=== PATIENT | female | born 1940 | race Hispanic/Latino ===

== ENCOUNTER 2016-05-23 11:07 | Day surgery (SDC) | payer MEDICARE ==
[~2016-05-23 11:07] MED LIST: ANCEF/STERILE WATER 2 GM/20 ML 20 ML IV SCH; HEPARIN SUB-Q NR; ceFAZolin 2 GM in NACL 0.9% 100 ML IV ONE
--- NOTE | 2016-05-23 12:06 | Anesthesia Consultation ---
Anesthesia Consult and Med Hx Date of service: 05/23/16 (Scheduled for diagnostic laparoscopy , poss SHAWNA with Dr. Boland) - Airway Anesthetic Teeth Evaluation: Partials (upper and lower) ROM Head & Neck: Adequate Mental/Hyoid Distance: Adequate Mallampati Class: Class II Intubation Access Assessment: Probably Good - Pulmonary Exam CTA: Yes - Cardiac Exam Cardiac Exam: RRR - Pre-Operative Health Status ASA Pre-Surgery Classification: ASA2 Proposed Anesthetic Plan: General - Pre-Anesthesia Comment Pre-Anesthesia Comments: No previous anesthesia complications. NPO since midnight. *Latex allergy- causes rash. - Pulmonary Hx Smoking: No Hx Asthma: No Hx Sleep Apnea: No - Cardiovascular System Hx Hypertension: No Hx Heart Murmur: Yes - Central Nervous System Hx Seizures: No Hx Psychiatric Problems: Yes - Gastrointestinal Hx Gastroesophageal Reflux Disease: Yes (no symtoms today) - Endocrine Hx Renal Disease: No Hx Insulin Dependent Diabetes: No Hx Hypothyroidism: Yes (Takes Synthroid) - Hematic Hx Anemia: Yes (IN THE PAST) - Other Systems Hx Cancer: No Hx Obesity: No
[2016-05-23 12:35] LABS: Basophils % (Auto) 0.1 % (0.0-1.8); Hematocrit 42.2 % (30.3-42.9); Hemoglobin 14.4 gm/dl (10.1-14.3); Mean Corpuscular HGB Conc 34 % (30-34); Mean Corpuscular Hemoglobin 32 pg (28-32); Mean Corpuscular Volume 94 fl (79-97); Red Blood Count 4.46 M/mm3 (3.65-5.03); Red Cell Distribution Width 13.4 % (13.2-15.2); White Blood Count 5.3 K/mm3 (4.5-11.0)
[2016-05-23] MEDS ORDERED: DIPRIVAN 10 MG/ML IV ONE (12:47)
[2016-05-23] MEDS ORDERED: SUBLIMAZE ONE (12:47)
[2016-05-23] MEDS ORDERED: XYLOCAINE MPF 2% ONE (12:48)
[2016-05-23] MEDS ORDERED: ZEMURON IV ONE (12:48)
[2016-05-23] MEDS ORDERED: LACTATED RINGERS 1,000 ML IV SCH (13:00)
[2016-05-23] MEDS ORDERED: PEPCID PO NR (13:00)
[2016-05-23] MEDS ORDERED: BENADRYL PO NR (13:00)
[2016-05-23] MEDS ORDERED: DILAUDID IV PRN (13:04)
--- NOTE | 2016-05-23 13:26 | Anesthesia Day of Surgery ---
Anesthesia Day of Surgery - Day of Surgery Patient Examined: Yes Patient H&P Reviewed: Yes Patient is NPO: Yes
[2016-05-23 13:29] LABS: Platelet Count 144 K/mm3 (140-440)
[2016-05-23] MEDS ORDERED: DECADRON ONE (13:51)
[2016-05-23] MEDS ORDERED: ePHEDrine SULFATE ONE (13:57)
[2016-05-23] MEDS ORDERED: ZOFRAN ONE (14:33)
[2016-05-23] MEDS ORDERED: DILAUDID ONE (14:35)
[2016-05-23] MEDS ORDERED: NACL 0.9% IR ONE ×2 (15:00→15:05)
[2016-05-23] MEDS ORDERED: MARCAINE-EPI 0.25%-1:200,000 INFILTRATI ONE (15:05)
[2016-05-23] MEDS ORDERED: TORADOL ONE (15:12)
[2016-05-23] MEDS ORDERED: ROBINUL ONE ×2 (15:15)
[2016-05-23] MEDS ORDERED: BLOXIVERZ ONE (15:15)
--- NOTE | 2016-05-23 15:24 | Short Stay Summary ---
Short Stay Documentation Date of service: 05/23/16 - History H&P: obtained from office - Allergies and Medications Current Medications: Allergies adhesive Allergy (Verified 11/18/15 10:24) Rash aspirin Allergy (Verified 11/18/15 10:24) Bleeding codeine Allergy (Verified 11/18/15 10:24) Hives latex Allergy (Verified 11/18/15 10:24) Rash metoclopramide HCl [From Reglan] Allergy (Verified 11/18/15 10:24) Itching morphine Allergy (Verified 11/18/15 10:24) Rash Sulfa (Sulfonamide Antibiotics) Allergy (Verified 11/18/15 10:24) Rash Home Medications Medication Instructions Recorded Confirmed Last Taken Type Buspirone HCl 15 mg PO QDAY 06/11/13 05/23/16 05/22/16 History Estrogens, Conjugated [Premarin] 0.625 mg PO QDAY 06/11/13 05/23/16 05/22/16 History Levothyroxine [Synthroid] 25 mcg PO QAM 06/11/13 05/23/16 05/23/16 History traZODone [Desyrel] 200 mg PO QPM 06/11/13 05/23/16 05/22/16 History Promethazine [Phenergan TAB] 25 mg PO Q6H PRN #10 tablet 06/12/13 05/23/1605/22 Rx LORazepam [Ativan] 1 mg PO PRN 09/16/14 05/23/16 05/22/16 History Buspirone HCl [busPIRone] 30 mg PO QHS 05/19/16 05/23/16 05/22/16 History Active Medications Diphenhydramine HCl (Benadryl) 50 mg PO ONCE NR Stop: 05/23/16 23:59 Last Admin: 05/23/16 13:05 Dose: 50 mg Famotidine (Pepcid) 20 mg PO PREOP NR Stop: 05/23/16 23:59 Last Admin: 05/23/16 13:08 Dose: 20 mg Heparin Sodium (Porcine) (Heparin) 5,000 unit SUB-Q PREOP NR Stop: 05/23/16 23:59 Hydromorphone HCl (Dilaudid) 0.5 mg IV Q10MIN PRN PRN Reason: Pain , Severe (7-10) Stop: 05/23/16 23:05 Cefazolin Sodium (Ancef/Sterile Water 2 Gm/20 Ml) 20 mls @ 80 mls/hr IV PREOP AMANDA Stop: 05/23/16 23:59 Lactated Ringer's (Lactated Ringers) 1,000 mls @ 42 mls/hr IV DIRECT AMANDA Last Admin: 05/23/16 12:50 Dose: 42 mls/hr - Brief post op/procedure progress note Date of procedure: 05/23/16 Pre-op diagnosis: LLQ abdominal pain Post-op diagnosis: same Procedure: Lap lysis of adhesions Anesthesia: GETA, local 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: 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 Cracking Unit: DAGO GARCIA Estimated blood loss: minimal Pathology: none Condition: stable - Disposition Condition at discharge: Good Disposition: DISCHARGED TO HOME OR SELFCARE Short Stay Discharge Plan Activity: no restrictions Diet: regular (Stay on soft liquidy foods until feeling back to normal) Wound: remove dressing (05/25/16 and then may shower) Follow up with: YONATHAN FONG MD [Primary Care Provider] - 7 Days VICKEY SOMERS MD [Staff Physician] - 7 Days Prescriptions: Ketorolac [Toradol] 10 mg PO Q6H PRN #20 tablet PRN Reason: Pain oxyCODONE /ACETAMINOPHEN [Percocet 5/325] 1 - 2 tab PO Q4HR PRN #30 tab PRN Reason: Pain
--- NOTE | 2016-05-23 15:45 | Admit Criteria Form ---
Admission Criteria Documentation: ABDOMINAL PAIN Clinical Indications for Admission to Inpatient Care (Place 'X' for any and all applicable criteria): Admission is indicated for ANY ONE of the following(1)(2)(3)(4)(5): [ ]I. Inpatient admission required rather than observation care (Also use Abdominal Pain: Observation Care, as appropriate) because of ANY ONE of the following: [ ]a) Severe pain requiring acute inpatient management [ ]b) Identification of etiology/finding that requires inpatient care (eg, aortic dissection, free air) [ ]c) Absent bowel sounds with complete ileus(6) [ ]d) Suspected toxic megacolon [ ]e) Severe electrolyte abnormalities requiring inpatient care [ ]f) High fever or infection requiring inpatient admission as indicated by ANY ONE of following(7)(8): [ ] i) Appropriate outpatient or observational care antimicrobial treatment unavailable, not effective, or not feasible [ ] ii) Documented bacteremia [ ] iii) Temperature > 104.9 degrees F (oral) [ ] iv) T >103.1 F (oral) or < 96.8 F(rectal) that does not respond to all emergency treatment measures [ ]g) Signs of intestinal obstruction [B] [ ]h) Hemodynamic instability [ ]i) IV fluid to replace significant ongoing losses (greater than 3 L/m2 per day) (12)(13) [ ]j) Percutaneous or open drainage (eg, abscess, biliary tract ) procedures [ ]k) Parenteral nutrition regimen that must be implemented on inpatient basis [ ]l) Other condition,treatment or monitoring requiring inpatient admission. [ ]II. Peritoneal signs present [ ]III. Surgery needed that cannot be performed on an ambulatory basis. [ ]IV. Evaluation requires patient to not eat or drink for extended period ( eg, more than 24 hours). [ ]V. Contraindications and/or Inappropriate clinical situations for Observational Care in patients with abdominal pain, when ANY ONE of the following is required: [ ]a) Thorough evaluation is required to prevent catastrophic events due to delays in diagnosing (e.g.Mesenteric ischemia) 1,3 [ ]b) Patient with severe pathology or with chronic symptoms unlikely to improve in the ED stay (3) [ ]. General contraindications and/or Inappropriate clinical situations for Observational Care in patients with abdominal pain, when ANY ONE of the following is required: [ ]a) Prediction of prolongation of LOS based on ANY ONE of the following may be considered as a contraindication for observational care 2, 3, 4, 5, 6, 7, 8, 9, 10, 11 [ ]i) Age > 65 yrs. [ ]ii) Patient arriving by ambulance [ ]iii) Patient with high acuity [ ]iv) Patient requiring vital sign monitoring [ ]v) Patient on IV medication [ ]b) Systolic blood pressures 180mmHg 3,12 [ ]c) Patient with altered mental status including delirium and other alteration of consciousness, (3) [ ]d) Patient whose discharge disposition will be to a [facility] home or rehabilitation home should not be managed in Emergency Department Observation Unit. CMS rule requires 3 days hospital stay before such placement.3,13 [ ]e) Patient with failure to thrive due to broad array of etiologies 3,16,17 [ ]f) Inability to ambulate 3,14 Extended stay beyond goal length of stay may be needed for(2)(3): [ ]a) Persistent abdominal pain with suspected intra-abdominal process [ ]b) Diagnosed condition requiring continued stay (e.g., pancreatitis, complicated diverticulitis) [ ]c) Surgery (e.g., colectomy) The original [facility] content created by [facility] has been revised. The portions of the content which have been revised are identified through the use of italic text or in bold, and [facility] has neither reviewed nor approved the modified material.All other unmodified content is copyright [facility]. Please see references footnoted in the original [facility] edition 2016
--- NOTE | 2016-05-23 16:27 | Operative Report ---
PREOPERATIVE DIAGNOSIS: Left lower quadrant abdominal pain. POSTOPERATIVE DIAGNOSIS: Left lower quadrant abdominal pain. PROCEDURE: Laparoscopic lysis of adhesions. SURGEON: Jeyson Collado MD LEARNING TECHNOLOGIST: Dr. Hawkins. ANESTHESIA: General and local. ESTIMATED BLOOD LOSS: Minimal. SPECIMEN: None. IMPLANTS: None. DRAINS: None. COMPLICATIONS: None. INDICATIONS: This is a 76-year-old female who has left lower quadrant abdominal pain, which is felt to be due to adhesions, sent now for laparoscopic exploration with lysis of adhesions. OPERATIVE COURSE: The patient was brought to the operating room, identified, and placed in the supine position. General anesthesia was achieved. Her abdomen was prepped and draped in usual manner. Prior to all incisions, the area was injected with 0.25% Marcaine. A right lateral 5-mm incision was made using Veress needle technique. The abdomen was insufflated to 15 mmHg pressure. A 5 mm trocar was inserted using a 30-degree 5-mm telescope. The other trocars were placed under direct vision, which included a right lower quadrant and a right upper quadrant 5 port. The abdomen was explored. She had some adhesions to the left of the upper midline scar and then the rest adhesions were all down the left lower quadrant pelvis, one little adhesion was to the far right upper quadrant by the liver edge. We took down the adhesions to the midline left-sided adhesion with pure sharp dissection. All the adhesions ____, fused to the abdominal wall. There was no omentum to be seen. These adhesions were all taken down with almost no cautery whatsoever. Great care was taken not to injure the bowels themselves. Once we had all the adhesions completely down and freed up, we had a completely freed pelvis and ____ into the bowels. We allowed the bowels return to the normal anatomic position. There was no blood to evacuate, no fluid to evacuate. We therefore then removed the ports under direct vision. No signs of bleeding from the port sites. We have evacuated the CO2. JOB# [id number] PALMAM/NTS
[2016-05-23] MEDS ORDERED: PERCOCET 5/325 PO PRN (16:37)
[2016-05-23 16:53] VITALS: BP 154/63
== END 2016-05-23 17:09 | disposition home or self-care (01) ==
LOC: OR 11:07
PROVIDERS: ATTEND Surgery
DX: N73.6 Female pelvic peritoneal adhesions (postinfective) (principal); E03.9 Hypothyroidism, unspecified; K21.9 Gastro-esophageal reflux disease without esophagitis; M19.90 Unspecified osteoarthritis, unspecified site; D64.9 Anemia, unspecified; F41.9 Anxiety disorder, unspecified; F32.9 Major depressive disorder, single episode, unspecified; Z98.890 Other specified postprocedural states; Z90.710 Acquired absence of both cervix and uterus
CPT/HCPCS: 36415; 49329; 85025; 86850; 86900; 86901; J0690; J1100; J1170; J1644; J1885; J2405; J2704; J2710; J3010; J7120

== ENCOUNTER 2016-05-23 18:50 | Emergency (ER) | payer MEDICARE ==
--- NOTE | 2016-05-23 19:24 | Emergency Department Report ---
Chief Complaint: Wound/Laceration Stated Complaint: BLEEDING FROM INCISION SITE Time Seen by Provider: 05/23/16 19:17 - HPI History of Present Illness: 76 y/o female had endoscopic surgery of the right lower abdomen to remove that adhesive .pt state that she went home today and notice bleeding from the site.the surgery was performed by today .bleeding noted from two puncture site .control with band aid.pt complain of dizziness . - ROS Review of Systems: per HPI - Exam Vital Signs: Vital Signs 05/23/16 19:09 Temperature 97.8 F Pulse Rate 98 H Respiratory 20 Rate Blood Pressure 150/84 O2 Sat by Pulse 100 Oximetry Physical Exam: GENERAL: The patient is well-developed and well-nourished. Patient is in NAD. HENT: Normocephalic. Atraumatic. Patient has moist mucous membranes. Throat: No erythema, swelling or exudates. EYES: Extraocular motions are intact, PERRL NECK: Supple. No meningitic signs are noted. There is no adenopathy noted. CHEST/LUNGS: Clear to auscultation bilaterally. No wheezing, rales or rhonchi noted. There is no respiratory distress noted. HEART/CARDIOVASCULAR: Regular rate and rhythm. Normal S1 S2. No murmurs, rubs , clicks, or gallops. ABDOMEN: Abdomen is soft, nontender.. Bowel sounds normoactive. There is no abdominal distention. Negative rebound tenderness. SKIN: small wound noted to the abdomen . There is no edema. There is no diaphoresis. NEURO: The patient is A&Ox3. The patient has no focal neurologic deficits. MUSCULOSKELETAL: There is no tenderness or deformity. There is no limitation range of motion. PSYCH: Pt has appropriate mood and affect. MSE screening note: Focused history and physical exam performed. Due to findings the following was ordered: ED Disposition for MSE Condition: Stable
[2016-05-23 19:49] LABS: Hematocrit 39.3 % (30.3-42.9); Hemoglobin 13.4 gm/dl (10.1-14.3); Mean Corpuscular HGB Conc 34 % (30-34); Mean Corpuscular Hemoglobin 32 pg (28-32); Mean Corpuscular Volume 95 fl (79-97); Platelet Count 166 K/mm3 (140-440); Red Blood Count 4.15 M/mm3 (3.65-5.03); Red Cell Distribution Width 13.2 % (13.2-15.2); White Blood Count 10.1 K/mm3 (4.5-11.0)
[2016-05-23 20:08] LABS: Anion Gap 24 mmol/L; BUN/Creatinine Ratio 23.75; Blood Urea Nitrogen 19 mg/dL (7-17); Calcium 8.7 mg/dL (8.4-10.2); Carbon Dioxide 21 mmol/L (22-30); Chloride 96.1 mmol/L (98-107); Glucose 246 mg/dL (65-100); Potassium 4.7 mmol/L (3.6-5.0); Sodium 136 mmol/L (137-145)
[2016-05-23 20:33] LABS: Basophils % (Manual) 0 % (0.0-1.8); Blastocytes % (Manual) 0 %; Eosinophils % (Manual) 0 % (0.0-4.3); Total Cells Counted Percent 0
[2016-05-23 20:34] LABS: Anisocytosis 1+; Diff Status Complete; Platelet Estimate Consistent w Auto
--- NOTE | 2016-05-23 21:54 | Emergency Department Report ---
[id number] BLEEDING FROM INCISION SITE Time Seen by Provider: 05/23/16 20:26 Source: patient, family, RN notes reviewed, old records reviewed Mode of arrival: Ambulatory Limitations: No Limitations - History of Present Illness Initial comments: This is a 76-year-old female, whom I have evaluated in the past. Earlier on today, she had laparoscopic lysis of adhesions, performed by Drs. Jeyson Collado, and Dr. Hawkins general surgery. The patient presents to the ER with mild bleeding from a right lateral 5 mm incision. The bleeding is painless. No fevers or chills. No chest pain or shortness of breath. No vomiting or diaphoresis. The bleeding is minimal, and decreases with direct palpation of the area. No other complaints. -: Gradual Radiation: abdomen Consistency: constant Improves with: other (pressure) Worsens with: none Associated Symptoms: denies: confusion, chest pain, cough, diaphoresis, fever/ chills, headaches, loss of appetite, malaise, nausea/vomiting, rash, seizure, shortness of breath, syncope, weakness - Related Data Home Medications Medication Instructions Recorded Confirmed Last Taken Buspirone HCl 15 mg PO QDAY 06/11/13 05/23/16 05/22/16 Estrogens, Conjugated [Premarin] 0.625 mg PO QDAY 06/11/13 05/23/16 05/22/16 Levothyroxine [Synthroid] 25 mcg PO QAM 06/11/13 05/23/16 05/23/16 traZODone [Desyrel] 200 mg PO QPM 06/11/13 05/23/16 05/22/16 LORazepam [Ativan] 1 mg PO PRN 09/16/14 05/23/16 05/22/16 Buspirone HCl [busPIRone] 30 mg PO QHS 05/19/16 05/23/16 05/22/16 Previous Rx's Medication Instructions Recorded Last Taken Type Ketorolac [Toradol] 10 mg PO Q6H PRN #20 tablet 05/23/16 Unknown Rx Promethazine [Phenergan TAB] 25 mg PO Q6H PRN #10 tablet 05/23/16 05/22/16 Rx oxyCODONE /ACETAMINOPHEN [Percocet 1 - 2 tab PO Q4HR PRN #30 tab 05/23/16 Unknown Rx 5/325] Allergies Allergy/AdvReac Type Severity Reaction Status Date / Time adhesive Allergy Rash Verified 11/18/15 10:24 aspirin Allergy Bleeding Verified 11/18/15 10:24 codeine Allergy Hives Verified 11/18/15 10:24 latex Allergy Rash Verified 11/18/15 10:24 metoclopramide HCl Allergy Itching Verified 11/18/15 10:24 [From Reglan] morphine Allergy Rash Verified 11/18/15 10:24 Sulfa (Sulfonamide Allergy Rash Verified 11/18/15 10:24 Antibiotics) ED Review of Systems ROS: Stated complaint: BLEEDING FROM INCISION SITE Other details as noted in HPI Constitutional: denies: malaise Eyes: denies: vision change ENT: denies: epistaxis Respiratory: denies: cough Cardiovascular: denies: chest pain Gastrointestinal: as per HPI Genitourinary: as per HPI Musculoskeletal: as per HPI Skin: lesions Hematological/Lymphatic: easy bleeding ED Past Medical Hx - Past Medical History Previous Medical History?: Yes Hx Hypertension: No Hx GERD: Yes Hx Renal Disease: No Hx Arthritis: Yes Hx Seizures: No Hx Asthma: No Hx HIV: No Additional medical history: MVP - Surgical History Past Surgical History?: Yes Hx Cholecystectomy: Yes Hx Appendectomy: Yes - Social History Smoking Status: Never Smoker Substance Use Type: None - Medications Home Medications: Home Medications Medication Instructions Recorded Confirmed Last Taken Type Buspirone HCl 15 mg PO QDAY 06/11/13 05/23/16 05/22/16 History Estrogens, Conjugated [Premarin] 0.625 mg PO QDAY 06/11/13 05/23/16 05/22/16 History Levothyroxine [Synthroid] 25 mcg PO QAM 06/11/13 05/23/16 05/23/16 History traZODone [Desyrel] 200 mg PO QPM 06/11/13 05/23/16 05/22/16 History LORazepam [Ativan] 1 mg PO PRN 09/16/14 05/23/16 05/22/16 History Buspirone HCl [busPIRone] 30 mg PO QHS 05/19/16 05/23/16 05/22/16 History Ketorolac [Toradol] 10 mg PO Q6H PRN #20 tablet 05/23/16 Unknown Rx Promethazine [Phenergan TAB] 25 mg PO Q6H PRN #10 tablet 05/23/16 05/23/1605/22 Rx oxyCODONE /ACETAMINOPHEN [Percocet 1 - 2 tab PO Q4HR PRN #30 tab 05/23/16 Unknown Rx 5/325] ED Physical Exam - General Limitations: No Limitations General appearance: alert, in no apparent distress - Head Head exam: Present: atraumatic, normocephalic - Eye Eye exam: Present: normal appearance, EOMI. Absent: nystagmus - ENT ENT exam: Present: normal exam, normal orophraynx, mucous membranes moist - Neck Neck exam: Present: normal inspection, full ROM. Absent: tenderness, meningismus - Respiratory Respiratory exam: Present: normal lung sounds bilaterally. Absent: respiratory distress, wheezes, rales, rhonchi, stridor, chest wall tenderness, accessory muscle use - Cardiovascular Cardiovascular Exam: Present: regular rate, normal rhythm, normal heart sounds. Absent: bradycardia, tachycardia, irregular rhythm, systolic murmur, diastolic murmur, rubs, gallop - GI/Abdominal GI/Abdominal exam: Present: soft, normal bowel sounds, other (there is appropriate postprocedural tenderness. There is no rebound, guarding or peritoneal signs. There are numerous surgical sites which are bandaged up, not actively bleeding. In the right mid abdomen, there is a 5 mm lateral incision, which is bleeding minimally, and was decreased with direct pressure.). Absent: distended, guarding, rebound, rigid, pulsatile mass - Extremities Exam Extremities exam: Present: normal inspection, full ROM, normal capillary refill. Absent: tenderness, pedal edema, joint swelling, calf tenderness - Back Exam Back exam: Present: normal inspection, full ROM. Absent: tenderness, CVA tenderness (R), CVA tenderness (L), muscle spasm, paraspinal tenderness, vertebral tenderness - Neurological Exam Neurological exam: Present: alert, oriented X3, other (Extraocular movements intact. Tongue midline. No facial droop. Facial sensation intact to light touch in the V1, V2, V3 distribution bilaterally. 5 and 5 strength in 4 extremities.. Sensation is intact to light touch in 4 extremities.). Absent: motor sensory deficit - Psychiatric Psychiatric exam: Present: normal affect, normal mood - Skin Skin exam: Present: warm, dry, intact, normal color. Absent: rash ED Course Vital Signs 05/23/16 05/23/16 05/23/16 19:09 20:32 20:50 Temperature 97.8 F Pulse Rate 98 H 93 H 94 H Respiratory 20 16 16 Rate Blood Pressure 150/84 Blood Pressure 137/94 136/92 [Left] O2 Sat by Pulse 100 95 95 Oximetry 05/23/16 22:36 Temperature Pulse Rate 74 Respiratory 16 Rate Blood Pressure Blood Pressure 145/73 [Left] O2 Sat by Pulse 95 Oximetry - Reevaluation(s) Reevaluation #1: 05/23/16 21:51 Differential diagnosis: Postoperative bleeding, postoperative complication Assessment and plan: 76-year-old female status post mild episode of postoperative bleeding externally and superficially. She is afebrile with reassuring vital signs. Her abdomen is soft and benign. No rebound, guarding or peritoneal signs. I have discussed her care with the general surgeon covering for the patient's private general surgeon, Dr. Omalley. He does not recommend suturing the wound, as he states it'll increase the probability of infection. He recommends application of Surgicel, and a pressure dressing. This was performed. Patient will be instructed to keep the bandage in place, and to follow-up with her general surgeon within the next 24-48 hours. Return precautions were extensively reviewed. 05/23/16 21:55 ED Medical Decision Making - Lab Data Result diagrams: 05/23/16 19:38 05/23/16 19:38 Vital Signs 05/23/16 05/23/16 05/23/16 19:09 20:32 20:50 Temperature 97.8 F Pulse Rate 98 H 93 H 94 H Respiratory 20 16 16 Rate Blood Pressure 150/84 Blood Pressure 137/94 136/92 [Left] O2 Sat by Pulse 100 95 95 Oximetry Lab Results 05/23/16 05/23/16 Range/Units 19:38 19:38 WBC 10.1 (4.5-11.0) K/mm3 RBC 4.15 (3.65-5.03) M/mm3 Hgb 13.4 (10.1-14.3) gm/dl Hct 39.3 (30.3-42.9) % MCV 95 (79-97) fl MCH 32 (28-32) pg MCHC 34 (30-34) % RDW 13.2 (13.2-15.2) % Plt Count 166 (140-440) K/mm3 Add Manual Diff Complete Total Counted 100 Seg Neutrophils % Escort Blind Seg Neuts % (Manual) 95.0 H (40.0-70.0) % Band Neutrophils % 0 % Lymphocytes % (Manual) 5.0 L (13.4-35.0) % Reactive Lymphs % (Man) 0 % Monocytes % (Manual) 0 (0.0-7.3) % Eosinophils % (Manual) 0 (0.0-4.3) % Basophils % (Manual) 0 (0.0-1.8) % Metamyelocytes % 0 % Myelocytes % 0 % Promyelocytes % 0 % Blast Cells % 0 % Nucleated RBC % Not Reportable Seg Neutrophils # Man 9.6 H (1.8-7.7) K/mm3 Band Neutrophils # 0.0 K/mm3 Lymphocytes # (Manual) 0.5 L (1.2-5.4) K/mm3 Abs React Lymphs (Man) 0.0 K/mm3 Monocytes # (Manual) 0.0 (0.0-0.8) K/mm3 Eosinophils # (Manual) 0.0 (0.0-0.4) K/mm3 Basophils # (Manual) 0.0 (0.0-0.1) K/mm3 Metamyelocytes # 0.0 K/mm3 Myelocytes # 0.0 K/mm3 Promyelocytes # 0.0 K/mm3 Blast Cells # 0.0 K/mm3 WBC Morphology Not Reportable Hypersegmented Neuts Not Reportable Hyposegmented Neuts Not Reportable Hypogranular Neuts Not Reportable Smudge Cells Not Reportable Toxic Granulation Not Reportable Toxic Vacuolation Not Reportable Dohle Bodies Not Reportable Pelger-Huet Anomaly Not Reportable Rai Rods Not Reportable Platelet Estimate Consistent w auto Clumped Platelets Not Reportable Plt Clumps, EDTA Not Reportable Large Platelets Not Reportable Giant Platelets Not Reportable Platelet Satelliting Not Reportable Plt Morphology Comment Not Reportable RBC Morphology Not Reportable Dimorphic RBCs Not Reportable Polychromasia Not Reportable Hypochromasia Not Reportable Poikilocytosis Not Reportable Anisocytosis 1+ Microcytosis Not Reportable Macrocytosis Not Reportable Spherocytes Not Reportable Pappenheimer Bodies Not Reportable Sickle Cells Not Reportable Target Cells Not Reportable Tear Drop Cells Not Reportable Ovalocytes Not Reportable Helmet Cells Not Reportable [place] Bodies Not Reportable [place] Rings Not Reportable [place] Cells Not Reportable Bite Cells Not Reportable Crenated Cell Not Reportable Elliptocytes Not Reportable Acanthocytes (Spur) Not Reportable Rouleaux Not Reportable Hemoglobin C Crystals Not Reportable Schistocytes Not Reportable Malaria parasites Not Reportable [place] Bodies Not Reportable Hem Pathologist Commnt No Sodium 136 L (137-145) mmol/L Potassium 4.7 (3.6-5.0) mmol/L Chloride 96.1 L (98-107) mmol/L Carbon Dioxide 21 L (22-30) mmol/L Anion Gap 24 mmol/L BUN 19 H (7-17) mg/dL Creatinine 0.8 (0.7-1.2) mg/dL Estimated GFR > 60 ml/min BUN/Creatinine Ratio 23.75 % Glucose 246 H (65-100) mg/dL Calcium 8.7 (8.4-10.2) mg/dL Critical care attestation.: If time is entered above; I have spent that time in minutes in the direct care of this critically ill patient, excluding procedure time. ED Disposition Clinical Impression: Postoperative bleeding from incision Disposition: DISCHARGED TO HOME OR SELFCARE Is pt being admited?: No Does the pt Need Aspirin: No Condition: Stable Instructions: Postoperative Bleeding (ED) Additional Instructions: Continue current outpatient medications. Keep the pressure bandage in place. Follow up with her general surgeon within the next 1-2 days. If bleeding resumes, apply direct pressure with a fingertip. If this does not improve bleeding, return to the ER right away. Return to the ER right away fevers or chills, chest pain or shortness of breath, nausea, vomiting or diarrhea. Referrals: PRIMARY CARE, [Primary Care Provider] - 3-5 Days DAGO HAWKINS MD [Staff Physician] - 3-5 Days
[2016-05-23 22:37] VITALS: BP 145/73
== END 2016-05-23 22:40 | disposition home or self-care (01) ==
LOC: ED 18:50
DX: L76.22 Postprocedural hemorrhage of skin and subcutaneous tissue following other procedure (principal); K21.9 Gastro-esophageal reflux disease without esophagitis; Z90.49 Acquired absence of other specified parts of digestive tract
CPT/HCPCS: 36415; 80048; 85007; 85025

== ENCOUNTER 2017-05-09 08:30 | Outpatient (CLI) | payer MEDICARE ==
--- NOTE | 2017-05-09 09:47 | Mammography Report ---
BILATERAL MAMMOGRAM: FINDINGS: There are scattered fibroglandular densities (approximately 25%-50% glandular). No mass, distortion, suspicious calcification, or skin change is seen. No significant change when compared to prior examination in June 2015. CAD was utilized. IMPRESSION: Negative mammogram. There is no mammographic evidence of malignancy. RECOMMENDATION: Follow-up per ACS guidelines. BI-RADS CATEGORY: 1 = Negative ACR BI-RADS MAMMOGRAPHIC CODES: 0 = Needs additional imaging evaluation; 1 = Negative; 2 = Benign; 3 = Probably benign; 4 = Suspicious; 5 = Malignant; 6 = Known biopsy-proven malignancy COMMENT: 1. Dense breast tissue, i.e., adenosis, fibrocystic changes, etc., may obscure an underlying neoplasm. 2. Approximately 10% of cancers are not detected with mammography. 3. A negative mammography report should not delay biopsy if a clinically suspicious mass is present. COMMENT: Patient follow-up letters are generated in [employer].
== END 2017-05-09 08:31 | disposition home or self-care (01) ==
LOC: MAMMO 08:30
PROVIDERS: ATTEND Obstetrics & Gynecology
DX: Z12.31 Encounter for screening mammogram for malignant neoplasm of breast (principal); E03.9 Hypothyroidism, unspecified; K21.9 Gastro-esophageal reflux disease without esophagitis; F32.9 Major depressive disorder, single episode, unspecified
CPT/HCPCS: 77067

== ENCOUNTER 2017-10-12 23:23 | Observation (INO) | payer MEDICARE ==
[2017-10-12] MEDS ORDERED: ASPIRIN PO ONE (23:56)
[2017-10-13 00:32] LABS: Basophils % (Auto) 0.2 % (0.0-1.8); Hematocrit 41.9 % (30.3-42.9); Hemoglobin 14.1 gm/dl (10.1-14.3); Lymphocytes # (Auto) 2.1 K/mm3 (1.2-5.4); Lymphocytes % (Auto) 37.7 % (13.4-35.0); Mean Corpuscular HGB Conc 34 % (30-34); Mean Corpuscular Hemoglobin 32 pg (28-32); Mean Corpuscular Volume 95 fl (79-97); Monocytes # (Auto) 0.5 K/mm3 (0.0-0.8); Monocytes % (Auto) 9.3 % (0.0-7.3); Platelet Count 197 K/mm3 (140-440); Red Blood Count 4.43 M/mm3 (3.65-5.03); Red Cell Distribution Width 13.3 % (13.2-15.2)
[2017-10-13 00:48] LABS: BUN/Creatinine Ratio 22; Blood Urea Nitrogen 13 mg/dL (7-17); Calcium 10.2 mg/dL (8.4-10.2); Hemolysis Index 10
[2017-10-13] MEDS ORDERED: NORCO 5/325 PO ONE (02:36)
--- NOTE | 2017-10-13 02:48 | Emergency Department Report ---
ED Chest Pain HPI - General Chief Complaint: Chest Pain Stated Complaint: CHEST PAIN Time Seen by Provider: 10/13/17 02:29 Source: patient Mode of arrival: Ambulatory Limitations: Physical Limitation - History of Present Illness Initial Comments: 77-year-old female presents to the emergency department with complaint of some lower midsternal chest pain without radiation, a generalized headache, and some shortness of breath that started about 7 PM this evening. The headache is 7 out of 10 in intensity and the chest pain is 8 out of 10. She took some Tylenol for her symptoms without any relief. No recent travel or sick contacts at home. She has a history of mitral valve prolapse, hypothyroidism and arthritis. She follows with Dr. Bailey at [facility] and said that she had an echocardiogram done within the past 2 weeks that was normal at that time. She presents with a little bit of blood pressure but denies any history of hypertension. - Related Data Home Medications Medication Instructions Recorded Confirmed Last Taken Buspirone HCl 15 mg PO QDAY 06/11/13 05/23/16 05/22/16 Estrogens, Conjugated [Premarin] 0.625 mg PO QDAY 06/11/13 05/23/16 05/22/16 Levothyroxine [Synthroid] 25 mcg PO QAM 06/11/13 05/23/16 05/23/16 traZODone [Desyrel] 200 mg PO QPM 06/11/13 05/23/16 05/22/16 LORazepam [Ativan] 1 mg PO PRN 09/16/14 05/23/16 05/22/16 Buspirone HCl [busPIRone] 30 mg PO QHS 05/19/16 05/23/16 05/22/16 Previous Rx's Medication Instructions Recorded Last Taken Type Ketorolac [Toradol] 10 mg PO Q6H PRN #20 tablet 05/23/16 Unknown Rx Promethazine [Phenergan TAB] 25 mg PO Q6H PRN #10 tablet 05/23/16 05/22/16 Rx oxyCODONE /ACETAMINOPHEN [Percocet 1 - 2 tab PO Q4HR PRN #30 tab 05/23/16 Unknown Rx 5/325] Allergies Allergy/AdvReac Type Severity Reaction Status Date / Time adhesive Allergy Rash Verified 11/18/15 10:24 aspirin Allergy Bleeding Verified 11/18/15 10:24 codeine Allergy Hives Verified 11/18/15 10:24 latex Allergy Rash Verified 11/18/15 10:24 metoclopramide HCl Allergy Itching Verified 11/18/15 10:24 [From Reglan] morphine Allergy Rash Verified 11/18/15 10:24 Sulfa (Sulfonamide Allergy Rash Verified 11/18/15 10:24 Antibiotics) Heart Score - HEART Score History: Moderately suspicious EKG: Non-specific Age: > 65 Risk factors: 1-2 risk factors Troponin: < normal limit HEART Score: 5 - Critical Actions Critical Actions: 4-6 pts:12-16.6% risk of adverse cardiac event. Should be admitted ED Review of Systems ROS: Stated complaint: CHEST PAIN Other details as noted in HPI Comment: All other systems reviewed and negative Constitutional: denies: chills, fever Eyes: denies: eye pain, eye discharge, vision change ENT: denies: ear pain, throat pain Respiratory: shortness of breath. denies: cough Cardiovascular: chest pain. denies: palpitations Gastrointestinal: denies: abdominal pain, nausea, diarrhea Genitourinary: denies: urgency, dysuria, discharge Musculoskeletal: denies: back pain, joint swelling, arthralgia Skin: denies: rash, lesions Neurological: headache. denies: numbness ED Past Medical Hx - Past Medical History Hx Hypertension: No Hx GERD: Yes Hx Renal Disease: No Hx Arthritis: Yes Hx Seizures: No Hx Asthma: No Hx HIV: No Additional medical history: MVP, Thyroid Disease, Polio - Surgical History Hx Cholecystectomy: Yes Hx Appendectomy: Yes Additional Surgical History: Left knee haedware, Tonsillectomy, Hiatal hernia repair, Lysis of sdhesions, C-sections - Social History Smoking Status: Never Smoker Substance Use Type: None - Medications Home Medications: Home Medications Medication Instructions Recorded Confirmed Last Taken Type Buspirone HCl 15 mg PO QDAY 06/11/13 05/23/16 05/22/16 History Estrogens, Conjugated [Premarin] 0.625 mg PO QDAY 06/11/13 05/23/16 05/22/16 History Levothyroxine [Synthroid] 25 mcg PO QAM 06/11/13 05/23/16 05/23/16 History traZODone [Desyrel] 200 mg PO QPM 06/11/13 05/23/16 05/22/16 History LORazepam [Ativan] 1 mg PO PRN 09/16/14 05/23/16 05/22/16 History Buspirone HCl [busPIRone] 30 mg PO QHS 05/19/16 05/23/16 05/22/16 History Ketorolac [Toradol] 10 mg PO Q6H PRN #20 tablet 05/23/16 Unknown Rx Promethazine [Phenergan TAB] 25 mg PO Q6H PRN #10 tablet 05/23/16 05/23/1605/22 Rx oxyCODONE /ACETAMINOPHEN [Percocet 1 - 2 tab PO Q4HR PRN #30 tab 05/23/16 Unknown Rx 5/325] ED Physical Exam - General Limitations: Physical Limitation - Other Other exam information: GENERAL: The patient is well-developed well-nourished. HENT: Normocephalic. Atraumatic. Patient has moist mucous membranes. EYES: Extraocular motions are intact. Pupils equal reactive to light bilaterally. NECK: Supple. Trachea is midline. CHEST/LUNGS: Clear to auscultation. There is no respiratory distress noted. Chest pain is not reproducible to palpation of the chest wall. HEART/CARDIOVASCULAR: Regular. There is no tachycardia. There is no murmur. ABDOMEN: Abdomen is soft, nontender. Patient has normal bowel sounds. There is no abdominal distention. SKIN: Skin is warm and dry. NEURO: The patient is awake, alert, and oriented. The patient is cooperative. The patient has no focal neurologic deficits. The patient has normal speech. MUSCULOSKELETAL: There is no tenderness or deformity. There is no evidence of acute injury. ED Course Vital Signs 10/12/17 10/13/17 10/13/17 23:48 02:00 02:11 Temperature 97.1 F L 98.3 F Pulse Rate 78 71 71 Respiratory 18 19 24 Rate Blood Pressure 176/102 154/86 Blood Pressure 163/83 [Left] O2 Sat by Pulse 97 96 96 Oximetry 10/13/17 10/13/17 03:01 04:16 Temperature Pulse Rate 68 Respiratory 19 Rate Blood Pressure 161/91 167/74 Blood Pressure [Left] O2 Sat by Pulse 97 96 Oximetry JOLIE score - Jolie Score Age > 65: (1) Yes Aspirin use within the Past 7 Days: (0) No 3 or more CAD Risk Factors: (0) No 2 or more Angina events in past 24 hrs: (1) Yes Known CAD with more than 50% Stenosis: (0) No Elevated Cardiac Markers: (0) No ST Deviation Greater than 0.5mm: (0) No JOLIE Score: 2 ED Medical Decision Making - Lab Data Result diagrams: 10/13/17 00:01 10/13/17 00:01 - EKG Data -: EKG Interpreted by Me EKG shows normal: sinus rhythm, axis ([place] deviation), intervals, QRS complexes (Q waves to the septal and inferior leads), ST-T waves Rate: normal - EKG Data When compared to previous EKG there are: no significant change Interpretation: unchanged when compared t (11/19/15) - Radiology Data Radiology results: report reviewed, image reviewed interpreted by me: Chest x-ray does not show any acute process. There are no pleural effusions, obvious pneumonia and there is no pneumothorax. CT of the head does not show any acute intracranial process including no ischemia, shift, mass, bleeding or skull fracture. - Medical Decision Making Patient presents with acute midsternal chest pain and a headache this evening. EKG does not show any ST elevation [place]. Labs have been unremarkable thus far including negative troponins 2 and a negative d-dimer. Chest x-ray does not show any acute process. CT of the head does not show any bleed, shift, mass or any acute process. Patient will be admitted to the hospital for further evaluation and treatment and has been accepted for admission by the hospitalist , Dr. John. - Differential Diagnosis UT, PE, costochondritis, tension headache, brain bleed, migraine Critical Care Time: No Critical care attestation.: If time is entered above; I have spent that time in minutes in the direct care of this critically ill patient, excluding procedure time. ED Disposition Clinical Impression: Chest pain Qualifiers: Chest pain type: unspecified Qualified Code(s): R07.9 - Chest pain, unspecified Hypertension Qualifiers: Hypertension type: essential hypertension Qualified Code(s): I10 - Essential ( primary) hypertension Headache Qualifiers: Headache type: unspecified Disposition: OP ADMIT IP TO THIS HOSP Is pt being admited?: Yes Condition: Stable Instructions: Chest Pain (ED), Hypertension (ED) Referrals: PRIMARY CARE, [Primary Care Provider] - 3-5 Days Time of Disposition: 04:57
--- NOTE | 2017-10-13 04:13 | XRay Report ---
FINAL REPORT EXAM: XR CHEST 1V AP HISTORY: CP TECHNIQUE: A portable view of the chest was submitted. FINDINGS: The heart size and mediastinum appear normal. There is slight elevation of the left hemidiaphragm. The lungs are clear. Pleural fluid is not seen. There are EKG leads overlying the chest wall. The skeletal structures reveal generalized osteoporosis. IMPRESSION: No active chest disease.
--- NOTE | 2017-10-13 04:29 | Cat Scan Report ---
FINAL REPORT EXAM: CT HEAD/BRAIN WO CON HISTORY: headache TECHNIQUE: Routine axial imaging was obtained of the brain without IV contrast. FINDINGS: There is no evidence of acute stroke or hemorrhage. There is age related atrophy. The ventricular system is appropriate in size and is symmetric. The visualized sinuses are clear. The mastoid air cells are well pneumatized IMPRESSION: Age related atrophy. No evidence of acute stroke or hemorrhage.
[2017-10-13 04:35] LABS: Alanine Aminotransferase 12 units/L (7-56); Albumin 4.8 g/dL (3.9-5)
[2017-10-13 04:56] LABS: Bilirubin,Direct < 0.2 mg/dL (0-0.2)
[2017-10-13] MEDS ORDERED: MORPHINE IV PRN (07:50)
[2017-10-13] MEDS ORDERED: ZOFRAN IV PRN (07:50)
[2017-10-13] MEDS ORDERED: TYLENOL PO PRN (07:50)
[2017-10-13] MEDS ORDERED: SODIUM CHLORIDE FLUSH SYRINGE 10 ML IV PRN (07:50)
[2017-10-13] MEDS ORDERED: PERCOCET 5/325 PO PRN (07:50)
--- NOTE | 2017-10-13 07:50 | Event Note ---
Date: 10/13/17 See Dictated H/p in reports Chest pain r/o [place]
[2017-10-13] MEDS ORDERED: NACL 0.9% 1000 ML 1,000 ML IV SCH (08:00)
[2017-10-13] MEDS ORDERED: LEXISCAN IV ONE ×2 (08:14→09:11)
[2017-10-13] MEDS ORDERED: TYLENOL ONE (08:31)
[2017-10-13] MEDS ORDERED: PROVENTIL IH PRN (09:50)
[2017-10-13] MEDS ORDERED: PREMARIN PO SCH (10:00)
[2017-10-13] MEDS ORDERED: PEPCID IV SCH (10:00)
[2017-10-13] MEDS ORDERED: BUSPIRONE HCL 30 MG PO SCH (10:00)
[2017-10-13] MEDS ORDERED: CARAFATE PO SCH (10:00)
[2017-10-13] MEDS ORDERED: SODIUM CHLORIDE FLUSH SYRINGE 10 ML IV SCH (10:00)
[2017-10-13] MEDS ORDERED: SYNTHROID PO SCH (10:00)
--- NOTE | 2017-10-13 10:27 | History and Physical Report ---
CHIEF COMPLAINT: Left-sided chest pain since morning. HISTORY OF PRESENT ILLNESS: The patient is a 77-year-old female with no significant past medical history except for hypothyroidism and depression, comes in for left-sided chest pain without radiation. No generalized headache. Some shortness of breath, happened at 7 p.m. this evening. The patient . No shortness of breath on exertion. No chest pain on exertion. No exacerbating factors. Chest pain is about 6 on a scale of 1-10. Now, it is completely relieved. PAST MEDICAL HISTORY: As mentioned, significant for hypertension, gastroesophageal reflux disease, arthritis, mitral valve disease, and thyroid disease. SURGICAL HISTORY: Left knee hardware present, tonsillectomy, hiatal hernia repair, lysis of adhesions and C-sections. SOCIAL HISTORY: Does not smoke. No alcohol, no recreational drugs. FAMILY HISTORY: Hypertension. REVIEW OF SYSTEMS: Significant for left-sided chest pain. Otherwise, review of systems is essentially negative. A 14-point review of systems done. PHYSICAL EXAMINATION: GENERAL: Elderly female, cooperative during the examination. HEENT: Unremarkable. Pupils are equal and reactive. NECK: Supple, no lymphadenopathy, no thyromegaly. LUNGS: Clear to auscultation and percussion. Good air entry. CARDIOVASCULAR: S1, S2 heard. No gallop, no murmur, no rub. Apical impulse in left fifth intercostal space and midclavicular line. ABDOMEN: Soft and benign. No hepatosplenomegaly. No guarding, no rigidity. Hernial orifices are normal. EXTREMITIES: Good pedal pulses. No pedal edema. CENTRAL NERVOUS SYSTEM: Alert and oriented x 4, nonfocal exam. LABORATORY DATA: EKG shows sinus rhythm, some axis deviation, QRS complexes and nonspecific ST-T wave changes. CAT scan shows no acute intracranial process. ASSESSMENT AND PLAN: 1. Chest pain, rule out myocardial infarction, chest pain protocol. The patient may have gastroesophageal reflux disease because she points to the epigastric region and complains of reflux. 2. Hypothyroidism. Continue levothyroxine. 3. Hypertension. Continue trazodone and amlodipine when necessary. 4. Peptic ulcer disease. Continue sucralfate and Nexium. 5. Depression. Continues Celexa, Lexapro 20 mg once a day. Also, continue Buspirone for anxiety and sleep. [facility]# [id number] [place]/JAMES
[2017-10-13 10:57] VITALS: BP 199/88
[2017-10-13] MEDS ORDERED: BUSPAR PO SCH (11:00)
--- NOTE | 2017-10-13 11:07 | Consultation ---
History of Present Illness Consult date: 10/13/17 Requesting physician: CARLOS COOPER Consult reason: chest pain History of present illness: Patient is a 77-year-old currently admitted to the hospital with chest pain. Cardiology is when asked to evaluate the patient. Patient has a past medical history of hypertension, GERD with prior surgery, arthritis on chronic NSAIDs presented to the hospital with severe epigastric pain radiating to her chest. Gradual in onset. No particular aggravating or relieving factors. No radiation of the pain. Has been having on and off pain even while in the hospital. 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 was normal per patient Past History Past Medical History: hypertension Past Surgical History: Other (surgery for GERD) Social history: no significant social history Family history: no significant family history Medications and Allergies Allergies Allergy/AdvReac Type Severity Reaction Status Date / Time adhesive Allergy Rash Verified 11/18/15 10:24 aspirin Allergy Bleeding Verified 11/18/15 10:24 codeine Allergy Hives Verified 11/18/15 10:24 latex Allergy Rash Verified 11/18/15 10:24 metoclopramide HCl Allergy Itching Verified 11/18/15 10:24 [From Reglan] morphine Allergy Rash Verified 11/18/15 10:24 Sulfa (Sulfonamide Allergy Rash Verified 11/18/15 10:24 Antibiotics) Home Medications Medication Instructions Recorded Confirmed Last Taken Type traZODone [Desyrel] 100 mg PO QHS 06/11/13 10/13/17 10/11/17 History Buspirone HCl [busPIRone] 30 mg PO BID 05/19/16 10/13/17 10/12/17 History Escitalopram Oxalate [Lexapro] 20 mg PO QHS 10/13/17 10/13/17 10/11/17 History Estrogens, Conjugated [Premarin] 0.3 mg PO DAILY 10/13/17 10/13/17 10/11/17 History Levothyroxine [Synthroid] 25 mcg PO QAM 10/13/17 10/13/17 10/12/17 History Sucralfate [Carafate] 5 ml PO BID 10/13/17 10/13/17 10/12/17 History Active Meds: Active Medications Acetaminophen (Tylenol) 650 mg PO Q4H PRN PRN Reason: Pain MILD(1-3)/Fever >100.5/[place] Last Admin: 10/13/17 08:50 Dose: 650 mg Buspirone HCl (Buspar) 30 mg PO BID [facility] Escitalopram Oxalate (Lexapro) 20 mg PO QHS [facility] Estrogens Conjugated (Premarin) 0.3 mg PO DAILY [facility] Last Admin: 10/13/17 10:45 Dose: 0.3 mg Famotidine (Pepcid) 20 mg IV BID [facility] Last Admin: 10/13/17 10:46 Dose: 20 mg Sodium Chloride (Nacl 0.9% 1000 Ml) 1,000 mls @ 75 mls/hr IV DIRECT [facility] Levothyroxine Sodium (Synthroid) 25 mcg PO DAILY@0600 [facility] Ondansetron HCl (Zofran) 4 mg IV Q8H PRN PRN Reason: Nausea And Vomiting Sodium Chloride (Sodium Chloride Flush Syringe 10 Ml) 10 ml IV BID [facility] Last Admin: 10/13/17 10:46 Dose: 10 ml Sodium Chloride (Sodium Chloride Flush Syringe 10 Ml) 10 ml IV PRN PRN PRN Reason: LINE FLUSH Sucralfate (Carafate) 1 gm PO BID [facility] Last Admin: 10/13/17 10:45 Dose: 1 gm Trazodone HCl (Desyrel) 100 mg PO QHS [facility] Review of Systems All systems: negative (except as mentioned in H&P) Physical Examination Vital Signs Temp Pulse Resp BP Pulse Ox 97.1 F L 78 18 176/102 97 10/12/17 23:48 10/12/17 23:48 10/12/17 23:48 10/12/17 23:48 10/12/17 23:48 Narrative exam: Physical examination Vitals reviewed GEN: No acute distress noted HEENT: Carotids 2+ NECK: Supple CVS: S1 and S2 heard no significant murmur or gallop noted LUNGS/CHEST: Normal auscultation ABD: Soft nontender Extremities: No edema noted normal color NEURO: Alert moves all all 4 extremities PSY: Stable Results 10/13/17 00:01 10/13/17 00:01 Cardiac Enzymes 10/13/17 Range/Units 04:00 AST 22 (5-40) units/L CBC 10/13/17 Range/Units 00:01 WBC 5.7 (4.5-11.0) K/mm3 RBC 4.43 (3.65-5.03) M/mm3 Hgb 14.1 (10.1-14.3) gm/dl Hct 41.9 (30.3-42.9) % Plt Count 197 (140-440) K/mm3 Lymph # 2.1 (1.2-5.4) K/mm3 [place] # 0.5 (0.0-0.8) K/mm3 Eos # 0.0 (0.0-0.4) K/mm3 Baso # 0.0 (0.0-0.1) K/mm3 Comprehensive Metabolic Panel 10/13/17 10/13/17 Range/Units 00:01 04:00 Sodium 137 (137-145) mmol/L Potassium 4.1 (3.6-5.0) mmol/L Chloride 95.9 L (98-107) mmol/L Carbon Dioxide 27 (22-30) mmol/L BUN 13 (7-17) mg/dL Creatinine 0.6 L (0.7-1.2) mg/dL Glucose 109 H (65-100) mg/dL Calcium 10.2 (8.4-10.2) mg/dL Direct Bilirubin < 0.2 (0-0.2) mg/dL Indirect Bilirubin 0.3 mg/dL AST 22 (5-40) units/L ALT 12 (7-56) units/L Alkaline Phosphatase 79 (35-129) units/L Total Protein 7.4 (6.3-8.2) g/dL Albumin 4.8 (3.9-5) g/dL EKG interpretations - Telemetry EKG Rhythm: Sinus Rhythm (no acute ST-T wave changes suggestive of ischemia) Assessment and Plan Impression * Chest pain, symptoms highly atypical but mostly epigastric pain and tenderness EKG and cardiac enzymes unremarkable. Stress test today also unremarkable. * History of hypertension fairly well controlled * History of GERD on Prevacid * Chronic arthritis * NSAID use. Plan * No recent echocardiogram that was negative stress test today was also negative. Pain appears atypical. She has epigastric tenderness without recommend workup for GI causes. Would add PPIs to her regimen. * Thank you for involving us in the care of the patient
--- NOTE | 2017-10-13 14:55 | Event Note ---
Date: 10/13/17 She was admitted this morning with chest pain, evaluated by cardiology Underwent stress test which was negative for reversible ischemia, normal left ventricular fraction Patient's blood pressures are uncontrolled, patient also has mild intermittent chest pain Continue current management, add when necessary antihypertensives Patient's chest pain may be due to noncardiac causes, probably gastroesophageal reflux disease Add Protonix, may need inpatient versus outpatient GI evaluation if symptoms persist Plan of care discussed with the patient, nurse and the family Continue to monitor overnight if patient is symptom-free may discharge home tomorrow
[2017-10-13] MEDS ORDERED: APRESOLINE IV PRN (16:29)
--- NOTE | 2017-10-13 16:29 | Discharge Summary ---
Providers - Providers Date of Admission: 10/13/17 04:58 Date of discharge: 10/13/17 Attending physician: LISBETH IRVIN 10/13/17 04:57 Consult to Cardiology [CONS] Routine Consulting Provider: ALEXANDER BALL Reason For Exam: CP Primary care physician: [employer] ATTENDANT Hospitalization Reason for admission: left-sided chest pain Condition: Stable Pertinent studies: Chest x-ray; no acute abnormality noted CT head without contrast; age-related atrophy no evidence of acute stroke or hemorrhage Procedures: Stress test; negative for reversible ischemia, normal left ventricular function Hospital course: Very pleasant 77-year-old female patient with a significant history of hypertension gastroesophageal reflux disease and hypothyroidism was admitted through emergency room with left-sided chest pain of one-day duration Patient follows with cardiology on a regular basis Patient was symptomatically managed evaluated by production tool engineer Underwent stress test which was negative for reversible ischemia Left ventricular function within normal limits Patient symptoms gradually improved however continued to have elevated blood pressures, and generalized body pains Patient denies chest pain or shortness of breath today Vital signs reviewed blood pressure is uncontrolled rest of the vitals are within normal limits Physical examination prior to discharge is unremarkable Will closely monitor blood pressures and reasonable control patient may be discharged home And she'll follow up with primary care physician, cardiology as well as GI Dr. Fatima whom she follows a regular basis Patient's condition treatment and discharge plan discussed in detail with the patient, her and her nurse. Patient is stable at discharge Discharge diagnosis; --Atypical chest pain; probably noncardiac, stress test negative --Gastroesophageal reflux disease; probably the cause of patient's chest pain, Protonix --Hypothyroidism --Headache disorder --Uncontrolled hypertension. Disposition: DC- TO HOME OR SELFCARE Time spent for discharge: 31 min Core Measure Documentation - Palliative Care Palliative Care/ Comfort Measures: Not Applicable - Core Measures Any of the following diagnoses?: none Exam - Constitutional Vitals: Temp Pulse Resp BP Pulse Ox 98.0 F 70 18 199/88 97 10/13/17 07:52 10/13/17 14:04 10/13/17 10:00 10/13/17 09:10 10/13/17 10:00 General appearance: Present: no acute distress, well-nourished - EENT Eyes: Present: PERRL, EOM intact - Neck Neck: Present: supple, normal ROM - Cardiovascular Rhythm: regular Heart Sounds: Present: S1 & S2 - Extremities Extremities: no ischemia, No edema - Abdominal General gastrointestinal: Present: soft, non-tender, non-distended, normal bowel sounds - Integumentary Integumentary: Present: clear, warm - Musculoskeletal Musculoskeletal: strength equal bilaterally, generalized weakness - Psychiatric Psychiatric: appropriate mood/affect, cooperative - Neurologic Neurologic: CNII-XII intact, moves all extremities Plan Activity: advance as tolerated, fall precautions Diet: other (cardiac diet) Additional Instructions: If you have chest pain or shortness of breath, contact M.D. or go to emergency room Follow up with: YONATHAN FATIMA MD [Staff Physician] - 7 Days ALEXANDER BALL MD [Staff Physician] - 7 Days JAVIER GARZON MD [Staff Physician] - 7 Days PRIMARY CARE, [Primary Care Provider] - 3-5 Days Prescriptions: hydrALAZINE [Apresoline TAB] 25 mg PO Q8HR #60 tab Pantoprazole [Protonix] 40 mg PO QDAY #30 tablet
[2017-10-13] MEDS ORDERED: APRESOLINE PO SCH (17:00)
[2017-10-13] MEDS ORDERED: NON-FORMULARY (Escitalopram Oxalate [Lexapro] 20 MG) PO SCH (22:00)
[2017-10-13] MEDS ORDERED: DESYREL PO SCH (22:00)
[2017-10-13] MEDS ORDERED: LEXAPRO PO SCH (22:00)
--- NOTE | 2017-10-14 03:05 | Treadmill Report ---
MYOCARDIAL PERFUSION SCAN PROCEDURES PERFORMED: Lexiscan stress test. PROCEDURE DETAILS: Stress and rest images were obtained using the standard protocol. Rest and stress images were compared. Gated analysis and wall motion evaluation was done. FINDINGS: 1. Homogeneous uptake of tracer noted in the rest and stress images. 2. Comparison of the rest and stress images reveals no fixed or reversal is suggestive of infarct or ischemia. 3. Gated analysis reveals normal wall motion. 4. LVEF is normal, greater than 65%. IMPRESSION: Normal myocardial perfusion scan. JOB# [id number] RR/NTS
[2017-10-14] MEDS ORDERED: SYNTHROID PO SCH (06:00)
== END 2017-10-13 17:30 | disposition home or self-care (01) ==
LOC: ED 23:23 → 4A 10-13 04:58 → INTOOBSV 10-13 04:58
PROVIDERS: ADMIT Internal Medicine; ATTEND Internal Medicine
DX: R07.89 Other chest pain (principal); K21.9 Gastro-esophageal reflux disease without esophagitis; F41.9 Anxiety disorder, unspecified; M19.90 Unspecified osteoarthritis, unspecified site; I10 Essential (primary) hypertension; E03.9 Hypothyroidism, unspecified; K27.9 Peptic ulcer, site unspecified, unspecified as acute or chronic, without hemorrhage or perforation; F32.9 Major depressive disorder, single episode, unspecified; Z79.899 Other long term (current) drug therapy; R51 Headache
CPT/HCPCS: 36415; 70450; 71045; 78452; 80048; 80074; 83036; 84484; 85025; 85379; 93005; 93010; 93017; 96374; 99285; A9502; G0378; J2785

== ENCOUNTER 2018-06-19 13:25 | Inpatient (IN) | payer MEDICARE ==
[2018-06-19] MEDS ORDERED: SENOKOT PO PRN (14:44)
[2018-06-19] MEDS ORDERED: MILK OF MAGNESIA PO PRN (14:44)
[2018-06-19] MEDS: NORCO 5/325 PO PRN (18:25)
[2018-06-19] MEDS: PEPCID PO SCH (21:38)
[2018-06-19] MEDS: DESYREL PO SCH (21:38)
[2018-06-19] MEDS: CARAFATE PO SCH (21:38)
[2018-06-19] MEDS: BUSPAR PO SCH (21:39)
[2018-06-20] MEDS: NORCO 5/325 PO PRN ×4 (00:57→21:42)
[2018-06-20] MEDS: SYNTHROID PO SCH (05:23)
[2018-06-20 07:36] LABS: Basophils % (Auto) 0.5 % (0.0-1.8); Hematocrit 24.7 % (30.3-42.9); Hemoglobin 8.3 gm/dl (10.1-14.3); Lymphocytes % (Auto) 22.8 % (13.4-35.0); Mean Corpuscular HGB Conc 34 % (30-34); Mean Corpuscular Volume 97 fl (79-97); Monocytes # (Auto) 0.3 K/mm3 (0.0-0.8); Monocytes % (Auto) 7.9 % (0.0-7.3); Platelet Count 104 K/mm3 (140-440); Red Blood Count 2.55 M/mm3 (3.65-5.03); Red Cell Distribution Width 13.1 % (13.2-15.2)
[2018-06-20 07:56] LABS: Alanine Aminotransferase 6 units/L (7-56); Albumin 2.9 g/dL (3.9-5); BUN/Creatinine Ratio 20; Blood Urea Nitrogen 12 mg/dL (7-17); Calcium 8.2 mg/dL (8.4-10.2); Hemolysis Index 17
[2018-06-20] MEDS: BUSPAR PO SCH ×2 (09:37→21:42)
[2018-06-20] MEDS: PEPCID PO SCH ×2 (09:38→21:42)
[2018-06-20] MEDS: PREMARIN PO SCH (09:39)
--- NOTE | 2018-06-20 09:41 | History and Physical Report ---
History of Present Illness Date: 06/20/18 Referring Facility: [facility] Date of admission: 06/19/18 14:53 Chief Complaint: Right hip fracture History of present illness: 78-year-old female who sustained a fall at home resulting in right hip pain. She was unable to stand or bear weight afterwards. She was brought to the ER where hip x-ray showed a right intertrochanteric fracture. He was cleared for surgery and underwent a IM nail for repair. Her weightbearing status is 40% on the right lower extremity. She has bruising on the right side including the head. Head CT was previously performed and showed no skull fracture or intracranial hemorrhage. Patient states she is having very significant pain and does not feel that its well controlled currently. On examination she is drowsy and is recently taken pain medications. Discussed with her that we will have to attempt to control her pain while keeping her alert enough to p articipating with therapy. After the patient was medically stabilized they were transferred for further rehabilitation. All available medical records have been reviewed. Plan of care was discussed with patient and family. Past History Past Medical History: arthritis, hypothyroidism, other (anxiety, delayed gastric emptying) Past Surgical History: total knee replacement (left) Social history: , lives with family, full code, other (one-story home with basement. Previously independent with ADLs and ambulation.). denies: smoking, alcohol abuse Family history: CAD, cancer Medications and Allergies Allergies Allergy/AdvReac Type Severity Reaction Status Date / Time adhesive Allergy Rash Verified 11/18/15 10:24 aspirin Allergy Bleeding Verified 11/18/15 10:24 codeine Allergy Hives Verified 11/18/15 10:24 latex Allergy Rash Verified 11/18/15 10:24 metoclopramide HCl Allergy Itching Verified 11/18/15 10:24 [From Reglan] morphine Allergy Rash Verified 11/18/15 10:24 Sulfa (Sulfonamide Allergy Rash Verified 11/18/15 10:24 Antibiotics) Home Medications Medication Instructions Recorded Confirmed Last Taken Type traZODone [Desyrel] 100 mg PO QHS 06/11/13 06/19/18 06/18/18 22:00 History Buspirone HCl [busPIRone] 30 mg PO BID 05/19/16 06/19/18 06/16/18 History Levothyroxine [Synthroid] 25 mcg PO QAM 10/13/17 06/19/18 06/19/18 10:00 History Sucralfate [Carafate] 5 ml PO BID 10/13/17 06/19/18 06/19/18 10:00 History Estrogens, Conjugated [Premarin] 0.3 mg PO QDAY 06/17/18 06/19/18 Unknown History Acetaminophen [Acetaminophen TAB] 650 mg PO Q4H PRN tablet 06/19/18 06/19/18 Unknown Rx Famotidine [Pepcid] 20 mg PO BID tablet 06/19/18 06/19/18 06/19/18 10:30 Rx HYDROcodone/APAP 5-325 [[place] 2 each PO Q6H PRN tablet 06/19/18 06/19/18 06/18/18 Rx 5-325 mg TAB] Magnesium Hydroxide [Milk of 30 ml PO Q4H PRN oral.liqd 06/19/18 06/19/18 Unknown Rx Magnesia] Sennosides Tab [Senokot] 8.6 mg PO Q12HR PRN tablet 06/19/18 06/19/18 Unknown Rx busPIRone [Buspar] 30 mg PO BID tablet 06/19/18 06/19/18 06/19/18 10:00 Rx Active Meds: Active Medications Acetaminophen (Tylenol) 500 mg PO Q6H PRN PRN Reason: Pain, Mild (1-3) Acetaminophen/Hydrocodone Bitart ([place] 10/325) 1 each PO Q6H PRN PRN Reason: Pain , Severe (7-10) Acetaminophen/Hydrocodone Bitart ([place] 5/325) 1 each PO Q6H PRN PRN Reason: Pain, Moderate (4-6) Last Admin: 06/20/18 00:57 Dose: 1 each Documented by: Buspirone HCl (Buspar) 30 mg PO BID [facility] Last Admin: 06/19/18 21:39 Dose: 30 mg Documented by: Enoxaparin Sodium (Lovenox) 40 mg SUB-Q QDAY [facility] Estrogens Conjugated (Premarin) 0.3 mg PO QDAY [facility] Famotidine (Pepcid) 20 mg PO BID [facility] Last Admin: 06/19/18 21:38 Dose: 20 mg Documented by: Levothyroxine Sodium (Synthroid) 25 mcg PO DAILY@0600 [facility] Last Admin: 06/20/18 05:23 Dose: 25 mcg Documented by: Magnesium Hydroxide (Milk Of Magnesia) 30 ml PO QDAY PRN PRN Reason: Constipation Senna (Senokot) 8.6 mg PO Q12H PRN PRN Reason: Laxative Effect Sucralfate (Carafate) 5 gm PO BID [facility] Last Admin: 06/19/18 21:38 Dose: 5 gm Documented by: Trazodone HCl (Desyrel) 100 mg PO QHS [facility] Last Admin: 06/19/18 21:38 Dose: 100 mg Documented by: Review of Systems All systems: negative (ROS negative for 12 systems except as noted below with pertinent positives and negatives.) Constitutional: fatigue Ears, nose, mouth and throat: no headache Cardiovascular: no chest pain, no rapid/irregular heart beat Respiratory: cough, dyspnea on exertion Gastrointestinal: constipation, no abdominal pain, no nausea, no vomiting Musculoskeletal: gait dysfunction, arthritis Integumentary: other (bruising primarily on the right side face and bilateral arms) Psychiatric: anxiety Exam - Exam Narrative exam: MUSCULOSKELETAL SPECIALTY EXAM CONSTITUTIONAL: Well developed, well nourished, appropriately groomed LYMPHATIC: No appreciable abnormalities palpable in neck EENT: Visual miller full to confrontation. EOMI. Oropharynx clear. Hearing intact to soft voice RESPIRATORY: Clear to ascultation bilaterally, no increased work of breathing, O2 via nasal cannula CARDIOVASCULAR: Regular Rate/ Rhythm, no swelling, edema or tenderness in BUE or BLE. Pulses palpable in all extremities. All extremities warm. GI: + bowel sounds, soft, NTTP, nondistended. INTEGUMENTARY: Bruising in bilateral upper extremities and right side of face, otherwise normal, no lesion, rash, masses noted in extremities. Surgical site C/D/I MUSCULOSKELETAL: BUE and LLE normal without defect, crepitus, subluxation, effusion, or TTP. Arthritic changes noted bilaterally in hands. BUE 4/5, good ROM, with normal tone. LLE 4/5 good ROM, with normal tone. RLE has decreased ROM and 2/5 due to pain NEURO: CN 2-12 grossly intact. Sensation intact in all extremities. Reflexes 1+ bilaterally at biceps, brachioradialis and patella. No clonus at ankles. Coordination intact in BUE. No tremor noted in 4 extremities. POSTURE and GAIT: Sitting posture good. Balance appears reasonable. Gait deferred until seen with therapy. PSYCH: Drowsy, orientated x2 (likely due to pain medication), affect appears normal. Insight appears intact. - Constitutional Vitals: Vital Signs - 12hr 06/20/18 09:12 O2 Sat by Pulse 98 Oximetry - Allied health notes Allied health notes reviewed: nursing, PT, OT FIMS assesment as documented by PT/OT/ST: Social interaction/Memory/Problem solving Social Interaction FIM Score 3. Moderate Assistance (Interacts appropriately 50-74%.) Memory FIM Score 3. Moderate Assistance (Recognizes and remembers 50-74%.) Problem Solving FIM Score 3. Moderate Assistance (Solves routine problems 50-74%.) Transfers Mode of Locomotion: Wheelchair Bed/Chair/Wheelchair Transfers 3. Moderate Assistance (Patient = 50% or more. FIM Score Some lifting.) Locomotion- Stairs Stairs FIM Score 0. Activity does not occur Locomotion- walk/wheelchair Most Frequent Mode of Walking Locomotion: Ambulation Distance 2 Walking FIM Score 1. Total Assistance (Pt. < 25%, 2 or more person assist, or <50 ft.) Wheelchair Propulsion Distance 10 Wheelchair FIM Score 1. Total Assistance (Pt. < 25%, 2 or more person assist, or <50 ft.) - Labs CBC & Chem 7: 06/20/18 07:08 06/20/18 07:08 Labs: Laboratory Results - last 72 hr 06/20/18 06/20/18 07:08 07:08 WBC 4.4 L RBC 2.55 L Hgb 8.3 L Hct 24.7 L MCV 97 MCH 32 MCHC 34 RDW 13.1 L Plt Count 104 L Lymph % (Auto) 22.8 [place] % (Auto) 7.9 H Eos % (Auto) 0.0 Baso % (Auto) 0.5 Lymph # 1.0 L [place] # 0.3 Eos # 0.0 Baso # 0.0 Seg Neutrophils % 68.8 Seg Neutrophils # 3.0 Sodium 141 Potassium 4.1 Chloride 106.9 Carbon Dioxide 24 Anion Gap 14 BUN 12 Creatinine 0.6 L Estimated GFR > 60 BUN/Creatinine Ratio 20 Glucose 108 H Calcium 8.2 L Total Bilirubin 0.40 AST 16 ALT 6 L Alkaline Phosphatase 61 Total Protein 5.3 L Albumin 2.9 L Albumin/Globulin Ratio 1.2 Assessment and Plan Assessment and plan: Patient was assessed and evaluated for Acute Inpatient Rehab Unit. Due to the patients above-mentioned medical complexity, along with decreased functional mobility and self care, this patient continues to require and be appropriate for a comprehensive, multidisciplinary [id number] rehabilitation program. These needs cannot be met in an outpatient or other less intensive setting. The patient would continue to benefit from skilled therapy intervention for at least 3 hours per day, five days a week, with techniques specific to the needs of the patient to improve function, activities of daily living, and reintegration into the community. The patient continues to require: -- OT to improve ROM, self-care, and learn use of adaptive equipment -- PT to improve strength and balance, functional transfers, and ambulation with energy conservation techniques to improve functional mobility -- 24 hour RN to ensure and prevent skin breakdown, promote progressive independence while ensuring safety, ensure education regarding medications, and incorporation of the rehabilitation at the bedside -- 24 hour Wave Solder Offbearer to coordinate this interdisciplinary program, and to manage/prevent complications as a result of the patients medical comorbidities. -Plan of care by day 4 -Weekly team conferences With such a program, there is a reasonable certainty that the goals individualized for this patient can be achieved within the specified length of stay. S72.91XS right femur fracture sequela: Continue DVT prophylaxis, pain control. Patient is 40% weightbearing per surgeon. We'll continue to work with PT and OT to improve mobility and ability to perform self-care. Monitor surgical site. Z73.6 ADL dysfunction: OT will work on improving ability to perform ADLs (including assistive devices) to increase independence and decrease caregiver burden and improve functional transfers and mobility training. R26.2 Difficulty walking: PT will work on gait training and proper use of assistive devices and advance as appropriate to use of stairs and outside ambulation on uneven surfaces. R26.81 Unsteadiness on feet: PT will work on improving static and dynamic sitting and standing balance as well as proper use of assistive devices to decrease risk of falls. R26.89 Abnormality of gait: PT will work to improve safety and efficiency of gait through neuromotor training and gait training along with instruction on proper use of assistive devices. M62.81 Muscle weakness: PT & OT will work on strengthening exercises to improve functional strength including mixture of closed and open kinetic chain ex ercises. R53.81 Debility: PT & OT will work on improving overall functional status to improve participation with ADLs, mobility and social involvement. R53.83 Fatigue: PT & OT will work on improving endurance through aerobic exercises and therapeutic activity while monitoring patients tolerance for activity and vital signs as needed. K59.00 constipation: Continue medications and adjust as needed. E03.9 hypothyroidism: Continue Synthroid D62 acute blood loss anemia: Monitor hemoglobin level, will consider anemia workup. Transfuse if needed. DVT ppx: Lovenox Pain: Continue physical modalities in therapy and pain medications as needed to achieve functional pain control. Sleep: Monitor and address as needed. On home trazodone. Bowel: Monitor and address as needed. Appetite: Monitor and address as needed. Discharge planning: Pending therapy progress and care plan meeting. Will con tinue discussion with therapy team, SW, patient and family. Restrictions/ Precautions: Falls WB status: 40% RLE Functional Hx: ADLs: Independent Cognition: Independent Mobility: No AD Barriers to Discharge: Decreased mobility and ability to perform self care, balance deficits, weakness Estimated Length of Stay: 7-10 days Discharge Destination: Home with family POST ADMISSION PHYSICIAN EVALUATION I have examined the patient and find that functional status, medical condition and appropriateness for IRF admission are essentially unchanged from those described in the preadmission screening. Will monitor for pain control, surgical site infection, anemia, DVT/PE, bowel and bladder complications and complications due to electrolyte abnormalities. Will attempt to avoid occurrence of these issues or treat them if they present themselves.
[2018-06-20] MEDS: LOVENOX SUB-Q SCH (09:43)
[2018-06-20] MEDS: CARAFATE PO SCH ×2 (09:51→21:42)
[2018-06-20] MEDS ORDERED: DULCOLAX PR PRN (11:35)
[2018-06-20] MEDS ORDERED: MIRALAX 3350 ONE (15:02)
[2018-06-20] MEDS ORDERED: PREPARATION H PR PRN (16:36)
[2018-06-20] MEDS ORDERED: HEMORRHOIDAL 0.25/3/85.5% PR PRN (16:36)
[2018-06-20] MEDS: DESYREL PO SCH (21:42)
[2018-06-21] MEDS: NORCO 10/325 PO PRN ×2 (01:49→01:57)
[2018-06-21] MEDS: SYNTHROID PO SCH (06:26)
[2018-06-21] MEDS: PEPCID PO SCH ×2 (09:12→22:29)
[2018-06-21] MEDS: CARAFATE PO SCH ×2 (09:12→22:29)
[2018-06-21] MEDS: BUSPAR PO SCH ×2 (09:12→22:29)
[2018-06-21] MEDS: PREMARIN PO SCH (09:13)
[2018-06-21] MEDS: LOVENOX SUB-Q SCH (09:13)
--- NOTE | 2018-06-21 11:39 | Progress Note ---
Subjective Date of service: 06/21/18 Interval history: 78-year-old female who sustained a fall at home resulting in right hip pain. She was unable to stand or bear weight afterwards. She was brought to the ER where hip x-ray showed a right intertrochanteric fracture. He was cleared for surgery and underwent a IM nail for repair. Her weightbearing status is 40% on the right lower extremity. She has bruising on the right side including the head. Head CT was previously performed and showed no skull fracture or in tracranial hemorrhage. Patient states she is having very significant pain and does not feel that its well controlled currently. On examination she is drowsy and is recently taken pain medications. Discussed with her that we will have to attempt to control her pain while keeping her alert enough to participating with therapy. Patient is participating in therapy and making reasonable progress. Taking rest breaks as needed. +BM. Denies palpitations, dyspnea, cough, N/V, weakness, or joint pain. Pain is tolerable with medications. Patient were questioning how long that will be here and what her functional level will be at discharge. Told him that really depends on her recovery and how long her body takes to heal. She is currently weightbearing up to 40% per surgeon's orders, we'll contact surgeon and see what the plan is for progressing weightbearing status for the future. All records, vitals, labs and medications were reviewed. No other issues per patient, nursing or therapy. Objective - Exam Narrative Exam: MUSCULOSKELETAL SPECIALTY EXAM CONSTITUTIONAL: Well developed, well nourished, appropriately groomed EENT: EOMI. Hearing intact to soft voice RESPIRATORY: Clear to ascultation bilaterally, no increased work of breathing, O2 via nasal cannula CARDIOVASCULAR: Regular Rate/ Rhythm, no swelling, edema or tenderness in BUE or BLE. All extremities warm. GI: + bowel sounds, soft, NTTP, nondistended. INTEGUMENTARY: Bruising in bilateral upper extremities and right side of face (goes into scalp), otherwise normal, no lesion, rash, masses noted in extremities. Surgical site C/D/I MUSCULOSKELETAL: BUE and LLE normal without defect, crepitus, subluxation, effusion, or TTP. Arthritic changes noted bilaterally in hands. BUE 4/5, good ROM, with normal tone. LLE 4/5 good ROM, with normal tone. RLE has decreased ROM and 2/5 due to pain NEURO: CN 2-12 grossly intact. Sensation intact in all extremities. No tremor noted in 4 extremities. POSTURE and GAIT: Sitting posture good. Balance appears reasonable. Gait deferred until seen with therapy. PSYCH: Alert, orientated, affect appears normal. Insight appears intact. - Constitutional Vitals: Vital Signs - 12hr 06/21/18 06/21/18 05:16 07:35 Temperature 37.2 C 36.9 C Pulse Rate 99 H 72 Respiratory 20 18 Rate Blood Pressure 144/66 Blood Pressure 126/59 [Right] O2 Sat by Pulse 92 100 Oximetry - Allied health notes Allied health notes reviewed: nursing, PT, OT FIMS assessment as documented by PT/OT/ST: Grooming Patient cleans teeth/dentures: Yes Patient serrano/brushes hair: Yes Patient washes, rinses and Yes dries face: Patient washes, rinses and Yes dries hands: Patient applies make-up: No Patient performs (no make-up/ / (100%) shaving): Grooming FIM Score 4. Minimal Assistance (Patient = 75% or more. Needs touching.) Toileting Toileting FIM Score 3. Moderate Assistance (Patient = 50% or more. Some lifting.) Social interaction/Memory/Problem solving Social Interaction FIM Score 7. Complete [place] (Interacts appropriately. Controls temper.) Memory FIM Score 4. Minimal Assistance (Recognizes and remembers 75-90%.) Problem Solving FIM Score 4. Minimal Assistance (Solves routine problems 75-90%.) Transfers Mode of Locomotion: Walking Bed/Chair/Wheelchair Transfers 2. Maximal Assistance (Patient = 25% or more) FIM Score Toilet Transfers FIM Score 3. Moderate Assistance (Patient = 50% or more. Some lifting.) Patient transferred to: Shower Shower Transfers FIM Score 3. Moderate Assistance (Patient = 50% or more. Some lifting.) Locomotion- Stairs Stairs FIM Score 0. Activity does not occur Locomotion- walk/wheelchair Most Frequent Mode of Walking Locomotion: Ambulation Distance 2 Walking FIM Score 1. Total Assistance (Pt. < 25%, 2 or more pers on assist, or <50 ft.) Wheelchair Propulsion Distance 10 Wheelchair FIM Score 1. Total Assistance (Pt. < 25%, 2 or more person assist, or <50 ft.) Eating Eating FIM Score 5. Supervision/Set-Up (Needs help w/ containers, cutting meat, etc.) Dressing-Upper body Patient retrieves clothing No items: Patient applies/removes UE n/a prosthesis or orthosis: Upper Body Dressing FIM Score 4. Minimal Assistance (Patient = 75% or more. Needs touching.) Dressing-lower body Lower Body Dressing Device Gunner'S Mate M/Stick,[place],Sock Aid Patient retrieves clothing No items: Patient applies/removes LE n/a prosthesis or orthosis: Lower Body Dressing FIM Score 2. Maximal Assistance (Patient = 25% or more) - Labs CBC & Chem 7: 06/20/18 07:08 06/20/18 07:08 Labs: Laboratory Results - last 72 hr 06/20/18 06/20/18 07:08 07:08 WBC 4.4 L RBC 2.55 L Hgb 8.3 L Hct 24.7 L MCV 97 MCH 32 MCHC 34 RDW 13.1 L Plt Count 104 L Lymph % (Auto) 22.8 [place] % (Auto) 7.9 H Eos % (Auto) 0.0 Baso % (Auto) 0.5 Lymph # 1.0 L [place] # 0.3 Eos # 0.0 Baso # 0.0 Seg Neutrophils % 68.8 Seg Neutrophils # 3.0 Sodium 141 Potassium 4.1 Chloride 106.9 Carbon Dioxide 24 Anion Gap 14 BUN 12 Creatinine 0.6 L Estimated GFR > 60 BUN/Creatinine Ratio 20 Glucose 108 H Calcium 8.2 L Total Bilirubin 0.40 AST 16 ALT 6 L Alkaline Phosphatase 61 Total Protein 5.3 L Albumin 2.9 L Albumin/Globulin Ratio 1.2 Assessment and Plan S72.91XS right femur fracture sequela: Continue DVT prophylaxis, pain control. Patient is 40% weightbearing per surgeon. We'll continue to work with PT and OT to improve mobility and ability to perform self-care. Monitor surgical site. Z73.6 ADL dysfunction: OT will work on improving ability to perform ADLs (including assistive devices) to increase independence and decrease caregiver burden and improve functional transfers and mobility training. R26.2 Difficulty walking: PT will work on gait training and proper use of assistive devices and advance as appropriate to use of stairs and outside ambulation on uneven surfaces. R26.81 Unsteadiness on feet: PT will work on improving static and dynamic sitting and standing balance as well as proper use of assistive devices to decrease risk of falls. R26.89 Abnormality of gait: PT will work to improve safety and efficiency of gait through neuromotor training and gait training along with instruction on proper use of assistive devices. M62.81 Muscle weakness: PT & OT will work on strengthening exercises to improve functional strength including mixture of closed and open kinetic chain exercises. R53.81 Debility: PT & OT will work on improving overall functional status to improve participation with ADLs, mobility and social involvement. R53.83 Fatigue: PT & OT will work on improving endurance through aerobic exercises and therapeutic activity while monitoring patients tolerance for activity and vital signs as needed. K59.00 constipation: Continue medications and adjust as needed. E03.9 hypothyroidism: Continue Synthroid D62 acute blood loss anemia: Monitor hemoglobin level, will consider anemia workup. Transfuse if needed. DVT ppx: Lovenox Pain: Continue physical modalities in therapy and pain medications as needed to achieve functional pain control. Sleep: Monitor and address as needed. On home trazodone. Bowel: Monitor and address as needed. Appetite: Monitor and address as needed. Discharge planning: Pending therapy progress and care plan meeting. Will continue discussion with therapy team, SW, patient and family. Restrictions/ Precautions: Falls WB status: 40% RLE Functional Hx: ADLs: Independent Cognition: Independent Mobility: No AD Barriers to Discharge: Decreased mobility and ability to perform self care, balance deficits, weakness Estimated Length of Stay: 7-10 days Discharge Destination: Home with family
[2018-06-21] MEDS: NORCO 5/325 PO PRN (12:06)
[2018-06-21] MEDS ORDERED: MIRALAX 3350 PO ONE (13:00)
[2018-06-21] MEDS: DESYREL PO SCH (21:03)
[2018-06-22] MEDS: SYNTHROID PO SCH (05:47)
[2018-06-22] MEDS: NORCO 10/325 PO PRN ×2 (07:29→07:34)
[2018-06-22 07:41] LABS: Basophils % (Auto) 0.1 % (0.0-1.8); Hematocrit 22.9 % (30.3-42.9); Lymphocytes # (Auto) 0.8 K/mm3 (1.2-5.4); Lymphocytes % (Auto) 18.1 % (13.4-35.0); Mean Corpuscular HGB Conc 35 % (30-34); Mean Corpuscular Volume 94 fl (79-97); Monocytes # (Auto) 0.4 K/mm3 (0.0-0.8); Monocytes % (Auto) 8.8 % (0.0-7.3); Platelet Count 141 K/mm3 (140-440); Red Blood Count 2.44 M/mm3 (3.65-5.03); Red Cell Distribution Width 13.2 % (13.2-15.2)
[2018-06-22] MEDS: ZOFRAN ODT PO PRN (09:14)
[2018-06-22] MEDS: PEPCID PO SCH ×2 (10:13→21:46)
[2018-06-22] MEDS: BUSPAR PO SCH ×2 (10:13→21:46)
[2018-06-22] MEDS: LOVENOX SUB-Q SCH (10:13)
[2018-06-22] MEDS: PREMARIN PO SCH (10:13)
--- NOTE | 2018-06-22 10:14 | Progress Note ---
Subjective Date of service: 06/22/18 Principal diagnosis: R hip fx Interval history: 78-year-old female who sustained a fall at home resulting in right hip pain. She was unable to stand or bear weight afterwards. She was brought to the ER where hip x-ray showed a right intertrochanteric fracture. He was cleared for surgery and underwent a IM nail for repair. Her weightbearing status is 40% on the right lower extremity. She has bruising on the right side including the head. Head CT was previously performed and showed no skull fracture or intracranial hemorrhage. Patient states she is having very significant pain and does not feel that its well controlled currently. On examination she is drowsy and is recently taken pain medications. Discussed with her that we will have to attempt to control her pain while keeping her alert enough to participating with therapy. Patient is participating in therapy and making reasonable progress. Taking rest breaks as needed. +BM. Having some nausea this AM. Ordered Zofran. Had a slight fever overnight with an elevated heart rate. Denies dysuria but does admit that she has not been using the incentive spirometer as much as she should. Checking a chest x-ray and UA to rule out sources of fever. Does have a slight elevation of neutrophils and monocytes but overall WBC decreased. We will check blood culture if chest x-ray and UA are negative. Denies palpitations, dyspnea, cough, vomiting, weakness, or joint pain. Pain is tolerable with medications. Patient's is concerned that the patient is using her right hand you know she is left-handed. As an example he pushed the tray next to her and told her to take a sip of water and she reached for the glass with her right hand. However as I explained to him with the position of the tray it was an awkward position for her left hand to grab a cup. Cranial nerve exam does not show any focal deficits. Her strength exam is consistent with her previous strength exam. was requesting an MRI because it same that her imaging modality, based on my exam I see no reason for MRI of the brain. Previous CT was negative for any injury to the brain. If she starts to show any signs at all of neurologic injury, I will assess and order appropriate imaging at that time. This was relayed to the and the patient. Should be noted the patient denies any issues with her left arm and doesn't think there is a problem at all with it. She is currently weightbearing up to 40% per surgeon's orders, we'll contact surgeon and see what the plan is for progressing weightbearing status for the future. I have asked PRECIPITATOR to assess for cognitive decline. She may have beginning stages of dementia which is showing more symptoms since she is out of her home environment. Difficult to tell based on interruptions from with each question that I ask of her. All records, vitals, labs and medications were reviewed. No other issues per patient, nursing or therapy. Objective - Exam Narrative Exam: MUSCULOSKELETAL SPECIALTY EXAM CONSTITUTIONAL: Well developed, well nourished, appropriately groomed EENT: EOMI. Hearing intact to soft voice RESPIRATORY: Clear to ascultation bilaterally, no increased work of breathing, O2 via nasal cannula CARDIOVASCULAR: Regular Rate/ Rhythm, no swelling, edema or tenderness in BUE or BLE. All extremities warm. GI: + bowel sounds, soft, NTTP, nondistended. INTEGUMENTARY: Bruising in bilateral upper extremities and right side of face (goes into scalp), otherwise normal, no lesion, rash, masses noted in extremities. Surgical site C/D/I MUSCULOSKELETAL: BUE and LLE normal without defect, crepitus, subluxation, effusion, or TTP. Ar thritic changes noted bilaterally in hands. BUE 4+/5, good ROM, with normal tone. LLE 4/5 good ROM, with normal tone. RLE has decreased ROM and 2/5 due to pain NEURO: CN 2-12 grossly intact. Sensation intact in all extremities. No tremor noted in 4 extremities. POSTURE and GAIT: Sitting posture good. Balance appears reasonable. Gait deferred until seen with therapy. PSYCH: Alert, orientated, affect appears normal. Insight appears intact. - Constitutional Vitals: Vital Signs - 12hr 06/22/18 04:29 Temperature 37.8 C H Pulse Rate 101 H Respiratory 20 Rate Blood Pressure 156/84 O2 Sat by Pulse 96 Oximetry - Allied health notes Allied health notes reviewed: nursing, PT, OT FIMS assessment as documented by PT/OT/ST: Grooming Patient cleans teeth/dentures: Yes Patient serrano/brushes hair: Yes Patient washes, rinses and Yes dries face: Patient washes, rinses and Yes dries hands: Patient applies make-up: No Patient performs (no make-up/ 08/08 (100%) shaving): Grooming FIM Score 4. Minimal Assistance (Patient = 75% or more. Needs touching.) Toileting Toileting FIM Score 3. Moderate Assistance (Patient = 50% or more. Some lifting.) Social interaction/Memory/Problem solving Social Interaction FIM Score 6. Mod. [place] (Mostly appropriate. May need meds. No supv.) Memory FIM Score 3. Moderate Assistance (Recognizes and remembers 50-74%.) Problem Solving FIM Score 3. Moderate Assistance (Solves routine problems 50-74%.) Transfers Mode of Locomotion: Walking Bed/Chair/Wheelchair Transfers 1. Total Assistance (Patient less than 25%. 2 or FIM Score more persons.) Toilet Transfers FIM Score 3. Moderate Assistance (Patient = 50% or more. Some lifting.) Patient transferred to: Shower Shower Transfers FIM Score 3. Moderate Assistance (Patient = 50% or more. Some lifting.) Locomotion- Stairs Stairs FIM Score 0. Activity does not occur Locomotion- walk/wheelchair Most Frequent Mode of Walking Locomotion: Ambulation Distance 2 Walking FIM Score 0. Activity does not occur Wheelchair Propulsion Distance 75 Wheelchair FIM Score 1. Total Assistance (Pt. < 25%, 2 or more person assist, or <50 ft.) Eating Eating FIM Score 5. Supervision/Set-Up (Needs help w/ containers, cutting meat, etc.) Dressing-Upper body Patient retrieves clothing No items: Patient applies/removes UE n/a prosthesis or orthosis: Upper Body Dressing FIM Score 4. Minimal Assistance (Patient = 75% or more. Needs touching.) Dressing-lower body Lower Body Dressing Device Engraver Apprentice Decorative/Stick,Sho[place]orn,Sock Aid Patient retrieves clothing No items: Patient applies/removes LE n/a prosthesis or orthosis: Lower Body Dressing FIM Score 2. Maximal Assistance (Patient = 25% or more) - Labs CBC & Chem 7: 06/22/18 07:06 06/20/18 07:08 Labs: Laboratory Results - last 72 hr 06/20/18 06/20/18 06/22/18 07:08 07:08 07:06 WBC 4.4 L 4.3 L RBC 2.55 L 2.44 L Hgb 8.3 L 8.0 L Hct 24.7 L 22.9 L MCV 97 94 MCH 32 33 H MCHC 34 35 H RDW 13.1 L 13.2 Plt Count 104 L 141 Lymph % (Auto) 22.8 18.1 [place] % (Auto) 7.9 H 8.8 H Eos % (Auto) 0.0 0.0 Baso % (Auto) 0.5 0.1 Lymph # 1.0 L 0.8 L [place] # 0.3 0.4 Eos # 0.0 0.0 Baso # 0.0 0.0 Seg Neutrophils % 68.8 73.0 H Seg Neutrophils # 3.0 3.2 Sodium 141 Potassium 4.1 Chloride 106.9 Carbon Dioxide 24 Anion Gap 14 BUN 12 Creatinine 0.6 L Estimated GFR > 60 BUN/Creatinine Ratio 20 Glucose 108 H Calcium 8.2 L Total Bilirubin 0.40 AST 16 ALT 6 L Alkaline Phosphatase 61 Total Protein 5.3 L Albumin 2.9 L Albumin/Globulin Ratio 1.2 - Imaging and cardiology Chest x-ray: pending Assessment and Plan S72.91XS right femur fracture sequela: Continue DVT prophylaxis, pain control. Patient is 40% weightbearing per surgeon. We'll continue to work with PT and OT to improve mobility and ability to perform self-care. Monitor surgical site. Z73.6 ADL dysfunction: OT will work on improving ability to perform ADLs (including assistive devices) to increase independence and decrease caregiver burden and improve functional transfers and mobility training. R26.2 Difficulty walking: PT will work on gait training and proper use of assistive devices and advance as appropriate to use of stairs and outside am bulation on uneven surfaces. R26.81 Unsteadiness on feet: PT will work on improving static and dynamic sitting and standing balance as well as proper use of assistive devices to decrease risk of falls. R26.89 Abnormality of gait: PT will work to improve safety and efficiency of gait through neuromotor training and gait training along with instruction on proper use of assistive devices. M62.81 Muscle weakness: PT & OT will work on strengthening exercises to improve functional strength including mixture of closed and open kinetic chain exercises. R53.81 Debility: PT & OT will work on improving overall functional status to improve participation with ADLs, mobility and social involvement. R53.83 Fatigue: PT & OT will work on improving endurance through aerobic exercises and therapeutic activity while monitoring patients tolerance for activity and vital signs as needed. K59.00 constipation: Continue medications and adjust as needed. E03.9 hypothyroidism: Continue Synthroid D62 acute blood loss anemia: Slightly worse this morning anemia workup ordered. Monitor hemoglobin. Transfuse if needed. E46 Protein deficiency: Start supplementation R11.0 Nausea: Zofran ordered R50.9 Fever: workup ordered - CXR and UA. Most likely respiratory, not using IS. Will expand workup to blood cx if needed. Does not appear septic DVT ppx: Lovenox Pain: Continue physical modalities in therapy and pain medications as needed to achieve functional pain control. Sleep: Monitor and address as needed. On home trazodone. Bowel: Monitor and address as needed. Appetite: Monitor and address as needed. Discharge planning: Pending therapy progress and care plan meeting. Will continue discussion with therapy team, SW, patient and family. Restrictions/ Precautions: Falls WB status: 40% RLE Functional Hx: ADLs: Independent Cognition: Independent Mobility: No AD Barriers to Discharge: Decreased mobility and ability to perform self care, balance deficits, weakness Estimated Length of Stay: 7-10 days Discharge Destination: Home with family
[2018-06-22] MEDS: CARAFATE PO SCH ×2 (10:15→21:46)
--- NOTE | 2018-06-22 10:34 | IRU Plan of Care ---
Interdisciplinary Plan of Care - IPOC IRU INTERDISCIPLINARY PLAN: [facility] Inpatient Rehab Unit Plan of Care IRU Interdisciplinary Care Plan Start: 06/19/18 14:55 Freq: Admission then PRN Status: Active Protocol: Document 06/21/18 16:21 TH (Rec: 06/21/18 16:27 TH [id number]) Interdisciplinary Problem List Interdisciplinary Problem List Interdisciplinary Problem List Impaired Bathing/Grooming Query Text:Answers will Trigger Problems Impaired Dressing and Outcomes on Worklist. Impaired Mobility Impaired Transfers Impaired Bladder/Bowel Management Impaired Toileting Pain Management Discharge Concerns Impaired Home Management Impaired Safety Medications Education Impaired Cardiovascular System IRU Interdisciplinary Care Plan Therapy Services Therapy Services Will Include: Physical Therapy Query Text:Patient will be seen for a Occupational Therapy minimum of 3 hours of daily therapy 5 out of 7 days a week. Therapy intensity may be adjusted within a 7 consecutive day period to effectively serve the individual needs of the patient. Treatment Frequency/Intensity/Duration Treatment Frequency 5x/wk Treatment Intensity 3 hours/day Treatment Duration 10-14 days Problem Area: Eating/Swallowing Eating/Swallowing Outcomes Eating/Swallowing Interventions Problem Area: Bathing/Grooming Bathing/Grooming Outcomes Improve [place] w/ Grooming Improve [place] w/ Bathing Bathing/Grooming Interventions ADL Training Use of Assistive Devices Therapeutic Exercise Therapeutic Activity Neuromuscular Re-Education Balance Work Activity Tolerance Work Patient/Caregiver Education Problem Area: Dressing Dressing Outcomes Improve [place] w/ UB Dressing Improve [place] w/ LB Dressing Dressing Interventions ADL Training Use of Assistive Devices Neuromuscular Re-Education Therapeutic Exercise Balance Work Modalities Patient/Caregiver Education Problem Area: Mobility Mobility Outcomes Improve [place] w/ Bed Mobility Improve [place] w/ Ambulation Improve [place] w/ Stairs /Curb Improve [place] w/ Wheelchair Mobility Interventions Therapeutic Exercise Activity Tolerance Work Use of Assistive Devices Patient/Caregiver Education Bed Mobility Work Gait Training W/C Mobility Work Problem Area: Transfers Transfers Outcomes Improve [place] w/ Toilet Transfers Improve [place] w/ Tub/ Shower Transfers Transfers Interventions Transfer Training Therapeutic Exercise Neuromuscular Re-Education Visual/Perceptual Training Activity Tolerance Work Modalities Use of Assistive Devices Patient/Caregiver Education Problem Area: Bowel/Bladder Managment Bowel/Bladder Outcomes Bowel/Bladder Interventions Problem Area: Toileting Toileting Outcomes Improve [place] w/ Toileting Toileting Interventions ADL Training Balance Work Use of Assistive Devices Patient/Caregiver Education Problem Area: Nutrition Nutrition Outcomes Nutrition Interventions Problem Area: Comprehension Comprehension Outcomes Comprehension Interventions Problem Area: Expression Expression Outcomes Expression Interventions Problem Area: Problem Solving Problem Solving Outcomes Problem Solving Interventions Problem Area: Memory Memory Outcomes Memory Interventions Problem Area: Pain Management Pain Management Outcomes Demonstrate/Verbalize Pain Strategies Pain Management Interventions Medication Management Positioning/Turning Patient/Caregiver Education Problem Area: Knowledge Deficits Knowledge Deficits Outcomes Knowledge Deficits Interventions Problem Area: Skin/Tissue Integrity Skin/Tissue Integrity Outcomes Skin/Tissue Integrity Interventions Problem Area: Social Interaction Social Interaction Outcomes Social Interaction Interventions Problem Area: Adjustment to Disability Adjustment to Disability Outcomes Adjustment to Disability Interventions Problem Area: Discharge Concerns Discharge Concerns Outcomes Discharge w/ Necessary Equipment Have Home Health/Outpatient Services Discharge Concerns Interventions Discharge Planning Family/Caregiver Conference Family/Caregiver Training Problem Area: Community Reintegration Community Reintegration Outcomes Community Reintegration Interventions Problem Area: Home Management Home Management Outcomes Improve [place] w/ Home Management Home Management Interventions Clothing Care Activity Tolerance Work Patient/Caregiver Education Problem Area: Safety Safety Outcomes Provide Safe Environment Perform Selfcare Safely Demonstrate Good Safety w/ Transfers/Mobility Safety Interventions Identify Fall Risk [place] Pt. to Environment Reduce Environmental Hazards Neuro Check Assessment Problem Area: Medication Education Medication Education Outcomes Patient/Caregiver will Verbalize Understanding of Medications Medication Education Interventions Explain Administration/Side Effects/Interactions Problem Area: Diabetes Education Diabetes Education Outcomes Diabetes Education Interventions Problem Area: Oxygenation Oxygenation Outcomes Oxygenation Interventions Problem Area: Cardiovascular Cardiovascular Outcomes Cardiovascular Interventions Physician Only Medical Prognosis and Rehabilitation Potential (Completed by Physician) Good prognosis and fair rehab potential. Having difficulty following commands. speaks for her often even after explaining that the purpose of the exam is to see how she answers questions. Have asked MATERIAL HANDLER to evaluate and weigh in on cognition. May be at the beginning stages of dementia. Partial weightbearing proving difficult for her. This plan of care has been developed based on the findings from the pre- admission assessment, post admission physician evaluation, information gathered from the assessments from all therapy disciplines and other pertinent c linicians. The plan of care has been reviewed and discussed in collaboration with the interdisciplinary team. The plan of care will be reviewed and updated at least weekly.
[2018-06-22 11:35] LABS: Iron 44 ug/dL (37-170); Total Iron Binding Capacity 185 mcg/dL (250-450)
--- NOTE | 2018-06-22 13:39 | XRay Report ---
FINAL REPORT PROCEDURE: XR CHEST ROUTINE 2V TECHNIQUE: PA and lateral chest radiographs were obtained. CPT 69587 HISTORY: Fever COMPARISON: 10/13/2017 FINDINGS: Heart: Stable contour. Mediastinum/Vessels: Prominent mediastinal silhouette may be related to vascular ectasia. This appear s increased compared to the prior study, possibly related to the patient positioning. Lungs/Pleural space: No infiltrate, effusion, or pneumothorax. Bony thorax: No acute osseous abnormality. Other: Coils overlie the left upper abdomen IMPRESSION: No pulmonary infiltrates are seen. There is prominence of the superior mediastinal contour which may related to vascular ectasia. This c ould be further evaluated as clinically indicated.
[2018-06-22] MEDS: TYLENOL PO PRN (17:06)
[2018-06-22 19:26] LABS: Bilirubin,Urine NEG (Negative); Blood,Urine NEG (Negative); Color,Urine Yellow (Yellow); Protein,Urine <15 mg/dL mg/dL (Negative); Urobilinogen,Urine < 2.0 mg/dL (<2.0)
[2018-06-22] MEDS: DESYREL PO SCH (21:46)
[2018-06-23] MEDS: NORCO 5/325 PO PRN ×3 (00:15→23:32)
[2018-06-23] MEDS: SYNTHROID PO SCH (05:20)
[2018-06-23 07:32] LABS: Basophils % (Auto) 0.2 % (0.0-1.8); Hematocrit 21.4 % (30.3-42.9); Hemoglobin 7.5 gm/dl (10.1-14.3); Lymphocytes # (Auto) 0.9 K/mm3 (1.2-5.4); Lymphocytes % (Auto) 20.8 % (13.4-35.0); Mean Corpuscular HGB Conc 35 % (30-34); Mean Corpuscular Volume 94 fl (79-97); Monocytes # (Auto) 0.4 K/mm3 (0.0-0.8); Platelet Count 144 K/mm3 (140-440); Red Blood Count 2.27 M/mm3 (3.65-5.03); Red Cell Distribution Width 12.9 % (13.2-15.2)
[2018-06-23] MEDS: CARAFATE PO SCH ×2 (11:20→21:39)
[2018-06-23] MEDS: PEPCID PO SCH ×2 (11:20→21:39)
[2018-06-23] MEDS: PREMARIN PO SCH (11:25)
[2018-06-23] MEDS: BUSPAR PO SCH ×2 (11:25→21:38)
[2018-06-23] MEDS: LOVENOX SUB-Q SCH (11:25)
[2018-06-23] MEDS: TYLENOL PO PRN ×2 (13:52→19:20)
[2018-06-23] MEDS: DESYREL PO SCH (21:39)
[2018-06-24] MEDS: SYNTHROID PO SCH (05:28)
[2018-06-24] MEDS: NORCO 5/325 PO PRN ×3 (05:28→19:29)
[2018-06-24 07:50] LABS: Basophils % (Auto) 0.1 % (0.0-1.8); Hematocrit 21.4 % (30.3-42.9); Hemoglobin 7.4 gm/dl (10.1-14.3); Lymphocytes # (Auto) 0.9 K/mm3 (1.2-5.4); Lymphocytes % (Auto) 22.3 % (13.4-35.0); Mean Corpuscular HGB Conc 35 % (30-34); Mean Corpuscular Volume 95 fl (79-97); Monocytes # (Auto) 0.4 K/mm3 (0.0-0.8); Monocytes % (Auto) 9.6 % (0.0-7.3); Platelet Count 166 K/mm3 (140-440); Red Blood Count 2.24 M/mm3 (3.65-5.03); Red Cell Distribution Width 13.1 % (13.2-15.2)
[2018-06-24] MEDS: PEPCID PO SCH ×2 (10:50→21:07)
[2018-06-24] MEDS: CARAFATE PO SCH ×2 (10:50→21:07)
[2018-06-24] MEDS: PREMARIN PO SCH (10:50)
[2018-06-24] MEDS: BUSPAR PO SCH ×2 (10:52→21:06)
[2018-06-24] MEDS: LOVENOX SUB-Q SCH (10:52)
[2018-06-24] MEDS: DESYREL PO SCH (21:03)
[2018-06-25] MEDS: NORCO 5/325 PO PRN ×4 (02:19→22:50)
[2018-06-25 06:30] LABS: Basophils % (Auto) 0.1 % (0.0-1.8); Hematocrit 22.2 % (30.3-42.9); Hemoglobin 7.9 gm/dl (10.1-14.3); Lymphocytes % (Auto) 22.2 % (13.4-35.0); Mean Corpuscular HGB Conc 36 % (30-34); Mean Corpuscular Volume 95 fl (79-97); Monocytes # (Auto) 0.5 K/mm3 (0.0-0.8); Monocytes % (Auto) 10.1 % (0.0-7.3); Platelet Count 193 K/mm3 (140-440); Red Blood Count 2.32 M/mm3 (3.65-5.03); Red Cell Distribution Width 13.1 % (13.2-15.2)
[2018-06-25] MEDS: SYNTHROID PO SCH (06:33)
[2018-06-25] MEDS: LOVENOX SUB-Q SCH (08:46)
[2018-06-25] MEDS: ZOFRAN ODT PO PRN (09:15)
[2018-06-25] MEDS: PEPCID PO SCH ×2 (09:52→22:09)
[2018-06-25] MEDS: CARAFATE PO SCH ×2 (09:53→22:11)
[2018-06-25] MEDS: BUSPAR PO SCH ×2 (09:53→22:09)
[2018-06-25] MEDS: PREMARIN PO SCH (09:54)
--- NOTE | 2018-06-25 11:43 | Progress Note ---
Subjective Date of service: 06/25/18 Principal diagnosis: R hip fx Interval history: 78-year-old female who sustained a fall at home resulting in right hip pain. She was unable to stand or bear weight afterwards. She was brought to the ER where hip x-ray showed a right intertrochanteric fracture. He was cleared for surgery and underwent a IM nail for repair. Her weightbearing status is 40% on the right lower extremity. She has bruising on the right side including the head. Head CT was previously performed and showed no skull fracture or intracranial hemorrhage. Patient states she is having very significant pain and does not feel that its well controlled currently. On examination she is drowsy and is recently taken pain medications. Discussed with her that we will have to attempt to control her pain while keeping her alert enough to participating with therapy. Patient is participating in therapy and making reasonable progress. Taking rest breaks as needed. +BM. Chest x-ray within normal limits, no signs of pneumonia or atelectasis. UA negative for UTI. Denies palpitations, dyspnea, cough, N/V, weakness, or joint pain. Pain is tolerable with medications. Speech-language pathology assessed the patient the weekend and determine there is mild cognitive decline and would benefit from continued services. She appears to be much better today than she was over the weekend and remains afebrile. She is currently weightbearing up to 40% per surgeon's orders, we'll contact surgeon and see what the plan is for progressing weightbearing status for the future. All records, vitals, labs and medications were reviewed. No other issues per patient, nursing or therapy. Objective - Exam Narrative Exam: MUSCULOSKELETAL SPECIALTY EXAM CONSTITUTIONAL: Well developed, well nourished, appropriately groomed EENT: EOMI. Hearing intact to soft voice RESPIRATORY: Clear to ascultation bilaterally, no increased work of breathing, O2 via nasal cannula CARDIOVASCULAR: Regular Rate/ Rhythm, no swelling, edema or tenderness in BUE or BLE. All extremities warm. GI: + bowel sounds, soft, NTTP, nondistended. INTEGUMENTARY: Bruising in bilateral upper extremities, RLE and right side of face (goes into scalp), otherwise normal, no lesion, rash, masses noted in extremities. Surgical site C/D/I MUSCULOSKELETAL: BUE and LLE normal without defect, crepitus, subluxation, effusion, or TTP. Arthritic changes noted bilaterally in hands. BUE 4+/5, good ROM, with normal tone. LLE 4/5 good ROM, with normal tone. RLE has decreased ROM and 2/5 due to pain NEURO: CN 2-12 grossly intact. Sensation intact in all extremities. No tremor noted in 4 extremities. POSTURE and GAIT: Sitting posture good. Balance appears reasonable. Gait deferred until seen with therapy. PSYCH: Alert, orientated, affect appears normal. Insight appears intact. - Constitutional Vitals: Vital Signs - 12hr 06/25/18 06/25/18 06/25/18 04:51 07:50 09:59 Temperature 37.5 C 37.2 C Pulse Rate 85 84 Respiratory 20 18 Rate Respiratory Rate [Right Hip ] Blood Pressure 144/79 153/76 O2 Sat by Pulse 92 96 93 Oximetry 06/25/18 06/25/18 10:00 10:37 Temperature Pulse Rate Respiratory 20 Rate Respiratory 16 Rate [Right Hip ] Blood Pressure O2 Sat by Pulse Oximetry - Allied health notes Allied health notes reviewed: nursing, PT, ST, OT FIMS assessment as documented by PT/OT/ST: Grooming Patient cleans teeth/dentures: Yes Patient serrano/brushes hair: Yes Patient washes, rinses and Yes dries face: Patient washes, rinses and Yes dries hands: Patient applies make-up: No Patient performs (no make-up/ 08/08 (100%) shaving): Grooming FIM Score 4. Minimal Assistance (Patient = 75% or more. Needs touching.) Toileting Toileting FIM Score 3. Moderate Assistance (Patient = 50% or more. Some lifting.) Social interaction/Memory/Problem solving Social Interaction FIM Score 7. Complete [place] (Interacts appropriately. Controls temper.) Memory FIM Score 6. Modified [place](Mild difficulty remembering people/routines.) Problem Solving FIM Score 7. Complete [place] (Solves complex problems. Self corrects.) Transfers Mode of Locomotion: Walking Bed/Chair/Wheelchair Transfers 1. Total Assistance (Patient less than 25%. 2 or FIM Score more persons.) Toilet Transfers FIM Score 3. Moderate Assistance (Patient = 50% or more. Some lifting.) Patient transferred to: Shower Shower Transfers FIM Score 3. Moderate Assistance (Patient = 50% or more. Some lifting.) Locomotion- Stairs Stairs FIM Score 0. Activity does not occur Locomotion- walk/wheelchair Most Frequent Mode of Walking Locomotion: Ambulation Distance 7 Walking FIM Score 0. Activity does not occur Wheelchair Propulsion Distance 75 Wheelchair FIM Score 1. Total Assistance (Pt. < 25%, 2 or more person assist, or <50 ft.) Eating Eating FIM Score 5. Supervision/Set-Up (Needs help w/ containers, cutting meat, etc.) Dressing-Upper body Patient retrieves clothing No items: Patient applies/removes UE n/a prosthesis or orthosis: Upper Body Dressing FIM Score 4. Minimal Assistance (Patient = 75% or more. Needs touching.) Dressing-lower body Lower Body Dressing Device Reflesher/Stick,Shoehorn,Sock Aid Patient retrieves clothing No items: Patient applies/removes LE n/a prosthesis or orthosis: Lower Body Dressing FIM Score 2. Maximal Assistance (Patient = 25% or more) - Labs CBC & Chem 7: 06/25/18 05:47 06/20/18 07:08 Labs: Laboratory Results - last 72 hr 06/22/18 06/22/18 06/22/18 10:34 10:34 10:34 WBC RBC Hgb Hct MCV MCH MCHC RDW Plt Count Lymph % (Auto) [place] % (Auto) Eos % (Auto) Baso % (Auto) Lymph # [place] # Eos # Baso # Seg Neutrophils % Seg Neutrophils # Ferritin 119.7 Vitamin B12 1008 H Folate 20.0 Urine Color Urine Turbidity Urine pH Ur Specific [place] Urine Protein Urine Glucose (UA) Urine Ketones Urine Blood Urine Nitrite Urine Bilirubin Urine Urobilinogen Ur Leukocyte Esterase Urine WBC (Auto) Urine RBC (Auto) U Epithel Cells (Auto) 06/22/18 06/23/18 06/24/18 19:02 07:01 07:26 WBC 4.3 L 4.0 L RBC 2.27 L 2.24 L Hgb 7.5 L 7.4 L Hct 21.4 L 21.4 L MCV 94 95 MCH 33 H 33 H MCHC 35 H 35 H RDW 12.9 L 13.1 L Plt Count 144 166 Lymph % (Auto) 20.8 22.3 [place] % (Auto) 10.0 H 9.6 H Eos % (Auto) 0.0 0.0 Baso % (Auto) 0.2 0.1 Lymph # 0.9 L 0.9 L [place] # 0.4 0.4 Eos # 0.0 0.0 Baso # 0.0 0.0 Seg Neutrophils % 69.0 68.0 Seg Neutrophils # 2.9 2.7 Ferritin Vitamin B12 Folate Urine Color Yellow Urine Turbidity Clear Urine pH 5.0 Ur Specific [place] 1.011 Urine Protein <15 mg/dl Urine Glucose (UA) Neg Urine Ketones Neg Urine Blood Neg Urine Nitrite Neg Urine Bilirubin Neg Urine Urobilinogen < 2.0 Ur Leukocyte Esterase Neg Urine WBC (Auto) 1.0 Urine RBC (Auto) 2.0 U Epithel Cells (Auto) < 1.0 06/25/18 05:47 WBC 4.5 RBC 2.32 L Hgb 7.9 L Hct 22.2 L MCV 95 MCH 34 H MCHC 36 H RDW 13.1 L Plt Count 193 Lymph % (Auto) 22.2 [place] % (Auto) 10.1 H Eos % (Auto) 0.0 Baso % (Auto) 0.1 Lymph # 1.0 L [place] # 0.5 Eos # 0.0 Baso # 0.0 Seg Neutrophils % 67.6 Seg Neutrophils # 3.0 Ferritin Vitamin B12 Folate Urine Color Urine Turbidity Urine pH Ur Specific [place] Urine Protein Urine Glucose (UA) Urine Ketones Urine Blood Urine Nitrite Urine Bilirubin Urine Urobilinogen Ur Leukocyte Esterase Urine WBC (Auto) Urine RBC (Auto) U Epithel Cells (Auto) - Imaging and cardiology Chest x-ray: report reviewed, image reviewed Assessment and Plan S72.91XS right femur fracture sequela: Continue DVT prophylaxis, pain control. Patient is 40% weightbearing per surgeon. We'll continue to work with PT and OT to improve mobility and ability to perform self-care. Monitor surgical site. Z73.6 ADL dysfunction: OT will work on improving ability to perform ADLs (including assistive devices) to increase independence and decrease caregiver burden and improve functional transfers and mobility training. R26.2 Difficulty walking: PT will work on gait training and proper use of assi stive devices and advance as appropriate to use of stairs and outside ambulation on uneven surfaces. R26.81 Unsteadiness on feet: PT will work on improving static and dynamic sitting and standing balance as well as proper use of assistive devices to decrease risk of falls. R26.89 Abnormality of gait: PT will work to improve safety and efficiency of gait through neuromotor training and gait training along with instruction on proper use of assistive devices. M62.81 Muscle weakness: PT & OT will work on strengthening exercises to improve functional strength including mixture of closed and open kinetic chain exercises. R53.81 Debility: PT & OT will work on improving overall functional status to improve participation with ADLs, mobility and social involvement. R53.83 Fatigue: PT & OT will work on improving endurance through aerobic exercises and therapeutic activity while monitoring patients tolerance for activity and vital signs as needed. K59.00 constipation: Continue medications and adjust as needed. E03.9 hypothyroidism: Continue Synthroid D62 acute blood loss anemia: Improving. We'll start short course of iron and vitamin C. Monitor hemoglobin. Transfuse if needed. E46 Protein deficiency: Start supplementation R11.0 Nausea: Zofran ordered, none today R50.9 Fever: Resolved. Chest x-ray and UA both negative. Does not appear septic DVT ppx: Lovenox Pain: Continue physical modalities in therapy and pain medications as needed to achieve functional pain control. Sleep: Monitor and address as needed. On home trazodone. Bowel: Monitor and address as needed. Appetite: Monitor and address as needed. Discharge planning: Pending therapy progress and care plan meeting. Will continue discussion with therapy team, SW, patient and family. Restrictions/ Precautions: Falls WB status: 40% RLE Functional Hx: ADLs: Independent Cognition: Independent Mobility: No AD Barriers to Discharge: Decreased mobility and ability to perform self care, balance deficits, weakness Estimated Length of Stay: 7-10 days Discharge Destination: Home with family
[2018-06-25] MEDS: FEOSOL PO SCH (22:09)
[2018-06-25] MEDS: VITAMIN C PO SCH (22:09)
[2018-06-25] MEDS: DESYREL PO SCH (22:09)
[2018-06-26] MEDS: NORCO 10/325 PO PRN ×4 (00:58→23:16)
[2018-06-26] MEDS: TYLENOL PO PRN (03:21)
[2018-06-26] MEDS: SYNTHROID PO SCH (06:00)
[2018-06-26] MEDS: FEOSOL PO SCH ×2 (08:44→21:34)
[2018-06-26] MEDS: PREMARIN PO SCH (08:45)
[2018-06-26] MEDS: BUSPAR PO SCH ×2 (08:45→21:33)
[2018-06-26] MEDS: PEPCID PO SCH ×2 (08:45→21:34)
[2018-06-26] MEDS: VITAMIN C PO SCH ×2 (08:45→21:34)
[2018-06-26] MEDS: CARAFATE PO SCH ×2 (08:45→21:34)
[2018-06-26] MEDS: LOVENOX SUB-Q SCH (08:45)
--- NOTE | 2018-06-26 09:16 | XRay Report ---
RIGHT HIP RADIOGRAPHS INDICATION: Pain, swelling. COMPARISON: 06/17/2018. FINDINGS: Portable, frontal right hip radiographs, 2 images again demonstrate right hip/femoral Zickle nail, stabilizing a recent intertrochanteric fracture. Anatomic alignment. Normal imaged right hemipelvis. Few right hip skin markos and possible gluteal calcified injection granulomas. CONCLUSION: No acute radiographic abnormality with recent right hip postsurgical changes again noted, as described. Thank you for the opportunity to participate in this patient's care.
[2018-06-26] MEDS: DESYREL PO SCH (21:33)
[2018-06-27] MEDS: NORCO 10/325 PO PRN ×3 (06:04→19:49)
[2018-06-27] MEDS: SYNTHROID PO SCH (06:05)
--- NOTE | 2018-06-27 10:32 | Progress Note ---
Subjective Date of service: 06/27/18 Principal diagnosis: R hip fx Interval history: 78-year-old female who sustained a fall at home resulting in right hip pain. She was unable to stand or bear weight afterwards. She was brought to the ER where hip x-ray showed a right intertrochanteric fracture. He was cleared for surgery and underwent a IM nail for repair. Her weightbearing status is 40% on the right lower extremity. She has bruising on the right side including the head. Head CT was previously performed and showed no skull fracture or intracranial hemorrhage. Patient states she is having very significant pain and does not feel that its well controlled currently. On examination she is drowsy and is recently taken pain medications. Discussed with her that we will have to attempt to control her pain while keeping her alert enough to participating with therapy. Patient is participating in therapy and making reasonable progress. Taking rest breaks as needed. +BM. Denies palpitations, dyspnea, cough, N/V, weakness, or joint pain. Pain is tolerable with medications. Weightbearing status was changed to weightbearing as tolerated on the right lower extremity. She is ambulating with some pain but able to push through it. Gait is antalgic. Still having cognitive issues especially when it comes to sequencing and remembering series of directions. Temperature was slightly elevated last night to 37.7. I was called on Sunday night with complaints of increased pain that was not controlled with pain medication. Ordered a hip x-ray to ensure there was no change in the postsurgical hip after starting weightbearing. All components are in place with no signs of disruption. Pain later subsided after her pain medicines took effect. All records, vitals, labs and medications were reviewed. No other issues per patient, nursing or therapy. Objective - Exam Narrative Exam: MUSCULOSKELETAL SPECIALTY EXAM CONSTITUTIONAL: Well developed, well nourished, appropriately groomed EENT: EOMI. Hearing intact to soft voice RESPIRATORY: Clear to ascultation bilaterally, no increased work of breathing CARDIOVASCULAR: Regular Rate/ Rhythm, no swelling, edema or tenderness in BUE or BLE. All extremities warm. GI: + bowel sounds, soft, NTTP, nondistended. INTEGUMENTARY: Bruising in bilateral upper extremities, RLE and right side of face (goes into scalp), otherwise normal, no lesion, rash, masses noted in extremities. Surgical site C/D/I MUSCULOSKELETAL: BUE and LLE normal without defect, crepitus, subluxation, effusion, or TTP. Arthritic changes noted bilaterally in hands. BUE 4+/5, good ROM, with normal tone. LLE 4/5 good ROM, with normal tone. RLE has decreased ROM and 3/5 NEURO: CN 2-12 grossly intact. Sensation intact in all extremities. No tremor noted in 4 extremities. POSTURE and GAIT: Sitting posture good. Balance appears reasonable. Antalgic gait with RW, appears to be high stepping with the right leg, is tolerating weightbearing. PSYCH: Alert, orientated, affect appears normal. Insight appears intact. - Constitutional Vitals: Vital Signs - 12hr 06/27/18 06/27/18 06/27/18 05:56 07:48 07:50 Temperature 37.1 C 36.9 C Pulse Rate 89 88 Respiratory 18 18 Rate Blood Pressure 157/77 139/73 O2 Sat by Pulse 95 96 Oximetry 06/27/18 08:25 Temperature Pulse Rate Respiratory Rate Blood Pressure O2 Sat by Pulse 97 Oximetry - Allied health notes Allied health notes reviewed: nursing, PT, ST, OT FIMS assessment as documented by PT/OT/ST: Grooming Patient cleans teeth/dentures: Yes Patient serrano/brushes hair: Yes Patient washes, rinses and Yes dries face: Patient washes, rinses and Yes dries hands: Patient applies make-up: No Patient performs (no make-up/ 08/08 (100%) shaving): Grooming FIM Score 4. Minimal Assistance (Patient = 75% or more. Needs touching.) Toileting Toileting FIM Score 3. Moderate Assistance (Patient = 50% or more. Some lifting.) Social interaction/Memory/Problem solving Social Interaction FIM Score 7. Complete [place] (Interacts appropriately. Controls temper.) Memory FIM Score 3. Moderate Assistance (Recognizes and remembers 50-74%.) Problem Solving FIM Score 5. Supervision (Needs cueing <10% to solve routine problems.) Transfers Mode of Locomotion: Wheelchair Bed/Chair/Wheelchair Transfers 3. Moderate Assistance (Patient = 50% or more. FIM Score Some lifting.) Toilet Transfers FIM Score 3. Moderate Assistance (Patient = 50% or more. Some lifting.) Patient transferred to: Shower Shower Transfers FIM Score 3. Moderate Assistance (Patient = 50% or more. Some lifting.) Locomotion- Stairs Device used on Stairs None Number of Stairs Ascended/ 0 Descended Patient used handrail/support: Yes: RW Stairs FIM Score 0. Activity does not occur Locomotion- walk/wheelchair Most Frequent Mode of Wheelchair Locomotion: Ambulation Distance 0 Walking FIM Score 0. Activity does not occur Wheelchair Propulsion Distance 0 Wheelchair FIM Score 0. Activity does not occur Eating Eating FIM Score 5. Supervision/Set-Up (Needs help w/ containers, cutting meat, etc.) Dressing-Upper body Patient retrieves clothing No items: Patient applies/removes UE n/a prosthesis or orthosis: Upper Body Dressing FIM Score 4. Minimal Assistance (Patient = 75% or more. Needs touching.) Dressing-lower body Lower Body Dressing Device Hotel Maintenance Technician/Stick,Shoehorn,Sock Aid Patient retrieves clothing No items: Patient applies/removes LE n/a prosthesis or orthosis: Lower Body Dressing FIM Score 2. Maximal Assistance (Patient = 25% or more) - Labs CBC & Chem 7: 06/25/18 05:47 06/20/18 07:08 Labs: Laboratory Results - last 72 hr 06/25/18 05:47 WBC 4.5 RBC 2.32 L Hgb 7.9 L Hct 22.2 L MCV 95 MCH 34 H MCHC 36 H RDW 13.1 L Plt Count 193 Lymph % (Auto) 22.2 [place] % (Auto) 10.1 H Eos % (Auto) 0.0 Baso % (Auto) 0.1 Lymph # 1.0 L [place] # 0.5 Eos # 0.0 Baso # 0.0 Seg Neutrophils % 67.6 Seg Neutrophils # 3.0 - Imaging and cardiology Other: report reviewed (R Hip XR), image reviewed Assessment and Plan S72.91XS right femur fracture sequela: Continue DVT prophylaxis, pain control. Patient is WBAT. We'll continue to work with PT and OT to improve mobility and ability to perform self-care. Monitor surgical site. Z73.6 ADL dysfunction: OT will work on improving ability to perform ADLs (including assistive devices) to increase independence and decrease caregiver burden and improve functional transfers and mobility training. R26.2 Difficulty walking: PT will work on gait training and proper use of assistive devices and advance as appropriate to use of stairs and outside ambulation on uneven surfaces. R26.81 Unsteadiness on feet: PT will work on improving static and dynamic sitting and standing balance as well as proper use of assistive devices to decrease risk of falls. R26.89 Abnormality of gait: PT will work to improve safety and efficiency of gait through neuromotor training and gait training along with instruction on proper use of assistive devices. M62.81 Muscle weakness: PT & OT will work on strengthening exercises to improve functional strength including mixture of closed and open kinetic chain exercises. R53.81 Debility: PT & OT will work on improving overall functional status to improve participation with ADLs, mobility and social involvement. R53.83 Fatigue: PT & OT will work on improving endurance through aerobic exercises and therapeutic activity while monitoring patients tolerance for activity and vital signs as needed. K59.00 constipation: Continue medications and adjust as needed. E03.9 hypothyroidism: Continue Synthroid D62 acute blood loss anemia: Improving. We'll start short course of iron and vitamin C. Monitor hemoglobin. Transfuse if needed. E46 Protein deficiency: Start supplementation R11.0 Nausea: Zofran ordered, none today R50.9 Fever: Resolved. Chest x-ray and UA both negative. Does not appear septic DVT ppx: Lovenox Pain: Continue physical modalities in therapy and pain medications as needed to achieve functional pain control. Sleep: Monitor and address as needed. On home trazodone. Bowel: Monitor and address as needed. Appetite: Monitor and address as needed. Discharge planning: Pending therapy progress and care plan meeting. Will continue discussion with therapy team, SW, patient and family. Restrictions/ Precautions: Falls WB status: WBAT RLE Functional Hx: ADLs: Independent Cognition: Independent Mobility: No AD Barriers to Discharge: Decreased mobility and ability to perform self care, balance deficits, weakness Estimated Length of Stay: 7-10 days Discharge Destination: Home with family
[2018-06-27] MEDS: LOVENOX SUB-Q SCH (11:23)
[2018-06-27] MEDS: PREMARIN PO SCH (11:23)
[2018-06-27] MEDS: PEPCID PO SCH ×2 (11:23→21:42)
[2018-06-27] MEDS: VITAMIN C PO SCH ×2 (11:23→21:42)
[2018-06-27] MEDS: CARAFATE PO SCH ×2 (11:24→21:43)
[2018-06-27] MEDS: FEOSOL PO SCH ×2 (11:24→21:43)
[2018-06-27] MEDS: BUSPAR PO SCH ×2 (11:24→21:46)
[2018-06-27] MEDS: ZOFRAN ODT PO PRN (17:05)
[2018-06-27] MEDS: DESYREL PO SCH (21:42)
[2018-06-28] MEDS: NORCO 10/325 PO PRN ×4 (05:23→21:54)
[2018-06-28] MEDS: SYNTHROID PO SCH (05:32)
[2018-06-28] MEDS: LOVENOX SUB-Q SCH (08:28)
[2018-06-28] MEDS: ZOFRAN ODT PO PRN ×2 (09:11→17:05)
[2018-06-28] MEDS: BUSPAR PO SCH ×2 (10:00→21:53)
[2018-06-28] MEDS: VITAMIN C PO SCH ×2 (12:20→21:54)
[2018-06-28] MEDS: CARAFATE PO SCH ×2 (12:20→21:53)
[2018-06-28] MEDS: FEOSOL PO SCH ×2 (12:20→21:54)
[2018-06-28] MEDS: PREMARIN PO SCH (12:20)
--- NOTE | 2018-06-28 13:48 | Progress Note ---
Subjective Date of service: 06/28/18 Principal diagnosis: R hip fx Interval history: 78-year-old female who sustained a fall at home resulting in right hip pain. She was unable to stand or bear weight afterwards. She was brought to the ER where hip x-ray showed a right intertrochanteric fracture. He was cleared for surgery and underwent a IM nail for repair. Her weightbearing status is 40% on the right lower extremity. She has bruising on the right side including the head. Head CT was previously performed and showed no skull fracture or intracranial hemorrhage. Patient states she is having very significant pain and does not feel that its well controlled currently. On examination she is drowsy and is recently taken pain medications. Discussed with her that we will have to attempt to control her pain while keeping her alert enough to participating with therapy. Patient is participating in therapy and making reasonable progress. Taking rest breaks as needed. +BM. Some nausea this AM. Denies palpitations, dyspnea, cough, weakness, or joint pain. Pain is tolerable with medications. Weightbearing status was changed to weightbearing as tolerated on the right lower extremity. She is ambulating with some pain but able to push through it. Gait is antalgic. Still having cognitive issues especially when it comes to sequencing and remembering series of directions. All records, vitals, labs and medications were reviewed. No other issues per patient, nursing or therapy. Objective - Exam Narrative Exam: MUSCULOSKELETAL SPECIALTY EXAM CONSTITUTIONAL: Well developed, well nourished, appropriately groomed EENT: EOMI. Hearing intact to soft voice RESPIRATORY: Clear to ascultation bilaterally, no increased work of breathing CARDIOVASCULAR: Regular Rate/ Rhythm, no swelling, edema or tenderness in BUE or BLE. All extremities warm. GI: + bowel sounds, soft, NTTP, nondistended. INTEGUMENTARY: Bruising in bilateral upper extremities, RLE and right side of face (goes into scalp), otherwise normal, no lesion, rash, masses noted in extremities. Surgical site C/D/I MUSCULOSKELETAL: BUE and LLE normal without defect, crepitus, subluxation, effusion, or TTP. Arthritic changes noted bilaterally in hands. BUE 4+/5, good ROM, with normal tone. LLE 4/5 good ROM, with normal tone. RLE has decreased ROM and 3/5 NEURO: CN 2-12 grossly intact. Sensation intact in all extremities. No tremor noted in 4 extremities. POSTURE and GAIT: Sitting posture good. Balance appears reasonable. Antalgic gait with RW, appears to be high stepping with the right leg, is tolerating weightbearing. PSYCH: Alert, orientated, affect appears normal. Insight appears intact. - Constitutional Vitals: Vital Signs - 12hr 06/28/18 06/28/18 06/28/18 05:23 06:23 08:36 Temperature 37.2 C Pulse Rate Respiratory 17 16 18 Rate Blood Pressure 115/47 Blood Pressure [Left] O2 Sat by Pulse Oximetry 06/28/18 06/28/18 06/28/18 08:38 08:39 11:30 Temperature 36.8 C Pulse Rate 83 69 Respiratory 18 Rate Blood Pressure Blood Pressure 149/77 [Left] O2 Sat by Pulse 94 94 Oximetry - Allied health notes Allied health notes reviewed: nursing, PT, ST, OT FIMS assessment as documented by PT/OT/ST: Grooming Patient cleans teeth/dentures: Yes Patient serrano/brushes hair: Yes Patient washes, rinses and Yes dries face: Patient washes, rinses and Yes dries hands: Patient applies make-up: No Patient performs (no make-up/ 4/4 (100%) shaving): Grooming FIM Score 4. Minimal Assistance (Patient = 75% or more. Needs touching.) Toileting Toileting FIM Score 3. Moderate Assistance (Patient = 50% or more. Some lifting.) Social interaction/Memory/Problem solving Social Interaction FIM Score 6. Mod. Romeo (Mostly appropriate. May need meds. No supv.) Memory FIM Score 3. Moderate Assistance (Recognizes and remembers 50-74%.) Problem Solving FIM Score 3. Moderate Assistance (Solves routine problems 50-74%.) Transfers Mode of Locomotion: Wheelchair Bed/Chair/Wheelchair Transfers 3. Moderate Assistance (Patient = 50% or more. FIM Score Some lifting.) Toilet Transfers FIM Score 3. Moderate Assistance (Patient = 50% or more. Some lifting.) Patient transferred to: Shower Shower Transfers FIM Score 3. Moderate Assistance (Patient = 50% or more. Some lifting.) Locomotion- Stairs Device used on Stairs None Number of Stairs Ascended/ 0 Descended Patient used handrail/support: Yes: RW Stairs FIM Score 0. Activity does not occur Locomotion- walk/wheelchair Most Frequent Mode of Wheelchair Locomotion: Ambulation Distance 0 Walking FIM Score 0. Activity does not occur Wheelchair Propulsion Distance 0 Wheelchair FIM Score 0. Activity does not occur Eating Eating FIM Score 5. Supervision/Set-Up (Needs help w/ containers, cutting meat, etc.) Dressing-Upper body Patient retrieves clothing No items: Patient applies/removes UE n/a prosthesis or orthosis: Upper Body Dressing FIM Score 4. Minimal Assistance (Patient = 75% or more. Needs touching.) Dressing-lower body Lower Body Dressing Device Saw Handle Assembler/Stick,Shoehorn,Sock Aid Patient retrieves clothing No items: Patient applies/removes LE n/a prosthesis or orthosis: Lower Body Dressing FIM Score 2. Maximal Assistance (Patient = 25% or more) - Labs CBC & Chem 7: 06/25/18 05:47 06/20/18 07:08 Assessment and Plan S72.91XS right femur fracture sequela: Continue DVT prophylaxis, pain control. Patient is WBAT. We'll continue to work with PT and OT to improve mobility and ability to perform self-care. Monitor surgical site. Z73.6 ADL dysfunction: OT will work on improving ability to perform ADLs (including assistive devices) to increase independence and decrease caregiver burden and improve functional transfers and mobility training. R26.2 Difficulty walking: PT will work on gait training and proper use of assistive devices and advance as appropriate to use of stairs and outside ambulation on uneven surfaces. R26.81 Unsteadiness on feet: PT will work on improving static and dynamic sitting and standing balance as well as proper use of assistive devices to decrease risk of falls. R26.89 Abnormality of gait: PT will work to improve safety and efficiency of gait through neuromotor training and gait training along with instruction on proper use of assistive devices. M62.81 Muscle weakness: PT & OT will work on strengthening exercises to improve functional strength including mixture of closed and open kinetic chain exercises. R53.81 Debility: PT & OT will work on improving overall functional status to improve participation with ADLs, mobility and social involvement. R53.83 Fatigue: PT & OT will work on improving endurance through aerobic exercises and therapeutic activity while monitoring patients tolerance for activity and vital signs as needed. K59.00 constipation: Continue medications and adjust as needed. E03.9 hypothyroidism: Continue Synthroid D62 acute blood loss anemia: Improving. Cont iron and vitamin C. Monitor hemoglobin. Transfuse if needed. E46 Protein deficiency: Start supplementation R11.0 Nausea: Zofran ordered, none today R50.9 Fever: Resolved. Chest x-ray and UA both negative. Does not appear septic DVT ppx: Lovenox Pain: Continue physical modalities in therapy and pain medications as needed to achieve functional pain control. Sleep: Monitor and address as needed. On home trazodone. Bowel: Monitor and address as needed. Appetite: Monitor and address as needed. Discharge planning: Pending therapy progress and care plan meeting. Will continue discussion with therapy team, SW, patient and family. Restrictions/ Precautions: Falls WB status: WBAT RLE Functional Hx: ADLs: Independent Cognition: Independent Mobility: No AD Barriers to Discharge: Decreased mobility and ability to perform self care, balance deficits, weakness Estimated Length of Stay: 7-10 days Discharge Destination: Home with family
[2018-06-28] MEDS: PEPCID PO SCH ×2 (17:09→21:53)
[2018-06-28] MEDS: SENOKOT S PO SCH (21:53)
[2018-06-28] MEDS: DESYREL PO SCH (21:53)
[2018-06-29] MEDS: SYNTHROID PO SCH (05:42)
[2018-06-29] MEDS: ZOFRAN ODT PO PRN ×2 (06:12→11:53)
[2018-06-29 07:35] LABS: Hematocrit 23.3 % (30.3-42.9); Hemoglobin 8.1 gm/dl (10.1-14.3); Mean Corpuscular HGB Conc 35 % (30-34); Mean Corpuscular Volume 99 fl (79-97); Platelet Count 284 K/mm3 (140-440); Red Blood Count 2.36 M/mm3 (3.65-5.03); Red Cell Distribution Width 15.7 % (13.2-15.2)
[2018-06-29 07:54] LABS: BUN/Creatinine Ratio 18; Blood Urea Nitrogen 9 mg/dL (7-17); Calcium 8.6 mg/dL (8.4-10.2); Hemolysis Index 2
[2018-06-29] MEDS: LOVENOX SUB-Q SCH (10:01)
[2018-06-29] MEDS: PREMARIN PO SCH (10:03)
[2018-06-29] MEDS: VITAMIN C PO SCH ×2 (10:03→21:20)
[2018-06-29] MEDS: BUSPAR PO SCH ×2 (10:04→21:19)
[2018-06-29] MEDS: CARAFATE PO SCH ×2 (10:07→21:19)
[2018-06-29] MEDS: PEPCID PO SCH ×2 (10:07→21:20)
[2018-06-29] MEDS: FEOSOL PO SCH ×2 (10:07→21:19)
[2018-06-29] MEDS: NORCO 10/325 PO PRN ×2 (14:20→22:39)
[2018-06-29] MEDS: SENOKOT S PO SCH (21:20)
[2018-06-29] MEDS: DESYREL PO SCH (21:20)
[2018-06-30] MEDS: NORCO 10/325 PO PRN ×3 (02:01→17:54)
[2018-06-30] MEDS: SYNTHROID PO SCH (06:15)
[2018-06-30] MEDS: LOVENOX SUB-Q SCH (08:27)
[2018-06-30] MEDS: PEPCID PO SCH ×2 (08:28→21:20)
[2018-06-30] MEDS: PREMARIN PO SCH (08:28)
[2018-06-30] MEDS: CARAFATE PO SCH ×2 (08:28→21:20)
[2018-06-30] MEDS: FEOSOL PO SCH ×2 (08:28→21:20)
[2018-06-30] MEDS: VITAMIN C PO SCH ×2 (08:28→21:20)
[2018-06-30] MEDS: BUSPAR PO SCH ×2 (08:29→21:19)
[2018-06-30] MEDS: ZOFRAN ODT PO PRN ×2 (10:15→17:51)
[2018-06-30] MEDS: K-DUR PO SCH (17:51)
[2018-06-30] MEDS: DESYREL PO SCH (21:19)
[2018-06-30] MEDS: SENOKOT S PO SCH (22:00)
[2018-07-01] MEDS: NORCO 10/325 PO PRN ×3 (00:49→20:46)
[2018-07-01] MEDS: TYLENOL PO PRN (02:14)
[2018-07-01] MEDS: SYNTHROID PO SCH (07:09)
[2018-07-01 07:43] LABS: BUN/Creatinine Ratio 22; Blood Urea Nitrogen 11 mg/dL (7-17); Calcium 8.6 mg/dL (8.4-10.2); Hemolysis Index 5
[2018-07-01] MEDS: LOVENOX SUB-Q SCH (10:38)
[2018-07-01] MEDS: FEOSOL PO SCH ×2 (10:39→21:40)
[2018-07-01] MEDS: K-DUR PO SCH (10:39)
[2018-07-01] MEDS: PEPCID PO SCH ×2 (10:40→21:40)
[2018-07-01] MEDS: CARAFATE PO SCH ×2 (10:40→21:40)
[2018-07-01] MEDS: PREMARIN PO SCH (10:41)
[2018-07-01] MEDS: VITAMIN C PO SCH ×2 (10:41→21:40)
[2018-07-01] MEDS: BUSPAR PO SCH ×2 (10:42→21:40)
[2018-07-01] MEDS: DESYREL PO SCH (21:41)
[2018-07-02] MEDS: SENOKOT S PO SCH ×2 (05:51→21:41)
[2018-07-02] MEDS: SYNTHROID PO SCH (05:52)
[2018-07-02] MEDS: NORCO 10/325 PO PRN ×3 (06:53→20:30)
[2018-07-02] MEDS: ZOFRAN ODT PO PRN (08:35)
[2018-07-02] MEDS: LOVENOX SUB-Q SCH (08:36)
[2018-07-02] MEDS: FEOSOL PO SCH ×2 (08:37→22:10)
[2018-07-02] MEDS: K-DUR PO SCH (08:37)
[2018-07-02] MEDS: BUSPAR PO SCH ×2 (08:37→21:42)
[2018-07-02] MEDS: PEPCID PO SCH ×2 (08:37→21:41)
[2018-07-02] MEDS: CARAFATE PO SCH ×2 (08:38→21:42)
[2018-07-02] MEDS: PREMARIN PO SCH (08:38)
[2018-07-02] MEDS: VITAMIN C PO SCH ×2 (08:38→21:41)
--- NOTE | 2018-07-02 10:01 | Progress Note ---
Subjective Date of service: 07/02/18 Principal diagnosis: R hip fx Interval history: 78-year-old female who sustained a fall at home resulting in right hip pain. She was unable to stand or bear weight afterwards. She was brought to the ER where hip x-ray showed a right intertrochanteric fracture. He was cleared for surgery and underwent a IM nail for repair. Her weightbearing status is 40% on the right lower extremity. She has bruising on the right side including the head. Head CT was previously performed and showed no skull fracture or intracranial hemorrhage. Patient states she is having very significant pain and does not feel that its well controlled currently. On examination she is drowsy and is recently taken pain medications. Discussed with her that we will have to attempt to control her pain while keeping her alert enough to participating with therapy. Patient is participating in therapy and making reasonable progress. Taking rest breaks as needed. +BM. Some nausea this AM, better with zofran - has history of gastroparesis. Denies palpitations, dyspnea, cough, weakness, or joint pain. Pain is tolerable with medications. Tolerating WBAT. Gait is antalgic. Still having cognitive issues with sequencing and remembering series of directions. Deborah should be able to be removed today, will discuss with surgeon. Will transition to [facility]. BP has been elevated last couple of checks - monitor and add medications if needed. Discussed in team conference. Making progress with transfers and ambulation. Pain and fatigue increase with distance. Likely ready for discharge this weekend based on current improvement. All records, vitals, labs and medications were reviewed. No other issues per patient, nursing or therapy. Objective - Exam Narrative Exam: MUSCULOSKELETAL SPECIALTY EXAM CONSTITUTIONAL: Well developed, well nourished, appropriately groomed EENT: EOMI. Hearing intact to soft voice RESPIRATORY: Clear to ascultation bilaterally, no increased work of breathing CARDIOVASCULAR: Regular Rate/ Rhythm, no swelling, edema or tenderness in BUE or BLE. All extremities warm. GI: + bowel sounds, soft, NTTP, nondistended. INTEGUMENTARY: Bruising in bilateral upper extremities, RLE and right side of face (goes into scalp)- improving, otherwise normal, no lesion, rash, masses noted in extremities. Surgical site C/D/I MUSCULOSKELETAL: BUE and LLE normal without defect, crepitus, subluxation, effusion, or TTP. Arthritic changes noted bilaterally in hands. BUE 4+/5, good ROM, with normal tone. LLE 4/5 good ROM, with normal tone. RLE has decreased ROM and 4-/5 NEURO: CN 2-12 grossly intact. Sensation intact in all extremities. No tremor noted in 4 extremities. POSTURE and GAIT: Sitting posture good. Balance appears reasonable. Antalgic gait with RW, appears to be high stepping with the right leg, is tolerating weightbearing. PSYCH: Alert, orientated, affect appears normal. Insight appears intact. - Constitutional Vitals: Vital Signs - 12hr 07/01/18 07/02/18 07/02/18 22:00 01:19 07:22 Temperature 36.8 C 36.9 C Pulse Rate 77 78 Respiratory 18 18 Rate Respiratory 17 Rate [Right Hip ] Blood Pressure 161/58 175/63 O2 Sat by Pulse 96 92 Oximetry - Allied health notes Allied health notes reviewed: nursing, PT, ST, OT FIMS assessment as documented by PT/OT/ST: Grooming Patient cleans teeth/dentures: Yes Patient serrano/brushes hair: Yes Patient washes, rinses and Yes dries face: Patient washes, rinses and Yes dries hands: Patient applies make-up: No Patient performs (no make-up/ 4/4 (100%) shaving): Grooming FIM Score 4. Minimal Assistance (Patient = 75% or more. Needs touching.) Toileting Toileting Device Grab Bar Toileting FIM Score 3. Moderate Assistance (Patient = 50% or more. Some lifting.) Social interaction/Memory/Problem solving Social Interaction FIM Score 7. Complete Callahan (Interacts appropriately. Controls temper.) Memory FIM Score 3. Moderate Assistance (Recognizes and remembers 50-74%.) Problem Solving FIM Score 3. Moderate Assistance (Solves routine problems 50-74%.) Transfers Mode of Locomotion: Wheelchair Bed/Chair/Wheelchair Transfers 4. Minimal Assistance (Patient = 75% or more. FIM Score Needs touching.) Toilet Transfers FIM Score 4. Minimal Assistance (Patient = 75% or more. Needs touching.) Patient transferred to: Shower Shower Transfers FIM Score 3. Moderate Assistance (Patient = 50% or more. Some lifting.) Locomotion- Stairs Device used on Stairs None Number of Stairs Ascended/ 0 Descended Patient used handrail/support: Yes: RW Stairs FIM Score 0. Activity does not occur Locomotion- walk/wheelchair Most Frequent Mode of Wheelchair Locomotion: Ambulation Distance 190 Walking FIM Score 4. Minimal Assistance (Patient = 75% or more. Minimum of 150 ft.) Wheelchair Propulsion Distance 340 Wheelchair FIM Score 5. Supervision (Minimum 150 ft. supv./cues or 50 ft. independently.) Eating Eating FIM Score 5. Supervision/Set-Up (Needs help w/ containers, cutting meat, etc.) Dressing-Upper body Patient retrieves clothing No items: Patient applies/removes UE n/a prosthesis or orthosis: Upper Body Dressing FIM Score 5. Supv./Set-Up (Grayson sets out clothes or applies pros./orth.) Dressing-lower body Lower Body Dressing Device Cut Out Press Operator/Stick Patient retrieves clothing No items: Patient applies/removes LE n/a prosthesis or orthosis: Lower Body Dressing FIM Score 3. Moderate Assistance (Patient = 50% or more) - Labs CBC & Chem 7: 06/29/18 07:19 07/01/18 06:58 Labs: Laboratory Results - last 72 hr 07/01/18 06:58 Sodium 142 Potassium 3.9 Chloride 102.0 Carbon Dioxide 27 Anion Gap 17 BUN 11 Creatinine 0.5 L Estimated GFR > 60 BUN/Creatinine Ratio 22 Glucose 98 Calcium 8.6 Magnesium 2.00 Assessment and Plan S72.91XS right femur fracture sequela: Continue DVT prophylaxis, pain control. Patient is WBAT. We'll continue to work with PT and OT to improve mobility and ability to perform self-care. Monitor surgical site. Z73.6 ADL dysfunction: OT will work on improving ability to perform ADLs (including assistive devices) to increase independence and decrease caregiver burden and improve functional transfers and mobility training. R26.2 Difficulty walking: PT will work on gait training and proper use of assistive devices and advance as appropriate to use of stairs and outside ambulation on uneven surfaces. R26.81 Unsteadiness on feet: PT will work on improving static and dynamic sitting and standing balance as well as proper use of assistive devices to decrease risk of falls. R26.89 Abnormality of gait: PT will work to improve safety and efficiency of gait through neuromotor training and gait training along with instruction on proper use of assistive devices. M62.81 Muscle weakness: PT & OT will work on strengthening exercises to improve functional strength including mixture of closed and open kinetic chain e xercises. R53.81 Debility: PT & OT will work on improving overall functional status to improve participation with ADLs, mobility and social involvement. R53.83 Fatigue: PT & OT will work on improving endurance through aerobic exercises and therapeutic activity while monitoring patients tolerance for activity and vital signs as needed. K59.00 constipation: Continue medications and adjust as needed. Improving E03.9 hypothyroidism: Continue Synthroid D62 acute blood loss anemia: Improving. Cont iron and vitamin C. Monitor hemoglobin. Transfuse if needed. E46 Protein deficiency: Start supplementation R11.0 Nausea: Zofran ordered DVT ppx: Start eliquis Pain: Continue physical modalities in therapy and pain medications as needed to achieve functional pain control. Sleep: Monitor and address as needed. On home trazodone. Bowel: Monitor and address as needed. Appetite: Monitor and address as needed. Discharge planning: Pending therapy progress and care plan meeting. Will continue discussion with therapy team, SW, patient and family. Restrictions/ Precautions: Falls WB status: WBAT RLE Functional Hx: ADLs: Independent Cognition: Independent Mobility: No AD Barriers to Discharge: Decreased mobility and ability to perform self care, balance deficits, weakness Estimated Length of Stay: 7-10 days, extended due to decreased cognitive processing, will likely d/c this weekend Discharge Destination: Home with family
[2018-07-02] MEDS: DESYREL PO SCH (21:42)
[2018-07-03] MEDS: NORCO 10/325 PO PRN ×4 (01:02→21:00)
[2018-07-03] MEDS: SYNTHROID PO SCH (05:14)
[2018-07-03] MEDS: BUSPAR PO SCH ×2 (08:36→21:08)
[2018-07-03] MEDS: CARAFATE PO SCH ×2 (08:37→21:02)
[2018-07-03] MEDS: FEOSOL PO SCH ×2 (08:38→21:01)
[2018-07-03] MEDS: PEPCID PO SCH ×2 (08:39→21:02)
[2018-07-03] MEDS: VITAMIN C PO SCH ×2 (08:40→21:15)
[2018-07-03] MEDS: ZOFRAN ODT PO PRN (08:44)
[2018-07-03] MEDS: PREMARIN PO SCH (09:01)
[2018-07-03] MEDS: ELIQUIS PO SCH ×2 (09:40→21:15)
[2018-07-03] MEDS: SENOKOT S PO SCH (21:02)
[2018-07-03] MEDS: DESYREL PO SCH (21:02)
[2018-07-03] MEDS ORDERED: ZOFRAN ODT PO PRN (23:58)
[2018-07-04] MEDS: NORCO 10/325 PO PRN ×3 (04:40→22:00)
[2018-07-04] MEDS: SYNTHROID PO SCH (06:32)
--- NOTE | 2018-07-04 11:01 | Progress Note ---
Subjective Date of service: 07/04/18 Principal diagnosis: R hip fx Interval history: 78-year-old female who sustained a fall at home resulting in right hip pain. She was unable to stand or bear weight afterwards. She was brought to the ER where hip x-ray showed a right intertrochanteric fracture. He was cleared for surgery and underwent a IM nail for repair. Her weightbearing status is 40% on the right lower extremity. She has bruising on the right side including the head. Head CT was previously performed and showed no skull fracture or intracranial hemorrhage. Patient states she is having very significant pain and does not feel that its well controlled currently. On examination she is drowsy and is recently taken pain medications. Discussed with her that we will have to attempt to control her pain while keeping her alert enough to participating with therapy. Patient is participating in therapy and making reasonable progress. Taking rest breaks as needed. +BM. No nausea this AM - has history of gastroparesis. Denies palpitations, dyspnea, cough, weakness, or joint pain. Pain is tolerable with medications. Tolerating WBAT. Gait is antalgic. Still having cognitive issues with sequencing and remembering series of directions. [place] removed. Will transition to [facility] for discharge. BP has normalized - monitor. All records, vitals, labs and medications were reviewed. No other issues per patient, nursing or therapy. Objective - Exam Narrative Exam: MUSCULOSKELETAL SPECIALTY EXAM CONSTITUTIONAL: Well developed, well nourished, appropriately groomed EENT: EOMI. Hearing intact to soft voice RESPIRATORY: Clear to ascultation bilaterally, no increased work of breathing CARDIOVASCULAR: Regular Rate/ Rhythm, no swelling, edema or tenderness in BUE or BLE. All extremities warm. GI: + bowel sounds, soft, NTTP, nondistended. INTEGUMENTARY: Bruising in bilateral upper extremities, RLE and right side of face (goes into scalp)- improving, otherwise normal, no lesion, rash, masses noted in extremities. Surgical site C/D/I MUSCULOSKELETAL: BUE and LLE normal without defect, crepitus, subluxation, effusion, or TTP. Arthritic changes noted bilaterally in hands. BUE 4+/5, good ROM, with normal tone. LLE 4/5 good ROM, with normal tone. RLE has decreased ROM and 4-/5 NEURO: CN 2-12 grossly intact. Sensation intact in all extremities. No tremor noted in 4 extremities. POSTURE and GAIT: Sitting posture good. Balance appears reasonable. Antalgic gait with RW, appears to be high stepping with the right leg, is tolerating weightbearing. PSYCH: Alert, orientated, affect appears normal. Insight appears intact. - Constitutional Vitals: Vital Signs - 12hr 07/04/18 04:50 Temperature 36.9 C Pulse Rate 73 Respiratory 16 Rate Blood Pressure 152/70 [Right] O2 Sat by Pulse 94 Oximetry - Allied health notes Allied health notes reviewed: nursing, PT, ST, OT FIMS assessment as documented by PT/OT/ST: Grooming Patient cleans teeth/dentures: Yes Patient serrano/brushes hair: Yes Patient washes, rinses and Yes dries face: Patient washes, rinses and Yes dries hands: Patient shaves: No Patient applies make-up: No Patient performs (no make-up/ 4/4 (100%) shaving): Patient performs (w/ make-up/ 0/5 (0%) shaving): Grooming FIM Score 5. Supervision ([place] applies toothpaste or opens containers.) Toileting Toileting Device Commode over Toilet,Grab Bar Patient able to: Adjust clothes before,Clean self,Adjust clothes after Patient able to perform: 3/3 (100%) Toileting FIM Score 5. Supv./Set-Up (Needs stand-by, set-up, applying prosth/orth.) Social interaction/Memory/Problem solving Social Interaction FIM Score 7. Complete [place] (Interacts appropriately. Controls temper.) Memory FIM Score 4. Minimal Assistance (Recognizes and remembers 75-90%.) Problem Solving FIM Score 3. Moderate Assistance (Solves routine problems 50-74%.) Transfers Mode of Locomotion: Walking Bed/Chair/Wheelchair Transfers 4. Minimal Assistance (Patient = 75% or more. FIM Score Needs touching.) Toilet Transfers FIM Score 4. Minimal Assistance (Patient = 75% or more. Needs touching.) Patient transferred to: Shower Shower Transfers FIM Score 3. Moderate Assistance (Patient = 50% or more. Some lifting.) Locomotion- Stairs Device used on Stairs Handrail/s Number of Stairs Ascended/ 8 Descended Patient used handrail/support: Yes: RW Stairs FIM Score 2. Maximal Assistance (Patient = 25% or more, 4- 6 stairs.) Locomotion- walk/wheelchair Most Frequent Mode of Walking Locomotion: Ambulation Distance 196 Walking FIM Score 4. Minimal Assistance (Patient = 75% or more. Minimum of 150 ft.) Wheelchair Propulsion Distance 340 Wheelchair FIM Score 5. Supervision (Minimum 150 ft. supv./cues or 50 ft. independently.) Eating Eating FIM Score 6. Modified [place] (Special consistency or uses device.) Dressing-Upper body Patient retrieves clothing No items: Patient applies/removes UE n/a prosthesis or orthosis: Upper Body Dressing FIM Score 5. 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 Supv./Set-Up ([place] sets out clothes or applies pros./orth.) - Labs CBC & Chem 7: 06/29/18 07:19 07/01/18 06:58 Assessment and Plan S72.91XS right femur fracture sequela: Continue DVT prophylaxis, pain control. Patient is WBAT. We'll continue to work with PT and OT to improve mobility and ability to perform self-care. Monitor surgical site. Z73.6 ADL dysfunction: OT will work on improving ability to perform ADLs (including assistive devices) to increase independence and decrease caregiver burden and improve functional transfers and mobility training. R26.2 Difficulty walking: PT will work on gait training and proper use of assistive devices and advance as appropriate to use of stairs and outside ambulation on uneven surfaces. R26.81 Unsteadiness on feet: PT will work on improving static and dynamic sitting and standing balance as well as proper use of assistive devices to decrease risk of falls. R26.89 Abnormality of gait: PT will work to improve safety and efficiency of gait through neuromotor training and gait training along with instruction on proper use of assistive devices. M62.81 Muscle weakness: PT & OT will work on strengthening exercises to improve functional strength including mixture of closed and open kinetic chain exercises. R53.81 Debility: PT & OT will work on improving overall functional status to improve participation with ADLs, mobility and social involvement. R53.83 Fatigue: PT & OT will work on improving endurance through aerobic exercises and therapeutic activity while monitoring patients tolerance for activity and vital signs as needed. K59.00 constipation: Continue medications and adjust as needed. Improving E03.9 hypothyroidism: Continue Synthroid D62 acute blood loss anemia: Improving. Cont iron and vitamin C. Monitor hemoglobin. Transfuse if needed. E46 Protein deficiency: Start supplementation R11.0 Nausea: Zofran ordered DVT ppx: eliquis Pain: Continue physical modalities in therapy and pain medications as needed to achieve functional pain control. Sleep: Monitor and address as needed. On home trazodone. Bowel: Monitor and address as needed. Appetite: Monitor and address as needed. Discharge planning: Pending therapy progress and care plan meeting. Will continue discussion with therapy team, SW, patient and family. Restrictions/ Precautions: Falls WB status: WBAT RLE Functional Hx: ADLs: Independent Cognition: Independent Mobility: No AD Barriers to Discharge: Decreased mobility and ability to perform self care, balance deficits, weakness Estimated Length of Stay: 7-10 days, extended due to decreased cognitive processing, will likely d/c this weekend Discharge Destination: Home with family
[2018-07-04] MEDS: CARAFATE PO SCH ×2 (11:58→22:01)
[2018-07-04] MEDS: FEOSOL PO SCH ×2 (11:58→22:00)
[2018-07-04] MEDS: PREMARIN PO SCH (11:58)
[2018-07-04] MEDS: PEPCID PO SCH ×2 (11:59→22:01)
[2018-07-04] MEDS: VITAMIN C PO SCH ×2 (12:00→22:02)
[2018-07-04] MEDS: ELIQUIS PO SCH ×2 (12:01→22:01)
[2018-07-04] MEDS: BUSPAR PO SCH ×2 (12:02→22:02)
[2018-07-04] MEDS: DESYREL PO SCH (22:00)
[2018-07-04] MEDS: SENOKOT S PO SCH (22:01)
[2018-07-05] MEDS: TYLENOL PO PRN (00:40)
[2018-07-05] MEDS: NORCO 10/325 PO PRN ×3 (03:12→21:40)
[2018-07-05] MEDS: SYNTHROID PO SCH (05:58)
[2018-07-05] MEDS: PEPCID PO SCH ×2 (14:07→21:39)
[2018-07-05] MEDS: VITAMIN C PO SCH ×2 (14:08→21:39)
[2018-07-05] MEDS: ELIQUIS PO SCH ×2 (14:08→22:29)
[2018-07-05] MEDS: PREMARIN PO SCH (14:08)
[2018-07-05] MEDS: CARAFATE PO SCH ×2 (14:09→21:39)
[2018-07-05] MEDS: FEOSOL PO SCH ×2 (14:09→21:39)
[2018-07-05] MEDS: BUSPAR PO SCH ×2 (14:10→21:40)
[2018-07-05] MEDS: SENOKOT S PO SCH (21:38)
[2018-07-05] MEDS: DESYREL PO SCH (21:39)
[2018-07-06] MEDS: SYNTHROID PO SCH (06:38)
--- NOTE | 2018-07-06 07:54 | Discharge Summary ---
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 She was unable to stand or bear weight afterwards. She was brought to the ER where hip x-ray showed a right intertrochanteric fracture. He was cleared for surgery and underwent a IM nail for repair. Her weightbearing status is 40% on the right lower extremity. She has bruising on the right side including the head. Head CT was previously performed and showed no skull fracture or intracranial hemorrhage. Patient states she is having very significant pain and does not feel that its well controlled currently. Medications were adjusted for better pain control. [place] were removed. Iron and Vit C were started with an improvement in Hgb. She progressed slowly but improved her ability to ambulate, transfer and perform ADLs. She was advanced to WBAT after speaking with her surgeon. Several discussions were held with her and her concerning her progress. NET DEVELOPER PROGRAMMER was consulted due to decreased cognitive abilities which seemed to clear after a few days. Once she was improved enough for a safe discharge home family training was held to aid in that transition. The was hesitant about the transition. and asked several times about her walking without AD. I stressed to him that while she may be able to progress to that level in the near future, for now she needs to ambulate with a RW and assistance. She was discharge on eliquis for DVT ppx. Disposition: [id number]/TX-06 HOME UNDER HOME HLTH Time spent for discharge: >30mins Core Measure Documentation - Palliative Care Palliative Care/ Comfort Measures: Not Applicable - Core Measures Any of the following diagnoses?: none Exam - Physical Exam Narrative exam: MUSCULOSKELETAL SPECIALTY EXAM CONSTITUTIONAL: Well developed, well nourished, appropriately groomed EENT: EOMI. Hearing intact to soft voice RESPIRATORY: Clear to ascultation bilaterally, no increased work of breathing CARDIOVASCULAR: Regular Rate/ Rhythm, no swelling, edema or tenderness in BUE or BLE. All extremities warm. GI: + bowel sounds, soft, NTTP, nondistended. INTEGUMENTARY: Bruising in bilateral upper extremities, RLE and right side of face (goes into scalp)- improving, otherwise normal, no lesion, rash, masses noted in extremities. Surgical site C/D/I MUSCULOSKELETAL: BUE and LLE normal without defect, crepitus, subluxation, effusion, or TTP. Arthritic changes noted bilaterally in hands. BUE 4+/5, good ROM, with normal tone. LLE 4/5 good ROM, with normal tone. RLE has decreased ROM and 4-/5 NEURO: CN 2-12 grossly intact. Sensation intact in all extremities. No tremor noted in 4 extremities. POSTURE and GAIT: Sitting posture good. Balance appears reasonable. Antalgic gait with RW, is tolerating weightbearing. PSYCH: Alert, orientated, affect appears normal. Insight appears intact. - Constitutional Vitals: Temp Pulse Resp BP Pulse Ox 36.6 C 72 18 117/67 96 07/06/18 07:20 07/06/18 07:20 07/06/18 07:20 07/06/18 07:20 07/06/18 07:20 - Allied Health Allied health notes reviewed: nursing, PT, ST, OT Plan Activity: advance as tolerated, fall precautions Weight Bearing Status: Weight Bear as Tolerated Diet: regular Wound: open to air, keep clean and dry Special Instructions: record daily BP diary Durable Medical Equipment Needed Upon Discharge: Walker-Rolling, other (Tub transfer bench) Follow up with: YONATHAN FONG MD [Primary Care Provider] - 7 Days BRIDGET MARSHALL MD [Staff Physician] - 14 Days Prescriptions: Sennosides/Docusate [Senokot S] 2 tab PO QHS #60 tablet traZODone [Desyrel] 100 mg PO QHS #30 tablet Apixaban [Eliquis] 2.5 mg PO Q12HR 15 Days #30 tablet Ascorbic Acid [Vitamin C] 500 mg PO BID #60 tablet busPIRone [Buspar] 30 mg PO BID #60 tablet Estrogens, Conjugated [Premarin] 0.3 mg PO QDAY #30 tablet Famotidine [Pepcid] 20 mg PO BID #60 tablet Ferrous Sulfate [Feosol 325 MG tab] 325 mg PO BID #60 tablet HYDROcodone/APAP 10-325 [[place] 10-325 mg TAB] 1 each PO Q6HR PRN #45 tablet PRN Reason: Pain, Moderate (4-6) Levothyroxine [Synthroid] 25 mcg PO QAM #30 tablet Sucralfate [Carafate] 1 gm PO BID #60 tablet Other Discharge Orders: Home Health Care (Amb) Location: None Selected Occupational Therapy (Amb) Location: None Selected Physicial Therapy (Amb) Location: None Selected Walker-Rolling (Amb) Location: None Selected
[2018-07-06] MEDS: PEPCID PO SCH (09:33)
[2018-07-06] MEDS: VITAMIN C PO SCH (09:33)
[2018-07-06] MEDS: CARAFATE PO SCH (09:33)
[2018-07-06] MEDS: ELIQUIS PO SCH (09:33)
[2018-07-06] MEDS: FEOSOL PO SCH (09:33)
[2018-07-06] MEDS: PREMARIN PO SCH (09:34)
[2018-07-06] MEDS: BUSPAR PO SCH (09:35)
[2018-07-06 14:09] VITALS: BP 106/52
[2018-07-06] MEDS: NORCO 10/325 PO PRN (14:40)
== END 2018-07-06 16:00 | disposition home health service (06) | DRG 536 ==
LOC: UNDOADMIN 13:25 → 3A 13:25 → 3B 14:53
PROVIDERS: ADMIT Physical Medicine & Rehabilitation; ATTEND Physical Medicine & Rehabilitation
DX: S72.141A Displaced intertrochanteric fracture of right femur, initial encounter for closed fracture (principal); D62 Acute posthemorrhagic anemia; E46 Unspecified protein-calorie malnutrition; M19.90 Unspecified osteoarthritis, unspecified site; E03.9 Hypothyroidism, unspecified; F41.9 Anxiety disorder, unspecified; K59.00 Constipation, unspecified; R53.81 Other malaise; Z82.49 Family history of ischemic heart disease and other diseases of the circulatory system; Z80.9 Family history of malignant neoplasm, unspecified; Z88.6 Allergy status to analgesic agent; Z91.048 Other nonmedicinal substance allergy status; Z88.2 Allergy status to sulfonamides; Z91.040 Latex allergy status; Z68.26 Body mass index [BMI] 26.0-26.9, adult
CPT/HCPCS: 36415; 71046; 80048; 80053; 81001; 82607; 82728; 82747; 83550; 83735; 85025; 85027; 87086; 94760; G0378; G0515-GN; J1650; Q0162

== ENCOUNTER 2018-07-24 12:18 | Outpatient (CLI) | payer MEDICARE ==
--- NOTE | 2018-07-25 03:21 | XRay Report ---
PROCEDURE: RIGHT FEMUR TECHNIQUE: RIGHT femur radiographs, AP and lateral views. CPT 79892 HISTORY: Pain COMPARISONS: June 17, 2018 . FINDINGS: Fracture (s) and/or Dislocation(s): There is no acute fracture. There is hardware transfixing an old healed fracture of the femur. The hardware is intact. Joint space(s): There is mild degenerative arthrosis of the hip joint. . Soft tissues: There is soft tissue swelling surrounding the hip joint. . Bone mineralization: Normal . Foreign bodies: None . IMPRESSION: There is no acute fracture. There is hardware transfixing an old healed fracture of the femur. The [place] rdware is intact. There is mild degenerative arthrosis of the hip joint. . There is soft tissue swelling surrounding the hip joint. . . This document is electronically signed by Jimi Zimmerman MD., July 25 2018 03:18:42 AM ET
== END 2018-07-24 12:19 | disposition home or self-care (01) ==
LOC: XRAY 12:18
PROVIDERS: ATTEND Orthopaedic Surgery
DX: M16.11 Unilateral primary osteoarthritis, right hip (principal); K21.9 Gastro-esophageal reflux disease without esophagitis; I10 Essential (primary) hypertension; E03.9 Hypothyroidism, unspecified; Z90.89 Acquired absence of other organs; Z90.49 Acquired absence of other specified parts of digestive tract

== ENCOUNTER 2018-08-29 11:14 | Outpatient (CLI) | payer MEDICARE ==
--- NOTE | 2018-08-29 12:26 | XRay Report ---
RIGHT HIP, 2 views: History: Pain in right hip. The internally fixated proximal right femur fracture is unchanged in position and alignment since postoperative films dated 06/26/18. The hardware appears well applied. No new fracture or malalignment. Normal articulation at the right hip. IMPRESSION: Stable appearance of the internally fixated right proximal femur fracture.
== END 2018-08-29 11:15 | disposition home or self-care (01) ==
LOC: XRAY 11:14
PROVIDERS: ATTEND Orthopaedic Surgery
DX: S72.8X1A Other fracture of right femur, initial encounter for closed fracture (principal); K21.9 Gastro-esophageal reflux disease without esophagitis; I10 Essential (primary) hypertension; E03.9 Hypothyroidism, unspecified; X58.XXXA Exposure to other specified factors, initial encounter; Y93.89 Activity, other specified; Y92.89 Other specified places as the place of occurrence of the external cause; Y99.8 Other external cause status; Z90.89 Acquired absence of other organs

== ENCOUNTER 2018-10-29 07:19 | Outpatient (CLI) | payer MEDICARE ==
--- NOTE | 2018-10-29 08:53 | Mammography Report ---
BILATERAL MAMMOGRAM: FINDINGS: There are scattered fibroglandular densities (approximately 25%-50% glandular). No mass, distortion, suspicious calcification, or skin change is seen. No interval change identified when compared to prior examination in May 2017. CAD was utilized. IMPRESSION: Negative mammogram. There is no mammographic evidence of malignancy. RECOMMENDATION: Follow-up per ACS guidelines. BI-RADS CATEGORY: 1 = Negative ACR BI-RADS MAMMOGRAPHIC CODES: 0 = Needs additional imaging evaluation; 1 = Negative; 2 = Benign; 3 = Probably benign; 4 = Suspicious; 5 = Malignant; 6 = Known biopsy-proven malignancy COMMENT: 1. Dense breast tissue, i.e., adenosis, fibrocystic changes, etc., may obscure an underlying neoplasm. 2. Approximately 10% of cancers are not detected with mammography. 3. A negative mammography report should not delay biopsy if a clinically suspicious mass is present. COMMENT: Patient follow-up letters are generated in [employer]
== END 2018-10-29 07:20 | disposition home or self-care (01) ==
LOC: MAMMO 07:19
PROVIDERS: ATTEND Obstetrics & Gynecology
DX: Z12.31 Encounter for screening mammogram for malignant neoplasm of breast (principal); K21.9 Gastro-esophageal reflux disease without esophagitis; E03.9 Hypothyroidism, unspecified; Z90.89 Acquired absence of other organs
CPT/HCPCS: 77067

== ENCOUNTER 2019-11-03 07:22 | Outpatient (CLI) | payer MEDICARE ==
--- NOTE | 2019-11-03 15:09 | Mammography Report ---
DIGITAL SCREENING MAMMOGRAM WITH CAD, 11/03/2019 INDICATION: Routine screening mammography. TECHNIQUE: Digital bilateral 2D mammography was obtained in the craniocaudal and mediolateral obliq ue projections. This examination was interpreted with the benefit of Computer-Aided Detection analysi s. COMPARISON: 10/29/2018. FINDINGS: Breast Density: The breasts are almost entirely fatty. There is no evidence of dominant mass, suspicious calcifications or architectural distortion in eithe r breast. IMPRESSION: Follow up recommendation: Routine yearly BI-RADS Category 1: Negative. A "normal" or negative report should not discourage follow up or biopsy of a clinically significant f inding. A written summary of these findings will be mailed to the patient. The patient will be entered into a mammography reporting system which will generate a reminder letter for the patient's next appointmen t at the appropriate interval. The [employer] recommends yearly mammograms starting at age 40 and continuing as l amisha as a woman is in good health. Breast MRI is recommended for women with an approximate 20-25% or greater lifetime risk of breast cancer, including women with a strong family history of breast or ova denisha cancer or who have been treated for Hodgkin's disease. Signer Name: Damion Plascencia MD Signed: 11/03/2019 3:05 PM Workstation Name: [employer]
== END 2019-11-03 07:23 | disposition home or self-care (01) ==
LOC: MAMMO 07:22
PROVIDERS: ATTEND Obstetrics & Gynecology
DX: Z12.31 Encounter for screening mammogram for malignant neoplasm of breast (principal); N64.89 Other specified disorders of breast
CPT/HCPCS: 77067

== ENCOUNTER 2020-10-05 22:00 | Inpatient (IN) | payer MEDICARE ==
[2020-10-05 23:25] LABS: Basophils % (Auto) 0.3 % (0.0-1.8); Eosinophils % (Auto) 0.1 % (0.0-4.3); Hematocrit 44.2 % (30.3-42.9); Hemoglobin 15.6 gm/dl (10.1-14.3); Lymphocytes # (Auto) 1.5 K/mm3 (1.2-5.4); Lymphocytes % (Auto) 9.1 % (13.4-35.0); Mean Corpuscular HGB Conc 35 % (30-34); Mean Corpuscular Volume 96 fl (79-97); Monocytes # (Auto) 0.6 K/mm3 (0.0-0.8); Monocytes % (Auto) 3.7 % (0.0-7.3); Platelet Count 231 K/mm3 (140-440); Red Blood Count 4.62 M/mm3 (3.65-5.03); Red Cell Distribution Width 13.8 % (13.2-15.2)
[2020-10-06] MEDS ORDERED: ONDANSETRON 4 MG/2 ML INJ IV ONE ×2 (00:27→04:58)
[2020-10-06] MEDS ORDERED: SODIUM CHLORIDE 0.9% 1000 ML 1,000 ML IV ONE (00:27)
[2020-10-06] MEDS ORDERED: PIPERACILLIN/TAZOBACTAM 3.375 3.375 GM/50 ML BAG IV ONE (00:28)
[2020-10-06] MEDS ORDERED: fentaNYL 100 MCG/2 ML INJ IV ONE ×4 (00:29→12:30)
--- NOTE | 2020-10-06 00:32 | Emergency Department Report ---
ED Abdominal Pain HPI - General Chief Complaint: Abdominal Pain Stated Complaint: STOMACH PAIN/SWELLING Time Seen by Provider: 10/06/20 00:23 Source: patient Mode of arrival: Wheelchair Limitations: No Limitations - History of Present Illness Initial Comments: Patient is 80 years old female with history of hypertension, GERD and arthritis. Patient presented to the ER complaining of diffuse abdominal pain and distention since last night associated with nausea and vomiting and loose stool. Patient described her pain as fullness, 7 out of 10 with no radiation. Patient denied any hematemesis, hematochezia or melena. She also denied any fever or ch ills. MD Complaint: abdominal pain -: Last night Location: diffuse Radiation: none Migration to: no migration Severity scale (0 -10): 10 Quality: fullness Consistency: constant Associated Symptoms: nausea, vomiting, diarrhea - Related Data Previous Rx's Medication Instructions Recorded Last Taken Type Apixaban [Eliquis] 2.5 mg PO Q12HR 15 Days #30 tablet 07/06/18 Unknown Rx Ascorbic Acid [Vitamin C] 500 mg PO BID #60 tablet 07/06/18 Unknown Rx Estrogens, Conjugated [Premarin] 0.3 mg PO QDAY #30 tablet 07/06/18 Unknown Rx Famotidine [Pepcid] 20 mg PO BID #60 tablet 07/06/18 Unknown Rx Ferrous Sulfate [Feosol 325 MG tab] 325 mg PO BID #60 tablet 07/06/18 Unknown Rx HYDROcodone/APAP 10-325 [[place] 1 each PO Q6HR PRN #45 tablet 07/06/18 Unknown Rx 10-325 mg TAB] Levothyroxine [Synthroid] 25 mcg PO QAM #30 tablet 07/06/18 Unknown Rx Sennosides/Docusate [Senokot S] 2 tab PO QHS #60 tablet 07/06/18 Unknown Rx Sucralfate [Carafate] 1 gm PO BID #60 tablet 07/06/18 Unknown Rx busPIRone [Buspar] 30 mg PO BID #60 tablet 07/06/18 Unknown Rx traZODone [Desyrel] 100 mg PO QHS #30 tablet 07/06/18 Unknown Rx Allergies Allergy/AdvReac Type Severity Reaction Status Date / Time adhesive Allergy Rash Verified 11/18/15 10:24 aspirin Allergy Bleeding Verified 11/18/15 10:24 codeine Allergy Hives Verified 11/18/15 10:24 latex Allergy Rash Verified 11/18/15 10:24 metoclopramide HCl Allergy Itching Verified 11/18/15 10:24 [From Reglan] morphine Allergy Rash Verified 11/18/15 10:24 Sulfa (Sulfonamide Allergy Rash Verified 11/18/15 10:24 Antibiotics) ED Review of Systems ROS: Stated complaint: STOMACH PAIN/SWELLING Other details as noted in HPI Comment: All other systems reviewed and negative Constitutional: denies: chills, fever Respiratory: denies: cough, shortness of breath, SOB with exertion Cardiovascular: denies: chest pain, palpitations Gastrointestinal: abdominal pain, nausea, vomiting, diarrhea. denies: hematemesis, melena, hematochezia Musculoskeletal: denies: back pain Neurological: denies: headache, weakness, numbness, paresthesias, confusion, abnormal gait ED Past Medical Hx - Past Medical History Previous Medical History?: Yes Hx Hypertension: Yes Hx Heart Attack/AMI: No Hx GERD: Yes Hx Liver Disease: No Hx Renal Disease: No Hx Arthritis: Yes Hx Seizures: No Hx Asthma: No Hx HIV: No Additional medical history: MVP, Thyroid Disease, Polio - Surgical History Past Surgical History?: Yes Hx Cholecystectomy: Yes Hx Appendectomy: Yes Additional Surgical History: Left knee haedware, Tonsillectomy, Hiatal hernia repair, Lysis of sdhesions, C-sections - Social History Smoking Status: Never Smoker Substance Use Type: None - Medications Home Medications: Home Medications Medication Instructions Recorded Confirmed Last Taken Type Apixaban [Eliquis] 2.5 mg PO Q12HR 15 Days #30 tablet 07/06/18 Unknown Rx Ascorbic Acid [Vitamin C] 500 mg PO BID #60 tablet 07/06/18 Unknown Rx Estrogens, Conjugated [Premarin] 0.3 mg PO QDAY #30 tablet 07/06/18 Unknown Rx Famotidine [Pepcid] 20 mg PO BID #60 tablet 07/06/18 Unknown Rx Ferrous Sulfate [Feosol 325 MG tab] 325 mg PO BID #60 tablet 07/06/18 Unknown Rx HYDROcodone/APAP 10-325 [[place] 1 each PO Q6HR PRN #45 tablet 07/06/18 Unknown Rx 10-325 mg TAB] Levothyroxine [Synthroid] 25 mcg PO QAM #30 tablet 07/06/18 Unknown Rx Sennosides/Docusate [Senokot S] 2 tab PO QHS #60 tablet 07/06/18 Unknown Rx Sucralfate [Carafate] 1 gm PO BID #60 tablet 07/06/18 Unknown Rx busPIRone [Buspar] 30 mg PO BID #60 tablet 07/06/18 Unknown Rx traZODone [Desyrel] 100 mg PO QHS #30 tablet 07/06/18 Unknown Rx ED Physical Exam - General Limitations: No Limitations General appearance: alert, in no apparent distress - Head Head exam: Present: atraumatic, normocephalic, normal inspection - Eye Eye exam: Present: normal appearance, PERRL - ENT ENT exam: Present: mucous membranes dry - Neck Neck exam: Present: normal inspection, full ROM. Absent: tenderness, meningismus - Respiratory Respiratory exam: Present: normal lung sounds bilaterally - Cardiovascular Cardiovascular Exam: Present: tachycardia - GI/Abdominal GI/Abdominal exam: Present: soft, distended, tenderness, normal bowel sounds. Absent: guarding, rebound, rigid, organomegaly, mass, bruit, pulsatile mass, hernia - Extremities Exam Extremities exam: Present: normal inspection, full ROM - Back Exam Back exam: Present: normal inspection, full ROM. Absent: CVA tenderness (R), CVA tenderness (L) - Neurological Exam Neurological exam: Present: alert, oriented X3 - Skin Skin exam: Present: warm, intact, normal color ED Course Vital Signs 10/05/20 23:03 Temperature 98.4 F Pulse Rate 124 H Respiratory 24 Rate Blood Pressure 129/101 [Right] O2 Sat by Pulse 95 Oximetry ED Medical Decision Making - Lab Data Result diagrams: 10/05/20 23:10 10/05/20 23:10 - Radiology Data Radiology results: report reviewed - Medical Decision Making Patient is 80 years old female with history of hypertension, GERD and arthritis. Patient presented to the ER complaining of diffuse abdominal pain and diste ntion since last night associated with nausea and vomiting and loose stool. Patient described her pain as fullness, 7 out of 10 with no radiation. Patient denied any hematemesis, hematochezia or melena. She also denied any fever or chills. Patient received fentanyl and Zofran. Labs showed leukocytosis with a white blood cells of 16,000. CT abdomen and pelvis with IV contrast showed multiple dilated loops. Free air in the abdomen indicating perforation. I discussed the patient with Dr. Miller, she advised to keep patient n.p.o. and admit to the hospitalist for surgery. I discussed the patient with Dr. Beck, he agreed to admit the patient to medical service for further management. Critical Care Time: Yes Critical care time in (mins) excluding proc time.: 30 Critical care attestation.: If time is entered above; I have spent that time in minutes in the direct care of this critically ill patient, excluding procedure time. ED Disposition Clinical Impression: Acute abdominal pain, Bowel perforation, Acute nausea with nonbilious vomiting Disposition: -09 OP ADMIT IP TO THIS HOSP Is pt being admited?: Yes Condition: Stable Instructions: Abdominal Pain (ED)
[2020-10-06 02:59] LABS: Alanine Aminotransferase 15 units/L (7-56); Blood Urea Nitrogen 19 mg/dL (7-17); Calcium 9.6 mg/dL (8.4-10.2); Hemolysis Index 6
[2020-10-06 03:09] LABS: BUN/Creatinine Ratio 27
--- NOTE | 2020-10-06 05:51 | Cat Scan Report ---
CT ABDOMEN AND PELVIS WITH CONTRAST INDICATION / CLINICAL INFORMATION: Diffuse abd pain and distention with nausea and vomiting. TECHNIQUE: Axial CT images were obtained through the abdomen and pelvis after IV contrast. All CT scans at this location are performed using CT dose reduction for ALARA by means of automated exposure control. COMPARISON: None available. FINDINGS: LOWER CHEST: Patchy parenchymal changes present left lower lobe elevation left hemidiaphragm. LIVER: No significant abnormality. GALLBLADDER: Previous cholecystectomy BILE DUCTS: Pneumobilia PANCREAS: No significant abnormality. SPLEEN: No significant abnormality. ADRENALS: No significant abnormality. RIGHT KIDNEY and URETER: Several punctate calcifications are present. Mild dilatation of the right co llecting system. Several calculi present in the proximal right ureter LEFT KIDNEY and URETER: Several punctate calcifications present. STOMACH and SMALL BOWEL: Multiple loops of dilated small bowel COLON: Gas is present within the wall of the ascending colon. APPENDIX: Not identified. PERITONEUM: Several small pockets of air in the right side abdomen extending into the right upper brenda drant appear to be outside of the gastrointestinal tract LYMPH NODES: No significant adenopathy. AORTA and ARTERIES: No significant abnormality. IVC and VEINS: No significant abnormality. URINARY BLADDER: No significant abnormality. REPRODUCTIVE ORGANS: Previous hysterectomy ADDITIONAL FINDINGS: None. SKELETAL SYSTEM: No significant abnormality. IMPRESSION: 1. Markedly abnormal appearance of the CT abdomen pelvis as noted, pneumatosis of the right colon wit h a small amount of air outside the lumen of the gastrointestinal tract right upper quadrant-pneumope ritoneum 2. Small bowel obstruction 3. Pneumobilia 4. Bilateral nephrolithiasis with mild dilatation of the right collecting system secondary to several small calculi in the proximal right ureter CRITICAL RESULT: Time of Discovery: 043 Time of Communication: 0445 Licensed Practitioner Receiving Report: Dr. Andres was notified of these findings personally by Dr. Bautista Read Back Performed: Yes. Signer Name: Cem Bautista MD Signed: 10/06/2020 5:47 AM Workstation Name: [id number]
[2020-10-06] MEDS ORDERED: ALBUTEROL 2.5 MG/3 ML NEBU IH PRN (06:09)
[2020-10-06] MEDS ORDERED: ACETAMINOPHEN 325 MG TAB PO PRN (06:09)
--- NOTE | 2020-10-06 06:16 | History and Physical Report ---
History of Present Illness Date of examination: 10/06/20 Date of admission: 10/06/20 Chief complaint: Abdominal pain History of present illness: 80 years old female with history of hypertension, GERD and arthritis was brought to the emergency room because of diffuse abdominal pain and distention since last night associated with nausea and vomiting and loose stool. Patient described her pain as fullness, 7 out of 10 with no radiation. Patient denied any hematemesis, hematochezia or melena. She also denied any fever or chills. In the emergency room patient has a CT scan of the abdomen which showed markedly abnormal appearance of the CT abdomen pelvis pneumatosis of the right colon with a small amount of air outside the lumen of gastrointestinal tract .right upper quadrant pneumoperitoneum Small bowel obstruction, pneumobilia. Bilateral nephrolithiasis with mild dilatation of the right collecting system secondary to several small calculi in the proximal right ureter . Past History Past Medical History: arthritis, GERD, hypertension Medications and Allergies Allergies Allergy/AdvReac Type Severity Reaction Status Date / Time adhesive Allergy Rash Verified 11/18/15 10:24 aspirin Allergy Bleeding Verified 11/18/15 10:24 codeine Allergy Hives Verified 11/18/15 10:24 latex Allergy Rash Verified 11/18/15 10:24 metoclopramide HCl Allergy Itching Verified 11/18/15 10:24 [From Reglan] morphine Allergy Rash Verified 11/18/15 10:24 Sulfa (Sulfonamide Allergy Rash Verified 11/18/15 10:24 Antibiotics) Home Medications Medication Instructions Recorded Confirmed Last Taken Type Apixaban [Eliquis] 2.5 mg PO Q12HR 15 Days #30 tablet 07/06/18 Unknown Rx Ascorbic Acid [Vitamin C] 500 mg PO BID #60 tablet 07/06/18 Unknown Rx Estrogens, Conjugated [Premarin] 0.3 mg PO QDAY #30 tablet 07/06/18 Unknown Rx Famotidine [Pepcid] 20 mg PO BID #60 tablet 07/06/18 Unknown Rx Ferrous Sulfate [Feosol 325 MG tab] 325 mg PO BID #60 tablet 07/06/18 Unknown Rx HYDROcodone/APAP 10-325 [[place] 1 each PO Q6HR PRN #45 tablet 07/06/18 Unknown Rx 10-325 mg TAB] Levothyroxine [Synthroid] 25 mcg PO QAM #30 tablet 07/06/18 Unknown Rx Sennosides/Docusate [Senokot S] 2 tab PO QHS #60 tablet 07/06/18 Unknown Rx Sucralfate [Carafate] 1 gm PO BID #60 tablet 07/06/18 Unknown Rx busPIRone [Buspar] 30 mg PO BID #60 tablet 07/06/18 Unknown Rx traZODone [Desyrel] 100 mg PO QHS #30 tablet 07/06/18 Unknown Rx Active Meds: Active Medications Acetaminophen (Acetaminophen 325 Mg Tab) 650 mg PO Q4H PRN PRN Reason: Pain MILD(1-3)/Fever >100.5/SANTAMARIA Ondansetron HCl (Ondansetron 4 Mg/2 Ml Inj) 4 mg IV Q8H PRN PRN Reason: Nausea And Vomiting Sodium Chloride (Sodium Chloride 0.9% 10 Ml Flush Syringe) 10 ml IV BID AMANDA Sodium Chloride (Sodium Chloride 0.9% 10 Ml Flush Syringe) 10 ml IV PRN PRN PRN Reason: LINE FLUSH Review of Systems Gastrointestinal: abdominal pain, nausea, vomiting Exam - Constitutional Vitals: Temp Pulse Resp BP Pulse Ox 98.4 F 124 H 24 129/101 95 10/05/20 23:03 10/05/20 23:03 10/05/20 23:03 10/05/20 23:03 10/05/20 23:03 General appearance: Present: no acute distress, well-nourished - EENT Eyes: Present: PERRL ENT: hearing intact, clear oral mucosa - Neck Neck: Present: supple, normal ROM - Respiratory Respiratory effort: normal Respiratory: bilateral: CTA - Cardiovascular Heart Sounds: Present: S1 & S2. Absent: rub, click - Extremities Extremities: pulses symmetrical, No edema Peripheral Pulses: within normal limits - Abdominal General gastrointestinal: Present: soft, tender, distended, normal bowel sounds Female genitourinary: Present: normal - Integumentary Integumentary: Present: clear, warm, dry - Musculoskeletal Musculoskeletal: gait normal, strength equal bilaterally - Psychiatric Psychiatric: appropriate mood/affect, intact judgment & insight - Neurologic Neurologic: CNII-XII intact, moves all extremities Results - Labs CBC & Chem 7: 10/05/20 23:10 10/05/20 23:10 Labs: Laboratory Last Values WBC 16.0 K/mm3 (4.5-11.0) H 10/05/20 23:10 RBC 4.62 M/mm3 (3.65-5.03) 10/05/20 23:10 Hgb 15.6 gm/dl (10.1-14.3) H 10/05/20 23:10 Hct 44.2 % (30.3-42.9) H 10/05/20 23:10 MCV 96 fl (79-97) 10/05/20 23:10 MCH 34 pg (28-32) H 10/05/20 23:10 MCHC 35 % (30-34) H 10/05/20 23:10 RDW 13.8 % (13.2-15.2) 10/05/20 23:10 Plt Count 231 K/mm3 (140-440) 10/05/20 23:10 Lymph % (Auto) 9.1 % (13.4-35.0) L 10/05/20 23:10 [place] % (Auto) 3.7 % (0.0-7.3) 10/05/20 23:10 Eos % (Auto) 0.1 % (0.0-4.3) 10/05/20 23:10 Baso % (Auto) 0.3 % (0.0-1.8) 10/05/20 23:10 Lymph # (Auto) 1.5 K/mm3 (1.2-5.4) 10/05/20 23:10 [place] # (Auto) 0.6 K/mm3 (0.0-0.8) 10/05/20 23:10 Eos # (Auto) 0.0 K/mm3 (0.0-0.4) 10/05/20 23:10 Baso # (Auto) 0.0 K/mm3 (0.0-0.1) 10/05/20 23:10 Seg Neutrophils % 86.8 % (40.0-70.0) H 10/05/20 23:10 Seg Neutrophils # 13.9 K/mm3 (1.8-7.7) H 10/05/20 23:10 Sodium 136 mmol/L (137-145) L 10/05/20 23:10 Potassium 4.9 mmol/L (3.6-5.0) 10/05/20 23:10 Chloride 97.9 mmol/L (98-107) L 10/05/20 23:10 Carbon Dioxide 20 mmol/L (22-30) L 10/05/20 23:10 Anion Gap 23 mmol/L 10/05/20 23:10 BUN 19 mg/dL (7-17) H 10/05/20 23:10 Creatinine 0.7 mg/dL (0.6-1.2) 10/05/20 23:10 Estimated GFR > 60 ml/min 10/05/20 23:10 BUN/Creatinine Ratio 27 % 10/05/20 23:10 Glucose 165 mg/dL (65-100) H 10/05/20 23:10 Calcium 9.6 mg/dL (8.4-10.2) 10/05/20 23:10 Total Bilirubin 0.80 mg/dL (0.1-1.2) 10/05/20 23:10 AST 19 units/L (5-40) 10/05/20 23:10 ALT 15 units/L (7-56) 10/05/20 23:10 Alkaline Phosphatase 95 units/L (35-129) 10/05/20 23:10 Total Protein 7.5 g/dL (6.3-8.2) 10/05/20 23:10 Albumin 5.0 g/dL (3.9-5) 10/05/20 23:10 Albumin/Globulin Ratio 2.0 % 10/05/20 23:10 Microbiology: Microbiology 10/06/20 01:23 Peripheral/Venous Blood Culture - Preliminary Culture in Progress 10/06/20 00:44 Peripheral/Venous Blood Culture - Preliminary Culture in Progress - Imaging and Cardiology CT scan - abdomen: report reviewed Assessment and Plan VTE prophylaxis?: Chemical Plan of care discussed with patient/family: Yes - Patient Problems (1) Bowel perforation Current Visit: Yes Status: Acute Plan to address problem: Admit the patient to the medical floor. N.p.o. IV fluid D5 half-normal saline at the rate of 100 cc/h. Protonix 40 mg IV every 12 hours. Zofran 4 mg IV every 6 hours as needed. Zosyn 4.5 g IV every 8 hours. Reconsult surgery for evaluation (2) Small bowel obstruction Current Visit: Yes Status: Acute Plan to address problem: N.p.o. IV fluid D5 half-normal saline at the rate of 100 cc/h. Protonix 40 mg IV every 12 hours. Zofran 4 mg IV every 6 hours as needed. Zosyn 4.5 g IV every 8 hours. Reconsult surgery for evaluation (3) Acute abdominal pain Current Visit: Yes Status: Acute Plan to address problem: N.p.o. IV fluid D5 half-normal saline at the rate of 100 cc/h. Protonix 40 mg IV every 12 hours. Morphine 2 mg IV every 4 hours as needed. Zofran 4 mg IV every 6 hours as needed. Zosyn 4.5 g IV every 8 hours. (4) GERD (gastroesophageal reflux disease) Current Visit: No Status: Chronic Qualifiers: Esophagitis presence: with esophagitis Plan to address problem: Protonix 40 mg IV every 12 hours. Zofran 4 mg IV every 6 hours as needed (5) Hypertension Current Visit: No Status: Acute Qualifiers: Hypertension type: essential hypertension Qualified Code(s): I10 - Essential (primary) hypertension Plan to address problem: Hydralazine 10 mg IV every 6 hours as needed. We will monitor the blood pressure closely (6) DVT prophylaxis Current Visit: Yes Status: Acute Plan to address problem: We will hold the apixaban. We will put the patient on heparin 5000 units subcu every 8 hours. Protonix 40 mg IV every 12 hours for GI prophylaxis patient is a full code
[2020-10-06] MEDS ORDERED: BUPIVACAINE/PF (0.5%) 5 MG/1 ML 30 ML VIAL INFILTRATI ONE (07:04)
[2020-10-06] MEDS ORDERED: LIDOCAINE (1%) 10 MG/1 ML VIAL 20 ML MDV ONE (07:04)
[2020-10-06] MEDS ORDERED: LIDOCAINE MPF (2%) 20 MG/1 ML VIAL 5 ML ONE (07:29)
[2020-10-06] MEDS ORDERED: propofoL 200 MG/20 ML VIAL IV ONE (07:29)
[2020-10-06] MEDS ORDERED: HYDROmorphone 1 MG/1 ML INJ ONE (07:29)
[2020-10-06] MEDS ORDERED: ROCURONIUM 50 MG/5 ML INJ IV ONE (07:29)
[2020-10-06] MEDS ORDERED: ONDANSETRON 4 MG/2 ML INJ ONE (07:29)
[2020-10-06] MEDS ORDERED: SODIUM CHLORIDE P/F VIAL 10 ML 10 ML ONE (07:36)
[2020-10-06] MEDS ORDERED: SUCCINYLCHOLINE CHLORIDE 200 MG/10 ML INJ MDV ONE (07:40)
--- NOTE | 2020-10-06 07:40 | Consultation ---
History of Present Illness Consult date: 10/06/20 Reason for consult: abdominal pain - History of present illness History of present illness: 80-year-old female presented to the emergency room with a 1 day history of worsening diffuse abdominal pain with nausea and vomiting. She rated the pain 7 out of 10. Patient denies ever having this pain before. Patient had a CT scan of her abdomen and pelvis that showed pneumatosis intestinalis of the right colon and small bowel obstruction. She had initially gone to another hospital however after 7 hours of waiting in the emergency room with continued symptoms she decided to come to [facility] for further evaluation. Patient was tachycardic with leukocytosis. Past History Past Medical History: arthritis, GERD, hypertension Past Surgical History: appendectomy, cholecystectomy, , hernia repair, bowel surgery, Other (diaphragmatic repair) Social history: Medications and Allergies Allergies Allergy/AdvReac Type Severity Reaction Status Date / Time adhesive Allergy Rash Verified 11/18/15 10:24 aspirin Allergy Bleeding Verified 11/18/15 10:24 codeine Allergy Hives Verified 11/18/15 10:24 latex Allergy Rash Verified 11/18/15 10:24 metoclopramide HCl Allergy Itching Verified 11/18/15 10:24 [From Reglan] morphine Allergy Rash Verified 11/18/15 10:24 Sulfa (Sulfonamide Allergy Rash Verified 11/18/15 10:24 Antibiotics) Home Medications Medication Instructions Recorded Confirmed Last Taken Type Apixaban [Eliquis] 2.5 mg PO Q12HR 15 Days #30 tablet 07/06/18 Unknown Rx Ascorbic Acid [Vitamin C] 500 mg PO BID #60 tablet 07/06/18 Unknown Rx Estrogens, Conjugated [Premarin] 0.3 mg PO QDAY #30 tablet 07/06/18 Unknown Rx Famotidine [Pepcid] 20 mg PO BID #60 tablet 07/06/18 Unknown Rx Ferrous Sulfate [Feosol 325 MG tab] 325 mg PO BID #60 tablet 07/06/18 Unknown Rx HYDROcodone/APAP 10-325 [[place] 1 each PO Q6HR PRN #45 tablet 07/06/18 Unknown Rx 10-325 mg TAB] Levothyroxine [Synthroid] 25 mcg PO QAM #30 tablet 07/06/18 Unknown Rx Sennosides/Docusate [Senokot S] 2 tab PO QHS #60 tablet 07/06/18 Unknown Rx Sucralfate [Carafate] 1 gm PO BID #60 tablet 07/06/18 Unknown Rx busPIRone [Buspar] 30 mg PO BID #60 tablet 07/06/18 Unknown Rx traZODone [Desyrel] 100 mg PO QHS #30 tablet 07/06/18 Unknown Rx Active Meds: Active Medications Acetaminophen (Acetaminophen 325 Mg Tab) 650 mg PO Q4H PRN PRN Reason: Pain MILD(1-3)/Fever >100.5/[place]AM[place] Albuterol (Albuterol 2.5 Mg/3 Ml Nebu) 2.5 mg IH Q3HRT PRN PRN Reason: Shortness Of Breath Albuterol/Ipratropium (Ipratropium/Albuterol Sulfate 3 Ml Ampul.Neb) 1 ampul IH Q6HRT AMANDA Buspirone HCl (Buspirone 10 Mg Tab) 30 mg PO BID AMANDA Ferrous Sulfate (Ferrous Sulfate 325 Mg Tab) 325 mg PO BID AMANDA Heparin Sodium (Porcine) (Heparin 5,000 Unit/1 Ml Vial) 5,000 unit SUB-Q Q8HR AMANDA Hydralazine HCl (Hydralazine 20 Mg/1 Ml Inj) 10 mg IV Q6H PRN PRN Reason: htn Dextrose/Sodium Chloride (D5/0.45ns) 1,000 mls @ 100 mls/hr IV DIRECT AMANDA Piperacillin Sod/Tazobactam Sod (Zosyn/Ns 4.5gm/100ml) 4.5 gm in 100 mls @ 200 mls/hr IV Q8H AMANDA; Protocol Levothyroxine Sodium (Levothyroxine 25 Mcg Tab) 25 mcg PO QAM@0600 [facility] Ondansetron HCl (Ondansetron 4 Mg/2 Ml Inj) 4 mg IV Q8H PRN PRN Reason: Nausea And Vomiting Pantoprazole Sodium (Pantoprazole 40 Mg Inj) 40 mg IV BID AMANDA Sodium Chloride (Sodium Chloride 0.9% 10 Ml Flush Syringe) 10 ml IV BID AMANDA Sodium Chloride (Sodium Chloride 0.9% 10 Ml Flush Syringe) 10 ml IV PRN PRN PRN Reason: LINE FLUSH Review of Systems - Constitutional poor appetite - Cardiovascular no chest pain - Respiratory no cough - Gastrointestinal abdominal pain, nausea, vomiting, diarrhea - Genitourinary Genitourinary: dysuria Exam Vital Signs Temp Pulse Resp BP Pulse Ox 98.4 F 124 H 24 129/101 95 10/05/20 23:03 10/05/20 23:03 10/05/20 23:03 10/05/20 23:03 10/05/20 23:03 - General physical appearance Positive: no distress, moderate pain - Respiratory Positive: normal expansion, clear to percussion - Cardiovascular Heart Sounds: Present: S1 & S2 - Extremities Extremities: no ischemia - Abdomen Abdomen: Present: soft, tender, distended, surgical scars, other (generalized tenderness to palpation, doughy feeling). Absent: guarding Results - Labs 10/05/20 23:10 10/05/20 23:10 Abnormal lab results 10/05/20 10/05/20 Range/Units 23:10 23:10 WBC 16.0 H (4.5-11.0) K/mm3 Hgb 15.6 H (10.1-14.3) gm/dl Hct 44.2 H (30.3-42.9) % MCH 34 H (28-32) pg MCHC 35 H (30-34) % Lymph % (Auto) 9.1 L (13.4-35.0) % Seg Neutrophils % 86.8 H (40.0-70.0) % Seg Neutrophils # 13.9 H (1.8-7.7) K/mm3 Sodium 136 L (137-145) mmol/L Chloride 97.9 L (98-107) mmol/L Carbon Dioxide 20 L (22-30) mmol/L BUN 19 H (7-17) mg/dL Glucose 165 H (65-100) mg/dL Diabetes panel 10/05/20 Range/Units 23:10 Sodium 136 L (137-145) mmol/L Potassium 4.9 (3.6-5.0) mmol/L Chloride 97.9 L (98-107) mmol/L Carbon Dioxide 20 L (22-30) mmol/L BUN 19 H (7-17) mg/dL Creatinine 0.7 (0.6-1.2) mg/dL Glucose 165 H (65-100) mg/dL Calcium 9.6 (8.4-10.2) mg/dL AST 19 (5-40) units/L ALT 15 (7-56) units/L Alkaline Phosphatase 95 (35-129) units/L Total Protein 7.5 (6.3-8.2) g/dL Albumin 5.0 (3.9-5) g/dL Calcium panel 10/05/20 Range/Units 23:10 Calcium 9.6 (8.4-10.2) mg/dL Albumin 5.0 (3.9-5) g/dL Pituitary panel 10/05/20 Range/Units 23:10 Sodium 136 L (137-145) mmol/L Potassium 4.9 (3.6-5.0) mmol/L Chloride 97.9 L (98-107) mmol/L Carbon Dioxide 20 L (22-30) mmol/L BUN 19 H (7-17) mg/dL Creatinine 0.7 (0.6-1.2) mg/dL Glucose 165 H (65-100) mg/dL Calcium 9.6 (8.4-10.2) mg/dL Adrenal panel 10/05/20 Range/Units 23:10 Sodium 136 L (137-145) mmol/L Potassium 4.9 (3.6-5.0) mmol/L Chloride 97.9 L (98-107) mmol/L Carbon Dioxide 20 L (22-30) mmol/L BUN 19 H (7-17) mg/dL Creatinine 0.7 (0.6-1.2) mg/dL Glucose 165 H (65-100) mg/dL Calcium 9.6 (8.4-10.2) mg/dL Total Bilirubin 0.80 (0.1-1.2) mg/dL AST 19 (5-40) units/L ALT 15 (7-56) units/L Alkaline Phosphatase 95 (35-129) units/L Total Protein 7.5 (6.3-8.2) g/dL Albumin 5.0 (3.9-5) g/dL - Imaging CT scan - abdomen: report reviewed, image reviewed CT scan - pelvis: report reviewed, image reviewed Assessment and Plan 80-year-old female with pneumatosis intestinalis, pneumobilia, small bowel obstruction, who was stable but tachycardic with leukocytosis. Overall picture is concerning for bowel perforation or bowel ischemia. Condition and working diagnosis was discussed with patient who signed informed consent for emergent exploratory laparotomy.
--- NOTE | 2020-10-06 07:49 | Anesthesia Day of Surgery ---
Anesthesia Day of Surgery - Day of Surgery Patient Examined: Yes Patient H&P Reviewed: Yes Patient is NPO: Yes
[2020-10-06] MEDS ORDERED: HYDROmorphone 1 MG/1 ML INJ IV PRN (07:50)
[2020-10-06] MEDS ORDERED: ONDANSETRON 4 MG/2 ML INJ IV PRN (07:50)
--- NOTE | 2020-10-06 07:50 | Anesthesia Consultation ---
Anesthesia Consult and Med Hx Date of service: 10/06/20 - Airway Anesthetic Teeth Evaluation: Good ROM Head & Neck: Adequate Mental/Hyoid Distance: Adequate Mallampati Class: Class II Intubation Access Assessment: Good - Pre-Operative Health Status ASA Pre-Surgery Classification: ASA2, Emergency Proposed Anesthetic Plan: General - Pulmonary Hx Smoking: No Hx Asthma: No Hx Respiratory Symptoms: No Hx Sleep Apnea: No - Cardiovascular System Hx Hypertension: Yes Hx Heart Attack/AMI: No Hx Percutaneous Transluminal Coronary Angioplasty (PTCA): No Hx Cardia Arrhythmia: No Hx Valvular Heart Disease: Yes (MVP) - Central Nervous System Hx Neuromuscular Disorder: Yes (Post-polio ) Hx Seizures: No CVA: No Hx Psychiatric Problems: Yes (anxiety/depression) - Gastrointestinal Hx Gastroesophageal Reflux Disease: Yes (well controlled) - Endocrine Hx Renal Disease: No Hx End Stage Renal Disease: No Hx Liver Disease: No Hx Insulin Dependent Diabetes: No Hx Non-Insulin Dependent Diabetes: No Hx Thyroid Disease: Yes Hx Hypothyroidism: Yes - Hematic Hx Anemia: No - Other Systems Hx Obesity: No
[2020-10-06] MEDS ORDERED: PIPERACIL/TAZOBACTA 4.5/NS 100 4.5 GM/100 ML VIAL IV SCH (08:00)
[2020-10-06] MEDS ORDERED: metroNIDAZOLE/NS 500 MG/100 ML 500 MG/100 ML BAG IV ONE (08:19)
[2020-10-06] MEDS ORDERED: ceFAZolin 1 GM VIAL ONE ×2 (08:28)
[2020-10-06] MEDS: IPRATROPIUM/ALBUTEROL SULFATE 3 ML AMPUL.NEB IH SCH ×3 (08:54→22:27)
[2020-10-06] MEDS ORDERED: FERROUS SULFATE 325 MG TAB PO SCH (10:00)
[2020-10-06] MEDS ORDERED: LEVOTHYROXINE 25 MCG TAB PO SCH (10:00)
[2020-10-06] MEDS ORDERED: PANTOPRAZOLE 40 MG INJ IV SCH (10:00)
[2020-10-06] MEDS ORDERED: busPIRone 10 MG TAB PO SCH (10:00)
[2020-10-06] MEDS ORDERED: SODIUM CHLORIDE 0.9% IRR 1,500 ML BOTTLE IR ONE ×2 (10:00)
[2020-10-06] MEDS: PANTOPRAZOLE 40 MG INJ IV SCH ×2 (10:25→22:24)
[2020-10-06] MEDS ORDERED: LACTATED RINGERS 1,000 ML ONE ×2 (10:36)
[2020-10-06] MEDS ORDERED: SUGAMMADEX SODIUM 200 MG/2 ML VIAL IV ONE (10:43)
--- NOTE | 2020-10-06 11:42 | Operative Report ---
Operative Report Operative Report: Date: October 06, 2020 Surgeon: Philomena Miller MD Refrigerator Room Clerk surgeon: Janice Gaming DO Procedure performed:1. Exploratory laparotomy, 2. Extensive lysis of adhesions, 3. Peritoneal lavage Preop diagnosis: Pneumatosis intestinalis of the ascending colon, and small bowel obstruction Postop diagnosis: Same as preop (pneumatosis intestinalis of unknown origin) Anesthesia:GETA Indication: Patient is a 80-year-old female who presented to the emergency room with 1 day history of worsening abdominal pain nausea vomiting. Patient had a CT scan of her abdomen and pelvis that showed pneumatosis intestinalis, air in the portal venous system, and small bowel obstruction. Patient was consented for emergent surgery. Details of procedure: Patient was brought to the OR suite and laid in supine position. Bilateral lower extremity SCDs were placed. General anesthesia was induced via successful endotracheal tube intubation. A Lund catheter was inserted under sterile conditions. Patient's abdomen was prepped and draped in sterile fashion. After a timeout was performed, using a 10 blade scalpel a mi dline vertical incision starting just under the xiphoid was made down to the lower abdomen. There was dissection down to the peritoneal cavity without incident. There were no significant adhesions to the anterior abdominal wall. There was however noted to be significant interloop bowel adhesions affecting both small bowel and colon. There was immediately noted to be no free fluid, fibrinous exudate, or perforation any visceral organs. The right colon was inspected, with palpation there was noted to be crepitus in the colonic wall consistent with pneumatosis intestinalis. However there were no signs of ischemia or gross perforation. Due to the fact that her CAT scan showed significant small bowel dilation consistent with a small bowel obstruction it was decided to meticulously release her interloop adhesions to be able to trace her small bowel from ligament of Treitz to terminal ileum looking for any point obstruction. This took approximately 2 hours to complete. There was no d efinitive transition point identified however we were able to trace the ligament of Treitz to terminal ileum without any evidence of kinking or obstruction. All of her small bowel was found to be viable without any signs of ischemia. At this time it was decided that no colon or small bowel need to be resected. The NG tube was verified to be well placed in the stomach. Her abdominal cavity was irrigated with warm saline. Her midline fascia was closed with #1 looped PDS. This was followed by markos a sterile dressing. Patient was awoken extubated and taken to recovery in stable condition. All counts were correct x2. Findings: Pneumatosis intestinalis of the ascending colon, with no etiology identified, and no signs of perforation or ischemia. There is also noted to be extensive interloop adhesions. Specimen: None Complications: None immediate
[2020-10-06] MEDS: HYDROmorphone 1 MG/1 ML INJ IV PRN ×7 (11:55→22:34)
[2020-10-06] MEDS: hydrALAZINE 20 MG/1 ML INJ IV PRN (12:06)
[2020-10-06] MEDS ORDERED: fentaNYL 250 MCG/5 ML INJ IV ONE (12:34)
[2020-10-06] MEDS ORDERED: fentaNYL 100 MCG/2 ML INJ ONE (12:35)
[2020-10-06] MEDS: D5W/0.45% NACL 1,000 ML IV SCH ×2 (12:45→18:11)
[2020-10-06] MEDS: LORazepam 2 MG/ML VIAL IV PRN ×2 (16:21→20:21)
--- NOTE | 2020-10-06 16:41 | Post Anesthesia Evaluation ---
- Post Anesthesia Evaluation Patient Participated: Yes Airway Patent: Yes Stable Respiratory Function: Yes Nausea/Vomiting: No Temp > 96.8F: Yes Pain Manageable: Yes Adequeate Hydration: Yes Anesthesia Complications: No Block Receding Appropriately: Not Applicable Patient on Ventilator: Yes
[2020-10-06] MEDS: PIPERACILLIN/TAZOBACTAM 3.375 3.375 GM/50 ML BAG IV SCH (18:03)
[2020-10-06] MEDS: HEPARIN 5,000 UNIT/1 ML VIAL SUB-Q SCH ×2 (18:26→22:25)
[2020-10-07] MEDS: PIPERACILLIN/TAZOBACTAM 3.375 3.375 GM/50 ML BAG IV SCH ×3 (00:09→16:54)
[2020-10-07] MEDS: ONDANSETRON 4 MG/2 ML INJ IV PRN ×3 (00:13→22:52)
[2020-10-07] MEDS: LORazepam 2 MG/ML VIAL IV PRN (03:10)
[2020-10-07] MEDS: D5W/0.45% NACL 1,000 ML IV SCH ×3 (03:58→22:46)
[2020-10-07 05:02] LABS: Basophils % (Auto) 0.1 % (0.0-1.8); Hematocrit 35.2 % (30.3-42.9); Hemoglobin 12.6 gm/dl (10.1-14.3); Lymphocytes # (Auto) 0.7 K/mm3 (1.2-5.4); Lymphocytes % (Auto) 10.2 % (13.4-35.0); Mean Corpuscular HGB Conc 36 % (30-34); Mean Corpuscular Volume 97 fl (79-97); Monocytes # (Auto) 0.6 K/mm3 (0.0-0.8); Monocytes % (Auto) 9.4 % (0.0-7.3); Platelet Count 161 K/mm3 (140-440); Red Blood Count 3.64 M/mm3 (3.65-5.03); Red Cell Distribution Width 13.9 % (13.2-15.2)
[2020-10-07 05:14] LABS: Blood Urea Nitrogen 6 mg/dL (7-17); Calcium 8.4 mg/dL (8.4-10.2); Hemolysis Index 5
[2020-10-07 05:19] LABS: BUN/Creatinine Ratio 10
[2020-10-07] MEDS: HEPARIN 5,000 UNIT/1 ML VIAL SUB-Q SCH ×3 (06:03→22:47)
[2020-10-07] MEDS: HYDROmorphone 1 MG/1 ML INJ IV PRN ×5 (06:04→20:30)
[2020-10-07] MEDS: PANTOPRAZOLE 40 MG INJ IV SCH ×2 (09:01→22:47)
--- NOTE | 2020-10-07 13:35 | Post Anesthesia Evaluation ---
- Post Anesthesia Evaluation Patient Participated: No (patient is sedated ) Airway Patent: Yes Stable Respiratory Function: Yes Nausea/Vomiting: No Temp > 96.8F: Yes Pain Manageable: Yes (with pain meds) Adequeate Hydration: Yes Anesthesia Complications: No Block Receding Appropriately: Not Applicable Patient on Ventilator: No
--- NOTE | 2020-10-07 13:40 | Progress Note ---
Assessment and Plan POD#1 s/p ex lap for pneumatosis intestinalis of the right colon with small bowel obstruction. Afebrile and stable with post op ileus. Pain control is challenging as she has an aspirin allergy and is not a candidate for toradol to adjunct to dilaudid. She also has an allergy to morphine. The dilaudid makes her very drowsy. Will add q6h IA tylenol and decrease dilaudid to 0.25mg q 2 hours. Await return of bowel function. Will get PT consult. Subjective Date of service: 10/07/20 Narrative: Pt pulled NGT out overnight. Has been medicated for nausea twice. no vomiting. Pt has needed ativan for anxiety and agitation. was in the room during evaluation. Objective Vital Signs - 12hr 10/07/20 10/07/20 10/07/20 04:00 07:42 08:44 Temperature 98.8 F 100.4 F H 99.4 F Pulse Rate 98 H 106 H Respiratory 16 18 Rate Respiratory Rate [Right Hip ] Blood Pressure 92/43 142/72 Blood Pressure [Right] O2 Sat by Pulse 95 96 Oximetry 10/07/20 10/07/20 10/07/20 09:08 09:46 12:34 Temperature 99.1 F Pulse Rate 95 H Respiratory 20 16 Rate Respiratory 18 Rate [Right Hip ] Blood Pressure Blood Pressure 154/70 [Right] O2 Sat by Pulse 95 Oximetry 10/07/20 12:47 Temperature Pulse Rate Respiratory 20 Rate Respiratory Rate [Right Hip ] Blood Pressure Blood Pressure [Right] O2 Sat by Pulse Oximetry - General physical appearance no distress, moderate pain - Respiratory normal expansion, normal respiratory effort - Abdomen soft, distended, other (incision c/d/i) - Integumentary other (echymosis right arm) - Psychiatric oriented to person - Labs 10/07/20 04:39 10/07/20 04:39 Diabetes panel 10/07/20 Range/Units 04:39 Sodium 138 (137-145) mmol/L Potassium 3.5 L D (3.6-5.0) mmol/L Chloride 102.1 (98-107) mmol/L Carbon Dioxide 26 (22-30) mmol/L BUN 6 L (7-17) mg/dL Creatinine 0.6 (0.6-1.2) mg/dL Glucose 152 H (65-100) mg/dL Calcium 8.4 (8.4-10.2) mg/dL Calcium panel 10/07/20 Range/Units 04:39 Calcium 8.4 (8.4-10.2) mg/dL Pituitary panel 10/07/20 Range/Units 04:39 Sodium 138 (137-145) mmol/L Potassium 3.5 L D (3.6-5.0) mmol/L Chloride 102.1 (98-107) mmol/L Carbon Dioxide 26 (22-30) mmol/L BUN 6 L (7-17) mg/dL Creatinine 0.6 (0.6-1.2) mg/dL Glucose 152 H (65-100) mg/dL Calcium 8.4 (8.4-10.2) mg/dL Adrenal panel 10/07/20 Range/Units 04:39 Sodium 138 (137-145) mmol/L Potassium 3.5 L D (3.6-5.0) mmol/L Chloride 102.1 (98-107) mmol/L Carbon Dioxide 26 (22-30) mmol/L BUN 6 L (7-17) mg/dL Creatinine 0.6 (0.6-1.2) mg/dL Glucose 152 H (65-100) mg/dL Calcium 8.4 (8.4-10.2) mg/dL
[2020-10-07] MEDS: ACETAMINOPHEN 650 MG RECT SUPP PR SCH ×2 (14:10→22:47)
[2020-10-07] MEDS ORDERED: diphenhydrAMINE 50 MG/ML VIAL IV ONE (20:30)
[2020-10-08] MEDS: PIPERACILLIN/TAZOBACTAM 3.375 3.375 GM/50 ML BAG IV SCH ×4 (00:04→23:22)
[2020-10-08] MEDS: ACETAMINOPHEN 650 MG RECT SUPP PR SCH ×4 (02:06→21:02)
[2020-10-08] MEDS: LORazepam 2 MG/ML VIAL IV PRN (02:10)
[2020-10-08] MEDS: HEPARIN 5,000 UNIT/1 ML VIAL SUB-Q SCH ×3 (06:01→21:03)
--- NOTE | 2020-10-08 06:30 | Progress Note ---
Assessment and Plan - Patient Problems (1) Bowel perforation Current Visit: Yes Status: Acute Plan to address problem: Small pneumoperitoneum Clinical significance unknown Patient taken for surgery and extensive lysis of additions was performed (2) Small bowel obstruction Current Visit: Yes Status: Acute Plan to address problem: Patient was taken for surgery and aextensive lysis of physicians performed Postop patient is still nauseous N.p.o. patient is anxious about her eating. Patient was counseled and reassured about being n.p.o. Patient on IV fluids (3) Acute abdominal pain Current Visit: Yes Status: Acute Plan to address problem: N.p.o. IV fluid D5 half-normal saline at the rate of 100 cc/h. Protonix 40 mg IV every 12 hours. Morphine 2 mg IV every 4 hours as needed. Zofran 4 mg IV every 6 hours as needed. Zosyn 4.5 g IV every 8 hours. (4) GERD (gastroesophageal reflux disease) Current Visit: No Status: Chronic Qualifiers: Esophagitis presence: with esophagitis Plan to address problem: Protonix 40 mg IV every 12 hours. Zofran 4 mg IV every 6 hours as needed (5) Hypertension Current Visit: No Status: Acute Qualifiers: Hypertension type: essential hypertension Qualified Code(s): I10 - Essential (primary) hypertension Plan to address problem: Hydralazine 10 mg IV every 6 hours as needed. We will monitor the blood pressure closely (6) DVT prophylaxis Current Visit: Yes Status: Acute Plan to address problem: We will hold the apixaban. We will put the patient on heparin 5000 units subcu every 8 hours. Protonix 40 mg IV every 12 hours for GI prophylaxis patient is a full code Subjective Date of service: 10/06/20 Principal diagnosis: Small bowel obstruction Interval history: 80 years old female with history of hypertension, GERD and arthritis was brought to the emergency room because of diffuse abdominal pain and distention since last night associated with nausea and vomiting and loose stool. Patient described her pain as fullness, 7 out of 10 with no radiation. Patient denied any hematemesis, hematochezia or melena. She also denied any fever or chills. In the emergency room patient has a CT scan of the abdomen which showed markedly abnormal appearance of the CT abdomen pelvis pneumatosis of the right colon with a small amount of air outside the lumen of gastrointestinal tract .right upper quadrant pneumoperitoneum Small bowel obstruction, pneumobilia. Bilateral nephrolithiasis with mild dilatation of the right collecting system secondary to several small calculi in the proximal right ureter . 10/06/2020 Small bowel obstruction Procedure performed:1. Exploratory laparotomy, 2. Extensive lysis of adhesions, 3. Peritoneal lavage Preop diagnosis: Pneumatosis intestinalis of the ascending colon, and small bowel obstruction Postop diagnosis: Same as preop (pneumatosis intestinalis of unknown origin) . Patient is stable but still nauseous and in pain Objective - Constitutional Vitals: Vital Signs - 12hr 10/07/20 10/07/20 10/08/20 20:18 21:30 01:28 Temperature 99.7 F H 98.9 F Pulse Rate 102 H 88 Respiratory 16 16 Rate Blood Pressure 124/82 136/84 [Right] O2 Sat by Pulse 94 93 93 Oximetry 10/08/20 05:13 Temperature 99.5 F Pulse Rate 90 Respiratory 16 Rate Blood Pressure 135/87 [Right] O2 Sat by Pulse 96 Oximetry General appearance: Present: mild distress, well-nourished - EENT Eyes: PERRL, EOM intact ENT: hearing intact, clear oral mucosa Ears: bilateral: normal - Neck Neck: supple, normal ROM - Respiratory Respiratory effort: normal Respiratory: bilateral: CTA - Breasts Breasts: normal - Cardiovascular Heart rate: 78 Rhythm: regular Heart Sounds: Present: S1 & S2. Absent: gallop, rub Extremities: pulses intact, No edema, normal color, Full ROM - Gastrointestinal General gastrointestinal: Present: soft, tender, non-distended, hypoactive bowel sounds - Genitourinary Female genitourinary: normal - Integumentary Integumentary: clear, warm, dry - Musculoskeletal Musculoskeletal: 1, strength equal bilaterally - Neurologic Neurologic: moves all extremities - Psychiatric Psychiatric: memory intact, appropriate mood/affect, intact judgment & insight - Allied health notes Allied health notes reviewed: nursing, case management - Labs CBC & Chem 7: 10/07/20 04:39 10/07/20 04:39 Labs: Abdominal CAT scan Markedly abnormal appearance of the CT abdomen and pelvis as noted Pneumatosis of the right colon with a small amount of air outside the lumen of the gastrointestinal tract Right upper quadrant pneumoperitoneum Small of bowel obstruction Pneumobilia Bilateral nephrolithiasis with mild dilation of the liver right collecting system secondary to a several small calculi in the proximal right ureter
--- NOTE | 2020-10-08 06:40 | Progress Note ---
Assessment and Plan - Patient Problems (1) Bowel perforation Current Visit: Yes Status: Acute Plan to address problem: Small pneumoperitoneum Clinical significance unknown Patient taken for surgery and extensive lysis of additions was performed (2) Small bowel obstruction Current Visit: Yes Status: Acute Plan to address problem: Patient was taken for surgery and aextensive lysis of physicians performed Postop patient is still nauseous N.p.o. patient is anxious about her eating. Patient was counseled and reassured about being n.p.o. Patient on IV fluids (3) Acute abdominal pain Current Visit: Yes Status: Acute Plan to address problem: N.p.o. IV fluid D5 half-normal saline at the rate of 100 cc/h. Protonix 40 mg IV every 12 hours. Morphine 2 mg IV every 4 hours as needed. Zofran 4 mg IV every 6 hours as needed. Zosyn 4.5 g IV every 8 hours. (4) GERD (gastroesophageal reflux disease) Current Visit: No Status: Chronic Qualifiers: Esophagitis presence: with esophagitis Plan to address problem: Protonix 40 mg IV every 12 hours. Zofran 4 mg IV every 6 hours as needed (5) Hypertension Current Visit: No Status: Acute Qualifiers: Hypertension type: essential hypertension Qualified Code(s): I10 - Essential (primary) hypertension Plan to address problem: Hydralazine 10 mg IV every 6 hours as needed. We will monitor the blood pressure closely (6) DVT prophylaxis Current Visit: Yes Status: Acute Plan to address problem: We will hold the apixaban. We will put the patient on heparin 5000 units subcu every 8 hours. Protonix 40 mg IV every 12 hours for GI prophylaxis patient is a full code Subjective Date of service: 10/07/20 Principal diagnosis: Small bowel obstruction Interval history: 80 years old female with history of hypertension, GERD and arthritis was brought to the emergency room because of diffuse abdominal pain and distention since last night associated with nausea and vomiting and loose stool. Patient described her pain as fullness, 7 out of 10 with no radiation. Patient denied any hematemesis, hematochezia or melena. She also denied any fever or chills. In the emergency room patient has a CT scan of the abdomen which showed markedly abnormal appearance of the CT abdomen pelvis pneumatosis of the right colon with a small amount of air outside the lumen of gastrointestinal tract .right upper quadrant pneumoperitoneum Small bowel obstruction, pneumobilia. Bilateral nephrolithiasis with mild dilatation of the right collecting system secondary to several small calculi in the proximal right ureter . 10/06/2020 Small bowel obstruction Procedure performed:1. Exploratory laparotomy, 2. Extensive lysis of adhesions, 3. Peritoneal lavage Preop diagnosis: Pneumatosis intestinalis of the ascending colon, and small bowel obstruction Postop diagnosis: Same as preop (pneumatosis intestinalis of unknown origin) . Patient is stable but still nauseous and in pain 10/07/2020 Patient has surgery yesterday Extensive lysis of additions Patient still nauseous Clear liquids not started Objective - Constitutional Vitals: Vital Signs - 12hr 10/07/20 10/07/20 10/08/20 20:18 21:30 01:28 Temperature 99.7 F H 98.9 F Pulse Rate 102 H 88 Respiratory 16 16 Rate Blood Pressure 124/82 136/84 [Right] O2 Sat by Pulse 94 93 93 Oximetry 10/08/20 05:13 Temperature 99.5 F Pulse Rate 90 Respiratory 16 Rate Blood Pressure 135/87 [Right] O2 Sat by Pulse 96 Oximetry General appearance: Present: mild distress, well-nourished - EENT Eyes: PERRL, EOM intact ENT: hearing intact, clear oral mucosa Ears: bilateral: normal - Neck Neck: supple, normal ROM - Respiratory Respiratory effort: normal Respiratory: bilateral: CTA - Breasts Breasts: normal - Cardiovascular Heart rate: 78 Rhythm: regular Heart Sounds: Present: S1 & S2. Absent: gallop, rub Extremities: pulses intact, No edema, normal color, Full ROM - Gastrointestinal General gastrointestinal: Present: soft, tender, hypoactive bowel sounds - Genitourinary Female genitourinary: normal - Integumentary Integumentary: clear, warm, dry - Musculoskeletal Musculoskeletal: 1, strength equal bilaterally - Neurologic Neurologic: moves all extremities - Psychiatric Psychiatric: memory intact, appropriate mood/affect, intact judgment & insight - Labs CBC & Chem 7: 10/07/20 04:39 10/07/20 04:39
[2020-10-08] MEDS: ONDANSETRON 4 MG/2 ML INJ IV PRN ×5 (07:03→23:23)
[2020-10-08] MEDS: HYDROmorphone 1 MG/1 ML INJ IV PRN ×4 (07:03→19:22)
[2020-10-08 07:40] LABS: Basophils % (Auto) 0.2 % (0.0-1.8); Hematocrit 33.1 % (30.3-42.9); Hemoglobin 11.7 gm/dl (10.1-14.3); Lymphocytes # (Auto) 0.8 K/mm3 (1.2-5.4); Lymphocytes % (Auto) 14.7 % (13.4-35.0); Mean Corpuscular HGB Conc 35 % (30-34); Mean Corpuscular Volume 97 fl (79-97); Monocytes # (Auto) 0.4 K/mm3 (0.0-0.8); Monocytes % (Auto) 6.8 % (0.0-7.3); Platelet Count 142 K/mm3 (140-440); Red Blood Count 3.43 M/mm3 (3.65-5.03); Red Cell Distribution Width 13.9 % (13.2-15.2)
[2020-10-08 07:45] LABS: Blood Urea Nitrogen 4 mg/dL (7-17); Calcium 8.1 mg/dL (8.4-10.2); Hemolysis Index 2
[2020-10-08 08:09] LABS: BUN/Creatinine Ratio 8
[2020-10-08] MEDS: PANTOPRAZOLE 40 MG INJ IV SCH ×2 (09:10→21:03)
[2020-10-08] MEDS: D5W/0.45% NACL 1,000 ML IV SCH (09:44)
[2020-10-08] MEDS: POTASSIUM CHLORIDE 10 MEQ 10 MEQ/100 ML BAG IV SCH ×2 (09:55→11:31)
--- NOTE | 2020-10-08 10:53 | Progress Note ---
Assessment and Plan POD#2 s/p ex lap for pneumatosis intestinalis of the right colon with small bowel obstruction. Afebrile and stable with post op ileus. Pain control is challenging as she has an aspirin allergy and is not a candidate for toradol to adjunct to dilaudid. She also has an allergy to morphine. The dilaudid makes her very drowsy. continue q6h MN tylenol and decrease dilaudid to 0.25mg q 2 hours prn. Await return of bowel function. PT consulted. Subjective Date of service: 10/08/20 Narrative: no acute events overnight. Pt complains of pain and nausea intermittently. denie s vomiting or flatus. Objective Vital Signs - 12hr 10/08/20 10/08/20 10/08/20 01:28 05:13 07:42 Temperature 98.9 F 99.5 F 99.8 F H Pulse Rate 88 90 93 H Respiratory 16 16 18 Rate Blood Pressure 164/89 Blood Pressure 136/84 135/87 [Right] O2 Sat by Pulse 93 96 91 Oximetry 10/08/20 10:02 Temperature Pulse Rate Respiratory 18 Rate Blood Pressure Blood Pressure [Right] O2 Sat by Pulse Oximetry - General physical appearance well developed, no distress, moderate pain - Respiratory normal expansion, normal respiratory effort - Abdomen soft, bowel sounds hypoactive, distended, not guarding, not rigid, other (inc ision intact with minimal serous drainage. appropriately tender to palpation) - Labs 10/08/20 07:08 10/08/20 07:08 Diabetes panel 10/08/20 Range/Units 07:08 Sodium 140 (137-145) mmol/L Potassium 3.1 L (3.6-5.0) mmol/L Chloride 104.8 (98-107) mmol/L Carbon Dioxide 26 (22-30) mmol/L BUN 4 L (7-17) mg/dL Creatinine 0.5 L (0.6-1.2) mg/dL Glucose 116 H (65-100) mg/dL Calcium 8.1 L (8.4-10.2) mg/dL Calcium panel 10/08/20 Range/Units 07:08 Calcium 8.1 L (8.4-10.2) mg/dL Pituitary panel 10/08/20 Range/Units 07:08 Sodium 140 (137-145) mmol/L Potassium 3.1 L (3.6-5.0) mmol/L Chloride 104.8 (98-107) mmol/L Carbon Dioxide 26 (22-30) mmol/L BUN 4 L (7-17) mg/dL Creatinine 0.5 L (0.6-1.2) mg/dL Glucose 116 H (65-100) mg/dL Calcium 8.1 L (8.4-10.2) mg/dL Adrenal panel 10/08/20 Range/Units 07:08 Sodium 140 (137-145) mmol/L Potassium 3.1 L (3.6-5.0) mmol/L Chloride 104.8 (98-107) mmol/L Carbon Dioxide 26 (22-30) mmol/L BUN 4 L (7-17) mg/dL Creatinine 0.5 L (0.6-1.2) mg/dL Glucose 116 H (65-100) mg/dL Calcium 8.1 L (8.4-10.2) mg/dL
[2020-10-08] MEDS ORDERED: PROMETHAZINE 25 MG RECT SUPP PR PRN (11:00)
--- NOTE | 2020-10-08 15:59 | Progress Note ---
Assessment and Plan Assessment and plan: 80 years old female with history of hypertension, GERD and arthritis was brought to the emergency room because of diffuse abdominal pain and distention since last night associated with nausea and vomiting and loose stool. Patient described her pain as fullness, 7 out of 10 with no radiation. Patient denied any hematemesis, hematochezia or melena. She also denied any fever or chills. In the emergency room patient has a CT scan of the abdomen which showed markedly abnormal appearance of the CT abdomen pelvis pneumatosis of the right colon with a small amount of air outside the lumen of gastrointestinal tract .right upper quadrant pneumoperitoneum Small bowel obstruction, pneumobilia. Bilateral nephrolithiasis with mild dilatation of the right collecting system secondary to several small calculi in the proximal right ureter . 10/06/2020 Small bowel obstruction Procedure performed:1. Exploratory laparotomy, 2. Extensive lysis of adhesions, 3. Peritoneal lavage Preop diagnosis: Pneumatosis intestinalis of the ascending colon, and small bowel obstruction Postop diagnosis: Same as preop (pneumatosis intestinalis of unknown origin) . Patient is stable but still nauseous and in pain 10/07/2020 Patient has surgery yesterday Extensive lysis of additions Patient still nauseous Clear liquids not started /: Continue to supportive care, POD#2 s/p ex lap for pneumatosis intestinalis of the right colon with small bowel obstruction. Afebrile and stable with post op ileus. Pain management per Surgery Hypokalema: Replace. (1) Bowel perforation Current Visit: Yes Status: Acute Plan to address problem: Small pneumoperitoneum Clinical significance unknown Patient taken for surgery and extensive lysis of additions was performed (2) Small bowel obstruction Current Visit: Yes Status: Acute Plan to address problem: Patient was taken for surgery and aextensive lysis of physicians performed Postop patient is still nauseous N.p.o. patient is anxious about her eating. Patient was counseled and reassured about being n.p.o. Patient on IV fluids (3) Acute abdominal pain Current Visit: Yes Status: Acute Plan to address problem: N.p.o. IV fluid D5 half-normal saline at the rate of 100 cc/h. Protonix 40 mg IV every 12 hours. Morphine 2 mg IV every 4 hours as needed. Zofran 4 mg IV every 6 hours as needed. Zosyn 4.5 g IV every 8 hours. (4) GERD (gastroesophageal reflux disease) Current Visit: No Status: Chronic Qualifiers: Esophagitis presence: with esophagitis Plan to address problem: Protonix 40 mg IV every 12 hours. Zofran 4 mg IV every 6 hours as needed (5) Hypertension Current Visit: No Status: Acute Qualifiers: Hypertension type: essential hypertension Qualified Code(s): I10 - Essential (primary) hypertension Plan to address problem: Hydralazine 10 mg IV every 6 hours as needed. We will monitor the blood pressure closely (6) DVT prophylaxis Current Visit: Yes Status: Acute Plan to address problem: We will hold the apixaban. We will put the patient on heparin 5000 units subcu every 8 hours. Protonix 40 mg IV every 12 hours for GI prophylaxis patient is a full code History Interval history: Patient seen and examined, no new complaints. spouse at bedside. Hospitalist Physical - Physical exam Narrative exam: General appearance: Present: mild distress, well-nourished - EENT Eyes: PERRL, EOM intact ENT: hearing intact, clear oral mucosa Ears: bilateral: normal - Neck Neck: supple, normal ROM - Respiratory Respiratory effort: normal Respiratory: bilateral: CTA - Breasts Breasts: normal - Cardiovascular Heart rate: 78 Rhythm: regular Heart Sounds: Present: S1 & S2. Absent: gallop, rub Extremities: pulses intact, No edema, normal color, Full ROM - Gastrointestinal General gastrointestinal: Present: soft, tender, surgical wound dressing, hypoactive bowel sounds - Genitourinary Female genitourinary: normal - Integumentary Integumentary: clear, warm, dry - Musculoskeletal Musculoskeletal: 1, strength equal bilaterally - Neurologic Neurologic: moves all extremities - Psychiatric Psychiatric: memory intact, appropriate mood/affect, intact judgment & insight - Constitutional Vitals: Temp Pulse Resp BP Pulse Ox 99.8 F H 93 H 20 164/89 91 10/08/20 07:42 10/08/20 07:42 10/08/20 15:26 10/08/20 07:42 10/08/20 07:42 General appearance: Present: mild distress, well-nourished Results - Labs CBC & Chem 7: 10/08/20 07:08 10/08/20 07:08 Labs: Laboratory Last Values WBC 5.6 K/mm3 (4.5-11.0) 10/08/20 07:08 RBC 3.43 M/mm3 (3.65-5.03) L 10/08/20 07:08 Hgb 11.7 gm/dl (10.1-14.3) 10/08/20 07:08 Hct 33.1 % (30.3-42.9) 10/08/20 07:08 MCV 97 fl (79-97) 10/08/20 07:08 MCH 34 pg (28-32) H 10/08/20 07:08 MCHC 35 % (30-34) H 10/08/20 07:08 RDW 13.9 % (13.2-15.2) 10/08/20 07:08 Plt Count 142 K/mm3 (140-440) 10/08/20 07:08 Lymph % (Auto) 14.7 % (13.4-35.0) 10/08/20 07:08 [place] % (Auto) 6.8 % (0.0-7.3) 10/08/20 07:08 Eos % (Auto) 0.0 % (0.0-4.3) 10/08/20 07:08 Baso % (Auto) 0.2 % (0.0-1.8) 10/08/20 07:08 Lymph # (Auto) 0.8 K/mm3 (1.2-5.4) L 10/08/20 07:08 [place] # (Auto) 0.4 K/mm3 (0.0-0.8) 10/08/20 07:08 Eos # (Auto) 0.0 K/mm3 (0.0-0.4) 10/08/20 07:08 Baso # (Auto) 0.0 K/mm3 (0.0-0.1) 10/08/20 07:08 Seg Neutrophils % 78.3 % (40.0-70.0) H 10/08/20 07:08 Seg Neutrophils # 4.4 K/mm3 (1.8-7.7) 10/08/20 07:08 Sodium 140 mmol/L (137-145) 10/08/20 07:08 Potassium 3.1 mmol/L (3.6-5.0) L 10/08/20 07:08 Chloride 104.8 mmol/L (98-107) 10/08/20 07:08 Carbon Dioxide 26 mmol/L (22-30) 10/08/20 07:08 Anion Gap 12 mmol/L 10/08/20 07:08 BUN 4 mg/dL (7-17) L 10/08/20 07:08 Creatinine 0.5 mg/dL (0.6-1.2) L 10/08/20 07:08 Estimated GFR > 60 ml/min 10/08/20 07:08 BUN/Creatinine Ratio 8 % 10/08/20 07:08 Glucose 116 mg/dL (65-100) H 10/08/20 07:08 Calcium 8.1 mg/dL (8.4-10.2) L 10/08/20 07:08 Total Bilirubin 0.80 mg/dL (0.1-1.2) 10/05/20 23:10 AST 19 units/L (5-40) 10/05/20 23:10 ALT 15 units/L (7-56) 10/05/20 23:10 Alkaline Phosphatase 95 units/L (35-129) 10/05/20 23:10 Total Protein 7.5 g/dL (6.3-8.2) 10/05/20 23:10 Albumin 5.0 g/dL (3.9-5) 10/05/20 23:10 Albumin/Globulin Ratio 2.0 % 10/05/20 23:10 Microbiology: Microbiology 10/06/20 01:23 Peripheral/Venous Blood Culture - Preliminary NO GROWTH AFTER 48 HOURS 10/06/20 00:44 Peripheral/Venous Blood Culture - Preliminary NO GROWTH AFTER 48 HOURS Lund/IV: Voiding Method External Female Catheter Active Medications - Current Medications Current Medications: Generic Name Dose Route Start Last Admin Trade Name Freq PRN Reason Stop Dose Admin Acetaminophen 650 mg 10/07/20 14:00 10/08/20 15:22 Acetaminophen 650 Mg Rect Supp NE 650 mg Q6H AMANDA Administration Albuterol 2.5 mg 10/06/20 06:09 Albuterol 2.5 Mg/3 Ml Nebu IH Q3HRT PRN Shortness Of Breath Heparin Sodium (Porcine) 5,000 unit 10/06/20 14:00 10/08/20 15:22 Heparin 5,000 Unit/1 Ml Vial SUB-Q 5,000 unit Q8HR AMANDA Administration Hydralazine HCl 10 mg 10/06/20 06:11 10/06/20 12:06 Hydralazine 20 Mg/1 Ml Inj IV 10 mg Q6H PRN Administration htn Hydromorphone HCl 0.25 mg 10/07/20 14:58 10/08/20 15:26 Hydromorphone 1 Mg/1 Ml Inj IV 0.25 mg Q2H PRN Administration Pain , Severe (7-10) Dextrose/Sodium Chloride 1,000 mls @ 100 mls/hr 10/06/20 07:00 10/08/20 09:44 D5/0.45ns IV 100 mls/hr DIRECT AMANDA Administration Piperacillin Sod/Tazobactam Sod 3.375 gm in 50 mls @ 100 mls/hr 10/07/20 08:00 10/08/20 15:22 Zosyn/Ns 3.375gm/50ml IV 100 mls/hr Q8H AMANDA Administration Protocol Lorazepam 1 mg 10/06/20 16:00 10/08/20 02:10 Lorazepam 2 Mg/Ml Vial IV 1 mg Q3H PRN Administration Anxiety Ondansetron HCl 4 mg 10/08/20 11:30 10/08/20 15:26 Ondansetron 4 Mg/2 Ml Inj IV 4 mg Q4H PRN Administration Nausea And Vomiting Pantoprazole Sodium 40 mg 10/06/20 10:00 10/08/20 09:10 Pantoprazole 40 Mg Inj IV 40 mg BID AMANDA Administration Promethazine HCl 25 mg 10/08/20 11:00 Promethazine 25 Mg Rect Supp NE Q6H PRN Nausea And Vomiting Sodium Chloride 10 ml 10/06/20 10:00 10/08/20 09:11 Sodium Chloride 0.9% 10 Ml Flush Syringe IV 10 ml BID AMANDA Administration Sodium Chloride 10 ml 10/06/20 06:09 Sodium Chloride 0.9% 10 Ml Flush Syringe IV PRN PRN LINE FLUSH
[2020-10-09] MEDS: D5W/0.45% NACL 1,000 ML IV SCH ×2 (00:40→08:30)
[2020-10-09] MEDS: ACETAMINOPHEN 650 MG RECT SUPP PR SCH ×4 (02:25→21:16)
[2020-10-09] MEDS: HYDROmorphone 1 MG/1 ML INJ IV PRN ×5 (03:45→22:24)
[2020-10-09] MEDS: ONDANSETRON 4 MG/2 ML INJ IV PRN ×4 (03:45→21:04)
[2020-10-09] MEDS: HEPARIN 5,000 UNIT/1 ML VIAL SUB-Q SCH ×3 (05:33→21:05)
[2020-10-09] MEDS: PIPERACILLIN/TAZOBACTAM 3.375 3.375 GM/50 ML BAG IV SCH ×2 (08:30→16:48)
--- NOTE | 2020-10-09 09:53 | Progress Note ---
Assessment and Plan Assessment and plan: 10 years old female with history of hypertension, GERD and arthritis was brought to the emergency room because of diffuse abdominal pain and distention since last night associated with nausea and vomiting and loose stool. Patient described her pain as fullness, 7 out of 10 with no radiation. Patient denied any hematemesis, hematochezia or melena. She also denied any fever or chills. In the emergency room patient has a CT scan of the abdomen which showed markedly abnormal appearance of the CT abdomen pelvis pneumatosis of the right colon with a small amount of air outside the lumen of gastrointestinal tract .right upper quadrant pneumoperitoneum Small bowel obstruction, pneumobilia. Bilateral nephrolithiasis with mild dilatation of the right collecting system secondary to several small calculi in the proximal right ureter . 10/06/2020 Small bowel obstruction Procedure performed:1. Exploratory laparotomy, 2. Extensive lysis of adhesions, 3. Peritoneal lavage Preop diagnosis: Pneumatosis intestinalis of the ascending colon, and small bowel obstruction Postop diagnosis: Same as preop (pneumatosis intestinalis of unknown origin) . Patient is stable but still nauseous and in pain 10/07/2020 Patient has surgery yesterday Extensive lysis of additions Patient still nauseous Clear liquids not started 10/08: Continue to supportive care, POD#2 s/p ex lap for pneumatosis intestinalis of the right colon with small bowel obstruction. Afebrile and stable with post op ileus. Pain management per Surgery Hypokalema: Replace. 10/09. She has no complaints today. She status post expiratory laparotomy for pneumatosis intestinalis of the right colon with SBO Problems (1) Bowel perforation Current Visit: Yes Status: Acute Plan to address problem: Status post respiratory laparotomy Surgery following Remains n.p.o. (2) Small bowel obstruction Current Visit: Yes Status: Acute Plan to address problem: Patient was taken for surgery and aextensive lysis of physicians performed Surgery on board (3) Acute abdominal pain Secondary to bowel perforation (4) GERD (gastroesophageal reflux disease) Current Visit: No Status: Chronic Qualifiers: Esophagitis presence: with esophagitis Plan to address problem: Protonix 40 mg IV every 12 hours. Zofran 4 mg IV every 6 hours as needed (5) Hypertension Current Visit: No Status: Acute Qualifiers: Hypertension type: essential hypertension Qualified Code(s): I10 - Essential (primary) hypertension Plan to address problem: Hydralazine 10 mg IV every 6 hours as needed. We will monitor the blood pressure closely (6) DVT prophylaxis Current Visit: Yes Status: Acute Plan to address problem: Patient is on heparin. Not clear why patient is on apixaban at home. Will clarify History Interval history: 10/09. She has no complaints this morning. Surgery on board Hospitalist Physical - Physical exam Narrative exam: VITAL SIGNS: Reviewed. GENERAL: Awake HEAD: No signs of head trauma. EYES: Pupils are equal. Extraocular motions intact. MOUTH: Oropharynx is normal. NECK: No adenopathy, no JVD. CHEST: Chest with diminished breath sounds bilaterally. No wheezes, rales, or rhonchi. CARDIAC: normal S1 and S2, without murmurs, gallops, or rubs. ABDOMEN: Soft. Surgical dressing and abdominal binder in place MUSCULOSKELETAL: No edema NEUROLOGIC EXAM: Alert and oriented x3. No focal neurologic deficits SKIN: No obvious lesions - Constitutional Vitals: Temp Pulse Resp BP Pulse Ox 99.3 F 107 H 18 123/100 94 10/09/20 07:44 10/09/20 07:44 10/09/20 07:44 10/09/20 07:44 10/09/20 07:44 Results - Labs CBC & Chem 7: 10/08/20 07:08 10/08/20 07:08 Labs: Laboratory Last Values WBC 5.6 K/mm3 (4.5-11.0) 10/08/20 07:08 RBC 3.43 M/mm3 (3.65-5.03) L 10/08/20 07:08 Hgb 11.7 gm/dl (10.1-14.3) 10/08/20 07:08 Hct 33.1 % (30.3-42.9) 10/08/20 07:08 MCV 97 fl (79-97) 10/08/20 07:08 MCH 34 pg (28-32) H 10/08/20 07:08 MCHC 35 % (30-34) H 10/08/20 07:08 RDW 13.9 % (13.2-15.2) 10/08/20 07:08 Plt Count 142 K/mm3 (140-440) 10/08/20 07:08 Lymph % (Auto) 14.7 % (13.4-35.0) 10/08/20 07:08 [place] % (Auto) 6.8 % (0.0-7.3) 10/08/20 07:08 Eos % (Auto) 0.0 % (0.0-4.3) 10/08/20 07:08 Baso % (Auto) 0.2 % (0.0-1.8) 10/08/20 07:08 Lymph # (Auto) 0.8 K/mm3 (1.2-5.4) L 10/08/20 07:08 [place] # (Auto) 0.4 K/mm3 (0.0-0.8) 10/08/20 07:08 Eos # (Auto) 0.0 K/mm3 (0.0-0.4) 10/08/20 07:08 Baso # (Auto) 0.0 K/mm3 (0.0-0.1) 10/08/20 07:08 Seg Neutrophils % 78.3 % (40.0-70.0) H 10/08/20 07:08 Seg Neutrophils # 4.4 K/mm3 (1.8-7.7) 10/08/20 07:08 Sodium 140 mmol/L (137-145) 10/08/20 07:08 Potassium 3.1 mmol/L (3.6-5.0) L 10/08/20 07:08 Chloride 104.8 mmol/L (98-107) 10/08/20 07:08 Carbon Dioxide 26 mmol/L (22-30) 10/08/20 07:08 Anion Gap 12 mmol/L 10/08/20 07:08 BUN 4 mg/dL (7-17) L 10/08/20 07:08 Creatinine 0.5 mg/dL (0.6-1.2) L 10/08/20 07:08 Estimated GFR > 60 ml/min 10/08/20 07:08 BUN/Creatinine Ratio 8 % 10/08/20 07:08 Glucose 116 mg/dL (65-100) H 10/08/20 07:08 Calcium 8.1 mg/dL (8.4-10.2) L 10/08/20 07:08 Total Bilirubin 0.80 mg/dL (0.1-1.2) 10/05/20 23:10 AST 19 units/L (5-40) 10/05/20 23:10 ALT 15 units/L (7-56) 10/05/20 23:10 Alkaline Phosphatase 95 units/L (35-129) 10/05/20 23:10 Total Protein 7.5 g/dL (6.3-8.2) 10/05/20 23:10 Albumin 5.0 g/dL (3.9-5) 10/05/20 23:10 Albumin/Globulin Ratio 2.0 % 10/05/20 23:10 Microbiology: Microbiology 10/06/20 01:23 Peripheral/Venous Blood Culture - Preliminary NO GROWTH AFTER 72 HOURS 10/06/20 00:44 Peripheral/Venous Blood Culture - Preliminary NO GROWTH AFTER 72 HOURS Lund/IV: Voiding Method External Female Catheter Active Medications - Current Medications Current Medications: Generic Name Dose Route Start Last Admin Trade Name Freq PRN Reason Stop Dose Admin Acetaminophen 650 mg 10/07/20 14:00 10/09/20 08:32 Acetaminophen 650 Mg Rect Supp [place] 650 mg Q6H AMANDA Administration Albuterol 2.5 mg 10/06/20 06:09 Albuterol 2.5 Mg/3 Ml Nebu IH Q3HRT PRN Shortness Of Breath Heparin Sodium (Porcine) 5,000 unit 10/06/20 14:00 10/09/20 05:33 Heparin 5,000 Unit/1 Ml Vial SUB-Q 5,000 unit Q8HR AMANDA Administration Hydralazine HCl 10 mg 10/06/20 06:11 10/06/20 12:06 Hydralazine 20 Mg/1 Ml Inj IV 10 mg Q6H PRN Administration htn Hydromorphone HCl 0.25 mg 10/07/20 14:58 10/09/20 08:31 Hydromorphone 1 Mg/1 Ml Inj IV 0.25 mg Q2H PRN Administration Pain , Severe (7-10) Dextrose/Sodium Chloride 1,000 mls @ 100 mls/hr 10/06/20 07:00 10/09/20 08:30 D5/0.45ns IV 100 mls/hr DIRECT AMANDA Administration Piperacillin Sod/Tazobactam Sod 3.375 gm in 50 mls @ 100 mls/hr 10/07/20 08:00 10/09/20 08:30 Zosyn/Ns 3.375gm/50ml IV 100 mls/hr Q8H AMANDA Administration Protocol Lorazepam 1 mg 10/06/20 16:00 10/08/20 02:10 Lorazepam 2 Mg/Ml Vial IV 1 mg Q3H PRN Administration Anxiety Ondansetron HCl 4 mg 10/08/20 11:30 10/09/20 08:31 Ondansetron 4 Mg/2 Ml Inj IV 4 mg Q4H PRN Administration Nausea And Vomiting Pantoprazole Sodium 40 mg 10/06/20 10:00 10/08/20 21:03 Pantoprazole 40 Mg Inj IV 40 mg BID AMANDA Administration Promethazine HCl 25 mg 10/08/20 11:00 Promethazine 25 Mg Rect Supp [place] Q6H PRN Nausea And Vomiting Sodium Chloride 10 ml 10/06/20 10:00 10/08/20 21:03 Sodium Chloride 0.9% 10 Ml Flush Syringe IV 10 ml BID AMANDA Administration Sodium Chloride 10 ml 10/06/20 06:09 Sodium Chloride 0.9% 10 Ml Flush Syringe IV PRN PRN LINE FLUSH
[2020-10-09] MEDS: PANTOPRAZOLE 40 MG INJ IV SCH ×2 (10:46→21:04)
[2020-10-09] MEDS: LORazepam 2 MG/ML VIAL IV PRN (13:37)
[2020-10-09] MEDS: POTASSIUM CHLORIDE 10 MEQ 10 MEQ/100 ML BAG IV SCH ×2 (14:28→15:23)
--- NOTE | 2020-10-09 15:35 | Progress Note ---
Assessment and Plan 80-year-old female status post exploratory laparotomy, lysis of adhesions POD 3 1. pneumatosis intestinalis of the right colon 2. small bowel obstruction. Afebrile and stable with post op ileus. Plan: 1. continue NPO 2. IVF 3. NGT if vomiting 4. prn pain and nausea control. Observe carefully as dilaudid can make the patient drowsy 5. prn ativan ordered as needed 6. IS/pulm toilet 7. dc abd binder 8. BMP daily while NPO and replace lytes as needed. K replacement ordered 9. OOB/ambulate - instructed patient's RN to assist with OOB today with walker and patient's offered to facilitate walking. PT called and will try to s ee patient again today 10. await bowel function - patient with expected post op ileus Patient's present at bedside for evaluation, all questions answered. Thank you, please call with questions Subjective Date of service: 10/09/20 Narrative: Patient seen and examined. She complains of abdominal pain secondary to abdominal binder. She complains of mild nausea but no vomiting. She has not been out of bed today as she requires assistance with the use of a walker. She was seen by physical therapy yesterday. She has been afebrile. is at bedside. Objective Vital Signs - 12hr 10/09/20 10/09/20 10/09/20 05:09 07:44 10:00 Temperature 99.3 F 99.3 F Pulse Rate 98 H 107 H Respiratory 16 18 Rate Blood Pressure 123/100 Blood Pressure 111/73 [Right] O2 Sat by Pulse 93 94 95 Oximetry 10/09/20 10:43 Temperature 98.8 F Pulse Rate 96 H Respiratory 18 Rate Blood Pressure 131/73 Blood Pressure [Right] O2 Sat by Pulse 92 Oximetry - General physical appearance Narrative Exam: Gen.: Awake, alert, oriented to person. Frail appearing. Mild distress due to pain. ENT: Trachea midline. No lymphadenopathy. No scleral icterus or conjunctival pallor CV: S1, S2 present Respiratory: No audible wheezes Abdomen: Soft, distended, mild TTP near midline at incision. Abdominal binder removed. Dressing c/d/i. No rebound, rigidity, guarding Extremities: No clubbing, cyanosis, edema - Labs 10/08/20 07:08 10/08/20 07:08
[2020-10-09] MEDS: D5NS W/KCL 20 MEQ 20 MEQ/1,000 ML BAG IV SCH ×2 (16:32→22:25)
[2020-10-10] MEDS: LORazepam 2 MG/ML VIAL IV PRN ×3 (00:36→21:58)
[2020-10-10] MEDS: PIPERACILLIN/TAZOBACTAM 3.375 3.375 GM/50 ML BAG IV SCH ×3 (00:36→21:49)
[2020-10-10] MEDS: HYDROmorphone 1 MG/1 ML INJ IV PRN ×6 (03:56→21:56)
[2020-10-10] MEDS: ACETAMINOPHEN 650 MG RECT SUPP PR SCH ×4 (04:00→21:50)
[2020-10-10] MEDS: HEPARIN 5,000 UNIT/1 ML VIAL SUB-Q SCH (05:41)
[2020-10-10 05:51] LABS: Blood Urea Nitrogen 5 mg/dL (7-17); Calcium 8.6 mg/dL (8.4-10.2); Hemolysis Index 0
[2020-10-10 06:12] LABS: BUN/Creatinine Ratio 13
[2020-10-10] MEDS: POTASSIUM CHLORIDE 10 MEQ 10 MEQ/100 ML BAG IV SCH ×6 (09:00→21:49)
[2020-10-10] MEDS: PANTOPRAZOLE 40 MG INJ IV SCH ×2 (10:00→21:52)
--- NOTE | 2020-10-10 10:03 | Progress Note ---
Assessment and Plan Assessment and plan: 10 years old female with history of hypertension, GERD and arthritis was brought to the emergency room because of diffuse abdominal pain and distention since last night associated with nausea and vomiting and loose stool. Patient described her pain as fullness, 7 out of 10 with no radiation. Patient denied any hematemesis, hematochezia or melena. She also denied any fever or chills. In the emergency room patient has a CT scan of the abdomen which showed markedly abnormal appearance of the CT abdomen pelvis pneumatosis of the right colon with a small amount of air outside the lumen of gastrointestinal tract .right upper quadrant pneumoperitoneum Small bowel obstruction, pneumobilia. Bilateral nephrolithiasis with mild dilatation of the right collecting system secondary to several small calculi in the proximal right ureter . 10/06/2020 Small bowel obstruction Procedure performed:1. Exploratory laparotomy, 2. Extensive lysis of adhesions, 3. Peritoneal lavage Preop diagnosis: Pneumatosis intestinalis of the ascending colon, and small bowel obstruction Postop diagnosis: Same as preop (pneumatosis intestinalis of unknown origin) . Patient is stable but still nauseous and in pain 10/07/2020 Patient has surgery yesterday Extensive lysis of additions Patient still nauseous Clear liquids not started /: Continue to supportive care, POD#2 s/p ex lap for pneumatosis intestinalis of the right colon with small bowel obstruction. Afebrile and stable with post op ileus. Pain management per Surgery Hypokalema: Replace. 10/09. She has no complaints today. She is status post expiratory laparotomy for pneumatosis intestinalis of the right colon with SBO 10/10. No complaints today. Abdominal binder has been removed. She remains NPO. Surgery is following. K is low - replete K Problems (1) Bowel perforation Current Visit: Yes Status: Acute Plan to address problem: Status post respiratory laparotomy Surgery following Remains n.p.o. IV hydration (2) Small bowel obstruction Current Visit: Yes Status: Acute Plan to address problem: Patient was taken for surgery and extensive lysis of adhesions performed Surgery on board (3) Acute abdominal pain Secondary to bowel perforation (4) GERD (gastroesophageal reflux disease) Current Visit: No Status: Chronic Qualifiers: Esophagitis presence: with esophagitis Plan to address problem: Protonix 40 mg IV every 12 hours. Zofran 4 mg IV every 6 hours as needed (5) Hypertension Current Visit: No Status: Acute Qualifiers: Hypertension type: essential hypertension Qualified Code(s): I10 - Essential (primary) hypertension Plan to address problem: Hydralazine 10 mg IV every 6 hours as needed. We will monitor the blood pressure closely (6) DVT prophylaxis Current Visit: Yes Status: Acute Plan to address problem: Resume home apixaban History Interval history: 10/09. She has no complaints this morning. Surgery on board 10/10. Feels great today. Remains NPO. Surgery following. Abdominal binder has been removed. Hospitalist Physical - Physical exam Narrative exam: VITAL SIGNS: Reviewed. GENERAL: Awake HEAD: No signs of head trauma. EYES: Pupils are equal. Extraocular motions intact. MOUTH: Oropharynx is normal. NECK: No adenopathy, no JVD. CHEST: Chest with diminished breath sounds bilaterally. No wheezes, rales, or rhonchi. CARDIAC: normal S1 and S2, without murmurs, gallops, or rubs. ABDOMEN: Soft. Midline surgical dressing in place MUSCULOSKELETAL: No edema NEUROLOGIC EXAM: Alert and oriented x3. No focal neurologic deficits SKIN: No obvious lesions - Constitutional Vitals: Temp Pulse Resp BP Pulse Ox 98.8 F 89 18 136/65 94 10/10/20 04:47 10/10/20 04:47 10/10/20 04:47 10/10/20 04:47 10/10/20 04:47 Results - Labs CBC & Chem 7: 10/10/20 10:04 10/10/20 10:50 Labs: Laboratory Last Values WBC 5.6 K/mm3 (4.5-11.0) 10/08/20 07:08 RBC 3.43 M/mm3 (3.65-5.03) L 10/08/20 07:08 Hgb 11.7 gm/dl (10.1-14.3) 10/08/20 07:08 Hct 33.1 % (30.3-42.9) 10/08/20 07:08 MCV 97 fl (79-97) 10/08/20 07:08 MCH 34 pg (28-32) H 10/08/20 07:08 MCHC 35 % (30-34) H 10/08/20 07:08 RDW 13.9 % (13.2-15.2) 10/08/20 07:08 Plt Count 142 K/mm3 (140-440) 10/08/20 07:08 Lymph % (Auto) 14.7 % (13.4-35.0) 10/08/20 07:08 [place] % (Auto) 6.8 % (0.0-7.3) 10/08/20 07:08 Eos % (Auto) 0.0 % (0.0-4.3) 10/08/20 07:08 Baso % (Auto) 0.2 % (0.0-1.8) 10/08/20 07:08 Lymph # (Auto) 0.8 K/mm3 (1.2-5.4) L 10/08/20 07:08 [place] # (Auto) 0.4 K/mm3 (0.0-0.8) 10/08/20 07:08 Eos # (Auto) 0.0 K/mm3 (0.0-0.4) 10/08/20 07:08 Baso # (Auto) 0.0 K/mm3 (0.0-0.1) 10/08/20 07:08 Seg Neutrophils % 78.3 % (40.0-70.0) H 10/08/20 07:08 Seg Neutrophils # 4.4 K/mm3 (1.8-7.7) 10/08/20 07:08 Sodium 142 mmol/L (137-145) 10/10/20 04:24 Potassium 3.2 mmol/L (3.6-5.0) L 10/10/20 04:24 Chloride 105.4 mmol/L (98-107) 10/10/20 04:24 Carbon Dioxide 29 mmol/L (22-30) 10/10/20 04:24 Anion Gap 11 mmol/L 10/10/20 04:24 BUN 5 mg/dL (7-17) L 10/10/20 04:24 Creatinine 0.4 mg/dL (0.6-1.2) L 10/10/20 04:24 Estimated GFR > 60 ml/min 10/10/20 04:24 BUN/Creatinine Ratio 13 % 10/10/20 04:24 Glucose 102 mg/dL (65-100) H 10/10/20 04:24 Calcium 8.6 mg/dL (8.4-10.2) 10/10/20 04:24 Phosphorus 2.40 mg/dL (2.5-4.5) L 10/10/20 04:24 Magnesium 1.60 mg/dL (1.7-2.3) L 10/10/20 04:24 Total Bilirubin 0.80 mg/dL (0.1-1.2) 10/05/20 23:10 AST 19 units/L (5-40) 10/05/20 23:10 ALT 15 units/L (7-56) 10/05/20 23:10 Alkaline Phosphatase 95 units/L (35-129) 10/05/20 23:10 Total Protein 7.5 g/dL (6.3-8.2) 10/05/20 23:10 Albumin 5.0 g/dL (3.9-5) 10/05/20 23:10 Albumin/Globulin Ratio 2.0 % 10/05/20 23:10 Microbiology: Microbiology 10/06/20 01:23 Peripheral/Venous Blood Culture - Preliminary NO GROWTH AFTER 4 DAYS 10/06/20 00:44 Peripheral/Venous Blood Culture - Preliminary NO GROWTH AFTER 4 DAYS Lund/IV: Voiding Method External Female Catheter Active Medications - Current Medications Current Medications: Generic Name Dose Route Start Last Admin Trade Name Freq PRN Reason Stop Dose Admin Acetaminophen 650 mg 10/07/20 14:00 10/10/20 04:00 Acetaminophen 650 Mg Rect Supp [place] 650 mg Q6H AMANDA Administration Albuterol 2.5 mg 10/06/20 06:09 Albuterol 2.5 Mg/3 Ml Nebu IH Q3HRT PRN Shortness Of Breath Heparin Sodium (Porcine) 5,000 unit 10/06/20 14:00 10/10/20 05:41 Heparin 5,000 Unit/1 Ml Vial SUB-Q 5,000 unit Q8HR AMANDA Administration Hydralazine HCl 10 mg 10/06/20 06:11 10/06/20 12:06 Hydralazine 20 Mg/1 Ml Inj IV 10 mg Q6H PRN Administration htn Hydromorphone HCl 0.25 mg 10/07/20 14:58 10/10/20 06:21 Hydromorphone 1 Mg/1 Ml Inj IV 0.25 mg Q2H PRN Administration Pain , Severe (7-10) Piperacillin Sod/Tazobactam Sod 3.375 gm in 50 mls @ 100 mls/hr 10/07/20 08:00 10/10/20 03:52 Zosyn/Ns 3.375gm/50ml IV Infused Q8H AMANDA Infusion Protocol Potassium Chloride/Dextrose/Sod Cl 20 meq in 1,000 mls @ 100 mls/hr 10/09/20 15:00 10/09/20 22:25 D5w/Ns W/Kcl 20meq IV 100 mls/hr DIRECT AMANDA Administration Potassium Chloride 10 meq in 100 mls @ 100 mls/hr 10/10/20 08:00 Kcl 10meq/100ml IV 10/10/20 11:59 Q1H AMANDA Potassium Chloride 10 meq in 100 mls @ 100 mls/hr 10/10/20 14:00 Kcl 10meq/100ml IV 10/10/20 15:59 Q1H AMANDA Lorazepam 0.5 mg 10/09/20 13:30 10/10/20 00:36 Lorazepam 2 Mg/Ml Vial IV 0.5 mg Q3H PRN Administration Anxiety Ondansetron HCl 4 mg 10/08/20 11:30 10/09/20 21:04 Ondansetron 4 Mg/2 Ml Inj IV 4 mg Q4H PRN Administration Nausea And Vomiting Pantoprazole Sodium 40 mg 10/06/20 10:00 10/09/20 21:04 Pantoprazole 40 Mg Inj IV 40 mg BID AMANDA Administration Promethazine HCl 25 mg 10/08/20 11:00 10/09/20 12:12 Promethazine 25 Mg Rect Supp [place] 25 mg Q6H PRN Administration Nausea And Vomiting Sodium Chloride 10 ml 10/06/20 10:00 10/09/20 21:09 Sodium Chloride 0.9% 10 Ml Flush Syringe IV 10 ml BID AMANDA Administration Sodium Chloride 10 ml 10/06/20 06:09 Sodium Chloride 0.9% 10 Ml Flush Syringe IV PRN PRN LINE FLUSH
--- NOTE | 2020-10-10 10:42 | Progress Note ---
Assessment and Plan 80-year-old female status post exploratory laparotomy, lysis of adhesions POD 4 1. pneumatosis intestinalis of the right colon 2. small bowel obstruction. Afebrile and stable. Plan: 1. Start sips of clear liquids 2. IVF 3. prn pain and nausea control. Observe carefully as dilaudid can make the patient drowsy 4. prn ativan ordered as needed 5. IS/pulm toilet 6. BMP daily while NPO and replace lytes as needed 7. OOB/ambulate - Pt walks well with walker per PT, just needs assistance out of bed. 8. await bowel function - patient with expected post op ileus 9. Dulcolax pr x1 Thank you, please call with questions Subjective Date of service: 10/10/20 Narrative: Pt seen and examined. c/o abdominal pain after getting up to try and have BM. Otherwise, pain well controlled. Passing flatus. No n/v. No f/c. Objective Vital Signs - 12hr 10/09/20 10/10/20 23:29 04:47 Temperature 99.5 F 98.8 F Pulse Rate 100 H 89 Respiratory 18 18 Rate Blood Pressure 119/68 136/65 O2 Sat by Pulse 92 94 Oximetry - General physical appearance Narrative Exam: Gen.: Awake, alert, oriented to person, place. Frail appearing. NAD ENT: Trachea midline. No lymphadenopathy. No scleral icterus or conjunctival pallor CV: S1, S2 present Respiratory: No audible wheezes Abdomen: Soft, moderately distended, NT. Incision c/d/i - Dressing applied. No rebound, rigidity, guarding Extremities: No clubbing, cyanosis, edema - Labs 10/10/20 10:04 10/10/20 04:24 Diabetes panel 10/10/20 Range/Units 04:24 Sodium 142 (137-145) mmol/L Potassium 3.2 L (3.6-5.0) mmol/L Chloride 105.4 (98-107) mmol/L Carbon Dioxide 29 (22-30) mmol/L BUN 5 L (7-17) mg/dL Creatinine 0.4 L (0.6-1.2) mg/dL Glucose 102 H (65-100) mg/dL Calcium 8.6 (8.4-10.2) mg/dL Calcium panel 10/10/20 Range/Units 04:24 Calcium 8.6 (8.4-10.2) mg/dL Phosphorus 2.40 L (2.5-4.5) mg/dL Pituitary panel 10/10/20 Range/Units 04:24 Sodium 142 (137-145) mmol/L Potassium 3.2 L (3.6-5.0) mmol/L Chloride 105.4 (98-107) mmol/L Carbon Dioxide 29 (22-30) mmol/L BUN 5 L (7-17) mg/dL Creatinine 0.4 L (0.6-1.2) mg/dL Glucose 102 H (65-100) mg/dL Calcium 8.6 (8.4-10.2) mg/dL Adrenal panel 10/10/20 Range/Units 04:24 Sodium 142 (137-145) mmol/L Potassium 3.2 L (3.6-5.0) mmol/L Chloride 105.4 (98-107) mmol/L Carbon Dioxide 29 (22-30) mmol/L BUN 5 L (7-17) mg/dL Creatinine 0.4 L (0.6-1.2) mg/dL Glucose 102 H (65-100) mg/dL Calcium 8.6 (8.4-10.2) mg/dL
[2020-10-10 11:08] LABS: Hematocrit 32.4 % (30.3-42.9); Hemoglobin 11.3 gm/dl (10.1-14.3); Mean Corpuscular HGB Conc 35 % (30-34); Mean Corpuscular Volume 98 fl (79-97); Platelet Count 152 K/mm3 (140-440); Red Blood Count 3.31 M/mm3 (3.65-5.03)
[2020-10-10 11:16] LABS: INR 0.99 (0.87-1.13); Partial Thromboplastin Time 45.4 Sec. (24.2-36.6)
[2020-10-10] MEDS ORDERED: MAGNESIUM SULFATE 2 GM/50 ML BAG IV ONE (11:34)
[2020-10-10] MEDS: APIXABAN 2.5 MG TAB PO SCH ×2 (13:00→21:52)
[2020-10-10] MEDS: ONDANSETRON 4 MG/2 ML INJ IV PRN ×2 (15:31→18:41)
[2020-10-11] MEDS: PIPERACILLIN/TAZOBACTAM 3.375 3.375 GM/50 ML BAG IV SCH ×2 (05:56→07:57)
[2020-10-11] MEDS: HYDROmorphone 1 MG/1 ML INJ IV PRN ×3 (05:57→13:50)
[2020-10-11] MEDS: ACETAMINOPHEN 650 MG RECT SUPP PR SCH ×2 (06:02→07:55)
[2020-10-11] MEDS: ONDANSETRON 4 MG/2 ML INJ IV PRN ×3 (07:55→16:26)
[2020-10-11] MEDS: APIXABAN 2.5 MG TAB PO SCH ×2 (09:06→22:16)
[2020-10-11] MEDS: PANTOPRAZOLE 40 MG INJ IV SCH ×2 (09:06→22:16)
--- NOTE | 2020-10-11 09:12 | Progress Note ---
Assessment and Plan Assessment and plan: 10 years old female with history of hypertension, GERD and arthritis was brought to the emergency room because of diffuse abdominal pain and distention since last night associated with nausea and vomiting and loose stool. Patient described her pain as fullness, 7 out of 10 with no radiation. Patient denied any hematemesis, hematochezia or melena. She also denied any fever or chills. In the emergency room patient has a CT scan of the abdomen which showed markedly abnormal appearance of the CT abdomen pelvis pneumatosis of the right colon with a small amount of air outside the lumen of gastrointestinal tract .right upper quadrant pneumoperitoneum Small bowel obstruction, pneumobilia. Bilateral nephrolithiasis with mild dilatation of the right collecting system secondary to several small calculi in the proximal right ureter . 10/06/2020 Small bowel obstruction Procedure performed:1. Exploratory laparotomy, 2. Extensive lysis of adhesions, 3. Peritoneal lavage Preop diagnosis: Pneumatosis intestinalis of the ascending colon, and small bowel obstruction Postop diagnosis: Same as preop (pneumatosis intestinalis of unknown origin) . Patient is stable but still nauseous and in pain 10/07/2020 Patient has surgery yesterday Extensive lysis of additions Patient still nauseous Clear liquids not started 10/08: Continue to supportive care, POD#2 s/p ex lap for pneumatosis intestinalis of the right colon with small bowel obstruction. Afebrile and stable with post op ileus. Pain management per Surgery Hypokalema: Replace. 10/09. She has no complaints today. She is status post expiratory laparotomy for pneumatosis intestinalis of the right colon with SBO 10/10. No complaints today. Abdominal binder has been removed. She remains NPO. Surgery is following. K is low - replete K 10/11. 80-year-old female status post exploratory laparotomy, lysis of adhesions for SBO and pneumatosis intestinalis of the right colon. Now on clear liquids. Encouraged ambulation. Problems (1) Bowel perforation Current Visit: Yes Status: Acute Plan to address problem: Status post exp laparotomy and lysis of adhesions Surgery following Now on clear liquid diet (2) Small bowel obstruction Current Visit: Yes Status: Acute Plan to address problem: Patient was taken for surgery and extensive lysis of adhesions performed Surgery on board (3) Acute abdominal pain Secondary to bowel perforation, pneumatosis intestinalis s/p exp lap and lysis of adhesions (4) GERD (gastroesophageal reflux disease) Current Visit: No Status: Chronic Qualifiers: Esophagitis presence: with esophagitis Plan to address problem: Protonix (5) Hypertension Current Visit: No Status: Acute Qualifiers: Hypertension type: essential hypertension Qualified Code(s): I10 - Essential (primary) hypertension Plan to address problem: Hydralazine 10 mg IV every 6 hours as needed. We will monitor the blood pressure closely (6) DVT prophylaxis Current Visit: Yes Status: Acute Plan to address problem: Resume home apixaban History Interval history: 10/11. 80-year-old female status post exploratory laparotomy, lysis of adhesions for SBO and pneumatosis intestinalis of the right colon. Now on clear liquids. Encouraged ambulation. Hospitalist Physical - Physical exam Narrative exam: VITAL SIGNS: Reviewed. GENERAL: Awake HEAD: No signs of head trauma. EYES: Pupils are equal. Extraocular motions intact. MOUTH: Oropharynx is normal. NECK: No adenopathy, no JVD. CHEST: Chest with diminished breath sounds bilaterally. No wheezes, rales, or rhonchi. CARDIAC: normal S1 and S2, without murmurs, gallops, or rubs. ABDOMEN: Soft. Midline surgical dressing in place MUSCULOSKELETAL: No edema NEUROLOGIC EXAM: Alert and oriented x3. No focal neurologic deficits SKIN: No obvious lesions - Constitutional Vitals: Temp Pulse Resp BP Pulse Ox 98.4 F 98 H 18 163/100 92 10/11/20 07:18 10/11/20 07:18 10/11/20 09:07 10/11/20 07:18 10/11/20 07:18 Results - Labs CBC & Chem 7: 10/10/20 10:04 10/10/20 10:50 Labs: Laboratory Last Values WBC 4.6 K/mm3 (4.5-11.0) 10/10/20 10:04 RBC 3.31 M/mm3 (3.65-5.03) L 10/10/20 10:04 Hgb 11.3 gm/dl (10.1-14.3) 10/10/20 10:04 Hct 32.4 % (30.3-42.9) 10/10/20 10:04 MCV 98 fl (79-97) H 10/10/20 10:04 MCH 34 pg (28-32) H 10/10/20 10:04 MCHC 35 % (30-34) H 10/10/20 10:04 RDW 14.0 % (13.2-15.2) 10/10/20 10:04 Plt Count 152 K/mm3 (140-440) 10/10/20 10:04 Lymph % (Auto) 14.7 % (13.4-35.0) 10/08/20 07:08 [place] % (Auto) 6.8 % (0.0-7.3) 10/08/20 07:08 Eos % (Auto) 0.0 % (0.0-4.3) 10/08/20 07:08 Baso % (Auto) 0.2 % (0.0-1.8) 10/08/20 07:08 Lymph # (Auto) 0.8 K/mm3 (1.2-5.4) L 10/08/20 07:08 [place] # (Auto) 0.4 K/mm3 (0.0-0.8) 10/08/20 07:08 Eos # (Auto) 0.0 K/mm3 (0.0-0.4) 10/08/20 07:08 Baso # (Auto) 0.0 K/mm3 (0.0-0.1) 10/08/20 07:08 Seg Neutrophils % 78.3 % (40.0-70.0) H 10/08/20 07:08 Seg Neutrophils # 4.4 K/mm3 (1.8-7.7) 10/08/20 07:08 PT 13.6 Sec. (12.2-14.9) 10/10/20 10:04 INR 0.99 (0.87-1.13) 10/10/20 10:04 APTT 45.4 Sec. (24.2-36.6) H 10/10/20 10:04 Sodium 142 mmol/L (137-145) 10/10/20 04:24 Potassium 3.2 mmol/L (3.6-5.0) L 10/10/20 04:24 Chloride 105.4 mmol/L (98-107) 10/10/20 04:24 Carbon Dioxide 29 mmol/L (22-30) 10/10/20 04:24 Anion Gap 11 mmol/L 10/10/20 04:24 BUN 5 mg/dL (7-17) L 10/10/20 04:24 Creatinine 0.4 mg/dL (0.6-1.2) L 10/10/20 10:50 Estimated GFR > 60 ml/min 10/10/20 10:50 BUN/Creatinine Ratio 13 % 10/10/20 04:24 Glucose 102 mg/dL (65-100) H 10/10/20 04:24 Calcium 8.6 mg/dL (8.4-10.2) 10/10/20 04:24 Phosphorus 2.40 mg/dL (2.5-4.5) L 10/10/20 04:24 Magnesium 1.60 mg/dL (1.7-2.3) L 10/10/20 04:24 Total Bilirubin 0.80 mg/dL (0.1-1.2) 10/05/20 23:10 AST 19 units/L (5-40) 10/05/20 23:10 ALT 15 units/L (7-56) 10/05/20 23:10 Alkaline Phosphatase 95 units/L (35-129) 10/05/20 23:10 Total Protein 7.5 g/dL (6.3-8.2) 10/05/20 23:10 Albumin 5.0 g/dL (3.9-5) 10/05/20 23:10 Albumin/Globulin Ratio 2.0 % 10/05/20 23:10 Microbiology: Microbiology 10/06/20 01:23 Peripheral/Venous Blood Culture - Final NO GROWTH AFTER 5 DAYS 10/06/20 00:44 Peripheral/Venous Blood Culture - Final NO GROWTH AFTER 5 DAYS Lund/IV: Voiding Method External Female Catheter Active Medications - Current Medications Current Medications: Generic Name Dose Route Start Last Admin Trade Name Freq PRN Reason Stop Dose Admin Acetaminophen 650 mg 10/07/20 14:00 10/11/20 07:55 Acetaminophen 650 Mg Rect Supp [place] 650 mg Q6H AMANDA Administration Albuterol 2.5 mg 10/06/20 06:09 Albuterol 2.5 Mg/3 Ml Nebu IH Q3HRT PRN Shortness Of Breath Apixaban 2.5 mg 10/10/20 12:00 10/11/20 09:06 Apixaban 2.5 Mg Tab PO 2.5 mg Q12HR AMANDA Administration Protocol Hydralazine HCl 10 mg 10/06/20 06:11 10/06/20 12:06 Hydralazine 20 Mg/1 Ml Inj IV 10 mg Q6H PRN Administration htn Hydromorphone HCl 0.25 mg 10/07/20 14:58 10/11/20 09:07 Hydromorphone 1 Mg/1 Ml Inj IV 0.25 mg Q2H PRN Administration Pain , Severe (7-10) Piperacillin Sod/Tazobactam Sod 3.375 gm in 50 mls @ 100 mls/hr 10/07/20 08:00 10/11/20 07:57 Zosyn/Ns 3.375gm/50ml IV Not Given Q8H AMANDA Protocol Potassium Chloride/Dextrose/Sod Cl 20 meq in 1,000 mls @ 100 mls/hr 10/09/20 15:00 10/10/20 21:16 D5w/Ns W/Kcl 20meq IV Infused DIRECT AMANDA Infusion Lorazepam 0.5 mg 10/09/20 13:30 10/10/20 21:58 Lorazepam 2 Mg/Ml Vial IV 0.5 mg Q3H PRN Administration Anxiety Ondansetron HCl 4 mg 10/08/20 11:30 10/11/20 07:55 Ondansetron 4 Mg/2 Ml Inj IV 4 mg Q4H PRN Administration Nausea And Vomiting Pantoprazole Sodium 40 mg 10/06/20 10:00 10/11/20 09:06 Pantoprazole 40 Mg Inj IV 40 mg BID AMANDA Administration Promethazine HCl 25 mg 10/08/20 11:00 10/09/20 12:12 Promethazine 25 Mg Rect Supp [place] 25 mg Q6H PRN Administration Nausea And Vomiting Sodium Chloride 10 ml 10/06/20 10:00 10/11/20 09:06 Sodium Chloride 0.9% 10 Ml Flush Syringe IV 10 ml BID AMANDA Administration Sodium Chloride 10 ml 10/06/20 06:09 Sodium Chloride 0.9% 10 Ml Flush Syringe IV PRN PRN LINE FLUSH
--- NOTE | 2020-10-11 13:06 | Progress Note ---
Assessment and Plan POD#5 s/p ex lap for pneumatosis intestinalis of the right colon with small bowel obstruction. Afebrile and stable with post op ileus that is clinically resolving. will start oral percocet and decrease frequency of dilaudid. continue clear liquids and ambulation. If she continues to improve and pain is controlled with oral medications while tolerating liquids can hope to discharge in the next 48 hours. Subjective Date of service: 10/11/20 Narrative: No acute events overnight. Pt had a bowel movement yesterday and says she passed flatus. She tolerated small sips of clears with some nausea but no vomiting. She says her pain is getting better controlled and she has been ambulating with assistance. Objective Vital Signs - 12hr 10/11/20 10/11/20 10/11/20 06:04 07:18 09:07 Temperature 97.5 F L 98.4 F Pulse Rate 93 H 98 H Respiratory 18 18 18 Rate Respiratory Rate [Abdomen] Blood Pressure 149/83 163/100 O2 Sat by Pulse 93 92 Oximetry 10/11/20 10:00 Temperature Pulse Rate Respiratory Rate Respiratory 18 Rate [Abdomen] Blood Pressure O2 Sat by Pulse Oximetry - General physical appearance well developed, no distress, moderate pain - Respiratory normal expansion, normal respiratory effort - Abdomen soft, distended, not guarding, other (incision c/d/i, appropriately tender to palpation) - Labs 10/10/20 10:04 10/10/20 10:50
[2020-10-11] MEDS: oxyCODONE /ACETAMINOPHEN 5-325MG TAB PO PRN ×2 (16:25→22:17)
[2020-10-11] MEDS: hydrALAZINE 20 MG/1 ML INJ IV PRN (16:26)
[2020-10-11 18:17] LABS: Creatine Kinase MB 2.2 ng/mL (0.0-4.0)
[2020-10-11] MEDS: LORazepam 2 MG/ML VIAL IV PRN (22:16)
[2020-10-11] MEDS: D5NS W/KCL 20 MEQ 20 MEQ/1,000 ML BAG IV SCH (22:23)
[2020-10-12] MEDS: oxyCODONE /ACETAMINOPHEN 5-325MG TAB PO PRN ×4 (04:29→22:04)
[2020-10-12 09:10] LABS: Hematocrit 37.7 % (30.3-42.9); Hemoglobin 13.1 gm/dl (10.1-14.3); Mean Corpuscular HGB Conc 35 % (30-34); Mean Corpuscular Volume 98 fl (79-97); Platelet Count 240 K/mm3 (140-440); Red Blood Count 3.84 M/mm3 (3.65-5.03)
[2020-10-12] MEDS ORDERED: ZIPRASIDONE 40 MG CAP PO SCH (10:00)
[2020-10-12] MEDS: APIXABAN 2.5 MG TAB PO SCH ×2 (11:05→22:04)
[2020-10-12] MEDS: PANTOPRAZOLE 40 MG TAB PO SCH ×2 (11:05→17:46)
--- NOTE | 2020-10-12 14:50 | Progress Note ---
Assessment and Plan Problems (1) Bowel perforation Current Visit: Yes Status: Acute Plan to address problem: Status post exp laparotomy and lysis of adhesions Surgery following Now on clear liquid diet (2) Small bowel obstruction Current Visit: Yes Status: Acute Plan to address problem: Patient was taken for surgery and extensive lysis of adhesions performed Surgery on board (3) Acute abdominal pain Secondary to bowel perforation, pneumatosis intestinalis s/p exp lap and lysis of adhesions (4) GERD (gastroesophageal reflux disease) Current Visit: No Status: Chronic Qualifiers: Esophagitis presence: with esophagitis Plan to address problem: Protonix (5) Hypertension Current Visit: No Status: Acute Qualifiers: Hypertension type: essential hypertension Qualified Code(s): I10 - Essential (primary) hypertension Plan to address problem: Hydralazine 10 mg IV every 6 hours as needed. We will monitor the blood pressure closely (6) DVT prophylaxis Current Visit: Yes Status: Acute Plan to address problem: Resume home apixaban Subjective Date of service: 10/12/20 Principal diagnosis: Small bowel obstruction Interval history: 80 years old female with history of hypertension, GERD and arthritis was brought to the emergency room because of diffuse abdominal pain and distention since last night associated with nausea and vomiting and loose stool. Patient described her pain as fullness, 7 out of 10 with no radiation. Patient denied any hematemesis, hematochezia or melena. She also denied any fever or chills. In the emergency room patient has a CT scan of the abdomen which showed markedly abnormal appearance of the CT abdomen pelvis pneumatosis of the right colon with a small amount of air outside the lumen of gastrointestinal tract .right upper quadrant pneumoperitoneum Small bowel obstruction, pneumobilia. Bilateral nephrolithiasis with mild dilatation of the right collecting system secondary to several small calculi in the proximal right ureter . 10/06/2020 Small bowel obstruction Procedure performed:1. Exploratory laparotomy, 2. Extensive lysis of adhesions, 3. Peritoneal lavage Preop diagnosis: Pneumatosis intestinalis of the ascending colon, and small bowel obstruction Postop diagnosis: Same as preop (pneumatosis intestinalis of unknown origin) . Patient is stable but still nauseous and in pain 10/07/2020 Patient has surgery yesterday Extensive lysis of additions Patient still nauseous Clear liquids not started /: Continue to supportive care, POD#2 s/p ex lap for pneumatosis intestinalis of the right colon with small bowel obstruction. Afebrile and stable with post op ileus. Pain management per Surgery Hypokalema: Replace. 10/09. She has no complaints today. She is status post expiratory laparotomy for pneumatosis intestinalis of the right colon with SBO 10/10. No complaints today. Abdominal binder has been removed. She remains NPO. Surgery is following. K is low - replete K 10/11. 80-year-old female status post exploratory laparotomy, lysis of adhesions for SBO and pneumatosis intestinalis of the right colon. Now on clear liquids. Encouraged ambulation. 10/12 On clear liquids Objective - Constitutional Vitals: Vital Signs - 12hr 10/12/20 10/12/20 10/12/20 05:14 07:28 12:00 Temperature 98.3 F 97.8 F 97.9 F Pulse Rate 86 76 85 Respiratory 16 16 16 Rate Blood Pressure 97/57 132/68 Blood Pressure 97/61 [Right] O2 Sat by Pulse 93 98 96 Oximetry General appearance: Present: no acute distress, well-nourished - EENT Eyes: PERRL, EOM intact ENT: hearing intact, clear oral mucosa Ears: bilateral: normal - Neck Neck: supple, normal ROM - Respiratory Respiratory effort: normal Respiratory: bilateral: CTA - Breasts Breasts: normal - Cardiovascular Heart rate: 78 Rhythm: regular Heart Sounds: Present: S1 & S2. Absent: gallop, rub Extremities: pulses intact, No edema, normal color, Full ROM - Gastrointestinal General gastrointestinal: Present: soft, non-tender, non-distended, normal bowel sounds - Genitourinary Female genitourinary: normal - Integumentary Integumentary: clear, warm, dry - Musculoskeletal Musculoskeletal: 1, strength equal bilaterally - Neurologic Neurologic: moves all extremities - Psychiatric Psychiatric: memory intact, appropriate mood/affect, intact judgment & insight - Labs CBC & Chem 7: 10/12/20 08:35 10/10/20 10:50 Labs: Abnormal lab results 10/11/20 10/12/20 Range/Units 17:47 08:35 MCV 98 H (79-97) fl MCH 34 H (28-32) pg MCHC 35 H (30-34) % CK-MB (CK-2) Rel Index 5.5 H (0-4) HEART Score - HEART Score Troponin: Troponin T < 0.010 ng/mL (0.00-0.029) 10/11/20 17:47
[2020-10-12] MEDS: ONDANSETRON 4 MG/2 ML INJ IV PRN ×2 (15:03→22:07)
--- NOTE | 2020-10-12 18:05 | Progress Note ---
Assessment and Plan POD#6 s/p ex lap for pneumatosis intestinalis of the right colon with small bowel obstruction. Afebrile and stable with post op ileus that is clinically resolving. continue oral percocet and decrease frequency of dilaudid. advance to full liquids and ambulation. If she continues to improve and pain is controlled with oral medications while tolerating liquids can hope to discharge in the next 24 hours. Subjective Date of service: 10/12/20 Patient Reports: Positive: feels better, pain is less, tolerating liquids well, flatus (pt is ambulating in the halls) Objective Vital Signs - 12hr 10/12/20 10/12/20 10/12/20 07:28 12:00 16:43 Temperature 97.8 F 97.9 F 97.3 F L Pulse Rate 76 85 95 H Respiratory 16 16 16 Rate Blood Pressure 97/57 132/68 118/67 O2 Sat by Pulse 98 96 94 Oximetry - General physical appearance well developed, no distress, no pain - Respiratory normal expansion, normal respiratory effort - Abdomen soft, not distended, other (incisions c/d/i, appropriately tender to palpation) - Labs 10/12/20 08:35 10/10/20 10:50
[2020-10-13] MEDS: HYDROmorphone 1 MG/1 ML INJ IV PRN ×3 (02:06→12:47)
[2020-10-13] MEDS: D5NS W/KCL 20 MEQ 20 MEQ/1,000 ML BAG IV SCH (02:09)
[2020-10-13] MEDS: LORazepam 2 MG/ML VIAL IV PRN (07:24)
[2020-10-13] MEDS: ONDANSETRON 4 MG/2 ML INJ IV PRN ×2 (07:28→12:48)
--- NOTE | 2020-10-13 08:01 | Progress Note ---
Assessment and Plan Assessment and plan: Bowel perforation Small bowel obstruction Abdominal pain secondary to above GERD Hypertension 10/13/2020. Patient is s/p ex lap for pneumatosis intestinalis of the right colon with small bowel obstruction. Patient was advanced to full liquids and ambulation encouraged. Consider discharge per surgery recommendations History Interval history: No new issues overnight. Hospitalist Physical - Constitutional Vitals: Temp Pulse Resp BP Pulse Ox 98.9 F 86 19 169/72 96 10/13/20 04:45 10/13/20 04:45 10/13/20 04:45 10/13/20 04:45 10/13/20 04:45 General appearance: Present: no acute distress, well-nourished - EENT Eyes: Present: PERRL, EOM intact ENT: hearing intact, clear oral mucosa, dentition normal - Neck Neck: Present: supple, normal ROM - Respiratory Respiratory effort: normal Respiratory: bilateral: CTA - Cardiovascular Rhythm: regular Heart Sounds: Present: S1 & S2. Absent: gallop, rub - Extremities Extremities: no ischemia, No edema, Full ROM - Abdominal General gastrointestinal: soft, non-tender, non-distended, normal bowel sounds - Integumentary Integumentary: Present: clear, warm, dry - Neurologic Neurologic: CNII-XII intact, moves all extremities HEART Score - HEART Score Troponin: Troponin T < 0.010 ng/mL (0.00-0.029) 10/11/20 17:47 Results - Labs CBC & Chem 7: 10/12/20 08:35 10/10/20 10:50 Labs: Laboratory Last Values WBC 6.7 K/mm3 (4.5-11.0) 10/12/20 08:35 RBC 3.84 M/mm3 (3.65-5.03) 10/12/20 08:35 Hgb 13.1 gm/dl (10.1-14.3) 10/12/20 08:35 Hct 37.7 % (30.3-42.9) 10/12/20 08:35 MCV 98 fl (79-97) H 10/12/20 08:35 MCH 34 pg (28-32) H 10/12/20 08:35 MCHC 35 % (30-34) H 10/12/20 08:35 RDW 14.0 % (13.2-15.2) 10/12/20 08:35 Plt Count 240 K/mm3 (140-440) 10/12/20 08:35 Lymph % (Auto) 14.7 % (13.4-35.0) 10/08/20 07:08 [place] % (Auto) 6.8 % (0.0-7.3) 10/08/20 07:08 Eos % (Auto) 0.0 % (0.0-4.3) 10/08/20 07:08 Baso % (Auto) 0.2 % (0.0-1.8) 10/08/20 07:08 Lymph # (Auto) 0.8 K/mm3 (1.2-5.4) L 10/08/20 07:08 [place] # (Auto) 0.4 K/mm3 (0.0-0.8) 10/08/20 07:08 Eos # (Auto) 0.0 K/mm3 (0.0-0.4) 10/08/20 07:08 Baso # (Auto) 0.0 K/mm3 (0.0-0.1) 10/08/20 07:08 Seg Neutrophils % 78.3 % (40.0-70.0) H 10/08/20 07:08 Seg Neutrophils # 4.4 K/mm3 (1.8-7.7) 10/08/20 07:08 PT 13.6 Sec. (12.2-14.9) 10/10/20 10:04 INR 0.99 (0.87-1.13) 10/10/20 10:04 APTT 45.4 Sec. (24.2-36.6) H 10/10/20 10:04 Sodium 142 mmol/L (137-145) 10/10/20 04:24 Potassium 3.2 mmol/L (3.6-5.0) L 10/10/20 04:24 Chloride 105.4 mmol/L (98-107) 10/10/20 04:24 Carbon Dioxide 29 mmol/L (22-30) 10/10/20 04:24 Anion Gap 11 mmol/L 10/10/20 04:24 BUN 5 mg/dL (7-17) L 10/10/20 04:24 Creatinine 0.4 mg/dL (0.6-1.2) L 10/10/20 10:50 Estimated GFR > 60 ml/min 10/10/20 10:50 BUN/Creatinine Ratio 13 % 10/10/20 04:24 Glucose 102 mg/dL (65-100) H 10/10/20 04:24 Calcium 8.6 mg/dL (8.4-10.2) 10/10/20 04:24 Phosphorus 2.40 mg/dL (2.5-4.5) L 10/10/20 04:24 Magnesium 1.60 mg/dL (1.7-2.3) L 10/10/20 04:24 Total Bilirubin 0.80 mg/dL (0.1-1.2) 10/05/20 23:10 AST 19 units/L (5-40) 10/05/20 23:10 ALT 15 units/L (7-56) 10/05/20 23:10 Alkaline Phosphatase 95 units/L (35-129) 10/05/20 23:10 Total Creatine Kinase 40 units/L (30-135) 10/11/20 17:47 CK-MB (CK-2) 2.2 ng/mL (0.0-4.0) 10/11/20 17:47 CK-MB (CK-2) Rel Index 5.5 (0-4) H 10/11/20 17:47 Troponin T < 0.010 ng/mL (0.00-0.029) 10/11/20 17:47 Total Protein 7.5 g/dL (6.3-8.2) 10/05/20 23:10 Albumin 5.0 g/dL (3.9-5) 10/05/20 23:10 Albumin/Globulin Ratio 2.0 % 10/05/20 23:10 Lund/IV: Voiding Method Diaper Active Medications - Current Medications Current Medications: Generic Name Dose Route Start Last Admin Trade Name Freq PRN Reason Stop Dose Admin Albuterol 2.5 mg 10/06/20 06:09 Albuterol 2.5 Mg/3 Ml Nebu IH Q3HRT PRN Shortness Of Breath Apixaban 2.5 mg 10/10/20 12:00 10/12/20 22:04 Apixaban 2.5 Mg Tab PO 2.5 mg Q12HR AMANDA Administration Protocol Hydralazine HCl 10 mg 10/06/20 06:11 10/11/20 16:26 Hydralazine 20 Mg/1 Ml Inj IV 10 mg Q6H PRN Administration htn Hydromorphone HCl 0.25 mg 10/11/20 13:30 10/13/20 02:06 Hydromorphone 1 Mg/1 Ml Inj IV 0.25 mg Q4H PRN Administration Pain , Severe (7-10) Potassium Chloride/Dextrose/Sod Cl 20 meq in 1,000 mls @ 100 mls/hr 10/09/20 15:00 10/13/20 02:09 D5w/Ns W/Kcl 20meq IV 100 mls/hr DIRECT AMANDA Administration Lorazepam 0.5 mg 10/11/20 13:30 10/13/20 07:24 Lorazepam 2 Mg/Ml Vial IV 0.5 mg Q6H PRN Administration Anxiety Ondansetron HCl 4 mg 10/08/20 11:30 10/13/20 07:28 Ondansetron 4 Mg/2 Ml Inj IV 4 mg Q4H PRN Administration Nausea And Vomiting Oxycodone/Acetaminophen 2 tab 10/11/20 15:30 10/12/20 22:04 Oxycodone /Acetaminophen 5-325mg Tab PO 2 tab Q4H PRN Administration Pain, Moderate (4-6) Pantoprazole Sodium 40 mg 10/12/20 09:30 10/12/20 17:46 Pantoprazole 40 Mg Tab PO 40 mg BIDAC AMANDA Administration Promethazine HCl 25 mg 10/08/20 11:00 10/09/20 12:12 Promethazine 25 Mg Rect Supp [place] 25 mg Q6H PRN Administration Nausea And Vomiting Sodium Chloride 10 ml 10/06/20 10:00 10/12/20 22:05 Sodium Chloride 0.9% 10 Ml Flush Syringe IV 10 ml BID AMANDA Administration Sodium Chloride 10 ml 10/06/20 06:09 Sodium Chloride 0.9% 10 Ml Flush Syringe IV PRN PRN LINE FLUSH Nutrition/Malnutrition Assess - Dietary Evaluation Nutrition/Malnutrition Findings: Nutrition Notes Start: 10/11/20 11:56 Freq: Status: Active Protocol: Document 10/11/20 11:56 MARCY (Rec: 10/11/20 12:03 MARCY [email or web address]) Nutrition Notes Need for Assessment generated from: MD Order Current Diagnosis Hypertension,Small Bowel Obstruction Other Pertinent Diagnosis GERD Current Diet Clear liquids Labs/Tests 10/10: K 3.2 Phos 2.4 Mg 1.6 Pertinent Medications Zofran Mg sulfate 2 gm KCl 20 mEq Height 5 ft 4 in Weight 51.7 kg Usual Body Weight 51.8 kg [place] Body Weight (kg) 54.54 BMI 19.5 Intake Prior to Admission Good Weight Status Underweight Subjective/Other Information MD order for ONS. Pt states she does not like the Apple Clear ONS. Will try Mixed Nichols. Pt with no wt loss. Pt drank 50% of Cl Liq. breakfast and said it gave her nausea. Burn Absent Trauma Absent GI Symptoms None Current % PO Negligible Minimum of two criteria No Energy Intake (severe) < or equal to 50% Estimated Energy Requirement > or equal to 5 days #2 Nutrition Diagnosis Increased nutrient needs ( specify in comment below) Comments: protein Etiology wound healing As Evidenced by Signs and Symptoms midline surgical wound to abd #1 Nutrition Diagnosis Inadequate oral intake Etiology SBO As Evidenced by Signs and Symptoms pt on clear liquid diet and unable to meet needs Is patient on ventilator? No Is Patient Ambulatory and/or Out of Bed Yes REE-([facility]-ambulatory/OOB) [ 1270.100 [id number]] Kcal/Kg value to use for calculation 29 Approximate Energy Requirements Using 1499 kcal/Kg Calculation Used for Recommendations [facility] Additional Notes Protein: (1.25-1.5g/kg) 65-78g Fluid: 1 ml/kcal Nutrition Intervention Change Diet Order: Advance as tolerated Add Supplement/Snack (indicate name/kcal Ensure Clear Mixed Nichols TID /protein ) Provides kCal: 720 Provides Protein (gm) 24 Goal #1 Meet needs as best as possible on clear liquid diet Goal #2 Weight gain/maintenance Anticipated Discharge Needs: Regular Follow-Up By: 10/13/20 Additional Comments FU for ONS tolerance, intakes and diet advancement
[2020-10-13] MEDS: APIXABAN 2.5 MG TAB PO SCH (11:30)
[2020-10-13] MEDS: PANTOPRAZOLE 40 MG TAB PO SCH (11:30)
[2020-10-13] MEDS ORDERED: LOPERAMIDE 2 MG CAP PO PRN (11:45)
[2020-10-13 12:39] VITALS: BP 170/69
--- NOTE | 2020-10-13 14:05 | Discharge Summary ---
Providers - Providers Date of Admission: 10/06/20 06:03 Date of discharge: 10/13/20 Attending physician: CHELA DAVE 10/06/20 06:00 Consult to Physician [CONS] Stat Comment: Dr. Andres spoke with Dr. Miller @ [phone] Consulting Provider: VERO MILLER Physician Instructions: Reason For Exam: Acute bowel obstruction with perforation 10/07/20 13:29 Physical Therapy Evaluation and Treat [CONS] Routine Comment: Reason For Exam: s/p ex lap. needs mobiliztion Primary care physician: YONATHAN FONG MD Hospitalization Reason for admission: abd pain Condition: Stable Hospital course: 80 years old female with history of hypertension, GERD and arthritis was brought to the emergency room because of diffuse abdominal pain and distention since last night associated with nausea and vomiting and loose stool. Patient described her pain as fullness, 7 out of 10 with no radiation. Patient denied any hematemesis, hematochezia or melena. She also denied any fever or chills. In the emergency room patient has a CT scan of the abdomen which showed markedly abnormal appearance of the CT abdomen pelvis pneumatosis of the right colon with a small amount of air outside the lumen of gastrointestinal tract .right upper quadrant pneumoperitoneum Small bowel obstruction, pneumobilia. Bilateral nephrolithiasis with mild dilatation of the right collecting system secondary to several small calculi in the proximal right ureter . Pt admitted with dx: Bowel perforation Small bowel obstruction Abdominal pain secondary to above GERD Hypertension Hospital course10/06/2020 Small bowel obstruction Procedure performed:1. Exploratory laparotomy, 2. Extensive lysis of adhesions, 3. Peritoneal lavage Preop diagnosis: Pneumatosis intestinalis of the ascending colon, and small bowel obstruction Postop diagnosis: Same as preop (pneumatosis intestinalis of unknown origin) . Patient is stable but still nauseous and in pain 10/07/2020 Patient has surgery yesterday Extensive lysis of additions Patient still nauseous Clear liquids not started 10/08: Continue to supportive care, POD#2 s/p ex lap for pneumatosis intestinalis of the right colon with small bowel obstruction. Afebrile and stable with post op ileus. Pain management per Surgery Hypokalema: Replace. 10/09. She has no complaints today. She is status post expiratory laparotomy for pneumatosis intestinalis of the right colon with SBO 10/10. No complaints today. Abdominal binder has been removed. She remains NPO. Surgery is following. K is low - replete K 10/11. 80-year-old female status post exploratory laparotomy, lysis of adhesions for SBO and pneumatosis intestinalis of the right colon. Now on clear liquids. Encouraged ambulation. 10/12 diet advanced 10/13. Cleared for d/c Dedicated d/c time 35 min Disposition: DC- TO HOME OR SELFCARE Final Discharge Diagnosis (Prints w/discharge instructions): Bowel perforation. Small bowel obstruction. Abdominal pain secondary to above. GERD. Hypertension Core Measure Documentation - Palliative Care Palliative Care/ Comfort Measures: Not Applicable - Core Measures Any of the following diagnoses?: none Exam - Constitutional Vitals: Temp Pulse Resp BP Pulse Ox 98.2 F 94 H 18 170/69 95 10/13/20 11:52 10/13/20 11:52 10/13/20 11:52 10/13/20 11:52 10/13/20 11:52 General appearance: Present: no acute distress, well-nourished - EENT Eyes: Present: PERRL ENT: hearing intact, clear oral mucosa - Neck Neck: Present: supple, normal ROM - Respiratory Respiratory effort: normal Respiratory: bilateral: CTA - Cardiovascular Heart Sounds: Present: S1 & S2. Absent: rub, click - Extremities Extremities: pulses symmetrical, No edema Peripheral Pulses: within normal limits - Abdominal General gastrointestinal: Present: soft, non-tender, non-distended, normal bowel sounds Female genitourinary: Present: normal - Integumentary Integumentary: Present: clear, warm, dry - Musculoskeletal Musculoskeletal: gait normal, strength equal bilaterally - Psychiatric Psychiatric: appropriate mood/affect, intact judgment & insight - Neurologic Neurologic: CNII-XII intact, moves all extremities Plan Activity: advance as tolerated Weight Bearing Status: Weight Bear as Tolerated Diet: regular Follow up with: YONATHAN FONG MD [Primary Care Provider] - 3-5 Days VERO MILLER MD [Staff Physician] - 7 Days Prescriptions: oxyCODONE /ACETAMINOPHEN [Percocet 5/325] 1 tab PO Q4HR PRN #30 tab PRN Reason: Pain , Severe (7-10) Ondansetron HCl [Zofran] 4 mg PO Q8HR #15 tablet
[2020-10-13] MEDS: oxyCODONE /ACETAMINOPHEN 5-325MG TAB PO PRN (15:31)
--- NOTE | 2020-10-13 18:47 | Progress Note ---
Assessment and Plan POD#7 s/p ex lap for pneumatosis intestinalis of the right colon with small bowel obstruction. Afebrile and stable with post op ileus that is clinically resolving. Pt is cleared to go home from surgical perspective. She is to follow up in the office in one week for check up and stable removal. She is to advance diet and exercise as tolerated. Subjective Date of service: 10/13/20 Narrative: No acute events overnight. Pt is is good spirits with no complains and thinks she is ready to go home. She tolerated full liquids and pain is well controlled. She had a large bowel movement overnight. Objective Vital Signs - 12hr 10/13/20 10/13/20 08:20 11:52 Temperature 99.0 F 98.2 F Pulse Rate 98 H 94 H Respiratory 18 18 Rate Blood Pressure 147/77 170/69 O2 Sat by Pulse 94 95 Oximetry - General physical appearance well developed, well nourished, no distress, no pain - Respiratory normal expansion, normal respiratory effort - Abdomen soft, other (appropriately tender to palpation, mid line incision c/d/i) - Labs 10/12/20 08:35 10/13/20 10:54 Diabetes panel 10/13/20 Range/Units 10:54 Creatinine 0.4 L (0.6-1.2) mg/dL Pituitary panel 10/13/20 Range/Units 10:54 Creatinine 0.4 L (0.6-1.2) mg/dL Adrenal panel 10/13/20 Range/Units 10:54 Creatinine 0.4 L (0.6-1.2) mg/dL
--- NOTE | 2020-10-21 10:34 | Electrocardiograph Report ---
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
== END 2020-10-13 15:45 | disposition home health service (06) | DRG 335 ==
LOC: ED 22:00 → 3A 10-06 06:03 → 3B-SURG 10-06 06:29
PROVIDERS: ADMIT Hospitalist; ATTEND Hospitalist
PROC: 3E1M38Z Irrigation of Peritoneal Cavity using Irrigating Substance, Percutaneous Approach (ICD-10-PCS; principal; 2020-10-06)
PROC: 0DN80ZZ Release Small Intestine, Open Approach (ICD-10-PCS; 2020-10-06)
PROC: 0DJ00ZZ Inspection of Upper Intestinal Tract, Open Approach (ICD-10-PCS; 2020-10-06)
DX: K56.609 Unspecified intestinal obstruction, unspecified as to partial versus complete obstruction (principal); K63.1 Perforation of intestine (nontraumatic); N20.1 Calculus of ureter; K21.00 Gastro-esophageal reflux disease with esophagitis, without bleeding; I10 Essential (primary) hypertension; K63.89 Other specified diseases of intestine; K21.9 Gastro-esophageal reflux disease without esophagitis; M19.90 Unspecified osteoarthritis, unspecified site; E87.6 Hypokalemia; F41.9 Anxiety disorder, unspecified; F32.9 Major depressive disorder, single episode, unspecified; E03.9 Hypothyroidism, unspecified; Z87.442 Personal history of urinary calculi; Z79.899 Other long term (current) drug therapy
CPT/HCPCS: 36415; 74177; 80048; 80053; 82550; 82553; 82565; 83735; 84100; 84484; 85025; 85027; 85610; 85730; 87040; 93005; 96374; 96375; 96376; G0378; C9113; J0330; J0360; J0690; J1170; J1200; J1644; J2060; J2405; J2543; J2704; J3010; J3475; J3480; J7030; J7120; Q9967

== ENCOUNTER 2020-12-05 13:05 | Inpatient (IN) | payer MEDICARE ==
[2020-12-05 17:01] LABS: Basophils % (Auto) 0.2 % (0.0-1.8); Hematocrit 41.4 % (30.3-42.9); Hemoglobin 14.3 gm/dl (10.1-14.3); Lymphocytes # (Auto) 1.9 K/mm3 (1.2-5.4); Lymphocytes % (Auto) 30.1 % (13.4-35.0); Mean Corpuscular HGB Conc 35 % (30-34); Mean Corpuscular Volume 98 fl (79-97); Monocytes # (Auto) 0.4 K/mm3 (0.0-0.8); Monocytes % (Auto) 6.2 % (0.0-7.3); Platelet Count 251 K/mm3 (140-440); Red Blood Count 4.25 M/mm3 (3.65-5.03); Red Cell Distribution Width 13.7 % (13.2-15.2)
[2020-12-05 17:23] LABS: Alanine Aminotransferase 14 units/L (7-56); Albumin 4.6 g/dL (3.9-5); Blood Urea Nitrogen 8 mg/dL (7-17); Calcium 9.6 mg/dL (8.4-10.2); Hemolysis Index 10
[2020-12-05 17:25] LABS: BUN/Creatinine Ratio 16
--- NOTE | 2020-12-05 17:43 | Event Note ---
ED Screening Note Date of service: 12/05/20 Time: 17:41 ED Screening Note: 80-year-old stay. She has recently had adhesive surgery on her stomach in October. Denies any fever or chills. Abdomen is quite tender and guarding. This initial assessment/diagnostic orders/clinical plan/treatment(s) is/are subject to change based on patients health status, clinical progression and re- assessment by fellow clinical providers in the ED. Further treatment and workup at subsequent clinical providers discretion. Patient/guardian urged not to elope from the ED as their condition may be serious if not clinically assessed and managed. Initial orders include: CBC CMP lipase urinalysis has been ordered. IV contrast was ordered
[2020-12-05] MEDS ORDERED: ONDANSETRON 4 MG/2 ML INJ IV ONE (18:27)
[2020-12-05] MEDS ORDERED: fentaNYL 250 MCG/5 ML INJ IV ONE (18:27)
[2020-12-05] MEDS ORDERED: SODIUM CHLORIDE 0.9% 1000 ML 1,000 ML IV ONE (18:28)
--- NOTE | 2020-12-05 18:33 | Emergency Department Report ---
ED Abdominal Pain HPI - General Chief Complaint: Abdominal Pain Stated Complaint: (R)(L) SIDE PAIN Time Seen by Provider: 12/05/20 18:19 Source: patient Mode of arrival: Ambulatory Limitations: No Limitations - History of Present Illness Initial Comments: Patient is 80 years old female with history of hypertension. Patient presented to the ER complaining of abdominal pain started few days ago. Patient described her pain as right lower quadrant and suprapubic. Patient denied any nausea or vomiting. No diarrhea. Patient also denied any urinary frequency or dysuria. Patient denied any fever or chills. Patient was seen here in October of this year and admitted with a diagnosis of pneumatosis intestinalis and had exploratory laparotomy by Dr. Miller and found to have significant adhesions. Patient stated that she was doing well since then. MD Complaint: abdominal pain -: days(s) Location: LUQ, RUQ, suprapubic Radiation: none Migration to: no migration Severity: severe Severity scale (0 -10): 10 Quality: sharp Consistency: constant Associated Symptoms: denies other symptoms - Related Data Previous Rx's Medication Instructions Recorded Last Taken Type Apixaban [Eliquis] 2.5 mg PO Q12HR 15 Days #30 tablet 07/06/18 Unknown Rx Ascorbic Acid [Vitamin C] 500 mg PO BID #60 tablet 07/06/18 Unknown Rx Estrogens, Conjugated [Premarin] 0.3 mg PO QDAY #30 tablet 07/06/18 Unknown Rx Famotidine [Pepcid] 20 mg PO BID #60 tablet 07/06/18 Unknown Rx Ferrous Sulfate [Feosol 325 MG tab] 325 mg PO BID #60 tablet 07/06/18 Unknown Rx Levothyroxine [Synthroid] 25 mcg PO QAM #30 tablet 07/06/18 10/05/20 07:00 Rx Sennosides/Docusate [Senokot S] 2 tab PO QHS #60 tablet 07/06/18 Unknown Rx Sucralfate [Carafate] 1 gm PO BID #60 tablet 07/06/18 Unknown Rx busPIRone [Buspar] 30 mg PO BID #60 tablet 07/06/18 10/05/20 22:00 Rx traZODone [Desyrel] 100 mg PO QHS #30 tablet 07/06/18 10/05/20 22:00 Rx Ondansetron HCl [Zofran] 4 mg PO Q8HR #15 tablet 10/13/20 Unknown Rx oxyCODONE /ACETAMINOPHEN [Percocet 1 tab PO Q4HR PRN #30 tab 10/13/20 Unknown Rx 5/325] Allergies Allergy/AdvReac Type Severity Reaction Status Date / Time adhesive Allergy Rash Verified 11/18/15 10:24 aspirin Allergy Bleeding Verified 11/18/15 10:24 codeine Allergy Hives Verified 11/18/15 10:24 latex Allergy Rash Verified 11/18/15 10:24 metoclopramide HCl Allergy Itching Verified 11/18/15 10:24 [From Reglan] morphine Allergy Rash Verified 11/18/15 10:24 Sulfa (Sulfonamide Allergy Rash Verified 11/18/15 10:24 Antibiotics) ED Review of Systems ROS: Stated complaint: (R)(L) SIDE PAIN Other details as noted in HPI Comment: All other systems reviewed and negative Constitutional: denies: chills, fever Respiratory: denies: cough, shortness of breath Cardiovascular: denies: chest pain, palpitations Gastrointestinal: abdominal pain. denies: nausea, vomiting, diarrhea, constipation, hematemesis, melena, hematochezia Musculoskeletal: denies: back pain Neurological: denies: headache, weakness, numbness, paresthesias, confusion ED Past Medical Hx - Past Medical History Previous Medical History?: Yes Hx Hypertension: Yes Hx Heart Attack/AMI: No Hx GERD: Yes Hx Liver Disease: No Hx Renal Disease: No Hx Arthritis: Yes Hx Seizures: No Hx Asthma: No Hx HIV: No Additional medical history: MVP, Thyroid Disease, Polio - Surgical History Past Surgical History?: Yes Hx Cholecystectomy: Yes Hx Appendectomy: Yes Additional Surgical History: Left knee haedware, Tonsillectomy, Hiatal hernia repair, Lysis of sdhesions, C-sections, Adhesions in abd - Social History Smoking Status: Never Smoker Substance Use Type: None - Medications Home Medications: Home Medications Medication Instructions Recorded Confirmed Last Taken Type Apixaban [Eliquis] 2.5 mg PO Q12HR 15 Days #30 tablet 07/06/18 10/06/20 Unknown Rx Ascorbic Acid [Vitamin C] 500 mg PO BID #60 tablet 07/06/18 10/06/20 Unknown Rx Estrogens, Conjugated [Premarin] 0.3 mg PO QDAY #30 tablet 07/06/18 10/06/20 Unknown Rx Famotidine [Pepcid] 20 mg PO BID #60 tablet 07/06/18 10/06/20 Unknown Rx Ferrous Sulfate [Feosol 325 MG tab] 325 mg PO BID #60 tablet 07/06/18 10/06/20 Unknown Rx Levothyroxine [Synthroid] 25 mcg PO QAM #30 tablet 07/06/18 10/06/20 10/05/20 07:00 Rx Sennosides/Docusate [Senokot S] 2 tab PO QHS #60 tablet 07/06/18 10/06/20 Unknown Rx Sucralfate [Carafate] 1 gm PO BID #60 tablet 07/06/18 10/06/20 Unknown Rx busPIRone [Buspar] 30 mg PO BID #60 tablet 07/06/18 10/06/20 10/05/20 22:00 Rx traZODone [Desyrel] 100 mg PO QHS #30 tablet 07/06/18 10/06/20 10/05/20 22:00 Rx Ondansetron HCl [Zofran] 4 mg PO Q8HR #15 tablet 10/13/20 Unknown Rx oxyCODONE /ACETAMINOPHEN [Percocet 1 tab PO Q4HR PRN #30 tab 10/13/20 Unknown Rx 5/325] ED Physical Exam - General Limitations: No Limitations General appearance: alert, in no apparent distress - Head Head exam: Present: atraumatic, normocephalic, normal inspection - Eye Eye exam: Present: normal appearance, PERRL - ENT ENT exam: Present: normal exam, normal orophraynx, mucous membranes moist - Neck Neck exam: Present: normal inspection, full ROM. Absent: tenderness, meningismus - Respiratory Respiratory exam: Present: normal lung sounds bilaterally - Cardiovascular Cardiovascular Exam: Present: regular rate, normal rhythm, normal heart sounds - GI/Abdominal GI/Abdominal exam: Present: soft, distended, tenderness, hyperactive bowel sounds. Absent: guarding, rebound, rigid, organomegaly, mass, bruit, pulsatile mass, hernia - Extremities Exam Extremities exam: Present: normal inspection, full ROM, normal capillary refill - Back Exam Back exam: Present: normal inspection, full ROM. Absent: CVA tenderness (R), CVA tenderness (L) - Neurological Exam Neurological exam: Present: alert, oriented X3, CN II-XII intact, normal gait, reflexes normal. Absent: motor sensory deficit - Psychiatric Psychiatric exam: Present: normal mood - Skin Skin exam: Present: warm, intact, normal color ED Course Vital Signs 12/05/20 15:10 Temperature 97.7 F Pulse Rate 115 H Respiratory 18 Rate Blood Pressure 154/89 O2 Sat by Pulse 97 Oximetry ED Medical Decision Making - Lab Data Result diagrams: 12/05/20 16:47 12/05/20 16:47 - Radiology Data Radiology results: report reviewed - Medical Decision Making Patient is 80 years old female with history of hypertension. Patient presented to the ER complaining of abdominal pain started few days ago. Patient described her pain as right lower quadrant and suprapubic. Patient denied any nausea or vomiting. No diarrhea. Patient also denied any urinary frequency or dysuria. Patient denied any fever or chills. Patient was seen here in October of this year and admitted with a diagnosis of pneumatosis intestinalis and had exploratory laparotomy by Dr. Miller and found to have significant adhesions. Patient stated that she was doing well since then. Patient received fentanyl, Zofran and normal saline. Labs reviewed and is unremarkable. CT abdomen and pelvis with IV contrast showed pneumatosis intestinalis in the transverse colon. No perforation reported. I discussed the patient with Dr. Miller, surgeon on-call. She advised to admit the patient to the hospital and she will follow up with the patient in the morning. I discussed the patient with Dr. Beck, He agreed to admit the patient to medical service for further management. Critical care attestation.: If time is entered above; I have spent that time in minutes in the direct care of this critically ill patient, excluding procedure time. ED Disposition Clinical Impression: Acute abdominal pain, Pneumatosis intestinalis Disposition: OP ADMIT IP TO THIS HOSP Is pt being admited?: Yes Condition: Stable Instructions: Abdominal Pain (ED) Referrals: PRIMARY CARE, [Primary Care Provider] - 3-5 Days
[2020-12-05] MEDS ORDERED: fentaNYL 100 MCG/2 ML INJ IV ONE (19:00)
[2020-12-05 19:31] LABS: Bacteria,Urine 1+ /HPF (Negative); Bilirubin,Urine NEG (Negative); Blood,Urine NEG (Negative); Color,Urine Yellow (Yellow); Protein,Urine <15 mg/dL mg/dL (Negative); Urobilinogen,Urine < 2.0 mg/dL (<2.0); WBC,Urine < 1.0 /HPF (0.0-6.0)
[2020-12-05] MEDS ORDERED: LORazepam 2 MG/ML VIAL IV ONE (20:54)
--- NOTE | 2020-12-05 21:04 | Cat Scan Report ---
CT ABDOMEN AND PELVIS WITH IV CONTRAST INDICATION: Bilateral abd pain and TTP. COMPARISON: CT 10/24/2020 TECHNIQUE: All CT scans at this facility use dose modulation, automated exposure control, iterative reconstructi on or weight based dosing, when appropriate, to reduce radiation dose to as low as reasonably achieva ble. FINDINGS: Lung Bases: There is a stable 5 mm right lower lobe pulmonary nodule on axial image 37. Peripherally calcified 2.3 cm soft tissue density at the left cardiophrenic angle is unchanged. This could be calc ified lymph node. This could also be fat necrosis. Skeletal System: No acute abnormality. ABDOMEN: Liver: No significant abnormality. Gallbladder: Removed. Bile Ducts: Left-sided pneumobilia is again noted. This may be due to prior sphincterotomy. Pancreas: No significant abnormality. Spleen: No significant abnormality. Adrenals: No significant abnormality. Right Kidney: Minimal nephrolithiasis. Left Kidney: There is a punctate nonobstructing stone. Upper GI tract: No significant abnormality. Lymph Nodes: No significant adenopathy. Aorta: No significant abnormality. Additional Findings: Phleboliths along the anterior right psoas muscle mimic ureteral stones. PELVIS: Colon: There is soft tissue prominence at the distal rectum, similar to the prior. There appears to be an anastomosis in the distal transverse colon. There is suggestion of minimal pneumatosis in the p roximal transverse colon. Previously seen cecal pneumatosis is no longer present. Urinary Bladder and Distal Ureters: Distended. Appendix: Not visualized. Lymph Nodes: No significant adenopathy. Additional Findings: None. IMPRESSION: 1. There appears to be minimal pneumatosis in the proximal transverse colon. No free air is identifi ed. Previously seen cecal pneumatosis has resolved. 2. No small bowel obstruction. 3. The appendix is not visualized. 4. Numerous additional incidental findings as above. CRITICAL RESULT: Time of Discovery (ARBOR PRESS OPERATOR/CDT): 7:47 PM Time of Communication (ARBOR PRESS OPERATOR/CDT): 7:52 PM Licensed Practitioner Receiving Report: Dr. Quinonez Read-Back Performed: Yes. Signer Name: Pedro Nugent MD Signed: 12/05/2020 9:00 PM Workstation Name: [id number]
[2020-12-05] MEDS ORDERED: PIPERACILLIN/TAZOBACTAM 3.375 3.375 GM/50 ML BAG IV ONE (21:21)
[2020-12-05] MEDS ORDERED: ALBUTEROL 2.5 MG/3 ML NEBU IH PRN (22:12)
--- NOTE | 2020-12-05 22:21 | History and Physical Report ---
History of Present Illness Date of examination: 12/05/20 Date of admission: 12/05/20 Chief complaint: Abdominal pain History of present illness: 80 years old female with history of hypertension was brought to the emergency room because of abdominal pain which is sharp left upper quadrant, right upper quadrant, suprapubic 10/10 constant started few days ago. Patient denied any nausea or vomiting. No diarrhea. Patient also denied any urinary frequency or dysuria. Patient denied any fever or chills. Patient was seen here in October of this year and admitted with a diagnosis of pneumatosis intestinalis and had exploratory laparotomy by Dr. Miller and found to have significant adhesions. Patient stated that she was doing well since then. CT scan of the abdomen and pelvis showed there appears to be minimal pneumatosis in the proximal transverse colon. No free air is identified previously serial cecal pneumatosis ptosis has resolved. No a small bowel obstruction. Appendix is not visualized. Numerous additional incidental findings. Past History Past Medical History: arthritis (MBP thyroid disease polio), GERD, hypertension Medications and Allergies Allergies Allergy/AdvReac Type Severity Reaction Status Date / Time adhesive Allergy Rash Verified 11/18/15 10:24 aspirin Allergy Bleeding Verified 11/18/15 10:24 codeine Allergy Hives Verified 11/18/15 10:24 latex Allergy Rash Verified 11/18/15 10:24 metoclopramide HCl Allergy Itching Verified 11/18/15 10:24 [From Reglan] morphine Allergy Rash Verified 11/18/15 10:24 Sulfa (Sulfonamide Allergy Rash Verified 11/18/15 10:24 Antibiotics) Home Medications Medication Instructions Recorded Confirmed Last Taken Type Apixaban [Eliquis] 2.5 mg PO Q12HR 15 Days #30 tablet 07/06/18 10/06/20 Unknown Rx Ascorbic Acid [Vitamin C] 500 mg PO BID #60 tablet 07/06/18 10/06/20 Unknown Rx Estrogens, Conjugated [Premarin] 0.3 mg PO QDAY #30 tablet 07/06/18 10/06/20 Unknown Rx Famotidine [Pepcid] 20 mg PO BID #60 tablet 07/06/18 10/06/20 Unknown Rx Ferrous Sulfate [Feosol 325 MG tab] 325 mg PO BID #60 tablet 07/06/18 10/06/20 Unknown Rx Levothyroxine [Synthroid] 25 mcg PO QAM #30 tablet 07/06/18 10/06/20 10/05/20 07:00 Rx Sennosides/Docusate [Senokot S] 2 tab PO QHS #60 tablet 07/06/18 10/06/20 Unknown Rx Sucralfate [Carafate] 1 gm PO BID #60 tablet 07/06/18 10/06/20 Unknown Rx busPIRone [Buspar] 30 mg PO BID #60 tablet 07/06/18 10/06/20 10/05/20 22:00 Rx traZODone [Desyrel] 100 mg PO QHS #30 tablet 07/06/18 10/06/20 10/05/20 22:00 Rx Ondansetron HCl [Zofran] 4 mg PO Q8HR #15 tablet 10/13/20 Unknown Rx oxyCODONE /ACETAMINOPHEN [Percocet 1 tab PO Q4HR PRN #30 tab 10/13/20 Unknown Rx 5/325] Active Meds: Active Medications Acetaminophen (Acetaminophen 325 Mg Tab) 650 mg PO Q4H PRN PRN Reason: Pain MILD(1-3)/Fever >100.5/[place] Albuterol (Albuterol 2.5 Mg/3 Ml Nebu) 2.5 mg IH Q4HRT PRN PRN Reason: Shortness Of Breath Albuterol/Ipratropium (Ipratropium/Albuterol Sulfate 3 Ml Ampul.Neb) 1 ampul IH Q6HRT AMANDA Buspirone HCl (Buspirone 5 Mg Tab) 30 mg PO BID AMANDA Famotidine (Famotidine 20 Mg/2 Ml Inj) 20 mg IV BID AMANDA Heparin Sodium (Porcine) (Heparin 5,000 Unit/1 Ml Vial) 5,000 unit SUB-Q Q12HR AMANDA Hydromorphone HCl (Hydromorphone 1 Mg/1 Ml Inj) 0.5 mg IV Q3H PRN PRN Reason: Pain , Severe (7-10) Sodium Chloride (Nacl 0.9% 1000 Ml) 1,000 mls @ 250 mls/hr IV ONCE ONE Stop: 12/05/20 22:27 Last Admin: 12/05/20 19:29 Dose: 250 mls/hr Documented by: Dextrose/Sodium Chloride (D5/0.45ns) 1,000 mls @ 100 mls/hr IV DIRECT AMANDA Levothyroxine Sodium (Levothyroxine 25 Mcg Tab) 25 mcg PO QAM AMANDA Miscellaneous Medication (Apixaban) 2.5 mg PO Q12HR AMANDA Ondansetron HCl (Ondansetron 4 Mg/2 Ml Inj) 4 mg IV Q8H PRN PRN Reason: Nausea And Vomiting Sodium Chloride (Sodium Chloride 0.9% 10 Ml Flush Syringe) 10 ml IV BID AMANDA Sodium Chloride (Sodium Chloride 0.9% 10 Ml Flush Syringe) 10 ml IV PRN PRN PRN Reason: LINE FLUSH Sucralfate (Sucralfate 1 Gm Tab) 1 gm PO BID AMANDA Trazodone HCl (Trazodone 100 Mg Tab) 100 mg PO QHS [facility] Review of Systems Gastrointestinal: abdominal pain Exam - Constitutional Vitals: Temp Pulse Resp BP Pulse Ox 97.7 F 115 H 18 154/89 97 12/05/20 15:10 12/05/20 15:10 12/05/20 15:10 12/05/20 15:10 12/05/20 15:10 General appearance: Present: no acute distress, well-nourished - EENT Eyes: Present: PERRL ENT: hearing intact, clear oral mucosa - Neck Neck: Present: supple, normal ROM - Respiratory Respiratory effort: normal Respiratory: bilateral: CTA - Cardiovascular Heart Sounds: Present: S1 & S2. Absent: rub, click - Extremities Extremities: pulses symmetrical, No edema Peripheral Pulses: within normal limits - Abdominal General gastrointestinal: Present: soft, tender, non-distended, normal bowel sounds Female genitourinary: Present: normal - Integumentary Integumentary: Present: clear, warm, dry - Musculoskeletal Musculoskeletal: gait normal, strength equal bilaterally - Psychiatric Psychiatric: appropriate mood/affect, intact judgment & insight - Neurologic Neurologic: CNII-XII intact, moves all extremities Results - Labs CBC & Chem 7: 12/05/20 16:47 12/05/20 16:47 Labs: Laboratory Last Values WBC 6.5 K/mm3 (4.5-11.0) 12/05/20 16:47 RBC 4.25 M/mm3 (3.65-5.03) 12/05/20 16:47 Hgb 14.3 gm/dl (10.1-14.3) 12/05/20 16:47 Hct 41.4 % (30.3-42.9) 12/05/20 16:47 MCV 98 fl (79-97) H 12/05/20 16:47 MCH 34 pg (28-32) H 12/05/20 16:47 MCHC 35 % (30-34) H 12/05/20 16:47 RDW 13.7 % (13.2-15.2) 12/05/20 16:47 Plt Count 251 K/mm3 (140-440) 12/05/20 16:47 Lymph % (Auto) 30.1 % (13.4-35.0) 12/05/20 16:47 [place] % (Auto) 6.2 % (0.0-7.3) 12/05/20 16:47 Eos % (Auto) 0.0 % (0.0-4.3) 12/05/20 16:47 Baso % (Auto) 0.2 % (0.0-1.8) 12/05/20 16:47 Lymph # (Auto) 1.9 K/mm3 (1.2-5.4) 12/05/20 16:47 [place] # (Auto) 0.4 K/mm3 (0.0-0.8) 12/05/20 16:47 Eos # (Auto) 0.0 K/mm3 (0.0-0.4) 12/05/20 16:47 Baso # (Auto) 0.0 K/mm3 (0.0-0.1) 12/05/20 16:47 Seg Neutrophils % 63.5 % (40.0-70.0) 12/05/20 16:47 Seg Neutrophils # 4.1 K/mm3 (1.8-7.7) 12/05/20 16:47 Sodium 138 mmol/L (137-145) 12/05/20 16:47 Potassium 3.0 mmol/L (3.6-5.0) L 12/05/20 16:47 Chloride 99.7 mmol/L (98-107) 12/05/20 16:47 Carbon Dioxide 21 mmol/L (22-30) L 12/05/20 16:47 Anion Gap 20 mmol/L 12/05/20 16:47 BUN 8 mg/dL (7-17) 12/05/20 16:47 Creatinine 0.5 mg/dL (0.6-1.2) L 12/05/20 16:47 Estimated GFR > 60 ml/min 12/05/20 16:47 BUN/Creatinine Ratio 16 % 12/05/20 16:47 Glucose 144 mg/dL (65-100) H 12/05/20 16:47 Calcium 9.6 mg/dL (8.4-10.2) 12/05/20 16:47 Total Bilirubin 0.40 mg/dL (0.1-1.2) 12/05/20 16:47 AST 20 units/L (5-40) 12/05/20 16:47 ALT 14 units/L (7-56) 12/05/20 16:47 Alkaline Phosphatase 76 units/L (35-129) 12/05/20 16:47 Total Protein 7.2 g/dL (6.3-8.2) 12/05/20 16:47 Albumin 4.6 g/dL (3.9-5) 12/05/20 16:47 Albumin/Globulin Ratio 1.8 % 12/05/20 16:47 Lipase 13 units/L (13-60) 12/05/20 16:47 Urine Color Yellow (Yellow) 12/05/20 19:01 Urine Turbidity Clear (Clear) 12/05/20 19: Urine pH 5.0 (5.0-7.0) 12/05/20 19:01 Ur Specific [place] 1.010 (1.003-1.030) 12/05/20 19:01 Urine Protein <15 mg/dl mg/dL (Negative) 12/05/20 19:01 Urine Glucose (UA) Neg mg/dL (Negative) 12/05/20 19:01 Urine Ketones Neg mg/dL (Negative) 12/05/20 19:01 Urine Blood Neg (Negative) 12/05/20 19:01 Urine Nitrite Neg (Negative) 12/05/20 19: Urine Bilirubin Neg (Negative) 12/05/20 19:01 Urine Urobilinogen < 2.0 mg/dL (<2.0) 12/05/20 19:01 Ur Leukocyte Esterase Neg (Negative) 12/05/20 19:01 Urine WBC (Auto) < 1.0 /HPF (0.0-6.0) 12/05/20 19:01 Urine RBC (Auto) 1.0 /HPF (0.0-6.0) 12/05/20 19:01 U Epithel Cells (Auto) < 1.0 /HPF (0-13.0) 12/05/20 19:01 Urine Bacteria (Auto) 1+ /HPF (Negative) 12/05/20 19:01 - Imaging and Cardiology CT scan - abdomen: report reviewed Assessment and Plan VTE prophylaxis?: Chemical Plan of care discussed with patient/family: Yes - Patient Problems (1) Acute abdominal pain Current Visit: Yes Status: Acute Plan to address problem: Admit the patient to the medical floor telemetry. Nothing by mouth. IV fluid D5 half-normal saline at the rate of 100 cc/h. Pepcid 20 mg IV every 12 hours. Zofran 4 mg IV every 6 hours. Pain management. Consult surgery Dr. Miller for evaluation. Zosyn 4.5 g IV every 8 hours. Recheck CBC BMP in the morning (2) Pneumatosis intestinalis Current Visit: Yes Status: Acute Plan to address problem: Nothing by mouth. IV fluid D5 half-normal saline at the rate of 100 cc/h. Pepcid 20 mg IV every 12 hours. Zofran 4 mg IV every 6 hours. Pain management. Consult surgery Dr. Miller for evaluation. Zosyn 4.5 g IV every 8 hours. Recheck CBC BMP in the morning (3) Hypertension Current Visit: No Status: Acute Plan to address problem: Hydralazine 10 mg IV every 6 hours as needed. We will monitor the blood pressure closely (4) GERD (gastroesophageal reflux disease) Current Visit: No Status: Chronic Plan to address problem: Pepcid 20 mg IV every 12 hours. Zofran 4 million IV every 6 hours as needed. We will monitor the patient closely (5) Hypothyroid Current Visit: No Status: Chronic Plan to address problem: Levothyroxine 25 mcg p.o. every morning. We will monitor the patient closely (6) DVT prophylaxis Current Visit: No Status: Acute
[2020-12-05] MEDS: HYDROmorphone 1 MG/1 ML INJ IV PRN (22:55)
[2020-12-05] MEDS: traZODone 100 MG TAB PO SCH (22:55)
[2020-12-06] MEDS: HYDROmorphone 1 MG/1 ML INJ IV PRN ×6 (02:58→20:05)
[2020-12-06] MEDS ORDERED: LORazepam 2 MG/ML VIAL IV ONE (03:39)
[2020-12-06] MEDS ORDERED: HYDROmorphone 1 MG/1 ML INJ IV ONE (04:01)
[2020-12-06 05:46] LABS: Basophils % (Auto) 0.1 % (0.0-1.8); Hematocrit 35.2 % (30.3-42.9); Hemoglobin 12.5 gm/dl (10.1-14.3); Lymphocytes # (Auto) 1.5 K/mm3 (1.2-5.4); Lymphocytes % (Auto) 29.1 % (13.4-35.0); Mean Corpuscular HGB Conc 36 % (30-34); Mean Corpuscular Volume 96 fl (79-97); Monocytes # (Auto) 0.3 K/mm3 (0.0-0.8); Monocytes % (Auto) 6.7 % (0.0-7.3); Platelet Count 185 K/mm3 (140-440); Red Blood Count 3.66 M/mm3 (3.65-5.03); Red Cell Distribution Width 13.8 % (13.2-15.2)
[2020-12-06 05:57] LABS: Blood Urea Nitrogen 6 mg/dL (7-17); Calcium 8.5 mg/dL (8.4-10.2); Hemolysis Index 3
[2020-12-06] MEDS ORDERED: PIPERACIL/TAZOBACTA 4.5/NS 100 4.5 GM/100 ML VIAL IV SCH (06:00)
[2020-12-06 06:02] LABS: BUN/Creatinine Ratio 12
[2020-12-06] MEDS: IPRATROPIUM/ALBUTEROL SULFATE 3 ML AMPUL.NEB IH SCH ×2 (09:01→19:36)
[2020-12-06] MEDS ORDERED: NON-FORMULARY EACH (Apixaban 2.5 MG Tablet) PO SCH (10:00)
[2020-12-06] MEDS ORDERED: HEPARIN 5,000 UNIT/1 ML VIAL SUB-Q SCH (10:00)
--- NOTE | 2020-12-06 10:35 | Progress Note ---
Assessment and Plan Assessment and plan: (1) Acute abdominal pain Nothing by mouth. IV fluid D5 half-normal saline at the rate of 100 cc/h. Pepcid 20 mg IV every 12 hours. Zofran 4 mg IV every 6 hours. Pain management. Consulted surgery Dr. Miller for evaluation. Zosyn 4.5 g IV every 8 hours. Recheck CBC, BMP in the morning (2) Pneumatosis intestinalis CT scan of the abdomen and pelvis showed there appears to be minimal pneumatosis in the proximal transverse colon. No free air is identified previously serial cecal pneumatosis ptosis has resolved. No a small bowel obstruction. Appendix is not visualized. Numerous additional incidental findings.Nothing by mouth. IV fluid D5 half-normal saline at the rate of 100 cc/h. Pepcid 20 mg IV every 12 hours. Zofran 4 mg IV every 6 hours. Pain management. Consult surgery Dr. Miller for evaluation. Zosyn 4.5 g IV every 8 hours. Recheck CBC BMP in the morning (3) Hypertension Hydralazine 10 mg IV every 6 hours as needed. We will monitor the blood pressure closely (4) GERD (gastroesophageal reflux disease) Pepcid 20 mg IV every 12 hours. Zofran 4 million IV every 6 hours as needed. We will monitor the patient closely (5) Hypothyroid Levothyroxine 25 mcg p.o. every morning. We will monitor the patient closely (6) DVT prophylaxis History Interval history: No new issues overnight. Hospitalist Physical - Constitutional Vitals: Temp Pulse Resp BP Pulse Ox 97.7 F 71 14 111/60 97 12/05/20 15:10 12/06/20 08:20 12/06/20 08:20 12/06/20 08:20 12/06/20 08:20 General appearance: Present: no acute distress, well-nourished - EENT Eyes: Present: PERRL, EOM intact ENT: hearing intact, clear oral mucosa, dentition normal - Neck Neck: Present: supple, normal ROM - Respiratory Respiratory effort: normal Respiratory: bilateral: CTA - Cardiovascular Rhythm: regular Heart Sounds: Present: S1 & S2. Absent: gallop, rub - Extremities Extremities: no ischemia, No edema, Full ROM - Abdominal General gastrointestinal: soft, non-tender, non-distended, normal bowel sounds - Integumentary Integumentary: Present: clear, warm, dry - Neurologic Neurologic: CNII-XII intact, moves all extremities Results - Labs CBC & Chem 7: 12/06/20 04:45 12/06/20 04:45 Labs: Laboratory Last Values WBC 5.1 K/mm3 (4.5-11.0) 12/06/20 04:45 RBC 3.66 M/mm3 (3.65-5.03) 12/06/20 04:45 Hgb 12.5 gm/dl (10.1-14.3) 12/06/20 04:45 Hct 35.2 % (30.3-42.9) D 12/06/20 04:45 MCV 96 fl (79-97) 12/06/20 04:45 MCH 34 pg (28-32) H 12/06/20 04:45 MCHC 36 % (30-34) H 12/06/20 04:45 RDW 13.8 % (13.2-15.2) 12/06/20 04:45 Plt Count 185 K/mm3 (140-440) 12/06/20 04:45 Lymph % (Auto) 29.1 % (13.4-35.0) 12/06/20 04:45 [place] % (Auto) 6.7 % (0.0-7.3) 12/06/20 04:45 Eos % (Auto) 0.0 % (0.0-4.3) 12/06/20 04:45 Baso % (Auto) 0.1 % (0.0-1.8) 12/06/20 04:45 Lymph # (Auto) 1.5 K/mm3 (1.2-5.4) 12/06/20 04:45 [place] # (Auto) 0.3 K/mm3 (0.0-0.8) 12/06/20 04:45 Eos # (Auto) 0.0 K/mm3 (0.0-0.4) 12/06/20 04:45 Baso # (Auto) 0.0 K/mm3 (0.0-0.1) 12/06/20 04:45 Seg Neutrophils % 64.1 % (40.0-70.0) 12/06/20 04:45 Seg Neutrophils # 3.2 K/mm3 (1.8-7.7) 12/06/20 04:45 Sodium 142 mmol/L (137-145) 12/06/20 04:45 Potassium 3.4 mmol/L (3.6-5.0) L 12/06/20 04:45 Chloride 106.4 mmol/L (98-107) 12/06/20 04:45 Carbon Dioxide 26 mmol/L (22-30) 12/06/20 04:45 Anion Gap 13 mmol/L 12/06/20 04:45 BUN 6 mg/dL (7-17) L 12/06/20 04:45 Creatinine 0.5 mg/dL (0.6-1.2) L 12/06/20 04:45 Estimated GFR > 60 ml/min 12/06/20 04:45 BUN/Creatinine Ratio 12 % 12/06/20 04:45 Glucose 104 mg/dL (65-100) H 12/06/20 04:45 Calcium 8.5 mg/dL (8.4-10.2) 12/06/20 04:45 Total Bilirubin 0.40 mg/dL (0.1-1.2) 12/05/20 16:47 AST 20 units/L (5-40) 12/05/20 16:47 ALT 14 units/L (7-56) 12/05/20 16:47 Alkaline Phosphatase 76 units/L (35-129) 12/05/20 16:47 Total Protein 7.2 g/dL (6.3-8.2) 12/05/20 16:47 Albumin 4.6 g/dL (3.9-5) 12/05/20 16:47 Albumin/Globulin Ratio 1.8 % 12/05/20 16:47 Lipase 13 units/L (13-60) 12/05/20 16:47 Urine Color Yellow (Yellow) 12/05/20 19:01 Urine Turbidity Clear (Clear) 12/05/20 19:01 Urine pH 5.0 (5.0-7.0) 12/05/20 19:01 Ur Specific [place] 1.010 (1.003-1.030) 12/05/20 19:01 Urine Protein <15 mg/dl mg/dL (Negative) 12/05/20 19:01 Urine Glucose (UA) Neg mg/dL (Negative) 12/05/20 19:01 Urine Ketones Neg mg/dL (Negative) 12/05/20 19:01 Urine Blood Neg (Negative) 12/05/20 19:01 Urine Nitrite Neg (Negative) 12/05/20 19:01 Urine Bilirubin Neg (Negative) 12/05/20 19:01 Urine Urobilinogen < 2.0 mg/dL (<2.0) 12/05/20 19:01 Ur Leukocyte Esterase Neg (Negative) 12/05/20 19:01 Urine WBC (Auto) < 1.0 /HPF (0.0-6.0) 12/05/20 19:01 Urine RBC (Auto) 1.0 /HPF (0.0-6.0) 12/05/20 19:01 U Epithel Cells (Auto) < 1.0 /HPF (0-13.0) 12/05/20 19:01 Urine Bacteria (Auto) 1+ /HPF (Negative) 12/05/20 19:01 Microbiology: Microbiology 12/05/20 21:27 Peripheral/Venous Blood Culture - Preliminary Culture in Progress 12/05/20 21:27 Peripheral/Venous Blood Culture - Preliminary Culture in Progress Active Medications - Current Medications Current Medications: Generic Name Dose Route Start Last Admin Trade Name Freq PRN Reason Stop Dose Admin Acetaminophen 650 mg 12/05/20 22:12 Acetaminophen 325 Mg Tab PO Q4H PRN Pain MILD(1-3)/Fever >100.5/[place] Albuterol 2.5 mg 12/05/20 22:12 Albuterol 2.5 Mg/3 Ml Nebu IH Q4HRT PRN Shortness Of Breath Albuterol/Ipratropium 1 ampul 12/06/20 02:00 12/06/20 09:01 Ipratropium/Albuterol Sulfate 3 Ml Ampul.Neb IH Not Given Q6HRT AMANDA Apixaban 2.5 mg 12/06/20 10:00 Apixaban 2.5 Mg Tab PO Q12HR AMANDA Buspirone HCl 30 mg 12/06/20 10:00 Buspirone 10 Mg Tab PO BID AMANDA Famotidine 10 mg 12/06/20 10:00 Famotidine 20 Mg/2 Ml Inj IV BID AMANDA Hydralazine HCl 10 mg 12/05/20 22:24 Hydralazine 20 Mg/1 Ml Inj IV Q6H PRN Blood Pressure Hydromorphone HCl 0.5 mg 12/05/20 22:12 12/06/20 07:31 Hydromorphone 1 Mg/1 Ml Inj IV 0.5 mg Q3H PRN Administration Pain , Severe (7-10) Dextrose/Sodium Chloride 1,000 mls @ 100 mls/hr 12/05/20 23:00 D5/0.45ns IV DIRECT AMANDA Piperacillin Sod/Tazobactam Sod 2.25 gm in 50 mls @ 100 mls/hr 12/06/20 12:00 Zosyn/Ns 2.25 Gm/50ml IV Q6HR [facility] Levothyroxine Sodium 25 mcg 12/06/20 06:00 Levothyroxine 25 Mcg Tab PO QAM@0600 [facility] Ondansetron HCl 4 mg 12/05/20 22:12 Ondansetron 4 Mg/2 Ml Inj IV Q8H PRN Nausea And Vomiting Sodium Chloride 10 ml 12/06/20 10:00 Sodium Chloride 0.9% 10 Ml Flush Syringe IV BID [facility] Sodium Chloride 10 ml 12/05/20 22:12 Sodium Chloride 0.9% 10 Ml Flush Syringe IV PRN PRN LINE FLUSH Sucralfate 1 gm 12/06/20 10:00 Sucralfate 1 Gm Tab PO BID [facility] Trazodone HCl 100 mg 12/05/20 22:00 12/05/20 22:55 Trazodone 100 Mg Tab PO 100 mg QHS [facility] Administration
[2020-12-06] MEDS: APIXABAN 2.5 MG TAB PO SCH ×2 (11:12→13:00)
[2020-12-06] MEDS: busPIRone 10 MG TAB PO SCH (11:12)
[2020-12-06] MEDS: LEVOTHYROXINE 25 MCG TAB PO SCH (11:12)
[2020-12-06] MEDS: SUCRALFATE 1 GM TAB PO SCH (11:12)
[2020-12-06] MEDS: FAMOTIDINE 20 MG/2 ML INJ IV SCH (11:14)
[2020-12-06] MEDS: PIPERACIL-TAZO 2.25 GM/50 ML 2.25 GM/50 ML BAG IV SCH ×2 (13:00→20:21)
--- NOTE | 2020-12-06 15:12 | Consultation ---
History of Present Illness Consult date: 12/06/20 Reason for consult: abdominal pain - History of present illness History of present illness: 80-year-old female well-known to me presented to the emergency room with a 1 to 2-day of acute abdominal pain. Patient has a history of negative exploratory laparotomy approximately 2 months ago for acute abdominal pain with pneumatosis intestinalis of the right colon with suggestive of perforation on CT scan. At the time there was no bowel resected just lysis of adhesions. She had a prolonged postop course due to pain management however in the office approximately 2 weeks ago she was progressing well tolerating diet with pain bet ter controlled. Patient says that she was doing fine until recently when the abdominal pain started on both her right and her left side. She denies any nausea vomiting. But does state that the pain is worse when she eats. Patient had a CT scan today which showed mild pneumatosis intestinalis of the proximal right colon and resolution of the previous right colon findings from 2 months ago. She says that her pain persists after this admission however it is improved when she gets pain medicine. Past History Past Medical History: arthritis (MBP thyroid disease polio), GERD, hypertension Past Surgical History: appendectomy, Other (Exploratory laparotomy, history of bowel resection, history of multiple surgeries for lysis of adhesions, cholecystectomy) Medications and Allergies Allergies Allergy/AdvReac Type Severity Reaction Status Date / Time adhesive Allergy Rash Verified 11/18/15 10:24 aspirin Allergy Bleeding Verified 11/18/15 10:24 codeine Allergy Hives Verified 11/18/15 10:24 latex Allergy Rash Verified 11/18/15 10:24 metoclopramide HCl Allergy Itching Verified 11/18/15 10:24 [From Reglan] morphine Allergy Rash Verified 11/18/15 10:24 Sulfa (Sulfonamide Allergy Rash Verified 11/18/15 10:24 Antibiotics) Home Medications Medication Instructions Recorded Confirmed Last Taken Type Apixaban [Eliquis] 2.5 mg PO Q12HR 15 Days #30 tablet 07/06/18 10/06/20 Unknown Rx Ascorbic Acid [Vitamin C] 500 mg PO BID #60 tablet 07/06/18 10/06/20 Unknown Rx Estrogens, Conjugated [Premarin] 0.3 mg PO QDAY #30 tablet 07/06/18 10/06/20 Unknown Rx Famotidine [Pepcid] 20 mg PO BID #60 tablet 07/06/18 10/06/20 Unknown Rx Ferrous Sulfate [Feosol 325 MG tab] 325 mg PO BID #60 tablet 07/06/18 10/06/20 Unknown Rx Levothyroxine [Synthroid] 25 mcg PO QAM #30 tablet 07/06/18 10/06/20 10/05/20 07:00 Rx Sennosides/Docusate [Senokot S] 2 tab PO QHS #60 tablet 07/06/18 10/06/20 Unknown Rx Sucralfate [Carafate] 1 gm PO BID #60 tablet 07/06/18 10/06/20 Unknown Rx busPIRone [Buspar] 30 mg PO BID #60 tablet 07/06/18 10/06/20 10/05/20 22:00 Rx traZODone [Desyrel] 100 mg PO QHS #30 tablet 07/06/18 10/06/20 10/05/20 22:00 Rx Ondansetron HCl [Zofran] 4 mg PO Q8HR #15 tablet 10/13/20 Unknown Rx oxyCODONE /ACETAMINOPHEN [Percocet 1 tab PO Q4HR PRN #30 tab 10/13/20 Unknown Rx 5/325] Active Meds: Active Medications Acetaminophen (Acetaminophen 325 Mg Tab) 650 mg PO Q4H PRN PRN Reason: Pain MILD(1-3)/Fever >100.5/[place] Albuterol (Albuterol 2.5 Mg/3 Ml Nebu) 2.5 mg IH Q4HRT PRN PRN Reason: Shortness Of Breath Albuterol/Ipratropium (Ipratropium/Albuterol Sulfate 3 Ml Ampul.Neb) 1 ampul IH Q6HRT [facility] Last Admin: 12/06/20 09:01 Dose: Not Given Documented by: Apixaban (Apixaban 2.5 Mg Tab) 2.5 mg PO Q12HR [facility] Buspirone HCl (Buspirone 10 Mg Tab) 30 mg PO BID [facility] Last Admin: 12/06/20 11:12 Dose: 30 mg Documented by: Famotidine (Famotidine 20 Mg/2 Ml Inj) 10 mg IV BID [facility] Last Admin: 12/06/20 11:14 Dose: 10 mg Documented by: Hydralazine HCl (Hydralazine 20 Mg/1 Ml Inj) 10 mg IV Q6H PRN PRN Reason: Blood Pressure Hydromorphone HCl (Hydromorphone 1 Mg/1 Ml Inj) 0.5 mg IV Q3H PRN PRN Reason: Pain , Severe (7-10) Last Admin: 12/06/20 13:52 Dose: 0.5 mg Documented by: Dextrose/Sodium Chloride (D5/0.45ns) 1,000 mls @ 100 mls/hr IV DIRECT [facility] Piperacillin Sod/Tazobactam Sod (Zosyn/Ns 2.25 Gm/50ml) 2.25 gm in 50 mls @ 100 mls/hr IV Q6HR [facility] Last Admin: 12/06/20 13:00 Dose: 100 mls/hr Documented by: Levothyroxine Sodium (Levothyroxine 25 Mcg Tab) 25 mcg PO QAM@0600 [facility] Last Admin: 12/06/20 11:12 Dose: 25 mcg Documented by: Ondansetron HCl (Ondansetron 4 Mg/2 Ml Inj) 4 mg IV Q8H PRN PRN Reason: Nausea And Vomiting Sodium Chloride (Sodium Chloride 0.9% 10 Ml Flush Syringe) 10 ml IV BID [facility] Last Admin: 12/06/20 11:40 Dose: 10 ml Documented by: Sodium Chloride (Sodium Chloride 0.9% 10 Ml Flush Syringe) 10 ml IV PRN PRN PRN Reason: LINE FLUSH Sucralfate (Sucralfate 1 Gm Tab) 1 gm PO BID [facility] Last Admin: 12/06/20 11:12 Dose: 1 gm Documented by: Trazodone HCl (Trazodone 100 Mg Tab) 100 mg PO QHS [facility] Last Admin: 12/05/20 22:55 Dose: 100 mg Documented by: Review of Systems All systems: negative - Gastrointestinal abdominal pain Exam Vital Signs Temp Pulse Resp BP Pulse Ox 97.7 F 115 H 18 154/89 97 12/05/20 15:10 12/05/20 15:10 12/05/20 15:10 12/05/20 15:10 12/05/20 15:10 - General physical appearance Positive: well developed, no distress, moderate pain - Respiratory Positive: normal expansion, normal respiratory effort - Cardiovascular Heart Sounds: Present: S1 & S2 - Extremities Extremities: no ischemia - Abdomen Abdomen: Present: soft, guarding, surgical scars, other (Tender to palpation bilateral lower abdomen, unchanged infra umbilical protuberance from previous examination, midline surgical incision well-healed). Absent: distended, rebound, rigid Results - Labs 12/06/20 04:45 12/06/20 04:45 Abnormal lab results 12/05/20 12/05/20 12/06/20 Range/Units 16:47 16:47 04:45 MCV 98 H (79-97) fl MCH 34 H 34 H (28-32) pg MCHC 35 H 36 H (30-34) % Potassium 3.0 L (3.6-5.0) mmol/L Carbon Dioxide 21 L (22-30) mmol/L BUN (7-17) mg/dL Creatinine 0.5 L (0.6-1.2) mg/dL Glucose 144 H (65-100) mg/dL 12/06/20 Range/Units 04:45 MCV (79-97) fl MCH (28-32) pg MCHC (30-34) % Potassium 3.4 L (3.6-5.0) mmol/L Carbon Dioxide (22-30) mmol/L BUN 6 L (7-17) mg/dL Creatinine 0.5 L (0.6-1.2) mg/dL Glucose 104 H (65-100) mg/dL Diabetes panel 12/05/20 12/06/20 Range/Units 16:47 04:45 Sodium 138 142 (137-145) mmol/L Potassium 3.0 L 3.4 L (3.6-5.0) mmol/L Chloride 99.7 106.4 (98-107) mmol/L Carbon Dioxide 21 L 26 (22-30) mmol/L BUN 8 6 L (7-17) mg/dL Creatinine 0.5 L 0.5 L (0.6-1.2) mg/dL Glucose 144 H 104 H (65-100) mg/dL Calcium 9.6 8.5 (8.4-10.2) mg/dL AST 20 (5-40) units/L ALT 14 (7-56) units/L Alkaline Phosphatase 76 (35-129) units/L Total Protein 7.2 (6.3-8.2) g/dL Albumin 4.6 (3.9-5) g/dL Calcium panel 12/05/20 12/06/20 Range/Units 16:47 04:45 Calcium 9.6 8.5 (8.4-10.2) mg/dL Albumin 4.6 (3.9-5) g/dL Pituitary panel 12/05/20 12/06/20 Range/Units 16:47 04:45 Sodium 138 142 (137-145) mmol/L Potassium 3.0 L 3.4 L (3.6-5.0) mmol/L Chloride 99.7 106.4 (98-107) mmol/L Carbon Dioxide 21 L 26 (22-30) mmol/L BUN 8 6 L (7-17) mg/dL Creatinine 0.5 L 0.5 L (0.6-1.2) mg/dL Glucose 144 H 104 H (65-100) mg/dL Calcium 9.6 8.5 (8.4-10.2) mg/dL Adrenal panel 12/05/20 12/06/20 Range/Units 16:47 04:45 Sodium 138 142 (137-145) mmol/L Potassium 3.0 L 3.4 L (3.6-5.0) mmol/L Chloride 99.7 106.4 (98-107) mmol/L Carbon Dioxide 21 L 26 (22-30) mmol/L BUN 8 6 L (7-17) mg/dL Creatinine 0.5 L 0.5 L (0.6-1.2) mg/dL Glucose 144 H 104 H (65-100) mg/dL Calcium 9.6 8.5 (8.4-10.2) mg/dL Total Bilirubin 0.40 (0.1-1.2) mg/dL AST 20 (5-40) units/L ALT 14 (7-56) units/L Alkaline Phosphatase 76 (35-129) units/L Total Protein 7.2 (6.3-8.2) g/dL Albumin 4.6 (3.9-5) g/dL - Imaging CT scan - abdomen: report reviewed, image reviewed CT scan - pelvis: report reviewed, image reviewed Assessment and Plan 80-year-old female with acute abdominal pain with repeat findings of pneumatosis intestinalis of the colon of unclear etiology. Patient is afebrile, stable, with no leukocytosis. Have a very low suspicion for acute abdomen requiring surgical intervention at this time as she was taken to the operating room 2 months ago for ex lap for more dramatic presentation and negative findings on exploratory laparotomy. Will check lactic acid level. GI was consulted who says they will evaluate the patient in the morning. Continue IV hydration and will keep n.p.o. until evaluated by gastroenterology. No surgical intervention is planned at this time, will continue to follow.
[2020-12-06] MEDS: ONDANSETRON 4 MG/2 ML INJ IV PRN (20:04)
[2020-12-07] MEDS: HYDROmorphone 1 MG/1 ML INJ IV PRN ×5 (01:09→15:40)
[2020-12-07] MEDS: D5W/0.45% NACL 1,000 ML IV SCH ×2 (01:13→15:58)
[2020-12-07] MEDS: PIPERACIL-TAZO 2.25 GM/50 ML 2.25 GM/50 ML BAG IV SCH ×3 (01:38→12:48)
[2020-12-07] MEDS: hydrALAZINE 20 MG/1 ML INJ IV PRN (01:46)
[2020-12-07] MEDS: traZODone 100 MG TAB PO SCH ×2 (02:56→21:50)
[2020-12-07] MEDS: LEVOTHYROXINE 25 MCG TAB PO SCH (07:02)
[2020-12-07] MEDS: IPRATROPIUM/ALBUTEROL SULFATE 3 ML AMPUL.NEB IH SCH ×4 (07:48→21:52)
--- NOTE | 2020-12-07 09:19 | Gastroenterology Consultation ---
History of Present Illness - Reason for Consult Consult date: 12/07/20 Pneumatosis intestinalis Requesting physician: VERO OROZCO - History of Present Illness 80-year-old female presented to the emergency room with a 2-day hx of acute abdominal pain. Patient has a history of negative exploratory laparotomy approximately 2 months ago for acute abdominal pain with pneumatosis intestinalis of the right colon with suggestive of perforation on CT scan. At the time there was no bowel resected just lysis of adhesions. She had a prolonged postop course due to pain management however in the office approximately 2 weeks ago she was progressing well tolerating diet with pain better controlled. Patient says that she was doing fine until recently when the abdominal pain started on both her right and her left side. Patient had a CT scan which showed mild pneumatosis intestinalis of the proximal right colon and resolution of the previous right colon findings from 2 months ago. Abd pain diffuse, severe, worse with palpation, better with nothing sharp quality, constant, duration days, non radiating, no associated symptoms Obtained/updated/reviewed patient's current medications Past History Past Medical History: arthritis (MBP thyroid disease polio), GERD, hypertension Past Surgical History: appendectomy, Other (Exploratory laparotomy, history of bowel resection, history of multiple surgeries for lysis of adhesions, cholecystectomy) Social history: no significant social history Family history: no significant family history Medications and Allergies Allergies Allergy/AdvReac Type Severity Reaction Status Date / Time adhesive Allergy Rash Verified 11/18/15 10:24 aspirin Allergy Bleeding Verified 11/18/15 10:24 codeine Allergy Hives Verified 11/18/15 10:24 latex Allergy Rash Verified 11/18/15 10:24 metoclopramide HCl Allergy Itching Verified 11/18/15 10:24 [From Reglan] morphine Allergy Rash Verified 11/18/15 10:24 Sulfa (Sulfonamide Allergy Rash Verified 11/18/15 10:24 Antibiotics) Home Medications Medication Instructions Recorded Confirmed Last Taken Type Apixaban [Eliquis] 2.5 mg PO Q12HR 15 Days #30 tablet 07/06/18 10/06/20 Unknown Rx Ascorbic Acid [Vitamin C] 500 mg PO BID #60 tablet 07/06/18 10/06/20 Unknown Rx Estrogens, Conjugated [Premarin] 0.3 mg PO QDAY #30 tablet 07/06/18 10/06/20 Unknown Rx Famotidine [Pepcid] 20 mg PO BID #60 tablet 07/06/18 10/06/20 Unknown Rx Ferrous Sulfate [Feosol 325 MG tab] 325 mg PO BID #60 tablet 07/06/18 10/06/20 Unknown Rx Levothyroxine [Synthroid] 25 mcg PO QAM #30 tablet 07/06/18 10/06/20 10/05/20 07:00 Rx Sennosides/Docusate [Senokot S] 2 tab PO QHS #60 tablet 07/06/18 10/06/20 Unknown Rx Sucralfate [Carafate] 1 gm PO BID #60 tablet 07/06/18 10/06/20 Unknown Rx busPIRone [Buspar] 30 mg PO BID #60 tablet 07/06/18 10/06/20 10/05/20 22:00 Rx traZODone [Desyrel] 100 mg PO QHS #30 tablet 07/06/18 10/06/20 10/05/20 22:00 Rx Ondansetron HCl [Zofran] 4 mg PO Q8HR #15 tablet 10/13/20 Unknown Rx oxyCODONE /ACETAMINOPHEN [Percocet 1 tab PO Q4HR PRN #30 tab 10/13/20 Unknown Rx 5/325] Active Meds: Active Medications Acetaminophen (Acetaminophen 325 Mg Tab) 650 mg PO Q4H PRN PRN Reason: Pain MILD(1-3)/Fever >100.5/[place] Albuterol (Albuterol 2.5 Mg/3 Ml Nebu) 2.5 mg IH Q4HRT PRN PRN Reason: Shortness Of Breath Albuterol/Ipratropium (Ipratropium/Albuterol Sulfate 3 Ml Ampul.Neb) 1 ampul IH Q6HRT [facility] Last Admin: 12/06/20 19:36 Dose: Not Given Documented by: Apixaban (Apixaban 2.5 Mg Tab) 2.5 mg PO Q12HR [facility] Last Admin: 12/06/20 13:00 Dose: Not Given Documented by: Buspirone HCl (Buspirone 10 Mg Tab) 30 mg PO BID [facility] Last Admin: 12/06/20 11:12 Dose: 30 mg Documented by: Famotidine (Famotidine 20 Mg/2 Ml Inj) 10 mg IV BID [facility] Last Admin: 12/06/20 11:14 Dose: 10 mg Documented by: Hydralazine HCl (Hydralazine 20 Mg/1 Ml Inj) 10 mg IV Q6H PRN PRN Reason: Blood Pressure Last Admin: 12/07/20 01:46 Dose: 10 mg Documented by: Hydromorphone HCl (Hydromorphone 1 Mg/1 Ml Inj) 0.5 mg IV Q3H PRN PRN Reason: Pain , Severe (7-10) Last Admin: 12/07/20 08:28 Dose: 0.5 mg Documented by: Dextrose/Sodium Chloride (D5/0.45ns) 1,000 mls @ 100 mls/hr IV DIRECT [facility] Last Admin: 12/07/20 01:13 Dose: 100 mls/hr Documented by: Piperacillin Sod/Tazobactam Sod (Zosyn/Ns 2.25 Gm/50ml) 2.25 gm in 50 mls @ 100 mls/hr IV Q6HR [facility] Last Admin: 12/07/20 05:53 Dose: 100 mls/hr Documented by: Levothyroxine Sodium (Levothyroxine 25 Mcg Tab) 25 mcg PO QAM@0600 [facility] Last Admin: 12/07/20 07:02 Dose: Not Given Documented by: Ondansetron HCl (Ondansetron 4 Mg/2 Ml Inj) 4 mg IV Q8H PRN PRN Reason: Nausea And Vomiting Last Admin: 12/06/20 20:04 Dose: 4 mg Documented by: Sodium Chloride (Sodium Chloride 0.9% 10 Ml Flush Syringe) 10 ml IV BID [facility] Last Admin: 12/06/20 11:40 Dose: 10 ml Documented by: Sodium Chloride (Sodium Chloride 0.9% 10 Ml Flush Syringe) 10 ml IV PRN PRN PRN Reason: LINE FLUSH Sucralfate (Sucralfate 1 Gm Tab) 1 gm PO BID [facility] Last Admin: 12/06/20 11:12 Dose: 1 gm Documented by: Trazodone HCl (Trazodone 100 Mg Tab) 100 mg PO QHS [facility] Last Admin: 12/07/20 02:56 Dose: 100 mg Documented by: Review of Systems - Review of Systems All systems: negative (10 Systems reviewed and negative except as mentioned above in the history of present illness) Exam - Constitutional Vital Signs: Temp Pulse Resp BP Pulse Ox 98.9 F 76 20 183/88 93 12/07/20 00:14 12/07/20 01:46 12/07/20 08:28 12/07/20 01:46 12/07/20 03:10 General appearance: no acute distress, other - EENT Eyes: EOM intact ENT: hearing intact - Neck Neck: supple - Respiratory Respiratory effort: normal - Cardiovascular Rhythm: regular - Gastrointestinal General gastrointestinal: Present: soft, tender, hypoactive bowel sounds - Integumentary Integumentary: Present: dry - Neurologic Neurological: alert and oriented x3 - Psychiatric Psychiatric: appropriate mood/affect - Labs CBC & Chem 7: 12/06/20 04:45 12/06/20 04:45 Lab Results: Laboratory Results - last 24 hr 12/06/20 16:20 Lactic Acid 1.20 Assessment and Plan Etiology unclear, differential includes vascular/ischemia, infectious, etc continue abx, pain meds doppler US eval for mesenteric ischemia consider elemental diet surgery unlikely to be beneficial based upon hx/imaging - Patient Problems (1) Acute abdominal pain Current Visit: Yes Status: Acute (2) Pneumatosis intestinalis Current Visit: Yes Status: Acute
[2020-12-07] MEDS: APIXABAN 2.5 MG TAB PO SCH ×3 (10:00→21:23)
--- NOTE | 2020-12-07 13:45 | Progress Note ---
Assessment and Plan - Patient Problems (1) Acute abdominal pain Current Visit: Yes Status: Acute Plan to address problem: At present patient still has persistent abdominal pain at this time appears severe but intermittent. I agree surgical intervention will most likely not be helpful given previous findings after last exploratory lap and especially now with no clear evidence of ischemia. Still I am unsure of etiology. Does not appear to be infectious at this time as well. Possible colonic spasms, still could potentially be ischemia. -At this point will maintain adequate pain control. -Consider supratentorial issues depression anxiety -Supportive care with meals, adequate IV hydration. -Empiric antibiotics (2) Pneumatosis intestinalis Current Visit: Yes Status: Acute (3) Hypertension Current Visit: No Status: Acute Plan to address problem: At present well controlled somewhat elevated secondary to sympathetic outflow with pain. (4) Anxiety Current Visit: No Status: Chronic Plan to address problem: BuSpar. Will advance antianxiety meds if required. For now continue present management. (5) Hypothyroid Current Visit: No Status: Chronic Plan to address problem: Obtain TSH to rule out hypothyroidism as potential exacerbating factor. Subjective Date of service: 12/07/20 Principal diagnosis: Abdominal pain Interval history: 80-year-old female presented to the emergency room with a 2-day hx of acute abdominal pain. Patient has a history of negative exploratory laparotomy approximately 2 months ago for acute abdominal pain with pneumatosis intestinalis of the right colon with suggestive of perforation on CT scan. At the time there was no bowel resected just lysis of adhesions. She had a prolonged postop course due to pain management however in the office approximately 2 weeks ago she was progressing well tolerating diet with pain better controlled. Patient says that she was doing fine until recently when the abdominal pain started on both her right and her left side. Patient had a CT scan which showed mild pneumatosis intestinalis of the proximal right colon and resolution of the previous right colon findings from 2 months ago. Patient today complains of persistent sharp abdominal pain. No nausea vomiting. States pain does not allow her to feel like she wants to eat. Severe 7 out of 10. No fever no diarrhea no constipation noted. Objective - Constitutional Vitals: Vital Signs - 12hr 12/07/20 12/07/20 12/07/20 01:46 03:10 07:47 Pulse Rate 76 Pulse Rate [ Anterior Bilateral Throughout] Respiratory 18 Rate Respiratory Rate [Anterior Bilateral Throughout] Blood Pressure 183/88 O2 Sat by Pulse 93 98 Oximetry 12/07/20 12/07/20 12/07/20 07:48 08:28 11:09 Pulse Rate Pulse Rate [ 94 H Anterior Bilateral Throughout] Respiratory 20 20 Rate Respiratory 20 Rate [Anterior Bilateral Throughout] Blood Pressure O2 Sat by Pulse Oximetry General appearance: Present: no acute distress, well-nourished - EENT Eyes: PERRL, EOM intact ENT: hearing intact, clear oral mucosa Ears: bilateral: normal - Neck Neck: supple, normal ROM - Respiratory Respiratory effort: normal Respiratory: bilateral: CTA - Breasts Breasts: normal - Cardiovascular Rhythm: regular Heart Sounds: Present: S1 & S2. Absent: gallop, rub Extremities: pulses intact, No edema, normal color, Full ROM - Gastrointestinal General gastrointestinal: Present: soft, tender, non-distended, normal bowel sounds, other (Guarding) - Genitourinary Female genitourinary: normal - Integumentary Integumentary: clear, warm, dry - Musculoskeletal Musculoskeletal: 1, strength equal bilaterally - Neurologic Neurologic: moves all extremities - Psychiatric Psychiatric: memory intact, appropriate mood/affect, intact judgment & insight - Labs CBC & Chem 7: 12/06/20 04:45 12/06/20 04:45
--- NOTE | 2020-12-07 15:37 | Vascular Lab Report ---
ULTRASOUND AORTA /SMA/PANCHO INDICATION / CLINICAL INFORMATION: ABD PAIN, EVALUATE SMA/PANCHO FOR STENOSIS. TECHNIQUE: B-mode and Doppler imaging was used to evaluate the aorta, celiac axis, SMA and PANCHO. COMPARISON: None available. FINDINGS: PROXIMAL ABDOMINAL AORTA (cm): 2.8 cm (PSV: 92 cm/s) MID ABDOMINAL AORTA (cm): 1.6 cm (PSV: 75 cm/s) DISTAL ABDOMINAL AORTA (cm): 1.5 cm (PSV: 118 cm/s) RIGHT ILIAC ARTERY (cm): 1.0 cm (PSV: 154 cm/s) LEFT ILIAC ARTERY (cm): 1.0 cm (PSV: 125 cm/s) SMA: -PROXIMAL: 389 cm/s -MID: 169 cm/s -DISTAL: 177 cm/s PANCHO: -PROXIMAL: 127 cm/s -MID: 134 cm/s -DISTAL: Not visualized. CELIAC AXIS: 219 cm/s ADDITIONAL FINDINGS: None. IMPRESSION: 1. The visualized arteries all appear patent, however there are elevated velocities noted within the proximal SMA and celiac axis. Scribed by: Jessi Cerrato RDMS, RVT Scribed: 12/07/2020 2:23 PM I have reviewed the images, agree with this report, and edited this report as needed. Signer Name: Chaparro Dent MD Signed: 12/07/2020 3:33 PM Workstation Name: [id number]
[2020-12-07] MEDS: FAMOTIDINE 20 MG/2 ML INJ IV SCH ×2 (15:41→21:21)
[2020-12-07] MEDS: busPIRone 10 MG TAB PO SCH ×2 (15:42→21:19)
[2020-12-07] MEDS: SUCRALFATE 1 GM TAB PO SCH ×2 (15:42→21:18)
--- NOTE | 2020-12-07 16:11 | Progress Note ---
Assessment and Plan 80-year-old female with acute abdominal pain with repeat findings of pneumatosis intestinalis of the colon of unclear etiology. Patient is afebrile, stable, with no leukocytosis. Have a very low suspicion for acute abdomen requiring surgical intervention at this time as she was taken to the operating room 2 months ago for ex lap for more dramatic presentation and negative findings on exploratory laparotomy. Findings on aortoiliac ultrasound for evaluation of mesenteric vascular showed celiac and SMA patent however with higher velocities. We will follow-up GI recommendations. Resume patient's home medication. No surgical intervention is planned at this time, will continue to follow. Subjective Date of service: 12/07/20 Narrative: No acute events overnight. Patient says that her abdominal pain is improved after pain medicine and then returned. She denies having any nausea vomiting and says that she would like something to eat or drink. Patient was seen by GI who ordered an ultrasound to evaluate mesenteric vasculature. Objective Vital Signs - 12hr 12/07/20 12/07/20 12/07/20 07:47 07:48 08:28 Temperature Pulse Rate Pulse Rate [ 94 H Anterior Bilateral Throughout] Respiratory 20 Rate Respiratory 20 Rate [Anterior Bilateral Throughout] Blood Pressure O2 Sat by Pulse 98 Oximetry 12/07/20 12/07/20 12/07/20 11:09 15:00 15:21 Temperature 97.9 F Pulse Rate 88 Pulse Rate [ 77 Anterior Bilateral Throughout] Respiratory 20 20 22 Rate Respiratory 16 Rate [Anterior Bilateral Throughout] Blood Pressure 138/82 O2 Sat by Pulse 93 94 Oximetry 12/07/20 15:40 Temperature Pulse Rate Pulse Rate [ Anterior Bilateral Throughout] Respiratory 20 Rate Respiratory Rate [Anterior Bilateral Throughout] Blood Pressure O2 Sat by Pulse Oximetry - General physical appearance well developed, no distress, moderate pain - Respiratory normal expansion, normal respiratory effort - Abdomen soft, not rebound, guarding, other (Tender to to palpation infraumbilical on both left and right side.) - Labs 12/06/20 04:45 12/06/20 04:45
[2020-12-07] MEDS: ONDANSETRON 4 MG/2 ML INJ IV PRN (21:20)
[2020-12-08] MEDS: PIPERACIL-TAZO 2.25 GM/50 ML 2.25 GM/50 ML BAG IV SCH ×3 (00:46→05:13)
[2020-12-08] MEDS: IPRATROPIUM/ALBUTEROL SULFATE 3 ML AMPUL.NEB IH SCH ×3 (02:21→08:57)
[2020-12-08] MEDS: HYDROmorphone 1 MG/1 ML INJ IV PRN ×5 (04:49→23:49)
[2020-12-08] MEDS: D5W/0.45% NACL 1,000 ML IV SCH (04:55)
[2020-12-08] MEDS: LEVOTHYROXINE 25 MCG TAB PO SCH (05:14)
--- NOTE | 2020-12-08 07:39 | Progress Note ---
Assessment and Plan - Patient Problems (1) Acute abdominal pain Current Visit: Yes Status: Acute Plan to address problem: At present patient still has persistent abdominal pain at this time appears severe but intermittent. I agree surgical intervention will most likely not be helpful given previous findings after last exploratory lap and especially now with no clear evidence of ischemia. At this point still unsure about etiology. Agree with the possibility of changing patient to p.o. pain management to see if we could at least control patient's pain with p.o medications as well as treating for underlying possibility of infection with Cipro/Flagyl. Any further recommendations were appreciated. -We will also consult dietitian for elemental diet. -At this point will maintain adequate pain control. -Consider supratentorial issues depression anxiety -Supportive care with meals, adequate IV hydration. -Empiric antibiotics (2) Pneumatosis intestinalis Current Visit: Yes Status: Acute Plan to address problem: Ischemia has been ruled out. Agree with no further surgical intervention Elemental diet to see if it helps Treat for underlying possible infection. P.o. meds for pain control. (3) Hypertension Current Visit: No Status: Acute Plan to address problem: At present well controlled somewhat elevated secondary to sympathetic outflow with pain. (4) Anxiety Current Visit: No Status: Chronic Plan to address problem: BuSpar. Will advance antianxiety meds if required. For now continue present management. (5) Hypothyroid Current Visit: No Status: Chronic Plan to address problem: Obtain TSH to rule out hypothyroidism as potential exacerbating factor. Subjective Date of service: 12/08/20 Principal diagnosis: Abdominal pain Interval history: 80-year-old female presented to the emergency room with a 2-day hx of acute abdominal pain. Patient has a history of negative exploratory laparotomy approximately 2 months ago for acute abdominal pain with pneumatosis intestinalis of the right colon with suggestive of perforation on CT scan. At the time there was no bowel resected just lysis of adhesions. She had a prolonged postop course due to pain management however in the office approximately 2 weeks ago she was progressing well tolerating diet with pain better controlled. Patient says that she was doing fine until recently when the abdominal pain started on both her right and her left side. Patient had a CT scan which showed mild pneumatosis intestinalis of the proximal right colon and resolution of the previous right colon findings from 2 months ago. Patient today complains of persistent sharp abdominal pain. No nausea vomiting. States pain does not allow her to feel like she wants to eat. Severe 7 out of 10. No fever no diarrhea no constipation noted. 12/08/2020 patient has shown some clinical improvement today. Especially when she takes pain medications. Still unsure of exact etiology. Appreciate GI note. Objective - Constitutional Vitals: Vital Signs - 12hr 12/07/20 12/07/20 12/07/20 20:00 21:55 22:40 Temperature 98.2 F Pulse Rate 90 Pulse Rate [ 77 Anterior Bilateral Throughout] Respiratory 16 Rate Respiratory 17 Rate [Anterior Bilateral Throughout] Blood Pressure 81/45 Blood Pressure [Right] O2 Sat by Pulse 97 93 Oximetry 12/08/20 12/08/20 03:00 04:00 Temperature 98.5 F Pulse Rate 70 Pulse Rate [ Anterior Bilateral Throughout] Respiratory 20 18 Rate Respiratory Rate [Anterior Bilateral Throughout] Blood Pressure Blood Pressure 101/52 [Right] O2 Sat by Pulse 99 94 Oximetry General appearance: Present: no acute distress, well-nourished - EENT Eyes: PERRL, EOM intact ENT: hearing intact, clear oral mucosa Ears: bilateral: normal - Neck Neck: supple, normal ROM - Respiratory Respiratory effort: normal Respiratory: bilateral: CTA - Breasts Breasts: normal - Cardiovascular Rhythm: regular Heart Sounds: Present: S1 & S2. Absent: gallop, rub Extremities: pulses intact, No edema, normal color, Full ROM - Gastrointestinal General gastrointestinal: Present: soft, non-tender, tender, normal bowel sounds. Absent: hepatomegaly, splenomegaly - Genitourinary Female genitourinary: normal - Integumentary Integumentary: clear, warm, dry - Musculoskeletal Musculoskeletal: 1, strength equal bilaterally - Neurologic Neurologic: moves all extremities - Psychiatric Psychiatric: memory intact, appropriate mood/affect, intact judgment & insight - Labs CBC & Chem 7: 12/06/20 04:45 12/06/20 04:45
--- NOTE | 2020-12-08 09:28 | Gastroenterology Progress Note ---
Assessment and Plan Etiology of the pneumatosis intestinalis remains unclear, US renders vascular/ischemia less likely, rest of differential includes infectious, etc clinically patient is much better on my exam today Recommend transition to oral pain meds and antibiotics (cipro/flagyl) and advance diet and if tolerates can discharge Can consider elemental diet as an outpatient but patient would require nutrition consultation and assistance for that - Patient Problems (1) Acute abdominal pain Current Visit: Yes Status: Acute (2) Pneumatosis intestinalis Current Visit: Yes Status: Acute Subjective Date of service: 12/08/20 Principal diagnosis: Abdominal pain Interval history: Pt reports recently got pain medication and currently not in pain complains she is still having abdominal pain US results noted Objective - Constitutional Vitals: Temp Pulse Resp BP Pulse Ox 98.5 F 70 18 101/52 98 12/08/20 04:00 12/08/20 04:00 12/08/20 04:00 12/08/20 04:00 12/08/20 08:57 General appearance: no acute distress - EENT Eyes: EOM intact - Neck Neck: supple - Respiratory Respiratory effort: normal - Cardiovascular Rhythm: regular - Gastrointestinal General gastrointestinal: Present: soft, non-tender, normal bowel sounds - Labs CBC & Chem 7: 12/06/20 04:45 12/06/20 04:45
[2020-12-08] MEDS: FAMOTIDINE 20 MG/2 ML INJ IV SCH (09:39)
[2020-12-08] MEDS: SUCRALFATE 1 GM TAB PO SCH ×3 (09:40→23:44)
[2020-12-08] MEDS: APIXABAN 2.5 MG TAB PO SCH ×2 (09:40→21:02)
[2020-12-08] MEDS: ONDANSETRON 4 MG/2 ML INJ IV PRN (09:40)
[2020-12-08] MEDS: metroNIDAZOLE 500 MG TAB PO SCH ×2 (15:11→22:00)
[2020-12-08] MEDS: levoFLOXacin 500 MG TAB PO SCH (15:11)
--- NOTE | 2020-12-08 17:46 | Cat Scan Report ---
CT angio abdomen INDICATION / CLINICAL INFORMATION: Pneumatosis R/O ischemic Bowel 100 ML OMNI 350. TECHNIQUE: Axial CT images were obtained after injection of 100 mL's of Omnipaque 350 IV contrast usi ng CTA protocol. 3 plane MIP / 3D reconstructions were produced. All CT scans at this location are pe rformed using CT dose reduction for ALARA by means of automated exposure control. COMPARISON: CT the abdomen and pelvis dated 12/05/2020 FINDINGS: No significant abnormality noted with bilateral lung bases. There is post surgical change to the left diaphragm with focal area of fat necrosis noted superior to the postsurgical change. The aorta demonstrates a normal caliber and course with scattered calcific atherosclerosis. 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 This constitutes approximately 65-70% stenosis. There is redemonstration of pneumatosis noted involving the transverse colon. This appearance is kamran lar, albeit decreased compared to prior CT. The liver, bile ducts, pancreas, spleen, adrenal glands and kidneys are unremarkable. Status post cho lecystectomy. There is scattered degeneration. IMPRESSION: 1. 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 2. Redemonstrated and decreased prominence of transverse colon pneumatosis. Signer Name: Gabriel Lyon DO Signed: 12/08/2020 5:41 PM Workstation Name: [id number]
--- NOTE | 2020-12-08 20:13 | Consultation ---
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 She had a history of an exploratory laparotomy in October for pneumatosis intestinalis. At that time the laparotomy revealed no ischemic bowel and there was no diagnosis as to the cause of her pneumatosis. Postoperatively she initially did well and had resolution of her postoperative pain but represented with a complaint of acute pain on both her left lower and right lower quadrants. She states that the pain is worse with eating although the pain is constant in nature. She denies any nausea, vomiting, or diarrhea. She denies any change in her bowel habits or bright red blood per rectum. She does have a history of an appendectomy and exploratory laparotomy for lysis of adhesions. She also has a history of multiple C- sections. She continues to have a current complaint of pain and again states the pain is worse with eating although her pain is constant. She states there are no relieving factors. There are no foods that make the pain worse. She has no additional complaints at this time. Past History Past Medical History: arthritis (MBP thyroid disease polio), GERD, hypertension Past Surgical History: appendectomy, Other (Exploratory laparotomy, history of bowel resection, history of multiple surgeries for lysis of adhesions, cholecystectomy) Social history: , lives with family Family history: no significant family history Medications and Allergies Allergies Allergy/AdvReac Type Severity Reaction Status Date / Time adhesive Allergy Rash Verified 11/18/15 10:24 aspirin Allergy Bleeding Verified 11/18/15 10:24 codeine Allergy Hives Verified 11/18/15 10:24 latex Allergy Rash Verified 11/18/15 10:24 metoclopramide HCl Allergy Itching Verified 11/18/15 10:24 [From Reglan] morphine Allergy Rash Verified 11/18/15 10:24 Sulfa (Sulfonamide Allergy Rash Verified 11/18/15 10:24 Antibiotics) Home Medications Medication Instructions Recorded Confirmed Last Taken Type Apixaban [Eliquis] 2.5 mg PO Q12HR 15 Days #30 tablet 07/06/18 10/06/20 Unknown Rx Ascorbic Acid [Vitamin C] 500 mg PO BID #60 tablet 07/06/18 10/06/20 Unknown Rx Estrogens, Conjugated [Premarin] 0.3 mg PO QDAY #30 tablet 07/06/18 10/06/20 Unknown Rx Famotidine [Pepcid] 20 mg PO BID #60 tablet 07/06/18 10/06/20 Unknown Rx Ferrous Sulfate [Feosol 325 MG tab] 325 mg PO BID #60 tablet 07/06/18 10/06/20 Unknown Rx Levothyroxine [Synthroid] 25 mcg PO QAM #30 tablet 07/06/18 10/06/20 10/05/20 07:00 Rx Sennosides/Docusate [Senokot S] 2 tab PO QHS #60 tablet 07/06/18 10/06/20 Unknown Rx Sucralfate [Carafate] 1 gm PO BID #60 tablet 07/06/18 10/06/20 Unknown Rx busPIRone [Buspar] 30 mg PO BID #60 tablet 07/06/18 10/06/20 10/05/20 22:00 Rx traZODone [Desyrel] 100 mg PO QHS #30 tablet 07/06/18 10/06/20 10/05/20 22:00 Rx Ondansetron HCl [Zofran] 4 mg PO Q8HR #15 tablet 10/13/20 Unknown Rx oxyCODONE /ACETAMINOPHEN [Percocet 1 tab PO Q4HR PRN #30 tab 10/13/20 Unknown Rx 5/325] Active Meds: Active Medications Acetaminophen (Acetaminophen 325 Mg Tab) 650 mg PO Q4H PRN PRN Reason: Pain MILD(1-3)/Fever >100.5/[place] Albuterol (Albuterol 2.5 Mg/3 Ml Nebu) 2.5 mg IH Q4HRT PRN PRN Reason: Shortness Of Breath Apixaban (Apixaban 2.5 Mg Tab) 2.5 mg PO Q12HR [facility] Last Admin: 12/08/20 09:40 Dose: 2.5 mg Documented by: Buspirone HCl (Buspirone 10 Mg Tab) 30 mg PO BID [facility] Last Admin: 12/07/20 21:19 Dose: 30 mg Documented by: Famotidine (Famotidine 10 Mg Tab) 10 mg PO BID [facility] Hydralazine HCl (Hydralazine 20 Mg/1 Ml Inj) 10 mg IV Q6H PRN PRN Reason: Blood Pressure Last Admin: 12/07/20 01:46 Dose: 10 mg Documented by: Hydromorphone HCl (Hydromorphone 1 Mg/1 Ml Inj) 0.5 mg IV Q3H PRN PRN Reason: Pain , Severe (7-10) Last Admin: 12/08/20 15:04 Dose: 0.5 mg Documented by: Dextrose/Sodium Chloride (D5/0.45ns) 1,000 mls @ 100 mls/hr IV DIRECT [facility] Last Infusion: 12/08/20 15:54 Dose: Infused Documented by: Levofloxacin (Levofloxacin 500 Mg Tab) 500 mg PO Q24HR [facility]; Protocol Stop: 12/14/20 11:59 Last Admin: 12/08/20 15:11 Dose: 500 mg Documented by: Levothyroxine Sodium (Levothyroxine 25 Mcg Tab) 25 mcg PO QAM@0600 [facility] Last Admin: 12/08/20 05:14 Dose: 25 mcg Documented by: Metronidazole (Metronidazole 500 Mg Tab) 500 mg PO Q8HR [facility]; Protocol Stop: 12/14/20 23:59 Last Admin: 12/08/20 15:11 Dose: 500 mg Documented by: Ondansetron HCl (Ondansetron 4 Mg/2 Ml Inj) 4 mg IV Q8H PRN PRN Reason: Nausea And Vomiting Last Admin: 12/08/20 09:40 Dose: 4 mg Documented by: Sodium Chloride (Sodium Chloride 0.9% 10 Ml Flush Syringe) 10 ml IV BID [facility] Last Admin: 12/08/20 09:40 Dose: 10 ml Documented by: Sodium Chloride (Sodium Chloride 0.9% 10 Ml Flush Syringe) 10 ml IV PRN PRN PRN Reason: LINE FLUSH Sucralfate (Sucralfate 1 Gm Tab) 1 gm PO BID [facility] Last Admin: 12/08/20 09:40 Dose: 1 gm Documented by: Tramadol HCl (Tramadol 50 Mg Tab) 100 mg PO Q6H PRN PRN Reason: Pain, Moderate (4-6) Trazodone HCl (Trazodone 100 Mg Tab) 100 mg PO QHS [facility] Last Admin: 12/07/20 21:50 Dose: 100 mg Documented by: Review of Systems All systems: negative Exam - Constitutional Vitals: Temp Pulse Resp BP Pulse Ox 98.1 F 100 H 18 133/59 96 12/08/20 17:24 12/08/20 17:24 12/08/20 17:24 12/08/20 17:24 12/08/20 17:24 General appearance: Present: no acute distress - Respiratory Respiratory effort: normal - Extremities Extremities: pulses intact (Palpable dorsalis pedis arteries bilaterally) - Abdominal General gastrointestinal: Present: soft, tender (Bilateral lower quadrants without evidence of acute abdomen), other (Well-healed midline celiotomy incisi on) - Rectal Rectal Exam: deferred Results - Labs CBC & Chem 7: 12/06/20 04:45 12/06/20 04:45 - Imaging and Cardiology CT scan - abdomen: image reviewed (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 She had an aortic duplex including a duplex of her v isceral vessels. There was an elevated velocity in the superior mesenteric artery however I believe this was secondary to an acute angle of the takeoff of the vessel. A CTA of the abdomen and pelvis demonstrated that the superior mesenteric artery as well as the inferior mesenteric artery were patent without evidence of flow-limiting stenosis. The patient's pneumatosis is not secondary to vascular compromise. There is no need for vascular surgical intervention.
[2020-12-08] MEDS: busPIRone 10 MG TAB PO SCH ×2 (21:02→22:00)
[2020-12-08] MEDS: traMADol 50 MG TAB PO PRN (21:02)
[2020-12-08] MEDS: hydrALAZINE 20 MG/1 ML INJ IV PRN (21:24)
[2020-12-08] MEDS: FAMOTIDINE 10 MG TAB PO SCH (22:00)
[2020-12-08] MEDS: traZODone 100 MG TAB PO SCH (22:00)
[2020-12-09] MEDS: LEVOTHYROXINE 25 MCG TAB PO SCH (06:12)
[2020-12-09] MEDS: traMADol 50 MG TAB PO PRN ×3 (06:12→21:34)
[2020-12-09] MEDS: metroNIDAZOLE 500 MG TAB PO SCH ×3 (06:13→21:35)
[2020-12-09] MEDS: HYDROmorphone 1 MG/1 ML INJ IV PRN ×2 (07:07→09:17)
[2020-12-09] MEDS: busPIRone 10 MG TAB PO SCH ×3 (07:28→21:37)
--- NOTE | 2020-12-09 08:12 | Gastroenterology Progress Note ---
Assessment and Plan Etiology of the pneumatosis intestinalis remains unclear, appreciate consult which demonstrates not due to vascular etiology Patient still with severe abdominal pain We will trial dicyclomine - Patient Problems (1) Acute abdominal pain Current Visit: Yes Status: Acute (2) Pneumatosis intestinalis Current Visit: Yes Status: Acute Subjective Date of service: 12/09/20 Principal diagnosis: Abdominal pain Interval history: complains she is still having abdominal pain, severe, bilateral flanks, sharp, better with pain meds worse with palpation, constant, not improving pt crying Objective - Constitutional Vitals: Temp Pulse Resp BP Pulse Ox 97.8 F 77 20 134/78 98 12/09/20 05:00 12/09/20 05:00 12/09/20 07:07 12/09/20 05:00 12/09/20 03:00 General appearance: other (crying) - EENT Eyes: EOM intact ENT: other (decreased hearing) - Neck Neck: supple - Respiratory Respiratory effort: normal - Gastrointestinal General gastrointestinal: Present: soft, tender - Labs CBC & Chem 7: 12/06/20 04:45 12/09/20 07:35
[2020-12-09 09:02] LABS: Blood Urea Nitrogen 2 mg/dL (7-17); Hemolysis Index 9
[2020-12-09 09:05] LABS: BUN/Creatinine Ratio 5
[2020-12-09] MEDS: APIXABAN 2.5 MG TAB PO SCH ×2 (09:06→21:36)
[2020-12-09] MEDS: SUCRALFATE 1 GM TAB PO SCH ×2 (09:06→21:34)
[2020-12-09] MEDS: FAMOTIDINE 10 MG TAB PO SCH ×2 (09:06→21:35)
[2020-12-09] MEDS: levoFLOXacin 500 MG TAB PO SCH (09:06)
[2020-12-09] MEDS: ONDANSETRON 4 MG/2 ML INJ IV PRN (09:17)
--- NOTE | 2020-12-09 09:19 | Progress Note ---
Assessment and Plan Assessment and plan: (1) Acute abdominal pain At present patient does not have abdominal pain at this time and actually is complaining more of bilateral pelvic pain. Surgical intervention will most l ikely not be helpful given previous findings after last exploratory lap and especially now with no clear evidence of ischemia. At this point still unsure about etiology. (2) Pneumatosis intestinalis CT scan of the abdomen and pelvis showed there appears to be minimal pne umatosis in the proximal transverse colon. No free air is identified previously serial cecal pneumatosis ptosis has resolved. No a small bowel obstruction. Appendix is not visualized. Numerous additional incidental findings.Nothing by mouth. IV fluid D5 half-normal saline at the rate of 100 cc/h. Pepcid 20 mg IV every 12 hours. Zofran 4 mg IV every 6 hours. Pain management. Consult surger y Dr. Miller for evaluation. Zosyn 4.5 g IV every 8 hours. Recheck CBC BMP in the morning (3) pelvic pain Check pelvic plain films. (4) hypertension Hydralazine 10 mg IV every 6 hours as needed. We will monitor the blood pressure closely (4) GERD (gastroesophageal reflux disease) Pepcid 20 mg IV every 12 hours. Zofran 4 million IV every 6 hours as needed. We will monitor the patient closely (5) Hypothyroid Levothyroxine 25 mcg p.o. every morning. We will monitor the patient closely (6) DVT prophylaxis History Interval history: No new issues overnight. Hospitalist Physical - Constitutional Vitals: Temp Pulse Resp BP Pulse Ox 97.8 F 77 20 134/78 98 12/09/20 05:00 12/09/20 05:00 12/09/20 07:07 12/09/20 05:00 12/09/20 03:00 General appearance: Present: no acute distress - EENT Eyes: Present: PERRL, EOM intact ENT: hearing intact, clear oral mucosa, dentition normal - Neck Neck: Present: supple, normal ROM - Respiratory Respiratory effort: normal Respiratory: bilateral: CTA - Cardiovascular Rhythm: regular Heart Sounds: Present: S1 & S2. Absent: gallop, rub - Extremities Extremities: no ischemia, No edema, Full ROM - Abdominal General gastrointestinal: soft, non-tender, non-distended, normal bowel sounds - Integumentary Integumentary: Present: clear, warm, dry - Neurologic Neurologic: CNII-XII intact, moves all extremities Results - Labs CBC & Chem 7: 12/06/20 04:45 12/09/20 07:35 Labs: Laboratory Last Values WBC 5.1 K/mm3 (4.5-11.0) 12/06/20 04:45 RBC 3.66 M/mm3 (3.65-5.03) 12/06/20 04:45 Hgb 12.5 gm/dl (10.1-14.3) 12/06/20 04:45 Hct 35.2 % (30.3-42.9) D 12/06/20 04:45 MCV 96 fl (79-97) 12/06/20 04:45 MCH 34 pg (28-32) H 12/06/20 04:45 MCHC 36 % (30-34) H 12/06/20 04:45 RDW 13.8 % (13.2-15.2) 12/06/20 04:45 Plt Count 185 K/mm3 (140-440) 12/06/20 04:45 Lymph % (Auto) 29.1 % (13.4-35.0) 12/06/20 04:45 Towns % (Auto) 6.7 % (0.0-7.3) 12/06/20 04:45 Eos % (Auto) 0.0 % (0.0-4.3) 12/06/20 04:45 Baso % (Auto) 0.1 % (0.0-1.8) 12/06/20 04:45 Lymph # (Auto) 1.5 K/mm3 (1.2-5.4) 12/06/20 04:45 Towns # (Auto) 0.3 K/mm3 (0.0-0.8) 12/06/20 04:45 Eos # (Auto) 0.0 K/mm3 (0.0-0.4) 12/06/20 04:45 Baso # (Auto) 0.0 K/mm3 (0.0-0.1) 12/06/20 04:45 Seg Neutrophils % 64.1 % (40.0-70.0) 12/06/20 04:45 Seg Neutrophils # 3.2 K/mm3 (1.8-7.7) 12/06/20 04:45 Sodium 143 mmol/L (137-145) 12/09/20 07:35 Potassium 3.3 mmol/L (3.6-5.0) L 12/09/20 07:35 Chloride 103.0 mmol/L (98-107) 12/09/20 07:35 Carbon Dioxide 31 mmol/L (22-30) H 12/09/20 07:35 Anion Gap 12 mmol/L 12/09/20 07:35 BUN 2 mg/dL (7-17) L 12/09/20 07:35 Creatinine 0.4 mg/dL (0.6-1.2) L 12/09/20 07:35 Estimated GFR > 60 ml/min 12/09/20 07:35 BUN/Creatinine Ratio 5 % 12/09/20 07:35 Glucose 92 mg/dL (65-100) 12/09/20 07:35 Lactic Acid 1.20 mmol/L (0.7-2.0) 12/06/20 16:20 Calcium 9.0 mg/dL (8.4-10.2) 12/09/20 07:35 Total Bilirubin 0.40 mg/dL (0.1-1.2) 12/05/20 16:47 AST 20 units/L (5-40) 12/05/20 16:47 ALT 14 units/L (7-56) 12/05/20 16:47 Alkaline Phosphatase 76 units/L (35-129) 12/05/20 16:47 Total Protein 7.2 g/dL (6.3-8.2) 12/05/20 16:47 Albumin 4.6 g/dL (3.9-5) 12/05/20 16:47 Albumin/Globulin Ratio 1.8 % 12/05/20 16:47 Lipase 13 units/L (13-60) 12/05/20 16:47 Urine Color Yellow (Yellow) 12/05/20 19:01 Urine Turbidity Clear (Clear) 12/05/20 19:01 Urine pH 5.0 (5.0-7.0) 12/05/20 19:01 Ur Specific [place] 1.010 (1.003-1.030) 12/05/20 19:01 Urine Protein <15 mg/dl mg/dL (Negative) 12/05/20 19:01 Urine Glucose (UA) Neg mg/dL (Negative) 12/05/20 19:01 Urine Ketones Neg mg/dL (Negative) 12/05/20 19:01 Urine Blood Neg (Negative) 12/05/20 19:01 Urine Nitrite Neg (Negative) 12/05/20 19:01 Urine Bilirubin Neg (Negative) 12/05/20 19:01 Urine Urobilinogen < 2.0 mg/dL (<2.0) 12/05/20 19:01 Ur Leukocyte Esterase Neg (Negative) 12/05/20 19:01 Urine WBC (Auto) < 1.0 /HPF (0.0-6.0) 12/05/20 19:01 Urine RBC (Auto) 1.0 /HPF (0.0-6.0) 12/05/20 19:01 U Epithel Cells (Auto) < 1.0 /HPF (0-13.0) 12/05/20 19:01 Urine Bacteria (Auto) 1+ /HPF (Negative) 12/05/20 19:01 Microbiology: Microbiology 12/05/20 21:27 Peripheral/Venous Blood Culture - Preliminary NO GROWTH AFTER 72 HOURS 12/05/20 21:27 Peripheral/Venous Blood Culture - Preliminary NO GROWTH AFTER 72 HOURS Lund/IV: Voiding Method Toilet Active Medications - Current Medications Current Medications: Generic Name Dose Route Start Last Admin Trade Name Freq PRN Reason Stop Dose Admin Acetaminophen 650 mg 12/05/20 22:12 Acetaminophen 325 Mg Tab PO Q4H PRN Pain MILD(1-3)/Fever >100.5/SANTAMARIA Albuterol 2.5 mg 12/05/20 22:12 Albuterol 2.5 Mg/3 Ml Nebu IH Q4HRT PRN Shortness Of Breath Apixaban 2.5 mg 12/06/20 10:00 12/09/20 09:06 Apixaban 2.5 Mg Tab PO 2.5 mg Q12HR AMANDA Administration Buspirone HCl 30 mg 12/06/20 10:00 12/09/20 09:10 Buspirone 10 Mg Tab PO 30 mg BID AMANDA Administration Dicyclomine HCl 10 mg 12/09/20 10:00 Dicyclomine 10 Mg Cap PO QID AMANDA Famotidine 10 mg 12/08/20 22:00 12/09/20 09:06 Famotidine 10 Mg Tab PO 10 mg BID AMANDA Administration Hydralazine HCl 10 mg 12/05/20 22:24 12/08/20 21:24 Hydralazine 20 Mg/1 Ml Inj IV 10 mg Q6H PRN Administration Blood Pressure Hydromorphone HCl 0.5 mg 12/05/20 22:12 12/09/20 07:07 Hydromorphone 1 Mg/1 Ml Inj IV 0.5 mg Q3H PRN Administration Pain , Severe (7-10) Dextrose/Sodium Chloride 1,000 mls @ 100 mls/hr 12/05/20 23:00 12/08/20 15:54 D5/0.45ns IV Infused DIRECT AMANDA Infusion Levofloxacin 500 mg 12/08/20 12:00 12/09/20 09:06 Levofloxacin 500 Mg Tab PO 12/14/20 11:59 500 mg Q24HR AMANDA Administration Protocol Levothyroxine Sodium 25 mcg 12/06/20 06:00 12/09/20 06:12 Levothyroxine 25 Mcg Tab PO 25 mcg QAM@0600 AMANDA Administration Metronidazole 500 mg 12/08/20 14:00 12/09/20 06:13 Metronidazole 500 Mg Tab PO 12/14/20 23:59 500 mg Q8HR AMANDA Administration Protocol Ondansetron HCl 4 mg 12/05/20 22:12 12/08/20 09:40 Ondansetron 4 Mg/2 Ml Inj IV 4 mg Q8H PRN Administration Nausea And Vomiting Sodium Chloride 10 ml 12/06/20 10:00 12/09/20 09:07 Sodium Chloride 0.9% 10 Ml Flush Syringe IV 10 ml BID AMANDA Administration Sodium Chloride 10 ml 12/05/20 22:12 Sodium Chloride 0.9% 10 Ml Flush Syringe IV PRN PRN LINE FLUSH Sucralfate 1 gm 12/06/20 10:00 12/09/20 09:06 Sucralfate 1 Gm Tab PO 1 gm BID AMANDA Administration Tramadol HCl 100 mg 12/08/20 11:48 12/09/20 06:12 Tramadol 50 Mg Tab PO 100 mg Q6H PRN Administration Pain, Moderate (4-6) Trazodone HCl 100 mg 12/05/20 22:00 12/08/20 22:00 Trazodone 100 Mg Tab PO 100 mg QHS AMANDA Administration Nutrition/Malnutrition Assess - Dietary Evaluation Nutrition/Malnutrition Findings: Nutrition Notes Start: 12/07/20 11: 45 Freq: Status: Active Protocol: Document 12/07/20 11:45 WING (Rec: 12/07/20 11:50 [email or web address] [id number]) Nutrition Notes Need for Assessment generated from: Low BMI Initial or Follow up Assessment Current Diagnosis Hypertension Other Pertinent Diagnosis Abdominal pain, pneumatosis intestinalis, GERD Current Diet NPO Labs/Tests Reviewed Pertinent Medications D5 1/2NS at 100ml/hr, [place] Height 5 ft 4 in Weight 48.081 kg [place] Body Weight (kg) 54.54 BMI 18.1 Weight Status Underweight Subjective/Other Information Pt screened for low BMI. No surgical intervention planned at this time. Burn Absent Trauma Absent Minimum of two criteria No #1 Nutrition Diagnosis Altered GI function Etiology hx of pneumatosis intestinalis As Evidenced by Signs and Symptoms pt NPO, c/o abdominal pain Is patient on ventilator? No Is Patient Ambulatory and/or Out of Bed No REE-([facility]-confined to bed) 1135.980 Kcal/Kg value to use for calculation 35 Approximate Energy Requirements Using 1683 kcal/Kg Calculation Used for Recommendations Kcal/kg Additional Notes Pro needs 1.2-1.5g/k-72g/ day Fluid needs 1ml/kcal Nutrition Intervention Change Diet Order: Advance diet when medically feasible Goal #1 Diet advancement to meet nutrient needs Goal #2 Wt maintenance and/or gain Anticipated Discharge Needs: Unable to identify at this time Follow-Up By: 12/09/20 Additional Comments F/U: diet advancement, POC
[2020-12-09] MEDS: DICYCLOMINE 10 MG CAP PO SCH ×3 (14:52→21:36)
[2020-12-09] MEDS: ACETAMINOPHEN 325 MG TAB PO PRN (20:25)
[2020-12-09] MEDS: traZODone 100 MG TAB PO SCH (21:35)
[2020-12-10] MEDS: traMADol 50 MG TAB PO PRN ×2 (05:37→20:22)
[2020-12-10] MEDS: metroNIDAZOLE 500 MG TAB PO SCH ×3 (05:38→21:07)
[2020-12-10] MEDS: LEVOTHYROXINE 25 MCG TAB PO SCH (05:38)
--- NOTE | 2020-12-10 06:52 | XRay Report ---
BILATERAL HIPS 3 VIEWS INDICATION / CLINICAL INFORMATION: Bilateral hip and pelvic pain. COMPARISON: 08/29/18. FINDINGS: BONES / JOINT(S): An intramedullary lin/nail transfixes the proximal femur. The hip and SI joint spac es are well-maintained. There is mild/moderate lower lumbar spondylosis. I see no evidence of acute f racture, subluxation or destructive lesion. SOFT TISSUES: No significant abnormality. ADDITIONAL FINDINGS: There is contrast in the urinary bladder. IMPRESSION: No acute abnormality or significant change. Signer Name: Jeffry Woo MD Signed: 12/09/2020 10:27 AM Workstation Name: [id number]
[2020-12-10] MEDS: ACETAMINOPHEN 325 MG TAB PO PRN (08:00)
--- NOTE | 2020-12-10 08:26 | Gastroenterology Progress Note ---
Assessment and Plan Etiology of the pneumatosis intestinalis remains unclear, not due to vascular etiology; regardless it is improving on imaging Patient still with severe abdominal pain despite this, etiology unknown S/p CCY, no source on repeat imaging, not improving with dicyclomine; on opiates so gastric emptying scan not useful but gastroparesis in Ddx Remainder of Ddx to include PUD, IBD, ischemic colitis, functional, etc Given recent repeat pneumatosis intestinalis I do not recommend EGD/colon at this time. However, if her symptoms not improving over the weekend can consider EGD/colon next week - Patient Problems (1) Acute abdominal pain Current Visit: Yes Status: Acute (2) Pneumatosis intestinalis Current Visit: Yes Status: Acute Subjective Date of service: 12/10/20 Principal diagnosis: Abdominal pain Interval history: complains she is still having abdominal pain, severe, bilateral flanks, sharp, better with pain meds worse with palpation, constant, not improving Objective - Constitutional Vitals: Temp Pulse Resp BP Pulse Ox 98.8 F 78 18 135/71 94 12/10/20 04:57 12/10/20 04:57 12/10/20 04:57 12/10/20 04:57 12/10/20 04:57 General appearance: no acute distress - EENT Eyes: EOM intact - Neck Neck: supple - Respiratory Respiratory effort: normal - Cardiovascular Rhythm: regular - Gastrointestinal General gastrointestinal: Present: soft, tender - Labs CBC & Chem 7: 12/06/20 04:45 12/09/20 07:35 Labs: Laboratory Results - last 24 hr 12/09/20 07:35 Sodium 143 Potassium 3.3 L Chloride 103.0 Carbon Dioxide 31 H Anion Gap 12 BUN 2 L Creatinine 0.4 L Estimated GFR > 60 BUN/Creatinine Ratio 5 Glucose 92 Calcium 9.0
[2020-12-10] MEDS: HYDROmorphone 1 MG/1 ML INJ IV PRN ×3 (08:33→21:08)
[2020-12-10] MEDS: DICYCLOMINE 10 MG CAP PO SCH ×4 (09:21→21:05)
[2020-12-10] MEDS: levoFLOXacin 500 MG TAB PO SCH (09:21)
[2020-12-10] MEDS: APIXABAN 2.5 MG TAB PO SCH ×2 (09:22→21:05)
[2020-12-10] MEDS: busPIRone 10 MG TAB PO SCH ×2 (09:22→21:05)
[2020-12-10] MEDS: SUCRALFATE 1 GM TAB PO SCH ×2 (09:22→21:05)
--- NOTE | 2020-12-10 09:56 | Progress Note ---
Assessment and Plan Assessment and plan: (1) Acute abdominal pain At present patient does not have abdominal pain at this time and actually is complaining more of bilateral pelvic pain. Surgical intervention will most l ikely not be helpful given previous findings after last exploratory lap and especially now with no clear evidence of ischemia. At this point still unsure about etiology. (2) Pneumatosis intestinalis CT scan of the abdomen and pelvis showed there appears to be minimal pne umatosis in the proximal transverse colon. No free air is identified previously serial cecal pneumatosis ptosis has resolved. No a small bowel obstruction. Appendix is not visualized. Numerous additional incidental findings.Nothing by mouth. IV fluid D5 half-normal saline at the rate of 100 cc/h. Pepcid 20 mg IV every 12 hours. Zofran 4 mg IV every 6 hours. Pain management. Consult hudsonr rolanda Miller for evaluation. Zosyn 4.5 g IV every 8 hours. Recheck CBC BMP in the morning (3) pelvic pain Check pelvic plain films. (4) hypertension Hydralazine 10 mg IV every 6 hours as needed. We will monitor the blood pressure closely (4) GERD (gastroesophageal reflux disease) Pepcid 20 mg IV every 12 hours. Zofran 4 million IV every 6 hours as needed. We will monitor the patient closely (5) Hypothyroid Levothyroxine 25 mcg p.o. every morning. We will monitor the patient closely (6) DVT prophylaxis 12/10/2020. Patient still complains of abdominal pain. Etiology of the pneumatosis intestinalis remains unclear, not due to vascular etiology but impr oving on imaging. Gastroenterology suspects possible gastroparesis. Other possibilities include PUD, IBD, ischemic colitis, functional, etc. GI to consider endoscopy next week. Continue to monitor for now. Surgery signed off History Interval history: No new issues overnight. Hospitalist Physical - Constitutional Vitals: Temp Pulse Resp BP Pulse Ox 98.8 F 78 18 135/71 94 12/10/20 04:57 12/10/20 04:57 12/10/20 04:57 12/10/20 04:57 12/10/20 04:57 General appearance: Present: no acute distress - EENT Eyes: Present: PERRL, EOM intact ENT: hearing intact, clear oral mucosa, dentition normal - Neck Neck: Present: supple, normal ROM - Respiratory Respiratory effort: normal Respiratory: bilateral: CTA - Cardiovascular Rhythm: regular Heart Sounds: Present: S1 & S2. Absent: gallop, rub - Extremities Extremities: no ischemia, No edema, Full ROM - Abdominal General gastrointestinal: soft, non-tender, non-distended, normal bowel sounds - Integumentary Integumentary: Present: clear, warm, dry - Neurologic Neurologic: CNII-XII intact, moves all extremities Results - Labs CBC & Chem 7: 12/06/20 04:45 12/09/20 07:35 Labs: Laboratory Last Values WBC 5.1 K/mm3 (4.5-11.0) 12/06/20 04:45 RBC 3.66 M/mm3 (3.65-5.03) 12/06/20 04:45 Hgb 12.5 gm/dl (10.1-14.3) 12/06/20 04:45 Hct 35.2 % (30.3-42.9) D 12/06/20 04:45 MCV 96 fl (79-97) 12/06/20 04:45 MCH 34 pg (28-32) H 12/06/20 04:45 MCHC 36 % (30-34) H 12/06/20 04:45 RDW 13.8 % (13.2-15.2) 12/06/20 04:45 Plt Count 185 K/mm3 (140-440) 12/06/20 04:45 Lymph % (Auto) 29.1 % (13.4-35.0) 12/06/20 04:45 Page % (Auto) 6.7 % (0.0-7.3) 12/06/20 04:45 Eos % (Auto) 0.0 % (0.0-4.3) 12/06/20 04:45 Baso % (Auto) 0.1 % (0.0-1.8) 12/06/20 04:45 Lymph # (Auto) 1.5 K/mm3 (1.2-5.4) 12/06/20 04:45 Page # (Auto) 0.3 K/mm3 (0.0-0.8) 12/06/20 04:45 Eos # (Auto) 0.0 K/mm3 (0.0-0.4) 12/06/20 04:45 Baso # (Auto) 0.0 K/mm3 (0.0-0.1) 12/06/20 04:45 Seg Neutrophils % 64.1 % (40.0-70.0) 12/06/20 04:45 Seg Neutrophils # 3.2 K/mm3 (1.8-7.7) 12/06/20 04:45 Sodium 143 mmol/L (137-145) 12/09/20 07:35 Potassium 3.3 mmol/L (3.6-5.0) L 12/09/20 07:35 Chloride 103.0 mmol/L (98-107) 12/09/20 07:35 Carbon Dioxide 31 mmol/L (22-30) H 12/09/20 07:35 Anion Gap 12 mmol/L 12/09/20 07:35 BUN 2 mg/dL (7-17) L 12/09/20 07:35 Creatinine 0.4 mg/dL (0.6-1.2) L 12/09/20 07:35 Estimated GFR > 60 ml/min 12/09/20 07:35 BUN/Creatinine Ratio 5 % 12/09/20 07:35 Glucose 92 mg/dL (65-100) 12/09/20 07:35 Lactic Acid 1.20 mmol/L (0.7-2.0) 12/06/20 16:20 Calcium 9.0 mg/dL (8.4-10.2) 12/09/20 07:35 Total Bilirubin 0.40 mg/dL (0.1-1.2) 12/05/20 16:47 AST 20 units/L (5-40) 12/05/20 16:47 ALT 14 units/L (7-56) 12/05/20 16:47 Alkaline Phosphatase 76 units/L (35-129) 12/05/20 16:47 Total Protein 7.2 g/dL (6.3-8.2) 12/05/20 16:47 Albumin 4.6 g/dL (3.9-5) 12/05/20 16:47 Albumin/Globulin Ratio 1.8 % 12/05/20 16:47 Lipase 13 units/L (13-60) 12/05/20 16:47 Urine Color Yellow (Yellow) 12/05/20 19:01 Urine Turbidity Clear (Clear) 12/05/20 19:01 Urine pH 5.0 (5.0-7.0) 12/05/20 19:01 Ur Specific [place] 1.010 (1.003-1.030) 12/05/20 19:01 Urine Protein <15 mg/dl mg/dL (Negative) 12/05/20 19:01 Urine Glucose (UA) Neg mg/dL (Negative) 12/05/20 19:01 Urine Ketones Neg mg/dL (Negative) 12/05/20 19:01 Urine Blood Neg (Negative) 12/05/20 19:01 Urine Nitrite Neg (Negative) 12/05/20 19:01 Urine Bilirubin Neg (Negative) 12/05/20 19:01 Urine Urobilinogen < 2.0 mg/dL (<2.0) 12/05/20 19:01 Ur Leukocyte Esterase Neg (Negative) 12/05/20 19:01 Urine WBC (Auto) < 1.0 /HPF (0.0-6.0) 12/05/20 19:01 Urine RBC (Auto) 1.0 /HPF (0.0-6.0) 12/05/20 19:01 U Epithel Cells (Auto) < 1.0 /HPF (0-13.0) 12/05/20 19:01 Urine Bacteria (Auto) 1+ /HPF (Negative) 12/05/20 19:01 Microbiology: Microbiology 12/05/20 21:27 Peripheral/Venous Blood Culture - Preliminary NO GROWTH AFTER 4 DAYS 12/05/20 21:27 Peripheral/Venous Blood Culture - Preliminary NO GROWTH AFTER 4 DAYS Lund/IV: Voiding Method Toilet Active Medications - Current Medications Current Medications: Generic Name Dose Route Start Last Admin Trade Name Freq PRN Reason Stop Dose Admin Acetaminophen 650 mg 12/05/20 22:12 12/10/20 08:00 Acetaminophen 325 Mg Tab PO 650 mg Q4H PRN Administration Pain MILD(1-3)/Fever >100.5/SANTAMARIA Albuterol 2.5 mg 12/05/20 22:12 Albuterol 2.5 Mg/3 Ml Nebu IH Q4HRT PRN Shortness Of Breath Apixaban 2.5 mg 12/06/20 10:00 12/10/20 09:22 Apixaban 2.5 Mg Tab PO 2.5 mg Q12HR AMANDA Administration Buspirone HCl 30 mg 12/06/20 10:00 12/10/20 09:22 Buspirone 10 Mg Tab PO 30 mg BID AMANDA Administration Dicyclomine HCl 10 mg 12/09/20 10:00 12/10/20 09:21 Dicyclomine 10 Mg Cap PO 10 mg QID AMANDA Administration Famotidine 10 mg 12/08/20 22:00 12/09/20 21:35 Famotidine 10 Mg Tab PO 10 mg BID AMANDA Administration Hydralazine HCl 10 mg 12/05/20 22:24 12/08/20 21:24 Hydralazine 20 Mg/1 Ml Inj IV 10 mg Q6H PRN Administration Blood Pressure Hydromorphone HCl 0.5 mg 12/05/20 22:12 12/10/20 08:33 Hydromorphone 1 Mg/1 Ml Inj IV 0.5 mg Q3H PRN Administration Pain , Severe (7-10) Dextrose/Sodium Chloride 1,000 mls @ 100 mls/hr 12/05/20 23:00 12/08/20 15:54 D5/0.45ns IV Infused DIRECT AMANDA Infusion Levofloxacin 500 mg 12/08/20 12:00 12/10/20 09:21 Levofloxacin 500 Mg Tab PO 12/14/20 11:59 500 mg Q24HR AMANDA Administration Protocol Levothyroxine Sodium 25 mcg 12/06/20 06:00 12/10/20 05:38 Levothyroxine 25 Mcg Tab PO 25 mcg QAM@0600 AMANDA Administration Metronidazole 500 mg 12/08/20 14:00 12/10/20 05:38 Metronidazole 500 Mg Tab PO 12/14/20 23:59 500 mg Q8HR AMANDA Administration Protocol Ondansetron HCl 4 mg 12/05/20 22:12 12/09/20 09:17 Ondansetron 4 Mg/2 Ml Inj IV 4 mg Q8H PRN Administration Nausea And Vomiting Sodium Chloride 10 ml 12/06/20 10:00 12/10/20 09:25 Sodium Chloride 0.9% 10 Ml Flush Syringe IV 10 ml BID AMANDA Administration Sodium Chloride 10 ml 12/05/20 22:12 Sodium Chloride 0.9% 10 Ml Flush Syringe IV PRN PRN LINE FLUSH Sucralfate 1 gm 12/06/20 10:00 12/10/20 09:22 Sucralfate 1 Gm Tab PO 1 gm BID AMANDA Administration Tramadol HCl 100 mg 12/08/20 11:48 12/10/20 05:37 Tramadol 50 Mg Tab PO 100 mg Q6H PRN Administration Pain, Moderate (4-6) Trazodone HCl 100 mg 12/05/20 22:00 12/09/20 21:35 Trazodone 100 Mg Tab PO 100 mg QHS AMANDA Administration Nutrition/Malnutrition Assess - Dietary Evaluation Nutrition/Malnutrition Findings: Nutrition Notes Start: 12/07/20 11:45 Freq: Status: Active Protocol: Document 12/09/20 12:09 (Rec: 12/09/20 12:13 [id number]) Nutrition Notes Initial or Follow up Reassessment Current Diagnosis Hypertension Other Pertinent Diagnosis Abdominal pain, pneumatosis intestinalis, GERD Current Diet Clear liquid Labs/Tests K 3.3 Pertinent Medications Zofran Height 5 ft 4 in Weight 48.081 kg [place] Body Weight (kg) 54.54 BMI 18.1 Weight Status Underweight Subjective/Other Information Pt reports drinking most of her clear liquids. Open to ONS . Percent of energy/protein needs met: 35%/28% Burn Absent Trauma Absent Current % PO Good (75-100%) Minimum of two criteria No #2 Nutrition Diagnosis Inadequate energy intake Etiology hx of pneumatosis intestinalis As Evidenced by Signs and Symptoms pt unable to meet needs on clear liquid diet #1 Nutrition Diagnosis Altered GI function As Evidenced by Signs and Symptoms pt diet advanced to clear liquid Diagnosis Progress(for reassessment Improved documentation) Is patient on ventilator? No Is Patient Ambulatory and/or Out of Bed No REE-([facility]-confined to bed) 1135.980 Kcal/Kg value to use for calculation 35 Approximate Energy Requirements Using 1683 kcal/Kg Calculation Used for Recommendations Kcal/kg Additional Notes Pro needs 1.2-1.5g/k-72g/ day Fluid needs 1ml/kcal Nutrition Intervention Change Diet Order: Advance diet when medically feasible Add Supplement/Snack (indicate name/kcal Ensure Clear TID /protein ) Provides kCal: 720 Provides Protein (gm) 24 Goal #1 Diet advancement to meet nutrient needs Goal #2 Wt maintenance and/or gain Anticipated Discharge Needs: Unable to identify at this time Follow-Up By: 12/13/20 Additional Comments F/U: diet advancement, POC
[2020-12-10] MEDS: FAMOTIDINE 10 MG TAB PO SCH ×2 (10:00→21:06)
[2020-12-10] MEDS: D5W/0.45% NACL 1,000 ML IV SCH ×2 (12:45→21:04)
[2020-12-10] MEDS: traZODone 100 MG TAB PO SCH (21:05)
[2020-12-11] MEDS: LEVOTHYROXINE 25 MCG TAB PO SCH (05:45)
[2020-12-11] MEDS: metroNIDAZOLE 500 MG TAB PO SCH ×3 (05:45→22:16)
[2020-12-11] MEDS: HYDROmorphone 1 MG/1 ML INJ IV PRN (06:18)
--- NOTE | 2020-12-11 08:02 | Progress Note ---
Assessment and Plan Assessment and plan: (1) Acute abdominal pain At present patient does not have abdominal pain at this time and actually is complaining more of bilateral pelvic pain. Surgical intervention will most l ikely not be helpful given previous findings after last exploratory lap and especially now with no clear evidence of ischemia. At this point still unsure about etiology. (2) Pneumatosis intestinalis CT scan of the abdomen and pelvis showed there appears to be minimal pne umatosis in the proximal transverse colon. No free air is identified previously serial cecal pneumatosis ptosis has resolved. No a small bowel obstruction. Appendix is not visualized. Numerous additional incidental findings.Nothing by mouth. IV fluid D5 half-normal saline at the rate of 100 cc/h. Pepcid 20 mg IV every 12 hours. Zofran 4 mg IV every 6 hours. Pain management. Consult hudsonr rolanda Miller for evaluation. Zosyn 4.5 g IV every 8 hours. Recheck CBC BMP in the morning (3) pelvic pain Check pelvic plain films. (4) hypertension Hydralazine 10 mg IV every 6 hours as needed. We will monitor the blood pressure closely (4) GERD (gastroesophageal reflux disease) Pepcid 20 mg IV every 12 hours. Zofran 4 million IV every 6 hours as needed. We will monitor the patient closely (5) Hypothyroid Levothyroxine 25 mcg p.o. every morning. We will monitor the patient closely (6) DVT prophylaxis 12/10/2020. Patient still complains of abdominal pain. Etiology of the pneumatosis intestinalis remains unclear, not due to vascular etiology but impr oving on imaging. Gastroenterology suspects possible gastroparesis. Other possibilities include PUD, IBD, ischemic colitis, functional, etc. GI to consider endoscopy next week. Continue to monitor for now. Surgery signed off 12/11/2020. Await GI plans for possible endoscopy. If no plans for endoscopy, consider discharge. Continue supportive care. History Interval history: No new issues overnight. Hospitalist Physical - Constitutional Vitals: Temp Pulse Resp BP Pulse Ox 98.9 F 85 20 171/82 96 12/11/20 04:46 12/11/20 04:46 12/11/20 04:46 12/11/20 04:46 12/11/20 04:46 General appearance: Present: no acute distress - EENT Eyes: Present: PERRL, EOM intact ENT: hearing intact, clear oral mucosa, dentition normal - Neck Neck: Present: supple, normal ROM - Respiratory Respiratory effort: normal Respiratory: bilateral: CTA - Cardiovascular Rhythm: regular Heart Sounds: Present: S1 & S2. Absent: gallop, rub - Extremities Extremities: no ischemia, No edema, Full ROM - Abdominal General gastrointestinal: soft, non-tender, non-distended, normal bowel sounds - Integumentary Integumentary: Present: clear, warm, dry - Neurologic Neurologic: CNII-XII intact, moves all extremities Results - Labs CBC & Chem 7: 12/06/20 04:45 12/09/20 07:35 Labs: Laboratory Last Values WBC 5.1 K/mm3 (4.5-11.0) 12/06/20 04:45 RBC 3.66 M/mm3 (3.65-5.03) 12/06/20 04:45 Hgb 12.5 gm/dl (10.1-14.3) 12/06/20 04:45 Hct 35.2 % (30.3-42.9) D 12/06/20 04:45 MCV 96 fl (79-97) 12/06/20 04:45 MCH 34 pg (28-32) H 12/06/20 04:45 MCHC 36 % (30-34) H 12/06/20 04:45 RDW 13.8 % (13.2-15.2) 12/06/20 04:45 Plt Count 185 K/mm3 (140-440) 12/06/20 04:45 Lymph % (Auto) 29.1 % (13.4-35.0) 12/06/20 04:45 [place] % (Auto) 6.7 % (0.0-7.3) 12/06/20 04:45 Eos % (Auto) 0.0 % (0.0-4.3) 12/06/20 04:45 Baso % (Auto) 0.1 % (0.0-1.8) 12/06/20 04:45 Lymph # (Auto) 1.5 K/mm3 (1.2-5.4) 12/06/20 04:45 [place] # (Auto) 0.3 K/mm3 (0.0-0.8) 12/06/20 04:45 Eos # (Auto) 0.0 K/mm3 (0.0-0.4) 12/06/20 04:45 Baso # (Auto) 0.0 K/mm3 (0.0-0.1) 12/06/20 04:45 Seg Neutrophils % 64.1 % (40.0-70.0) 12/06/20 04:45 Seg Neutrophils # 3.2 K/mm3 (1.8-7.7) 12/06/20 04:45 Sodium 143 mmol/L (137-145) 12/09/20 07:35 Potassium 3.3 mmol/L (3.6-5.0) L 12/09/20 07:35 Chloride 103.0 mmol/L (98-107) 12/09/20 07:35 Carbon Dioxide 31 mmol/L (22-30) H 12/09/20 07:35 Anion Gap 12 mmol/L 12/09/20 07:35 BUN 2 mg/dL (7-17) L 12/09/20 07:35 Creatinine 0.4 mg/dL (0.6-1.2) L 12/09/20 07:35 Estimated GFR > 60 ml/min 12/09/20 07:35 BUN/Creatinine Ratio 5 % 12/09/20 07:35 Glucose 92 mg/dL (65-100) 12/09/20 07:35 Lactic Acid 1.20 mmol/L (0.7-2.0) 12/06/20 16:20 Calcium 9.0 mg/dL (8.4-10.2) 12/09/20 07:35 Total Bilirubin 0.40 mg/dL (0.1-1.2) 12/05/20 16:47 AST 20 units/L (5-40) 12/05/20 16:47 ALT 14 units/L (7-56) 12/05/20 16:47 Alkaline Phosphatase 76 units/L (35-129) 12/05/20 16:47 Total Protein 7.2 g/dL (6.3-8.2) 12/05/20 16:47 Albumin 4.6 g/dL (3.9-5) 12/05/20 16:47 Albumin/Globulin Ratio 1.8 % 12/05/20 16:47 Lipase 13 units/L (13-60) 12/05/20 16:47 Urine Color Yellow (Yellow) 12/05/20 19:01 Urine Turbidity Clear (Clear) 12/05/20 19:01 Urine pH 5.0 (5.0-7.0) 12/05/20 19:01 Ur Specific [place] 1.010 (1.003-1.030) 12/05/20 19:01 Urine Protein <15 mg/dl mg/dL (Negative) 12/05/20 19:01 Urine Glucose (UA) Neg mg/dL (Negative) 12/05/20 19:01 Urine Ketones Neg mg/dL (Negative) 12/05/20 19:01 Urine Blood Neg (Negative) 12/05/20 19:01 Urine Nitrite Neg (Negative) 12/05/20 19:01 Urine Bilirubin Neg (Negative) 12/05/20 19:01 Urine Urobilinogen < 2.0 mg/dL (<2.0) 12/05/20 19:01 Ur Leukocyte Esterase Neg (Negative) 12/05/20 19:01 Urine WBC (Auto) < 1.0 /HPF (0.0-6.0) 12/05/20 19:01 Urine RBC (Auto) 1.0 /HPF (0.0-6.0) 12/05/20 19:01 U Epithel Cells (Auto) < 1.0 /HPF (0-13.0) 12/05/20 19:01 Urine Bacteria (Auto) 1+ /HPF (Negative) 12/05/20 19:01 Microbiology: Microbiology 12/05/20 21:27 Peripheral/Venous Blood Culture - Final NO GROWTH AFTER 5 DAYS 12/05/20 21:27 Peripheral/Venous Blood Culture - Final NO GROWTH AFTER 5 DAYS [place]/IV: Voiding Method Toilet Active Medications - Current Medications Current Medications: Generic Name Dose Route Start Last Admin Trade Name Freq PRN Reason Stop Dose Admin Acetaminophen 650 mg 12/05/20 22:12 12/10/20 08:00 Acetaminophen 325 Mg Tab PO 650 mg Q4H PRN Administration Pain MILD(1-3)/Fever >100.5/SANTAM[place]IA Albuterol 2.5 mg 12/05/20 22:12 Albuterol 2.5 Mg/3 Ml Nebu IH Q4HRT PRN Shortness Of Breath Apixaban 2.5 mg 12/06/20 10:00 12/10/20 21:05 Apixaban 2.5 Mg Tab PO 2.5 mg Q12HR AMANDA Administration Buspirone HCl 30 mg 12/06/20 10:00 12/10/20 21:05 Buspirone 10 Mg Tab PO 30 mg BID AMANDA Administration Dicyclomine HCl 10 mg 12/09/20 10:00 12/10/20 21:05 Dicyclomine 10 Mg Cap PO 10 mg QID AMANDA Administration Famotidine 10 mg 12/08/20 22:00 12/10/20 21:06 Famotidine 10 Mg Tab PO 10 mg BID AMANDA Administration Hydralazine HCl 10 mg 12/05/20 22:24 12/08/20 21:24 Hydralazine 20 Mg/1 Ml Inj IV 10 mg Q6H PRN Administration Blood Pressure Hydromorphone HCl 0.5 mg 12/05/20 22:12 12/11/20 06:18 Hydromorphone 1 Mg/1 Ml Inj IV 0.5 mg Q3H PRN Administration Pain , Severe (7-10) Dextrose/Sodium Chloride 1,000 mls @ 100 mls/hr 12/05/20 23:00 12/10/20 21:04 D5/0.45ns IV 100 mls/hr DIRECT AMANDA Administration Levofloxacin 500 mg 12/08/20 12:00 12/10/20 09:21 Levofloxacin 500 Mg Tab PO 12/14/20 11:59 500 mg Q24HR AMANDA Administration Protocol Levothyroxine Sodium 25 mcg 12/06/20 06:00 12/11/20 05:45 Levothyroxine 25 Mcg Tab PO 25 mcg QAM@0600 AMANDA Administration Metronidazole 500 mg 12/08/20 14:00 12/11/20 05:45 Metronidazole 500 Mg Tab PO 12/14/20 23:59 500 mg Q8HR AMANDA Administration Protocol Ondansetron HCl 4 mg 12/05/20 22:12 12/09/20 09:17 Ondansetron 4 Mg/2 Ml Inj IV 4 mg Q8H PRN Administration Nausea And Vomiting Sodium Chloride 10 ml 12/06/20 10:00 12/10/20 21:06 Sodium Chloride 0.9% 10 Ml Flush Syringe IV 10 ml BID AMANDA Administration Sodium Chloride 10 ml 12/05/20 22:12 Sodium Chloride 0.9% 10 Ml Flush Syringe IV PRN PRN LINE FLUSH Sucralfate 1 gm 12/06/20 10:00 12/10/20 21:05 Sucralfate 1 Gm Tab PO 1 gm BID AMANDA Administration Tramadol HCl 100 mg 12/08/20 11:48 12/10/20 20:22 Tramadol 50 Mg Tab PO 100 mg Q6H PRN Administration Pain, Moderate (4-6) Trazodone HCl 100 mg 12/05/20 22:00 12/10/20 21:05 Trazodone 100 Mg Tab PO 100 mg QHS AMANDA Administration Nutrition/Malnutrition Assess - Dietary Evaluation Nutrition/Malnutrition Findings: Nutrition Notes Start: 12/07/20 11:45 Freq: Status: Active Protocol: Document 12/09/20 12:09 MARCY (Rec: 12/09/20 12:13 MARCY [id number]) Nutrition Notes Initial or Follow up Reassessment Current Diagnosis Hypertension Other Pertinent Diagnosis Abdominal pain, pneumatosis intestinalis, GERD Current Diet Clear liquid Labs/Tests K 3.3 Pertinent Medications Zofran Height 5 ft 4 in Weight 48.081 kg [place] Body Weight (kg) 54.54 BMI 18.1 Weight Status Underweight Subjective/Other Information Pt reports drinking most of her clear liquids. Open to ONS . Percent of energy/protein needs met: 35%/28% Burn Absent Trauma Absent Current % PO Good (75-100%) Minimum of two criteria No #2 Nutrition Diagnosis Inadequate energy intake Etiology hx of pneumatosis intestinalis As Evidenced by Signs and Symptoms pt unable to meet needs on clear liquid diet #1 Nutrition Diagnosis Altered GI function As Evidenced by Signs and Symptoms pt diet advanced to clear liquid Diagnosis Progress(for reassessment Improved documentation) Is patient on ventilator? No Is Patient Ambulatory and/or Out of Bed No REE-([facility]-confined to bed) 1135.980 Kcal/Kg value to use for calculation 35 Approximate Energy Requirements Using 1683 kcal/Kg Calculation Used for Recommendations Kcal/kg Additional Notes Pro needs 1.2-1.5g/k-72g/ day Fluid needs 1ml/kcal Nutrition Intervention Change Diet Order: Advance diet when medically feasible Add Supplement/Snack (indicate name/kcal Ensure Clear TID /protein ) Provides kCal: 720 Provides Protein (gm) 24 Goal #1 Diet advancement to meet nutrient needs Goal #2 Wt maintenance and/or gain Anticipated Discharge Needs: Unable to identify at this time Follow-Up By: 12/13/20 Additional Comments F/U: diet advancement, POC
[2020-12-11] MEDS: ACETAMINOPHEN 325 MG TAB PO PRN ×2 (10:44→15:12)
[2020-12-11] MEDS: DICYCLOMINE 10 MG CAP PO SCH ×3 (10:45→22:15)
[2020-12-11] MEDS: SUCRALFATE 1 GM TAB PO SCH ×2 (10:46→22:15)
[2020-12-11] MEDS: APIXABAN 2.5 MG TAB PO SCH ×2 (10:46→22:15)
[2020-12-11] MEDS: levoFLOXacin 500 MG TAB PO SCH (10:46)
[2020-12-11] MEDS: FAMOTIDINE 10 MG TAB PO SCH ×2 (10:46→22:16)
[2020-12-11] MEDS: busPIRone 10 MG TAB PO SCH ×2 (10:47→22:13)
[2020-12-11] MEDS: D5W/0.45% NACL 1,000 ML IV SCH (10:49)
[2020-12-11 11:21] LABS: BUN/Creatinine Ratio 3; Blood Urea Nitrogen < 1 mg/dL (7-17); Calcium 8.9 mg/dL (8.4-10.2); Hemolysis Index 63
[2020-12-11 11:23] LABS: Basophils % (Auto) 0.3 % (0.0-1.8); Hematocrit 36.8 % (30.3-42.9); Hemoglobin 13.1 gm/dl (10.1-14.3); Lymphocytes # (Auto) 1.2 K/mm3 (1.2-5.4); Lymphocytes % (Auto) 20.6 % (13.4-35.0); Mean Corpuscular HGB Conc 36 % (30-34); Mean Corpuscular Volume 97 fl (79-97); Monocytes # (Auto) 0.5 K/mm3 (0.0-0.8); Monocytes % (Auto) 8.5 % (0.0-7.3); Platelet Count 154 K/mm3 (140-440); Red Blood Count 3.78 M/mm3 (3.65-5.03); Red Cell Distribution Width 13.2 % (13.2-15.2)
--- NOTE | 2020-12-11 14:40 | Gastroenterology Progress Note ---
Assessment and Plan # Abdominal pain # Pneumatosis intestinalis - etiology for pneumatosis intestinalis remains unclear. evaluated by vascular and has patent SMA and PANCHO and do not feel it's vascular pathology. - long discussion with patient's on the phone. She has h/o multiple abdominal and pelvic surgeries in the past with adhesions s/p lysis, previously seen with Dr. Collado. - last admission in 10/2020 with pneumatosis intestinalis s/p Exploratory laparotomy, Extensive lysis of adhesions, Peritoneal lavage but no cause of pneumatosis identified. - repeat CT on 12/08/2020 showed improving pneumatosis of transverse colon on imaging. - recent pneumatosis intestinalis, would not proceed with colonoscopy given higher risk. - per , she had EGD and colonoscopy earlier this year with [facility] and they were normal. - EGD may not be as helpful as her pain is mostly in the lower abdomen and pelvic region. Rec - abdominal xray ordered for today - continue with empiric levaquin/flagyl IV. - continue with dicyclomine - cont with pain management - supportive care - check lactic acid. - consider reconsulting surgery. # Diarrhea # Black stools - per patient, started having black stools. - rectal exam today with brown liquid stools. Rec - recommend stool studies if continues to have diarrhea. - monitor H/H - Patient Problems (1) Acute abdominal pain Current Visit: Yes Status: Acute (2) Pneumatosis intestinalis Current Visit: Yes Status: Acute (3) Acute nausea with nonbilious vomiting Current Visit: No Status: Acute Subjective Date of service: 12/11/20 Principal diagnosis: Abdominal pain Interval history: Patient continues to have b/l lower abdominal pain and pain around the b/l hip regions. Unable to keep much PO intake and with anything she eats, it worsens her abdominal pain. Reports having black stools this morning. Objective - Constitutional Vitals: Temp Pulse Resp BP Pulse Ox 98.9 F 85 20 171/82 96 12/11/20 04:46 12/11/20 04:46 12/11/20 04:46 12/11/20 04:46 12/11/20 04:46 General appearance: mild distress - EENT Eyes: EOM intact ENT: hearing intact - Respiratory Respiratory effort: normal - Cardiovascular Rhythm: regular Heart Sounds: Present: S1 & S2 - Gastrointestinal General gastrointestinal: Present: soft, tender, non-distended, normal bowel sounds - Integumentary Integumentary: Present: clear, warm - Neurologic Neurological: alert and oriented x3 - Labs CBC & Chem 7: 12/11/20 10:31 12/11/20 10:31 Labs: Laboratory Results - last 24 hr 12/11/20 12/11/20 10:31 10:31 WBC 6.0 RBC 3.78 Hgb 13.1 Hct 36.8 MCV 97 MCH 35 H MCHC 36 H RDW 13.2 Plt Count 154 Lymph % (Auto) 20.6 [place] % (Auto) 8.5 H Eos % (Auto) 0.0 Baso % (Auto) 0.3 Lymph # (Auto) 1.2 [place] # (Auto) 0.5 Eos # (Auto) 0.0 Baso # (Auto) 0.0 Seg Neutrophils % 70.6 H Seg Neutrophils # 4.2 Sodium 142 Potassium 3.2 L Chloride 103.9 Carbon Dioxide 27 Anion Gap 14 BUN < 1 L Creatinine 0.4 L Estimated GFR > 60 BUN/Creatinine Ratio 3 Glucose 67 Calcium 8.9 - Imaging CT scan: report reviewed
--- NOTE | 2020-12-11 16:23 | XRay Report ---
ABDOMEN 1 VIEW(S) INDICATION / CLINICAL INFORMATION: abdominal pain. COMPARISON: None available. FINDINGS: TUBES / LINES: None. BOWEL GAS PATTERN: Moderate gas scattered throughout the abdomen without evidence of obstruction. No constipation. ADDITIONAL FINDINGS: Previous placement of compression screw with intramedullary component at the rig ht hip. Previous cholecystectomy. IMPRESSION: 1. No significant abnormality. Signer Name: Damion Plascencia MD Signed: 12/11/2020 4:18 PM Workstation Name: [id number]
[2020-12-11] MEDS: traZODone 100 MG TAB PO SCH (22:16)
[2020-12-12] MEDS: metroNIDAZOLE 500 MG TAB PO SCH ×3 (06:34→21:41)
[2020-12-12] MEDS: D5W/0.45% NACL 1,000 ML IV SCH ×2 (06:34→16:39)
[2020-12-12] MEDS: LEVOTHYROXINE 25 MCG TAB PO SCH (06:34)
--- NOTE | 2020-12-12 08:55 | Progress Note ---
Assessment and Plan Assessment and plan: (1) Acute abdominal pain At present patient does not have abdominal pain at this time and actually is complaining more of bilateral pelvic pain. Surgical intervention will most l ikely not be helpful given previous findings after last exploratory lap and especially now with no clear evidence of ischemia. At this point still unsure about etiology. (2) Pneumatosis intestinalis CT scan of the abdomen and pelvis showed there appears to be minimal pne umatosis in the proximal transverse colon. No free air is identified previously serial cecal pneumatosis ptosis has resolved. No a small bowel obstruction. Appendix is not visualized. Numerous additional incidental findings.Nothing by mouth. IV fluid D5 half-normal saline at the rate of 100 cc/h. Pepcid 20 mg IV every 12 hours. Zofran 4 mg IV every 6 hours. Pain management. Consult hudsonr rolanda Miller for evaluation. Zosyn 4.5 g IV every 8 hours. Recheck CBC BMP in the morning (3) pelvic pain Check pelvic plain films. (4) hypertension Hydralazine 10 mg IV every 6 hours as needed. We will monitor the blood pressure closely (4) GERD (gastroesophageal reflux disease) Pepcid 20 mg IV every 12 hours. Zofran 4 million IV every 6 hours as needed. We will monitor the patient closely (5) Hypothyroid Levothyroxine 25 mcg p.o. every morning. We will monitor the patient closely (6) DVT prophylaxis 12/10/2020. Patient still complains of abdominal pain. Etiology of the pneumatosis intestinalis remains unclear, not due to vascular etiology but impr oving on imaging. Gastroenterology suspects possible gastroparesis. Other possibilities include PUD, IBD, ischemic colitis, functional, etc. GI to consider endoscopy next week. Continue to monitor for now. Surgery signed off 12/11/2020. Await GI plans for possible endoscopy. If no plans for endoscopy, consider discharge. Continue supportive care. 12/12/2020. Repeat abdominal x-ray shows no acute findings. Continue IV antibiotics per GI recommendations. History Interval history: No new issues overnight. Hospitalist Physical - Constitutional Vitals: Temp Pulse Resp BP Pulse Ox 98.2 F 80 18 153/78 96 12/12/20 05:05 12/12/20 05:05 12/12/20 05:05 12/12/20 05:05 12/12/20 05:05 General appearance: Present: no acute distress - EENT Eyes: Present: PERRL, EOM intact ENT: hearing intact, clear oral mucosa, dentition normal - Neck Neck: Present: supple, normal ROM - Respiratory Respiratory effort: normal Respiratory: bilateral: CTA - Cardiovascular Rhythm: regular Heart Sounds: Present: S1 & S2. Absent: gallop, rub - Extremities Extremities: no ischemia, No edema, Full ROM - Abdominal General gastrointestinal: soft, non-tender, non-distended, normal bowel sounds - Integumentary Integumentary: Present: clear, warm, dry - Neurologic Neurologic: CNII-XII intact, moves all extremities Results - Labs CBC & Chem 7: 12/11/20 10:31 12/11/20 10:31 Labs: Laboratory Last Values WBC 6.0 K/mm3 (4.5-11.0) 12/11/20 10:31 RBC 3.78 M/mm3 (3.65-5.03) 12/11/20 10:31 Hgb 13.1 gm/dl (10.1-14.3) 12/11/20 10:31 Hct 36.8 % (30.3-42.9) 12/11/20 10:31 MCV 97 fl (79-97) 12/11/20 10:31 MCH 35 pg (28-32) H 12/11/20 10:31 MCHC 36 % (30-34) H 12/11/20 10:31 RDW 13.2 % (13.2-15.2) 12/11/20 10:31 Plt Count 154 K/mm3 (140-440) 12/11/20 10:31 Lymph % (Auto) 20.6 % (13.4-35.0) 12/11/20 10:31 [place] % (Auto) 8.5 % (0.0-7.3) H 12/11/20 10:31 Eos % (Auto) 0.0 % (0.0-4.3) 12/11/20 10:31 Baso % (Auto) 0.3 % (0.0-1.8) 12/11/20 10:31 Lymph # (Auto) 1.2 K/mm3 (1.2-5.4) 12/11/20 10:31 [place] # (Auto) 0.5 K/mm3 (0.0-0.8) 12/11/20 10:31 Eos # (Auto) 0.0 K/mm3 (0.0-0.4) 12/11/20 10:31 Baso # (Auto) 0.0 K/mm3 (0.0-0.1) 12/11/20 10:31 Seg Neutrophils % 70.6 % (40.0-70.0) H 12/11/20 10:31 Seg Neutrophils # 4.2 K/mm3 (1.8-7.7) 12/11/20 10:31 Sodium 142 mmol/L (137-145) 12/11/20 10:31 Potassium 3.2 mmol/L (3.6-5.0) L 12/11/20 10:31 Chloride 103.9 mmol/L (98-107) 12/11/20 10:31 Carbon Dioxide 27 mmol/L (22-30) 12/11/20 10:31 Anion Gap 14 mmol/L 12/11/20 10:31 BUN < 1 mg/dL (7-17) L 12/11/20 10:31 Creatinine 0.4 mg/dL (0.6-1.2) L 12/11/20 10:31 Estimated GFR > 60 ml/min 12/11/20 10:31 BUN/Creatinine Ratio 3 % 12/11/20 10:31 Glucose 67 mg/dL (65-100) 12/11/20 10:31 Lactic Acid 1.70 mmol/L (0.7-2.0) 12/11/20 16:05 Calcium 8.9 mg/dL (8.4-10.2) 12/11/20 10:31 Total Bilirubin 0.40 mg/dL (0.1-1.2) 12/05/20 16:47 AST 20 units/L (5-40) 12/05/20 16:47 ALT 14 units/L (7-56) 12/05/20 16:47 Alkaline Phosphatase 76 units/L (35-129) 12/05/20 16:47 Total Protein 7.2 g/dL (6.3-8.2) 12/05/20 16:47 Albumin 4.6 g/dL (3.9-5) 12/05/20 16:47 Albumin/Globulin Ratio 1.8 % 12/05/20 16:47 Lipase 13 units/L (13-60) 12/05/20 16:47 Urine Color Yellow (Yellow) 12/05/20 19:01 Urine Turbidity Clear (Clear) 12/05/20 19:01 Urine pH 5.0 (5.0-7.0) 12/05/20 19:01 Ur Specific [place] 1.010 (1.003-1.030) 12/05/20 19:01 Urine Protein <15 mg/dl mg/dL (Negative) 12/05/20 19:01 Urine Glucose (UA) Neg mg/dL (Negative) 12/05/20 19:01 Urine Ketones Neg mg/dL (Negative) 12/05/20 19:01 Urine Blood Neg (Negative) 12/05/20 19:01 Urine Nitrite Neg (Negative) 12/05/20 19:01 Urine Bilirubin Neg (Negative) 12/05/20 19:01 Urine Urobilinogen < 2.0 mg/dL (<2.0) 12/05/20 19:01 Ur Leukocyte Esterase Neg (Negative) 12/05/20 19:01 Urine WBC (Auto) < 1.0 /HPF (0.0-6.0) 12/05/20 19:01 Urine RBC (Auto) 1.0 /HPF (0.0-6.0) 12/05/20 19:01 U Epithel Cells (Auto) < 1.0 /HPF (0-13.0) 12/05/20 19:01 Urine Bacteria (Auto) 1+ /HPF (Negative) 12/05/20 19:01 [place]/IV: Voiding Method Toilet Active Medications - Current Medications Current Medications: Generic Name Dose Route Start Last Admin Trade Name Freq PRN Reason Stop Dose Admin Acetaminophen 650 mg 12/05/20 22:12 12/11/20 15:12 Acetaminophen 325 Mg Tab PO 650 mg Q4H PRN Administration Pain MILD(1-3)/Fever >100.5/[place] Albuterol 2.5 mg 12/05/20 22:12 Albuterol 2.5 Mg/3 Ml Nebu IH Q4HRT PRN Shortness Of Breath Apixaban 2.5 mg 12/06/20 10:00 12/11/20 22:15 Apixaban 2.5 Mg Tab PO 2.5 mg Q12HR AMANDA Administration Buspirone HCl 30 mg 12/06/20 10:00 12/11/20 22:13 Buspirone 10 Mg Tab PO 30 mg BID AMANDA Administration Dicyclomine HCl 10 mg 12/09/20 10:00 12/11/20 22:15 Dicyclomine 10 Mg Cap PO 10 mg QID AMANDA Administration Famotidine 10 mg 12/08/20 22:00 12/11/20 22:16 Famotidine 10 Mg Tab PO 10 mg BID AMANDA Administration Hydralazine HCl 10 mg 12/05/20 22:24 12/08/20 21:24 Hydralazine 20 Mg/1 Ml Inj IV 10 mg Q6H PRN Administration Blood Pressure Dextrose/Sodium Chloride 1,000 mls @ 100 mls/hr 12/05/20 23:00 12/12/20 06:34 D5/0.45ns IV 100 mls/hr DIRECT AMANDA Administration Levofloxacin 500 mg 12/08/20 12:00 12/11/20 10:46 Levofloxacin 500 Mg Tab PO 12/17/20 11:59 500 mg Q24HR AMANDA Administration Protocol Levothyroxine Sodium 25 mcg 12/06/20 06:00 12/12/20 06:34 Levothyroxine 25 Mcg Tab PO 25 mcg QAM@0600 AMANDA Administration Metronidazole 500 mg 12/08/20 14:00 12/12/20 06:34 Metronidazole 500 Mg Tab PO 12/17/20 23:59 500 mg Q8HR AMANDA Administration Protocol Ondansetron HCl 4 mg 12/05/20 22:12 12/09/20 09:17 Ondansetron 4 Mg/2 Ml Inj IV 4 mg Q8H PRN Administration Nausea And Vomiting Sodium Chloride 10 ml 12/06/20 10:00 12/11/20 22:16 Sodium Chloride 0.9% 10 Ml Flush Syringe IV 10 ml BID AMANDA Administration Sodium Chloride 10 ml 12/05/20 22:12 Sodium Chloride 0.9% 10 Ml Flush Syringe IV PRN PRN LINE FLUSH Sucralfate 1 gm 12/06/20 10:00 12/11/20 22:15 Sucralfate 1 Gm Tab PO 1 gm BID AMANDA Administration Trazodone HCl 100 mg 12/05/20 22:00 12/11/20 22:16 Trazodone 100 Mg Tab PO 100 mg QHS AMANDA Administration Nutrition/Malnutrition Assess - Dietary Evaluation Nutrition/Malnutrition Findings: Nutrition Notes Start: 12/07/20 11:45 Freq: Status: Active Protocol: Document 12/09/20 12:09 MARCY (Rec: 12/09/20 12:13 MARCY [id number]) Nutrition Notes Initial or Follow up Reassessment Current Diagnosis Hypertension Other Pertinent Diagnosis Abdominal pain, pneumatosis intestinalis, GERD Current Diet Clear liquid Labs/Tests K 3.3 Pertinent Medications Zofran Height 5 ft 4 in Weight 48.081 kg [place] Body Weight (kg) 54.54 BMI 18.1 Weight Status Underweight Subjective/Other Information Pt reports drinking most of her clear liquids. Open to ONS . Percent of energy/protein needs met: 35%/28% Burn Absent Trauma Absent Current % PO Good (75-100%) Minimum of two criteria No #2 Nutrition Diagnosis Inadequate energy intake Etiology hx of pneumatosis intestinalis As Evidenced by Signs and Symptoms pt unable to meet needs on clear liquid diet #1 Nutrition Diagnosis Altered GI function As Evidenced by Signs and Symptoms pt diet advanced to clear liquid Diagnosis Progress(for reassessment Improved documentation) Is patient on ventilator? No Is Patient Ambulatory and/or Out of Bed No REE-([facility]-confined to bed) 1135.980 Kcal/Kg value to use for calculation 35 Approximate Energy Requirements Using 1683 kcal/Kg Calculation Used for Recommendations Kcal/kg Additional Notes Pro needs 1.2-1.5g/k-72g/ day Fluid needs 1ml/kcal Nutrition Intervention Change Diet Order: Advance diet when medically feasible Add Supplement/Snack (indicate name/kcal Ensure Clear TID /protein ) Provides kCal: 720 Provides Protein (gm) 24 Goal #1 Diet advancement to meet nutrient needs Goal #2 Wt maintenance and/or gain Anticipated Discharge Needs: Unable to identify at this time Follow-Up By: 12/13/20 Additional Comments F/U: diet advancement, POC
[2020-12-12] MEDS: SUCRALFATE 1 GM TAB PO SCH (09:41)
[2020-12-12] MEDS: DICYCLOMINE 10 MG CAP PO SCH (09:44)
[2020-12-12] MEDS: levoFLOXacin 500 MG TAB PO SCH (09:48)
[2020-12-12] MEDS: APIXABAN 2.5 MG TAB PO SCH ×2 (09:48→21:41)
[2020-12-12] MEDS: busPIRone 10 MG TAB PO SCH ×2 (09:49→21:49)
[2020-12-12] MEDS: FAMOTIDINE 10 MG TAB PO SCH ×2 (09:49→21:41)
--- NOTE | 2020-12-12 12:07 | Gastroenterology Progress Note ---
Assessment and Plan # Abdominal pain # Pneumatosis intestinalis - etiology for pneumatosis intestinalis remains unclear. evaluated by vascular and has patent SMA and PANCHO and do not feel it's vascular pathology. - long discussion with patient's on the phone. She has h/o multiple abdominal and pelvic surgeries in the past with adhesions s/p lysis, previously seen with Dr. Collado. - last admission in 10/2020 with pneumatosis intestinalis s/p Exploratory laparotomy, Extensive lysis of adhesions, Peritoneal lavage but no cause of pneumatosis identified. - repeat CT on 12/08/2020 showed improving pneumatosis of transverse colon on imaging. - recent pneumatosis intestinalis, would not proceed with colonoscopy given higher risk. - per , she had EGD and colonoscopy earlier this year with [facility] and they were normal. - EGD may not be as helpful as her pain is not in her abdomen. - repeat abdominal xray unremarkable. - normal lactic acid level. - pain is mainly in the b/l hip and legs and not in abdomen. Rec - continue with empiric levaquin/flagyl. can be transition to PO. - discontinue with dicyclomine given no abdominal pain. - cont with pain management - supportive care - recommend work up for b/l hip pain. h/o hip surgeries in the past. - no additional GI inpatient work up recommended at this time. # Diarrhea # Black stools - per patient, started having black stools. - rectal exam with brown liquid stools. - resolved. - no additional GI inpatient recommendations at this time. - Patient Problems (1) Acute abdominal pain Current Visit: Yes Status: Acute (2) Pneumatosis intestinalis Current Visit: Yes Status: Acute (3) Acute nausea with nonbilious vomiting Current Visit: No Status: Acute Subjective Date of service: 12/12/20 Principal diagnosis: Abdominal pain Interval history: Patient denies any black stools. States she has no abdominal pain but has b/l hip and upper leg pain. No nausea/vomiting. Objective - Constitutional Vitals: Temp Pulse Resp BP Pulse Ox 98.2 F 80 18 153/78 96 12/12/20 05:05 12/12/20 05:05 12/12/20 05:05 12/12/20 05:05 12/12/20 05:05 General appearance: no acute distress - EENT Eyes: EOM intact - Respiratory Respiratory effort: normal - Cardiovascular Rhythm: regular Heart Sounds: Present: S1 & S2 - Gastrointestinal General gastrointestinal: Present: soft, non-tender, non-distended - Integumentary Integumentary: Present: clear, warm - Labs CBC & Chem 7: 12/11/20 10:31 12/11/20 10:31 Labs: Laboratory Results - last 24 hr 12/11/20 16:05 Lactic Acid 1.70
[2020-12-12 14:31] LABS: Basophils % (Auto) 0.2 % (0.0-1.8); Hematocrit 35.2 % (30.3-42.9); Hemoglobin 12.5 gm/dl (10.1-14.3); Lymphocytes % (Auto) 16.6 % (13.4-35.0); Mean Corpuscular HGB Conc 36 % (30-34); Mean Corpuscular Volume 97 fl (79-97); Monocytes # (Auto) 0.4 K/mm3 (0.0-0.8); Monocytes % (Auto) 6.6 % (0.0-7.3); Platelet Count 141 K/mm3 (140-440); Red Blood Count 3.61 M/mm3 (3.65-5.03); Red Cell Distribution Width 13.2 % (13.2-15.2)
[2020-12-12 14:52] LABS: Blood Urea Nitrogen 2 mg/dL (7-17); Calcium 8.5 mg/dL (8.4-10.2); Hemolysis Index 33
[2020-12-12 14:53] LABS: BUN/Creatinine Ratio 4
[2020-12-12] MEDS ORDERED: POTASSIUM CHLORIDE ER 20 MEQ TAB PO SCH (16:00)
[2020-12-12] MEDS: traZODone 100 MG TAB PO SCH (21:41)
[2020-12-12] MEDS: POTASSIUM CHLORIDE ER 20 MEQ TAB PO SCH (21:42)
[2020-12-12] MEDS: ACETAMINOPHEN 325 MG TAB PO PRN (21:43)
[2020-12-13] MEDS: POTASSIUM CHLORIDE ER 20 MEQ TAB PO SCH (01:53)
[2020-12-13] MEDS: LEVOTHYROXINE 25 MCG TAB PO SCH (05:32)
[2020-12-13] MEDS: metroNIDAZOLE 500 MG TAB PO SCH ×3 (05:32→21:15)
--- NOTE | 2020-12-13 08:11 | Progress Note ---
Assessment and Plan Assessment and plan: (1) Acute abdominal pain At present patient does not have abdominal pain at this time and actually is complaining more of bilateral pelvic pain. Surgical intervention will most l ikely not be helpful given previous findings after last exploratory lap and especially now with no clear evidence of ischemia. At this point still unsure about etiology. (2) Pneumatosis intestinalis CT scan of the abdomen and pelvis showed there appears to be minimal pne umatosis in the proximal transverse colon. No free air is identified previously serial cecal pneumatosis ptosis has resolved. No a small bowel obstruction. Appendix is not visualized. Numerous additional incidental findings.Nothing by mouth. IV fluid D5 half-normal saline at the rate of 100 cc/h. Pepcid 20 mg IV every 12 hours. Zofran 4 mg IV every 6 hours. Pain management. Consult hudsonr rolanda Miller for evaluation. Zosyn 4.5 g IV every 8 hours. Recheck CBC BMP in the morning (3) pelvic pain Check pelvic plain films. (4) hypertension Hydralazine 10 mg IV every 6 hours as needed. We will monitor the blood pressure closely (4) GERD (gastroesophageal reflux disease) Pepcid 20 mg IV every 12 hours. Zofran 4 million IV every 6 hours as needed. We will monitor the patient closely (5) Hypothyroid Levothyroxine 25 mcg p.o. every morning. We will monitor the patient closely (6) DVT prophylaxis 12/10/2020. Patient still complains of abdominal pain. Etiology of the pneumatosis intestinalis remains unclear, not due to vascular etiology but impr oving on imaging. Gastroenterology suspects possible gastroparesis. Other possibilities include PUD, IBD, ischemic colitis, functional, etc. GI to consider endoscopy next week. Continue to monitor for now. Surgery signed off 12/11/2020. Await GI plans for possible endoscopy. If no plans for endoscopy, consider discharge. Continue supportive care. 12/12/2020. Repeat abdominal x-ray shows no acute findings. Continue IV antibiotics per GI recommendations. 12/13/2020. Continue Levaquin/Flagyl per GI recommendations. GI reports no additional GI inpatient work-up given no abdominal pain at this time. Per , she had EGD and colonoscopy earlier this year with [facility] and they were normal. Patient now complains of bilateral hip pain. Pelvic and hip films obtained on 12/09/[address] scan or MRI. PT evaluation for now. I suspect there may be a component of malingering/psychosomatic presentation. Therefore, we will also obtain psychiatric evaluation. I discussed plan of care with the at length. History Interval history: No new issues overnight. Hospitalist Physical - Constitutional Vitals: Temp Pulse Resp BP Pulse Ox 98.7 F 79 20 151/89 96 12/13/20 05:02 12/13/20 05:02 12/13/20 05:02 12/13/20 05:02 12/13/20 05:02 General appearance: Present: no acute distress - EENT Eyes: Present: PERRL, EOM intact ENT: hearing intact, clear oral mucosa, dentition normal - Neck Neck: Present: supple, normal ROM - Respiratory Respiratory effort: normal Respiratory: bilateral: CTA - Cardiovascular Rhythm: regular Heart Sounds: Present: S1 & S2. Absent: gallop, rub - Extremities Extremities: no ischemia, No edema, Full ROM - Abdominal General gastrointestinal: soft, non-tender, non-distended, normal bowel sounds - Integumentary Integumentary: Present: clear, warm, dry - Neurologic Neurologic: CNII-XII intact, moves all extremities Results - Labs CBC & Chem 7: 12/12/20 13:40 12/12/20 13:40 Labs: Laboratory Last Values WBC 5.7 K/mm3 (4.5-11.0) 12/12/20 13:40 RBC 3.61 M/mm3 (3.65-5.03) L 12/12/20 13:40 Hgb 12.5 gm/dl (10.1-14.3) 12/12/20 13:40 Hct 35.2 % (30.3-42.9) 12/12/20 13:40 MCV 97 fl (79-97) 12/12/20 13:40 MCH 35 pg (28-32) H 12/12/20 13:40 MCHC 36 % (30-34) H 12/12/20 13:40 RDW 13.2 % (13.2-15.2) 12/12/20 13:40 Plt Count 141 K/mm3 (140-440) 12/12/20 13:40 Lymph % (Auto) 16.6 % (13.4-35.0) 12/12/20 13:40 [place] % (Auto) 6.6 % (0.0-7.3) 12/12/20 13:40 Eos % (Auto) 0.0 % (0.0-4.3) 12/12/20 13:40 Baso % (Auto) 0.2 % (0.0-1.8) 12/12/20 13:40 Lymph # (Auto) 1.0 K/mm3 (1.2-5.4) L 12/12/20 13:40 [place] # (Auto) 0.4 K/mm3 (0.0-0.8) 12/12/20 13:40 Eos # (Auto) 0.0 K/mm3 (0.0-0.4) 12/12/20 13:40 Baso # (Auto) 0.0 K/mm3 (0.0-0.1) 12/12/20 13:40 Seg Neutrophils % 76.6 % (40.0-70.0) H 12/12/20 13:40 Seg Neutrophils # 4.4 K/mm3 (1.8-7.7) 12/12/20 13:40 Sodium 142 mmol/L (137-145) 12/12/20 13:40 Potassium 2.6 mmol/L (3.6-5.0) L* 12/12/20 13:40 Chloride 106.3 mmol/L (98-107) 12/12/20 13:40 Carbon Dioxide 22 mmol/L (22-30) 12/12/20 13:40 Anion Gap 16 mmol/L 12/12/20 13:40 BUN 2 mg/dL (7-17) L 12/12/20 13:40 Creatinine 0.5 mg/dL (0.6-1.2) L 12/12/20 13:40 Estimated GFR > 60 ml/min 12/12/20 13:40 BUN/Creatinine Ratio 4 % 12/12/20 13:40 Glucose 142 mg/dL (65-100) H 12/12/20 13:40 Lactic Acid 1.70 mmol/L (0.7-2.0) 12/11/20 16:05 Calcium 8.5 mg/dL (8.4-10.2) 12/12/20 13:40 Total Bilirubin 0.40 mg/dL (0.1-1.2) 12/05/20 16:47 AST 20 units/L (5-40) 12/05/20 16:47 ALT 14 units/L (7-56) 12/05/20 16:47 Alkaline Phosphatase 76 units/L (35-129) 12/05/20 16:47 Total Protein 7.2 g/dL (6.3-8.2) 12/05/20 16:47 Albumin 4.6 g/dL (3.9-5) 12/05/20 16:47 Albumin/Globulin Ratio 1.8 % 12/05/20 16:47 Lipase 13 units/L (13-60) 12/05/20 16:47 Urine Color Yellow (Yellow) 12/05/20 19:01 Urine Turbidity Clear (Clear) 12/05/20 19:01 Urine pH 5.0 (5.0-7.0) 12/05/20 19:01 Ur Specific [place] 1.010 (1.003-1.030) 12/05/20 19:01 Urine Protein <15 mg/dl mg/dL (Negative) 12/05/20 19:01 Urine Glucose (UA) Neg mg/dL (Negative) 12/05/20 19:01 Urine Ketones Neg mg/dL (Negative) 12/05/20 19:01 Urine Blood Neg (Negative) 12/05/20 19:01 Urine Nitrite Neg (Negative) 12/05/20 19:01 Urine Bilirubin Neg (Negative) 12/05/20 19:01 Urine Urobilinogen < 2.0 mg/dL (<2.0) 12/05/20 19:01 Ur Leukocyte Esterase Neg (Negative) 12/05/20 19:01 Urine WBC (Auto) < 1.0 /HPF (0.0-6.0) 12/05/20 19:01 Urine RBC (Auto) 1.0 /HPF (0.0-6.0) 12/05/20 19:01 U Epithel Cells (Auto) < 1.0 /HPF (0-13.0) 12/05/20 19:01 Urine Bacteria (Auto) 1+ /HPF (Negative) 12/05/20 19:01 Lund/IV: Voiding Method Toilet Active Medications - Current Medications Current Medications: Generic Name Dose Route Start Last Admin Trade Name Freq PRN Reason Stop Dose Admin Acetaminophen 650 mg 12/05/20 22:12 12/12/20 21:43 Acetaminophen 325 Mg Tab PO 650 mg Q4H PRN Administration Pain MILD(1-3)/Fever >100.5/SANTAMARIA Albuterol 2.5 mg 12/05/20 22:12 Albuterol 2.5 Mg/3 Ml Nebu IH Q4HRT PRN Shortness Of Breath Apixaban 2.5 mg 12/06/20 10:00 12/12/20 21:41 Apixaban 2.5 Mg Tab PO 2.5 mg Q12HR AMANDA Administration Buspirone HCl 30 mg 12/06/20 10:00 12/12/20 21:49 Buspirone 10 Mg Tab PO 30 mg BID AMANDA Administration Famotidine 10 mg 12/08/20 22:00 12/12/20 21:41 Famotidine 10 Mg Tab PO 10 mg BID AMANDA Administration Hydralazine HCl 10 mg 12/05/20 22:24 12/08/20 21:24 Hydralazine 20 Mg/1 Ml Inj IV 10 mg Q6H PRN Administration Blood Pressure Dextrose/Sodium Chloride 1,000 mls @ 100 mls/hr 12/05/20 23:00 12/12/20 16:39 D5/0.45ns IV 100 mls/hr DIRECT AMANDA Administration Levofloxacin 500 mg 12/08/20 12:00 12/12/20 09:48 Levofloxacin 500 Mg Tab PO 12/17/20 11:59 500 mg Q24HR AMANDA Administration Protocol Levothyroxine Sodium 25 mcg 12/06/20 06:00 12/13/20 05:32 Levothyroxine 25 Mcg Tab PO 25 mcg QAM@0600 AMANDA Administration Metronidazole 500 mg 12/08/20 14:00 12/13/20 05:32 Metronidazole 500 Mg Tab PO 12/17/20 23:59 500 mg Q8HR AMANDA Administration Protocol Ondansetron HCl 4 mg 12/05/20 22:12 12/09/20 09:17 Ondansetron 4 Mg/2 Ml Inj IV 4 mg Q8H PRN Administration Nausea And Vomiting Sodium Chloride 10 ml 12/06/20 10:00 12/13/20 00:12 Sodium Chloride 0.9% 10 Ml Flush Syringe IV Not Given BID AMANDA Sodium Chloride 10 ml 12/05/20 22:12 Sodium Chloride 0.9% 10 Ml Flush Syringe IV PRN PRN LINE FLUSH Sucralfate 1 gm 12/12/20 09:30 12/12/20 09:41 Sucralfate 1 Gm Tab PO 1 gm BIDAC AMANDA Administration Trazodone HCl 100 mg 12/05/20 22:00 12/12/20 21:41 Trazodone 100 Mg Tab PO 100 mg QHS AMANDA Administration Nutrition/Malnutrition Assess - Dietary Evaluation Nutrition/Malnutrition Findings: Nutrition Notes Start: 12/07/20 11:45 Freq: Status: Active Protocol: Document 12/09/20 12:09 (Rec: 12/09/20 12:13 [email or web address]) Nutrition Notes Initial or Follow up Reassessment Current Diagnosis Hypertension Other Pertinent Diagnosis Abdominal pain, pneumatosis intestinalis, GERD Current Diet Clear liquid Labs/Tests K 3.3 Pertinent Medications Zofran Height 5 ft 4 in Weight 48.081 kg [place] Body Weight (kg) 54.54 BMI 18.1 Weight Status Underweight Subjective/Other Information Pt reports drinking most of her clear liquids. Open to ONS . Percent of energy/protein needs met: 35%/28% Burn Absent Trauma Absent Current % PO Good (75-100%) Minimum of two criteria No #2 Nutrition Diagnosis Inadequate energy intake Etiology hx of pneumatosis intestinalis As Evidenced by Signs and Symptoms pt unable to meet needs on clear liquid diet #1 Nutrition Diagnosis Altered GI function As Evidenced by Signs and Symptoms pt diet advanced to clear liquid Diagnosis Progress(for reassessment Improved documentation) Is patient on ventilator? No Is Patient Ambulatory and/or Out of Bed No REE-([facility]-confined to bed) 1135.980 Kcal/Kg value to use for calculation 35 Approximate Energy Requirements Using 1683 kcal/Kg Calculation Used for Recommendations Kcal/kg Additional Notes Pro needs 1.2-1.5g/k-72g/ day Fluid needs 1ml/kcal Nutrition Intervention Change Diet Order: Advance diet when medically feasible Add Supplement/Snack (indicate name/kcal Ensure Clear TID /protein ) Provides kCal: 720 Provides Protein (gm) 24 Goal #1 Diet advancement to meet nutrient needs Goal #2 Wt maintenance and/or gain Anticipated Discharge Needs: Unable to identify at this time Follow-Up By: 12/13/20 Additional Comments F/U: diet advancement, POC
[2020-12-13] MEDS: SUCRALFATE 1 GM TAB PO SCH ×2 (11:37→19:21)
[2020-12-13] MEDS: busPIRone 10 MG TAB PO SCH ×2 (11:38→21:14)
[2020-12-13] MEDS: FAMOTIDINE 10 MG TAB PO SCH ×2 (11:38→21:16)
[2020-12-13] MEDS: levoFLOXacin 500 MG TAB PO SCH (11:39)
[2020-12-13] MEDS: APIXABAN 2.5 MG TAB PO SCH ×2 (11:39→21:15)
--- NOTE | 2020-12-13 12:15 | Consultation ---
History of Present Illness - Reason for Consult Consult date: 12/13/20 Reason for consult: anxiety - Chief Complaint Chief complaint: Abdominal pain - History of Present Psychiatric Illness ED Note: 80 years old female with history of hypertension was brought to the emergency room because of abdominal pain which is sharp left upper quadrant, right upper quadrant, suprapubic 10/10 constant started few days ago. Patient denied any nausea or vomiting. No diarrhea. Patient also denied any urinary frequency or dysuria. Patient denied any fever or chills. Patient was seen here in October of this year and admitted with a diagnosis of pneumatosis intestinalis and had exploratory laparotomy by Dr. Miller and found to have significant adhesions. Patient stated that she was doing well since then. Fernanda Sumner is a 80 year old female with a history of Anxiety and Depression. In my interview with the patient, she is alert and oriented x3; the patient was tearful and stating " I just want to go home." The patient reports that she sees a psychiatrist and has been taking Buspar for years. She denies being depressed but endorsed anxiety. The patient denies any current suicidal /homicidal louise ation and denies hallucinations. Diagnoses: Depression, Anxiety Suicide attempts or Self-harm behavior:Denies Prior psychiatric hospitalizations: Denies Substance Abuse history: Denies Previous psychiatric medications tried: Buspar Outpatient treatment: Denies PAST MEDICAL HISTORY: None reported Family Psychiatric History: None reported or documented SOCIAL HISTORY Marital Status: Living Arrangements: Lives with Employment Status: Retired Access to guns/weapons: Denies Education: 9th grade History of Abuse: None reported Legal History: None reported REVIEW OF SYSTEMS Constitutional: Negative for weight loss ENT: Negative for stridor Respiratory: Negative for cough or hemoptysis All other systems reviewed and are negative MENTAL STATUS EXAMINATION General Appearance and Behavior: Age appropriate, good hygiene, wearing appropriate clothes, cooperative, cooperative Cooperation: Participating/engaged Psychomotor Behavior: normal Mood: OK Affect and affective range: congruent with stated mood Thought Process: Tangential Thought Content: Not Suicidal Speech: Normal volume, Regular rate and rhythm Suicidal Ideation: Denies Homicidal Ideation: Denies Hallucinations: Denies Delusions: None elicited Impulse Control: impaired Insight and Judgment: limited insight and judgment, Memory: normal Attention: Normal Orientation: Alert, oriented Assessment and Plan (1) Generalized Anxiety Disorder Current Visit: Yes Status: Acute Treatment Plan Start Buspar 7.5 mg po BID Sitter: Per primary Medical: Per primary Disposition: Do not recommend acute psychiatric inpatient treatment. The patient understands that if suicidal/homicidal ideas or any endangering thoughts/ behaviors arise, they should seek immediate assistance including but not limited to crisis hotline and emergency room. The patient will follow up with outpatient referrals and a safety plan provided by the [facility] [place]. Will follow for medication management. Thanks Case staffed with Dr. Valdez Medications and Allergies Allergies Allergy/AdvReac Type Severity Reaction Status Date / Time adhesive Allergy Rash Verified 11/18/15 10:24 aspirin Allergy Bleeding Verified 11/18/15 10:24 codeine Allergy Hives Verified 11/18/15 10:24 latex Allergy Rash Verified 11/18/15 10:24 metoclopramide HCl Allergy Itching Verified 11/18/15 10:24 [From Reglan] morphine Allergy Rash Verified 11/18/15 10:24 Sulfa (Sulfonamide Allergy Rash Verified 11/18/15 10:24 Antibiotics) Home Medications Medication Instructions Recorded Confirmed Last Taken Type Apixaban [Eliquis] 2.5 mg PO Q12HR 15 Days #30 tablet 07/06/18 10/06/20 Unknown Rx Ascorbic Acid [Vitamin C] 500 mg PO BID #60 tablet 07/06/18 10/06/20 Unknown Rx Estrogens, Conjugated [Premarin] 0.3 mg PO QDAY #30 tablet 07/06/18 10/06/20 Unknown Rx Famotidine [Pepcid] 20 mg PO BID #60 tablet 07/06/18 10/06/20 Unknown Rx Ferrous Sulfate [Feosol 325 MG tab] 325 mg PO BID #60 tablet 07/06/18 10/06/20 Unknown Rx Levothyroxine [Synthroid] 25 mcg PO QAM #30 tablet 07/06/18 10/06/20 10/05/20 07:00 Rx Sennosides/Docusate [Senokot S] 2 tab PO QHS #60 tablet 07/06/18 10/06/20 Unknown Rx Sucralfate [Carafate] 1 gm PO BID #60 tablet 07/06/18 10/06/20 Unknown Rx busPIRone [Buspar] 30 mg PO BID #60 tablet 07/06/18 10/06/20 10/05/20 22:00 Rx traZODone [Desyrel] 100 mg PO QHS #30 tablet 07/06/18 10/06/20 10/05/20 22:00 Rx Ondansetron HCl [Zofran] 4 mg PO Q8HR #15 tablet 10/13/20 Unknown Rx oxyCODONE /ACETAMINOPHEN [Percocet 1 tab PO Q4HR PRN #30 tab 10/13/20 Unknown Rx 5/325] Active Meds: Active Medications Acetaminophen (Acetaminophen 325 Mg Tab) 650 mg PO Q4H PRN PRN Reason: Pain MILD(1-3)/Fever >100.5/SANTAMARIA Last Admin: 12/12/20 21:43 Dose: 650 mg Documented by: Albuterol (Albuterol 2.5 Mg/3 Ml Nebu) 2.5 mg IH Q4HRT PRN PRN Reason: Shortness Of Breath Apixaban (Apixaban 2.5 Mg Tab) 2.5 mg PO Q12HR [facility] Last Admin: 12/13/20 11:39 Dose: 2.5 mg Documented by: Buspirone HCl (Buspirone 10 Mg Tab) 30 mg PO BID [facility] Last Admin: 12/13/20 11:38 Dose: 30 mg Documented by: Famotidine (Famotidine 10 Mg Tab) 10 mg PO BID [facility] Last Admin: 12/13/20 11:38 Dose: 10 mg Documented by: Hydralazine HCl (Hydralazine 20 Mg/1 Ml Inj) 10 mg IV Q6H PRN PRN Reason: Blood Pressure Last Admin: 12/08/20 21:24 Dose: 10 mg Documented by: Dextrose/Sodium Chloride (D5/0.45ns) 1,000 mls @ 100 mls/hr IV DIRECT [facility] Last Admin: 12/12/20 16:39 Dose: 100 mls/hr Documented by: Levofloxacin (Levofloxacin 500 Mg Tab) 500 mg PO Q24HR [facility]; Protocol Stop: 12/17/20 11:59 Last Admin: 12/13/20 11:39 Dose: 500 mg Documented by: Levothyroxine Sodium (Levothyroxine 25 Mcg Tab) 25 mcg PO QAM@0600 [facility] Last Admin: 12/13/20 05:32 Dose: 25 mcg Documented by: Metronidazole (Metronidazole 500 Mg Tab) 500 mg PO Q8HR [facility]; Protocol Stop: 12/17/20 23:59 Last Admin: 12/13/20 05:32 Dose: 500 mg Documented by: Ondansetron HCl (Ondansetron 4 Mg/2 Ml Inj) 4 mg IV Q8H PRN PRN Reason: Nausea And Vomiting Last Admin: 12/09/20 09:17 Dose: 4 mg Documented by: Sodium Chloride (Sodium Chloride 0.9% 10 Ml Flush Syringe) 10 ml IV BID [facility] Last Admin: 12/13/20 00:12 Dose: Not Given Documented by: Sodium Chloride (Sodium Chloride 0.9% 10 Ml Flush Syringe) 10 ml IV PRN PRN PRN Reason: LINE FLUSH Sucralfate (Sucralfate 1 Gm Tab) 1 gm PO BIDAC [facility] Last Admin: 12/13/20 11:37 Dose: 1 gm Documented by: Trazodone HCl (Trazodone 100 Mg Tab) 100 mg PO QHS [facility] Last Admin: 12/12/20 21:41 Dose: 100 mg Documented by: Mental Status Exam - Vital signs Last Vital Signs Temp 98.7 F 12/13/20 05:02 Pulse 79 12/13/20 05:02 Resp 20 12/13/20 05:02 BP 151/89 12/13/20 05:02 Pulse Ox 96 12/13/20 05:02 Results Result Diagrams: 12/12/20 13:40 12/12/20 13:40 Abnormal lab results 12/12/20 12/12/20 Range/Units 13:40 13:40 RBC 3.61 L (3.65-5.03) M/mm3 MCH 35 H (28-32) pg MCHC 36 H (30-34) % Lymph # (Auto) 1.0 L (1.2-5.4) K/mm3 Seg Neutrophils % 76.6 H (40.0-70.0) % Potassium 2.6 L* (3.6-5.0) mmol/L BUN 2 L (7-17) mg/dL Creatinine 0.5 L (0.6-1.2) mg/dL Glucose 142 H (65-100) mg/dL All other labs normal.
[2020-12-13] MEDS ORDERED: busPIRone 5 MG TAB PO SCH (13:00)
--- NOTE | 2020-12-13 14:09 | Gastroenterology Progress Note ---
Assessment and Plan # Abdominal pain # Pneumatosis intestinalis - etiology for pneumatosis intestinalis remains unclear. evaluated by vascular and has patent SMA and PANCHO and do not feel it's vascular pathology. - long discussion with patient's on the phone. She has h/o multiple abdominal and pelvic surgeries in the past with adhesions s/p lysis, previously seen with Dr. Collado. - last admission in 10/2020 with pneumatosis intestinalis s/p Exploratory laparotomy, Extensive lysis of adhesions, Peritoneal lavage but no cause of pneumatosis identified. - repeat CT on 12/08/2020 showed improving pneumatosis of transverse colon on imaging. - recent pneumatosis intestinalis, would not proceed with colonoscopy given higher risk. - per , she had EGD and colonoscopy earlier this year with [facility] and they were normal. - EGD may not be as helpful as her pain is not in her abdomen. - repeat abdominal xray unremarkable. - normal lactic acid level. - pain is mainly in the b/l hip and legs and not in abdomen. Rec - continue with empiric levaquin/flagyl. can be transition to PO. - discontinue with dicyclomine given no abdominal pain. - cont with pain management - supportive care - recommend work up for b/l hip pain. h/o hip surgeries in the past. xray b/l hip was unremarkable. Patient to be evaluated with PT today. - no additional GI inpatient work up recommended at this time. - advance diet as tolerated - discussed with IMS team. - will sign off. please call with questions. - Patient Problems (1) Acute abdominal pain Current Visit: Yes Status: Acute (2) Pneumatosis intestinalis Current Visit: Yes Status: Acute (3) Acute nausea with nonbilious vomiting Current Visit: No Status: Acute Subjective Date of service: 12/13/20 Principal diagnosis: Abdominal pain Interval history: Patient denies any abdominal pain. Persistent pain in the b/l groin and hip regions. Tolerating diet. Objective - Constitutional Vitals: Temp Pulse Resp BP Pulse Ox 98.7 F 79 20 151/89 96 12/13/20 05:02 12/13/20 05:02 12/13/20 05:02 12/13/20 05:02 12/13/20 05:02 General appearance: no acute distress - EENT Eyes: EOM intact ENT: hearing intact - Respiratory Respiratory effort: normal - Cardiovascular Rhythm: regular Heart Sounds: Present: S1 & S2 - Gastrointestinal General gastrointestinal: Present: soft, non-tender, non-distended - Integumentary Integumentary: Present: clear, warm - Labs CBC & Chem 7: 12/12/20 13:40 12/12/20 13:40 Labs: Laboratory Results - last 24 hr 12/12/20 12/12/20 13:40 13:40 WBC 5.7 RBC 3.61 L Hgb 12.5 Hct 35.2 MCV 97 MCH 35 H MCHC 36 H RDW 13.2 Plt Count 141 Lymph % (Auto) 16.6 [place] % (Auto) 6.6 Eos % (Auto) 0.0 Baso % (Auto) 0.2 Lymph # (Auto) 1.0 L [place] # (Auto) 0.4 Eos # (Auto) 0.0 Baso # (Auto) 0.0 Seg Neutrophils % 76.6 H Seg Neutrophils # 4.4 Sodium 142 Potassium 2.6 L* Chloride 106.3 Carbon Dioxide 22 Anion Gap 16 BUN 2 L Creatinine 0.5 L Estimated GFR > 60 BUN/Creatinine Ratio 4 Glucose 142 H Calcium 8.5
[2020-12-13 15:27] LABS: Hematocrit 36.1 % (30.3-42.9); Hemoglobin 12.4 gm/dl (10.1-14.3); Mean Corpuscular HGB Conc 34 % (30-34); Mean Corpuscular Volume 98 fl (79-97); Platelet Count 154 K/mm3 (140-440); Red Blood Count 3.71 M/mm3 (3.65-5.03); Red Cell Distribution Width 13.2 % (13.2-15.2)
[2020-12-13 15:42] LABS: Blood Urea Nitrogen 3 mg/dL (7-17); Calcium 8.9 mg/dL (8.4-10.2); Hemolysis Index 12
[2020-12-13 15:46] LABS: BUN/Creatinine Ratio 6
[2020-12-13] MEDS: ESCITALOPRAM 10 MG TAB PO SCH (19:22)
[2020-12-13] MEDS: traZODone 100 MG TAB PO SCH (21:17)
[2020-12-14] MEDS: metroNIDAZOLE 500 MG TAB PO SCH ×3 (06:13→23:12)
[2020-12-14] MEDS: LEVOTHYROXINE 25 MCG TAB PO SCH (06:15)
[2020-12-14] MEDS: SUCRALFATE 1 GM TAB PO SCH ×2 (08:14→16:35)
--- NOTE | 2020-12-14 09:46 | Progress Note ---
Assessment and Plan Assessment and plan: -- Acute abdominal pain At present patient does not have abdominal pain at this time and actually is complaining more of bilateral pelvic pain. Surgical intervention will most likely not be helpful given previous findings after last exploratory lap and especially now with no clear evidence of ischemia. At this point still unsure about etiology. Pneumatosis intestinalis CT scan of the abdomen and pelvis showed there appears to be minimal pneumatosis in the proximal transverse colon. No free air is identified previously serial cecal pneumatosis ptosis has resolved. No a small bowel obstruction. Appendix is not visualized. Numerous additional incidental findings.Nothing by mouth. IV fluid D5 half-normal saline at the rate of 100 cc/h. Pepcid 20 mg IV every 12 hours. Zofran 4 mg IV every 6 hours. Pain management. Consult surgery Dr. Miller for evaluation. Zosyn 4.5 g IV every 8 hours. Recheck CBC BMP in the morning -- pelvic pain Check pelvic plain films. -- hypertension Hydralazine 10 mg IV every 6 hours as needed. We will monitor the blood pressure closely -- GERD (gastroesophageal reflux disease) Pepcid 20 mg IV every 12 hours. Zofran 4 million IV every 6 hours as needed. We will monitor the patient closely -- Hypothyroid Levothyroxine 25 mcg p.o. every morning. We will monitor the patient closely -- DVT prophylaxis 12/10/2020. Patient still complains of abdominal pain. Etiology of the pne umatosis intestinalis remains unclear, not due to vascular etiology but improving on imaging. Gastroenterology suspects possible gastroparesis. Other possibilities include PUD, IBD, ischemic colitis, functional, etc. GI to consider endoscopy next week. Continue to monitor for now. Surgery signed off 12/11/2020. Await GI plans for possible endoscopy. If no plans for endoscopy, consider discharge. Continue supportive care. 12/12/2020. Repeat abdominal x-ray shows no acute findings. Continue IV antibiotics per GI recommendations. 12/13/2020. Continue Levaquin/Flagyl per GI recommendations. GI reports no additional GI inpatient work-up given no abdominal pain at this time. Per , she had EGD and colonoscopy earlier this year with [facility] and they were normal. Patient now complains of bilateral hip pain. Pelvic and hip films obtained on 12/09/[address] scan or MRI. PT evaluation for now. I suspect there may be a component of malingering/psycho somatic presentation. Therefore, we will also obtain psychiatric evaluation. I discussed plan of care with the at length. 12/14/2020; advance the diet to mechanical soft If tolerated regular diet tomorrow, PT OT evaluation Possible discharge in 1 to 2 days if stable I talked to patient's over the phone in patient's room He had numerous questions answered all of them History Interval history: I seen and examined the patient at the bedside Patient's chart and medications reviewed Patient is anxious, requesting normal diet Vital signs noted Hospitalist Physical - Constitutional Vitals: Temp Pulse Resp BP Pulse Ox 98.3 F 73 16 143/78 95 12/14/20 04:22 12/14/20 04:22 12/14/20 04:22 12/14/20 04:22 12/14/20 04:22 General appearance: Present: no acute distress, cachectic, disheveled - EENT Eyes: Present: PERRL, EOM intact - Neck Neck: Present: supple, normal ROM - Respiratory Respiratory effort: normal Respiratory: bilateral: diminished, negative: rales, rhonchi, wheezing - Cardiovascular Rhythm: regular Heart Sounds: Present: S1 & S2 - Extremities Extremities: no ischemia, No edema - Abdominal General gastrointestinal: soft, non-tender, non-distended, normal bowel sounds - Integumentary Integumentary: Present: clear, warm - Psychiatric Psychiatric: appropriate mood/affect, cooperative, other - Neurologic Neurologic: CNII-XII intact (Anxious), moves all extremities Results - Labs CBC & Chem 7: 12/13/20 14:37 12/13/20 14:37 Labs: Laboratory Last Values WBC 5.8 K/mm3 (4.5-11.0) 12/13/20 14:37 RBC 3.71 M/mm3 (3.65-5.03) 12/13/20 14:37 Hgb 12.4 gm/dl (10.1-14.3) 12/13/20 14:37 Hct 36.1 % (30.3-42.9) 12/13/20 14:37 MCV 98 fl (79-97) H 12/13/20 14:37 MCH 33 pg (28-32) H 12/13/20 14:37 MCHC 34 % (30-34) 12/13/20 14:37 RDW 13.2 % (13.2-15.2) 12/13/20 14:37 Plt Count 154 K/mm3 (140-440) 12/13/20 14:37 Lymph % (Auto) 16.6 % (13.4-35.0) 12/12/20 13:40 [place] % (Auto) 6.6 % (0.0-7.3) 12/12/20 13:40 Eos % (Auto) 0.0 % (0.0-4.3) 12/12/20 13:40 Baso % (Auto) 0.2 % (0.0-1.8) 12/12/20 13:40 Lymph # (Auto) 1.0 K/mm3 (1.2-5.4) L 12/12/20 13:40 [place] # (Auto) 0.4 K/mm3 (0.0-0.8) 12/12/20 13:40 Eos # (Auto) 0.0 K/mm3 (0.0-0.4) 12/12/20 13:40 Baso # (Auto) 0.0 K/mm3 (0.0-0.1) 12/12/20 13:40 Seg Neutrophils % 76.6 % (40.0-70.0) H 12/12/20 13:40 Seg Neutrophils # 4.4 K/mm3 (1.8-7.7) 12/12/20 13:40 Sodium 143 mmol/L (137-145) 12/13/20 14:37 Potassium 3.8 mmol/L (3.6-5.0) D 12/13/20 14:37 Chloride 108.6 mmol/L (98-107) H 12/13/20 14:37 Carbon Dioxide 26 mmol/L (22-30) 12/13/20 14:37 Anion Gap 12 mmol/L 12/13/20 14:37 BUN 3 mg/dL (7-17) L 12/13/20 14:37 Creatinine 0.5 mg/dL (0.6-1.2) L 12/13/20 14:37 Estimated GFR > 60 ml/min 12/13/20 14:37 BUN/Creatinine Ratio 6 % 12/13/20 14:37 Glucose 97 mg/dL (65-100) 12/13/20 14:37 Lactic Acid 1.70 mmol/L (0.7-2.0) 12/11/20 16:05 Calcium 8.9 mg/dL (8.4-10.2) 12/13/20 14:37 Total Bilirubin 0.40 mg/dL (0.1-1.2) 12/05/20 16:47 AST 20 units/L (5-40) 12/05/20 16:47 ALT 14 units/L (7-56) 12/05/20 16:47 Alkaline Phosphatase 76 units/L (35-129) 12/05/20 16:47 Total Protein 7.2 g/dL (6.3-8.2) 12/05/20 16:47 Albumin 4.6 g/dL (3.9-5) 12/05/20 16:47 Albumin/Globulin Ratio 1.8 % 12/05/20 16:47 Lipase 13 units/L (13-60) 12/05/20 16:47 Urine Color Yellow (Yellow) 12/05/20 19:01 Urine Turbidity Clear (Clear) 12/05/20 19:01 Urine pH 5.0 (5.0-7.0) 12/05/20 19:01 Ur Specific [place] 1.010 (1.003-1.030) 12/05/20 19:01 Urine Protein <15 mg/dl mg/dL (Negative) 12/05/20 19:01 Urine Glucose (UA) Neg mg/dL (Negative) 12/05/20 19:01 Urine Ketones Neg mg/dL (Negative) 12/05/20 19:01 Urine Blood Neg (Negative) 12/05/20 19:01 Urine Nitrite Neg (Negative) 12/05/20 19:01 Urine Bilirubin Neg (Negative) 12/05/20 19:01 Urine Urobilinogen < 2.0 mg/dL (<2.0) 12/05/20 19:01 Ur Leukocyte Esterase Neg (Negative) 12/05/20 19:01 Urine WBC (Auto) < 1.0 /HPF (0.0-6.0) 12/05/20 19:01 Urine RBC (Auto) 1.0 /HPF (0.0-6.0) 12/05/20 19:01 U Epithel Cells (Auto) < 1.0 /HPF (0-13.0) 12/05/20 19:01 Urine Bacteria (Auto) 1+ /HPF (Negative) 12/05/20 19:01 Lund/IV: Voiding Method External Female Catheter Active Medications - Current Medications Current Medications: Generic Name Dose Route Start Last Admin Trade Name Freq PRN Reason Stop Dose Admin Acetaminophen 650 mg 12/05/20 22:12 12/12/20 21:43 Acetaminophen 325 Mg Tab PO 650 mg Q4H PRN Administration Pain MILD(1-3)/Fever >100.5/[place] Albuterol 2.5 mg 12/05/20 22:12 Albuterol 2.5 Mg/3 Ml Nebu IH Q4HRT PRN Shortness Of Breath Apixaban 2.5 mg 12/06/20 10:00 12/13/20 21:15 Apixaban 2.5 Mg Tab PO 2.5 mg Q12HR AMANDA Administration Buspirone HCl 30 mg 12/06/20 10:00 12/13/20 21:14 Buspirone 10 Mg Tab PO 30 mg BID AMANDA Administration Escitalopram Oxalate 10 mg 12/13/20 14:00 12/13/20 19:22 Escitalopram 10 Mg Tab PO 10 mg QDAY AMANDA Administration Famotidine 10 mg 12/08/20 22:00 12/13/20 21:16 Famotidine 10 Mg Tab PO 10 mg BID AMANDA Administration Hydralazine HCl 10 mg 12/05/20 22:24 12/08/20 21:24 Hydralazine 20 Mg/1 Ml Inj IV 10 mg Q6H PRN Administration Blood Pressure Dextrose/Sodium Chloride 1,000 mls @ 100 mls/hr 12/05/20 23:00 12/12/20 16:39 D5/0.45ns IV 100 mls/hr DIRECT AMANDA Administration Levofloxacin 500 mg 12/08/20 12:00 12/13/20 11:39 Levofloxacin 500 Mg Tab PO 12/17/20 11:59 500 mg Q24HR AMANDA Administration Protocol Levothyroxine Sodium 25 mcg 12/06/20 06:00 12/14/20 06:15 Levothyroxine 25 Mcg Tab PO 25 mcg QAM@0600 AMANDA Administration Metronidazole 500 mg 12/08/20 14:00 12/14/20 06:13 Metronidazole 500 Mg Tab PO 08/13/21 23:59 500 mg Q8HR AMANDA Administration Protocol Ondansetron HCl 4 mg 12/05/20 22:12 12/09/20 09:17 Ondansetron 4 Mg/2 Ml Inj IV 4 mg Q8H PRN Administration Nausea And Vomiting Sodium Chloride 10 ml 12/06/20 10:00 12/14/20 08:14 Sodium Chloride 0.9% 10 Ml Flush Syringe IV Not Given BID AMANDA Sodium Chloride 10 ml 12/05/20 22:12 Sodium Chloride 0.9% 10 Ml Flush Syringe IV PRN PRN LINE FLUSH Sucralfate 1 gm 12/12/20 09:30 12/14/20 08:14 Sucralfate 1 Gm Tab PO 1 gm BIDAC AMANDA Administration Trazodone HCl 100 mg 12/05/20 22:00 12/13/20 21:17 Trazodone 100 Mg Tab PO 100 mg QHS AMANDA Administration Nutrition/Malnutrition Assess - Dietary Evaluation Nutrition/Malnutrition Findings: Nutrition Notes Start: 12/07/20 11:45 Freq: Status: Active Protocol: Document 12/13/20 14:16 (Rec: 12/13/20 14:18 [email or web address]) Nutrition Notes Initial or Follow up Brief Note Current Diagnosis Hypertension Other Pertinent Diagnosis Abdominal pain, pneumatosis intestinalis, GERD Current Diet Clear liquid Subjective/Other Information Pt was drinking 100% of meals. She denied breakfast this AM due to wanting food. RN unsure of diet advancement Nutrition Intervention Change Diet Order: Advance diet when medically feasible Goal #1 Diet advancement to meet nutrient needs Goal #2 Wt maintenance and/or gain Follow-Up By: 12/14/20 Additional Comments F/U: diet advancement, POC
[2020-12-14] MEDS: APIXABAN 2.5 MG TAB PO SCH ×2 (10:40→23:13)
[2020-12-14] MEDS: levoFLOXacin 500 MG TAB PO SCH (10:46)
[2020-12-14] MEDS: ESCITALOPRAM 10 MG TAB PO SCH (10:46)
[2020-12-14] MEDS: FAMOTIDINE 10 MG TAB PO SCH ×2 (10:46→23:13)
[2020-12-14] MEDS: busPIRone 10 MG TAB PO SCH ×2 (10:46→23:12)
--- NOTE | 2020-12-14 12:23 | Progress Note ---
Subjective - Reason for Consult Consult date: 12/14/20 Reason for consult: Anxiety - Chief Complaint Chief complaint: The patient was seen today, she reports doing well. She denies depression and denies excessive nervousness. She reports having difficulty maintaining sleep. The patient denies any current suicidal/homicidal and denies hallucinations. REVIEW OF SYSTEMS Constitutional: Negative for weight loss ENT: Negative for stridor Respiratory: Negative for cough or hemoptysis All other systems reviewed and are negative MENTAL STATUS EXAMINATION General Appearance and Behavior: Age appropriate, good hygiene, wearing appropriate clothes, cooperative, cooperative Cooperation: Participating/engaged Psychomotor Behavior: normal Mood: "fine Affect and affective range: congruent with stated mood Thought Process: Tangential Thought Content: Not Suicidal Speech: Normal volume, Regular rate and rhythm Suicidal Ideation: Denies Homicidal Ideation: Denies Hallucinations: Denies Delusions: None elicited Impulse Control: impaired Insight and Judgment: limited insight and judgment, Memory: normal Attention: Normal Orientation: Alert, oriented Assessment and Plan (1) Generalized Anxiety Disorder Current Visit: Yes Status: Acute Treatment Plan Start Remeron 7.5mg po QHS Sitter: Per primary Medical: Per primary Disposition: Do not recommend acute psychiatric inpatient treatment. The patient understands that if suicidal/homicidal ideas or any endangering thoughts/ behaviors arise, they should seek immediate assistance including but not limited to crisis hotline and emergency room. The patient will follow up with outpatient referrals and a safety plan provided by the mental health ballet professor. Will follow for medication management. Thanks Case staffed with Dr. Valdez Mental Status Exam - Vital signs Last Vital Signs Temp 98.3 F 12/14/20 04:22 Pulse 73 12/14/20 04:22 Resp 16 12/14/20 04:22 BP 143/78 12/14/20 04:22 Pulse Ox 95 12/14/20 04:22
[2020-12-14] MEDS ORDERED: MIRTAZAPINE 15 MG TAB PO SCH (22:00)
[2020-12-15] MEDS: LEVOTHYROXINE 25 MCG TAB PO SCH (06:16)
[2020-12-15] MEDS: metroNIDAZOLE 500 MG TAB PO SCH (06:17)
[2020-12-15] MEDS: ESCITALOPRAM 10 MG TAB PO SCH (10:44)
[2020-12-15] MEDS: levoFLOXacin 500 MG TAB PO SCH (10:44)
[2020-12-15] MEDS: APIXABAN 2.5 MG TAB PO SCH (10:44)
[2020-12-15] MEDS: FAMOTIDINE 10 MG TAB PO SCH (10:44)
[2020-12-15] MEDS: busPIRone 10 MG TAB PO SCH (10:44)
[2020-12-15] MEDS: SUCRALFATE 1 GM TAB PO SCH (10:45)
[2020-12-15 13:52] VITALS: BP 150/80
--- NOTE | 2020-12-15 14:39 | Discharge Summary ---
Providers - Providers Date of Admission: 12/06/20 15:23 Date of discharge: 12/15/20 Attending physician: LISBETH IRVIN 12/05/20 21:34 Consult to Physician [CONS] Stat Comment: Dr. Andres spoke with Dr. Miller @ [id number] Consulting Provider: VERO MILLER Physician Instructions: Reason For Exam: Abdominal pain, pneumatosis intestinalis 12/08/20 11:44 Consult to Dietitian/Nutrition [CONS] Routine Physician Instructions: pos elemential diet per gi Reason For Exam: Reason for Consult: Diet education 12/13/20 08:11 Physical Therapy Evaluation and Treat [CONS] Routine Comment: Reason For Exam: hip pain, ambulation 12/13/20 09:38 psychiatry consult [Consult to Mental Health] [CONS] Routine Reason For Exam: Anxiety,? Malingering/psychosomatic Primary care physician: SOFTWARE SUPPORT TECHNICIAN Hospitalization Condition: Stable Pertinent studies: CT abdomen and pelvis CTA abdomen Pelvic x-ray Abdominal x-ray Hospital course: Discharge diagnosis -- Acute abdominal pain At present patient does not have abdominal pain at this time and actually is complaining more of bilateral pelvic pain. Surgical intervention will most likely not be helpful given previous findings after last exploratory lap and especially now with no clear evidence of ischemia. At this point still unsure about etiology. Pneumatosis intestinalis CT scan of the abdomen and pelvis showed there appears to be minimal pneumatosis in the proximal transverse colon. No free air is identified previously serial cecal pneumatosis ptosis has resolved. No a small bowel obstruction. Appendix is not visualized. Numerous additional incidental findings.Nothing by mouth. IV fluid D5 half-normal saline at the rate of 100 cc/h. Pepcid 20 mg IV every 12 hours. Zofran 4 mg IV every 6 hours. Pain management. Consult surgery Dr. Miller for evaluation. Zosyn 4.5 g IV every 8 hours. Recheck CBC BMP in the morning -- pelvic pain Check pelvic plain films. -- hypertension Hydralazine 10 mg IV every 6 hours as needed. We will monitor the blood pressure closely -- GERD (gastroesophageal reflux disease) Pepcid 20 mg IV every 12 hours. Zofran 4 million IV every 6 hours as needed. We will monitor the patient closely -- Hypothyroid Levothyroxine 25 mcg p.o. every morning. We will monitor the patient closely -- DVT prophylaxis Disposition: [place]-06 HOME UNDER HOME [facility] Final Discharge Diagnosis (Prints w/discharge instructions): Acute abdominal pain/resolved. Pneumatosis intestinalis/improved. Bilateral hip/pelvic pain. Improved[need to see outpatient orthopedic surgeon]. GERD. Hypertension. Hypothyroidism. Hypokalemia[resolved] Time spent for discharge: 35 min Core Measure Documentation - Palliative Care Palliative Care/ Comfort Measures: Not Applicable - Core Measures Any of the following diagnoses?: none Exam - Constitutional Vitals: Temp Pulse Resp BP Pulse Ox 99.1 F 69 16 150/80 97 12/15/20 13:48 12/15/20 13:48 12/15/20 13:48 12/15/20 13:48 12/15/20 13:48 Plan Activity: advance as tolerated, fall precautions, other (Fall precautions) Diet: regular (As tolerated) Special Instructions: physical therapy, occupational therapy Additional Instructions: Fall precautions. If you have worsening symptoms contact MD or go to emergency room as needed. Regular diet as tolerated. Follow with primary care physician, security operations engineer and surgeon per. schedule. Patient complains of bilateral hip pain, hip x-ray normal, advised to see orthopedic surgeon Dr. Guzman in 1 to 2 weeks or as needed Follow up with: PRIMARY MD NERISSA [Primary Care Provider] - 3-5 Days LENNY MANZANO MD [Staff Physician] - 7 Days VERO MILLER MD [Staff Physician] - 7 Days BRIDGET GUZMAN MD [Staff Physician] - 7 Days Prescriptions: metroNIDAZOLE [Flagyl TAB] 500 mg PO Q8HR #9 tablet levoFLOXacin [Levaquin TAB] 500 mg PO Q24HR #3 tablet
--- NOTE | 2020-12-15 19:16 | Event Note ---
Date: 12/15/20 I called patient's Santa Cole at [phone] Discussed in detail patient's condition tests and reports consultants recommendations, treatment and discharge planning. I informed the patient's the patient is ready to be discharged today he had some questions I answered all of them He was appreciative of my call he was appreciative of my call patient was seen and examined
--- NOTE | 2020-12-15 19:18 | Event Note ---
Date: 12/14/20 I spoke with patient's Mr. Sumner and spoke with him in the patient's room using patient's phone, He was concerned about why patient was given liquid diet, I explained because of GI and surgeon because of Pending tests and possible procedures. I reassured him that I will be advancing the diet to mechanical soft today And normal diet tomorrow if tolerated. He verbalized understanding
== END 2020-12-15 17:00 | disposition home health service (06) | DRG 394 ==
LOC: ED 13:05 → 3A 23:18 → OBSVTOIN 12-06 15:23 → 3A 12-06 21:32
PROVIDERS: ADMIT Hospitalist; ATTEND Internal Medicine
DX: K63.89 Other specified diseases of intestine (principal); Z68.1 Body mass index [BMI] 19.9 or less, adult; K21.9 Gastro-esophageal reflux disease without esophagitis; I10 Essential (primary) hypertension; E87.6 Hypokalemia; E03.9 Hypothyroidism, unspecified; F31.9 Bipolar disorder, unspecified; F41.1 Generalized anxiety disorder; R10.2 Pelvic and perineal pain; M19.90 Unspecified osteoarthritis, unspecified site; Z88.8 Allergy status to other drugs, medicaments and biological substances; Z88.5 Allergy status to narcotic agent; Z88.2 Allergy status to sulfonamides; Z79.899 Other long term (current) drug therapy; Z79.891 Long term (current) use of opiate analgesic; Z79.01 Long term (current) use of anticoagulants; Z98.891 History of uterine scar from previous surgery; Z90.49 Acquired absence of other specified parts of digestive tract; R63.6 Underweight
CPT/HCPCS: 36415; 73521; 74018; 74175; 74177; 80048; 80053; 81001; 82140; 83690; 85025; 85027; 87040; 93979; 94640; G0378; J0360; J1170; J2060; J2405; J2543; J3010; J7030; Q9967

== ENCOUNTER 2021-03-25 12:29 | Outpatient (CLI) | payer MEDICARE ==
[2021-03-25 13:02] LABS: Basophils % (Auto) 0.1 % (0.0-1.8); Hematocrit 39.1 % (30.3-42.9); Lymphocytes # (Auto) 1.8 K/mm3 (1.2-5.4); Lymphocytes % (Auto) 28.7 % (13.4-35.0); Mean Corpuscular HGB Conc 33 % (30-34); Mean Corpuscular Volume 96 fl (79-97); Monocytes # (Auto) 0.4 K/mm3 (0.0-0.8); Monocytes % (Auto) 6.5 % (0.0-7.3); Platelet Count 174 K/mm3 (140-440); Red Blood Count 4.06 M/mm3 (3.65-5.03); Red Cell Distribution Width 13.4 % (13.2-15.2)
[2021-03-25 13:46] LABS: Erythrocyte Sedimentation Rate 18 mm/Hr (0-20)
== END 2021-03-25 12:30 | disposition home or self-care (01) ==
LOC: LAB 12:29
PROVIDERS: ATTEND Orthopaedic Surgery
DX: M25.562 Pain in left knee (principal); Z96.652 Presence of left artificial knee joint
CPT/HCPCS: 36415; 85025; 85652; 86140

== ENCOUNTER 2021-05-13 14:15 | Inpatient (IN) | payer MEDICARE ==
--- NOTE | 2021-05-13 14:31 | Emergency Department Report ---
HPI - General Chief Complaint: Extremity Injury, Lower Time Seen by Provider: 05/13/21 14:26 - HPI HPI: 81-year-old female brought in by EMS complaining of left hip pain after trip and fall which occurred just prior to arrival. Patient was at [place] walking on carpeted ground when she lost her balance and fell onto her left hip. She denies hitting her head or losing consciousness. She had immediate pain in her left hip and was unable to ambulate so 911 was called. She is not on anticoagulation or blood thinner. She denies any symptoms or complaints other than pain in her left hip and slightly in her left knee. Denies any associated headache, vision change, neck pain, fever, chest pain, shortness of breath, cough, abdominal pain, nausea/vomiting, focal weakness, sensory changes, dysuria, or any other complaints. She has not been given any pain medication and has several allergies but says she has received Dilaudid in the past without any issues or reactions. ED Past Medical Hx - Past Medical History Previous Medical History?: Yes Hx Hypertension: Yes Hx Heart Attack/AMI: No Hx GERD: Yes Hx Liver Disease: No Hx Renal Disease: No Hx Arthritis: Yes Hx Seizures: No Hx Asthma: No Hx HIV: No Additional medical history: MVP, Thyroid Disease, Polio - Surgical History Hx Cholecystectomy: Yes Hx Appendectomy: Yes Additional Surgical History: Left knee haedware, Tonsillectomy, Hiatal hernia repair, Lysis of Adhesions, C-sections, Adhesions in abd - Social History Smoking Status: Never Smoker - Medications Home Medications: Home Medications Medication Instructions Recorded Confirmed Last Taken Type Apixaban [Eliquis] 2.5 mg PO Q12HR 15 Days #30 tablet 07/06/18 10/06/20 Unknown Rx Ascorbic Acid [Vitamin C] 500 mg PO BID #60 tablet 07/06/18 10/06/20 Unknown Rx Estrogens, Conjugated [Premarin] 0.3 mg PO QDAY #30 tablet 07/06/18 10/06/20 Unknown Rx Famotidine [Pepcid] 20 mg PO BID #60 tablet 07/06/18 10/06/20 Unknown Rx Ferrous Sulfate [Feosol 325 MG tab] 325 mg PO BID #60 tablet 07/06/18 10/06/20 Unknown Rx Levothyroxine [Synthroid] 25 mcg PO QAM #30 tablet 07/06/18 10/06/20 10/05/20 07:00 Rx Sennosides/Docusate [Senokot S] 2 tab PO QHS #60 tablet 07/06/18 10/06/20 Unknown Rx Sucralfate [Carafate] 1 gm PO BID #60 tablet 07/06/18 10/06/20 Unknown Rx busPIRone [Buspar] 30 mg PO BID #60 tablet 07/06/18 10/06/20 10/05/20 22:00 Rx traZODone [Desyrel] 100 mg PO QHS #30 tablet 07/06/18 10/06/20 10/05/20 22:00 Rx Ondansetron HCl [Zofran] 4 mg PO Q8HR #15 tablet 10/13/20 Unknown Rx oxyCODONE /ACETAMINOPHEN [Percocet 1 tab PO Q4HR PRN #30 tab 10/13/20 Unknown Rx 5/325 mg] levoFLOXacin [Levaquin TAB] 500 mg PO Q24HR #3 tablet 12/15/20 Unknown Rx metroNIDAZOLE [Flagyl TAB] 500 mg PO Q8HR #9 tablet 12/15/20 Unknown Rx ED Review of Systems ROS: Stated complaint: LEFT HIP FRACTURE/FALL Other details as noted in HPI Comment: All other systems reviewed and negative Constitutional: denies: chills, fever Eyes: denies: eye pain, vision change ENT: denies: throat pain, congestion Respiratory: denies: cough, shortness of breath Cardiovascular: denies: chest pain, palpitations Gastrointestinal: denies: abdominal pain, nausea, vomiting Genitourinary: denies: dysuria, frequency Musculoskeletal: other (Left hip pain). denies: back pain Skin: denies: rash, lesions Neurological: denies: headache, weakness, numbness Physical Exam - Physical Exam Vital Signs: Vital Signs 05/13/21 14:17 Temperature 98.0 F Pulse Rate 102 H Respiratory 16 Rate Blood Pressure 175/104 [Left] O2 Sat by Pulse 98 Oximetry Physical Exam: GENERAL: Skinny elderly female in no acute distress. HEAD: Normocephalic. No obvious signs of trauma. ENT: Moist mucous membranes. EYES: Extraocular movements are intact. Pupils are equal round and reactive to light bilaterally NECK: Supple. Full ROM is intact. Trachea is midline. LUNGS: Nonlabored breathing. Equal chest rise bilaterally. Clear to auscultation bilaterally. CARDIOVASCULAR: Regular rate and rhythm. No murmurs or rubs. VASCULAR: Cap refill < 2 seconds. 2+ peripheral pulses including 2+ DP/PT pulses ABDOMEN: Abdomen is soft and nondistended. There is no significant tenderness, guarding or rebound. SKIN: Skin is warm and dry NEURO: Patient is awake, alert, and oriented. hat forming machine feeder II-XII grossly intact. No focal deficits. Normal motor and sensory exam throughout. Normal speech. MUSCULOSKELETAL: The left hip is held partially flexed and with the knee flexed as well. Pelvis is stable. There is tenderness of the left hip and generalized tenderness over the left knee. Neurovascularly intact distally. Otherwise normal ROM throughout without significant tenderness. BACK/SPINE: No midline tenderness or step-offs of the C/T/L spine. No costovertebral angle tenderness. ED Course Vital Signs 05/13/21 14:17 Temperature 98.0 F Pulse Rate 102 H Respiratory 16 Rate Blood Pressure 175/104 [Left] O2 Sat by Pulse 98 Oximetry ED Medical Decision Making - Lab Data Result diagrams: 05/13/21 16:57 05/13/21 16:57 - Radiology Data Radiology results: report reviewed - Medical Decision Making 81-year-old female brought in by EMS with left hip pain after tripping and experiencing a ground-level fall just prior to arrival. Patient did not hit her head or lose consciousness. She is unable to ambulate and complains of left hip pain. She is afebrile and with normal vital signs other than elevated blood pressure mildly elevated heart rate. On physical examination her pelvis is stable but there is left hip tenderness. The left hip is held partially flexed with the knee flexed as well. She is neurovascularly in tact past the knee. She has tenderness over the knee but no tenderness over the distal femur itself. We will perform full work-up with labs and plain film x-rays of the chest and pelvis as well as x-rays of the left hip and knee. We will give Dilaudid for pain control and reassess On repeat assessment, the patient reports feeling much better after pain medication. Plain film x-ray reveals an acute comminuted left intertrochanteric femur fracture. Chest x-ray reveals no acute abnormalities. Plain film x-rays of the left knee reveal no acute abnormalities. Labs reveal no significant leukocytosis or anemia. Kidney function is within normal limits and there are no significant electrolyte abnormalities. I spoke with Dr. Guzman of orthopedic surgery regarding the case and he recommends admission for medical optimization until surgical repair can be performed. I discussed the diagnosis with the patient and her along with the plan of care and they expressed understanding and agreement. I spoke with Dr. Mauricio the on-call hospitalist regarding the case and he accepts the patient for admission and will assume care. Critical care attestation.: If time is entered above; I have spent that time in minutes in the direct care of this critically ill patient, excluding procedure time. ED Disposition Clinical Impression: Fall from ground level, Fracture, intertrochanteric, left femur Disposition: ADMITTED INPATIENT Is pt being admited?: Yes Condition: Stable Referrals: RICHAR LAO MD [Primary Care Provider] - 3-5 Days
[2021-05-13] MEDS: HYDROmorphone 1 MG/1 ML INJ IV ONE ×2 (14:45→16:19)
--- NOTE | 2021-05-13 16:30 | XRay Report ---
CHEST 1 VIEW 05/13/2021 3:58 PM INDICATION / CLINICAL INFORMATION: fall. COMPARISON: 06/22/2018 FINDINGS: SUPPORT DEVICES: None. HEART / MEDIASTINUM: No significant abnormality. LUNGS / PLEURA: No significant pulmonary or pleural abnormality. No pneumothorax. ADDITIONAL FINDINGS: No significant additional findings. IMPRESSION: 1. No acute findings. Signer Name: Gabriel Lyon DO Signed: 05/13/2021 4:26 PM Workstation Name: [id number]
--- NOTE | 2021-05-13 16:31 | XRay Report ---
LEFT KNEE 2 VIEWS INDICATION / CLINICAL INFORMATION: Trauma with left knee pain. COMPARISON: None available. FINDINGS: BONES / JOINT(S): There is a knee prosthesis without complication. I see no evidence of acute fractur e or subluxation. SOFT TISSUES: No significant abnormality. ADDITIONAL FINDINGS: None. Signer Name: Jeffry Woo MD Signed: 05/13/2021 4:27 PM Workstation Name: [id number]
--- NOTE | 2021-05-13 16:33 | XRay Report ---
LEFT HIP 2 VIEWS INDICATION / CLINICAL INFORMATION: Fall with left hip pain. COMPARISON: 12/09/20. FINDINGS: BONES / JOINT(S): There is an acute, mildly displaced comminuted intertrochanteric fracture of the le ft femur. No dislocation. Intramedullary nail in the proximal right femur was present previously. SOFT TISSUES: No significant abnormality. ADDITIONAL FINDINGS: None. IMPRESSION: Acute, comminuted intertrochanteric fracture of the left femur. Signer Name: Jeffry Woo MD Signed: 05/13/2021 4:29 PM Workstation Name: [id number]
[2021-05-13 17:10] LABS: Basophils % (Auto) 0.3 % (0.0-1.8); Hematocrit 37.7 % (30.3-42.9); Hemoglobin 12.9 gm/dl (10.1-14.3); Lymphocytes # (Auto) 1.1 K/mm3 (1.2-5.4); Lymphocytes % (Auto) 9.5 % (13.4-35.0); Mean Corpuscular HGB Conc 34 % (30-34); Mean Corpuscular Volume 93 fl (79-97); Monocytes # (Auto) 0.5 K/mm3 (0.0-0.8); Monocytes % (Auto) 4.8 % (0.0-7.3); Platelet Count 198 K/mm3 (140-440); Red Blood Count 4.07 M/mm3 (3.65-5.03); Red Cell Distribution Width 13.3 % (13.2-15.2)
[2021-05-13 17:27] LABS: Blood Urea Nitrogen 15 mg/dL (7-17); Calcium 9.3 mg/dL (8.4-10.2); Hemolysis Index 7
[2021-05-13 17:34] LABS: INR 0.95 (0.87-1.13)
[2021-05-13 17:35] LABS: Partial Thromboplastin Time 29.1 Sec. (24.2-36.6)
[2021-05-13 17:36] LABS: BUN/Creatinine Ratio 25
--- NOTE | 2021-05-13 17:58 | History and Physical Report ---
History of Present Illness Chief complaint: She fell History of present illness: 81 YO Female with Vascular Dementia, Cerebral Atherosclerosis, Hypothyroidism, Debility, OA, Malnutrition, GERD, MVP presents to ED for evaluation. Patient has diminished cognition and provides limited history. Patient reports "I fell" . Additional history taken EMS staff, ED staff, as well as patient met family who was made available by telephone for interview. Patient was attending [employer] and slipped and fell landing on her left side. Patient experienced immediate pain in her left hip and was unable to stand or ambulate or bear weight on the left leg. EMS was notified upon arrival the patient was found to be in distress and subsequent transported x-rays for further care and evaluation of the aforementioned symptoms. The patient was seen and evaluated in the emergency department. All lab and imaging studies reviewed. Patient found to have left hip fracture on x-ray. Orthopedic surgery service consulted. Patient also found to have volume depletion, malnutrition. Patient admitted to medical floor for medical optimization and surgical intervention. Patient has diminished cognition at the time my evaluation but has a positive gag reflex and is able to protect her airway without difficulty. No reports of fever, chills, chest pain, palpitation, adductive cough, skin rash, recent contact, known exposure to [place] VID-19. Prior admission on 12-25 reviewed. All medication listed at time of admission has been reconciled. Advance care planning conducted in ED. Past History Past Surgical History: appendectomy, cholecystectomy, , hernia repair, tonsillectomy, bowel surgery, Other Social history: , lives with family Family history: hypertension Medications and Allergies Allergies Allergy/AdvReac Type Severity Reaction Status Date / Time adhesive Allergy Rash Verified 11/18/15 10:24 aspirin Allergy Bleeding Verified 11/18/15 10:24 codeine Allergy Hives Verified 11/18/15 10:24 latex Allergy Rash Verified 11/18/15 10:24 metoclopramide HCl Allergy Itching Verified 11/18/15 10:24 [From Reglan] morphine Allergy Rash Verified 11/18/15 10:24 Sulfa (Sulfonamide Allergy Rash Verified 11/18/15 10:24 Antibiotics) Home Medications Medication Instructions Recorded Confirmed Last Taken Type Apixaban [Eliquis] 2.5 mg PO Q12HR 15 Days #30 tablet 07/06/18 10/06/20 Unknown Rx Ascorbic Acid [Vitamin C] 500 mg PO BID #60 tablet 07/06/18 10/06/20 Unknown Rx Estrogens, Conjugated [Premarin] 0.3 mg PO QDAY #30 tablet 07/06/18 10/06/20 Unknown Rx Famotidine [Pepcid] 20 mg PO BID #60 tablet 07/06/18 10/06/20 Unknown Rx Ferrous Sulfate [Feosol 325 MG tab] 325 mg PO BID #60 tablet 07/06/18 10/06/20 Unknown Rx Levothyroxine [Synthroid] 25 mcg PO QAM #30 tablet 07/06/18 10/06/20 10/05/20 07:00 Rx Sennosides/Docusate [Senokot S] 2 tab PO QHS #60 tablet 07/06/18 10/06/20 Unknown Rx Sucralfate [Carafate] 1 gm PO BID #60 tablet 07/06/18 10/06/20 Unknown Rx busPIRone [Buspar] 30 mg PO BID #60 tablet 07/06/18 10/06/20 10/05/20 22:00 Rx traZODone [Desyrel] 100 mg PO QHS #30 tablet 07/06/18 10/06/20 10/05/20 22:00 Rx Ondansetron HCl [Zofran] 4 mg PO Q8HR #15 tablet 10/13/20 Unknown Rx oxyCODONE /ACETAMINOPHEN [Percocet 1 tab PO Q4HR PRN #30 tab 10/13/20 Unknown Rx 5/325 mg] levoFLOXacin [Levaquin TAB] 500 mg PO Q24HR #3 tablet 12/15/20 Unknown Rx metroNIDAZOLE [Flagyl TAB] 500 mg PO Q8HR #9 tablet 12/15/20 Unknown Rx Review of Systems ROS unobtainable: due to mental status Exam - Constitutional Vitals: Temp Pulse Resp BP Pulse Ox 98.0 F 86 16 139/79 99 05/13/21 14:17 05/13/21 16:50 05/13/21 16:50 05/13/21 16:50 05/13/21 16:50 General appearance: Present: mild distress - EENT Eyes: Present: PERRL ENT: clear oral mucosa, hearing decreased - Neck Neck: Present: supple, normal ROM - Respiratory Respiratory effort: normal Respiratory: bilateral: CTA - Cardiovascular Heart Sounds: Present: S1 & S2. Absent: rub, click - Extremities Extremities: pulses symmetrical, No edema Peripheral Pulses: within normal limits - Abdominal General gastrointestinal: Present: soft, non-tender, non-distended, normal bowel sounds Female genitourinary: Present: normal - Integumentary Integumentary: Present: clear, warm, dry - Musculoskeletal Musculoskeletal: gait normal, strength equal bilaterally - Psychiatric Psychiatric: no appropriate mood/affect, no intact judgment & insight, no memory intact - Neurologic Neurologic: CNII-XII intact, moves all extremities, no gait normal Results - Labs CBC & Chem 7: 05/13/21 16:57 05/13/21 16:57 Labs: Abnormal lab results 05/13/21 05/13/21 Range/Units 16:57 16:57 WBC 11.2 H (4.5-11.0) K/mm3 Lymph % (Auto) 9.5 L (13.4-35.0) % Lymph # (Auto) 1.1 L (1.2-5.4) K/mm3 Seg Neutrophils % 85.4 H (40.0-70.0) % Seg Neutrophils # 9.6 H (1.8-7.7) K/mm3 Glucose 139 H (65-100) mg/dL Assessment and Plan - Patient Problems (1) Fracture, intertrochanteric, left femur Current Visit: Yes Status: Acute Plan to address problem: Orthopedic surgery service consulted. Patient to receive preop echocardiogram and medical optimization prior to surgical intervention., Pain control, supportive care. Patient care plan discussed with orthopedic surgeon who plans to conduct surgical invention after medical optimization completed. (2) Volume depletion Current Visit: Yes Status: Acute Plan to address problem: IV fluid resuscitation therapy, monitor urine output every shift, monitor fluid balance. (3) Malnutrition Current Visit: Yes Status: Acute Qualifiers: Malnutrition type: protein-calorie malnutrition Plan to address problem: Increase protein intake, dietary supplementation. (4) Hypothyroidism Current Visit: Yes Status: Acute Plan to address problem: Thyroid panel, resume Synthroid therapy, supportive care. (5) Vascular dementia Current Visit: Yes Status: Acute Qualifiers: Dementia behavioral disturbance: without behavioral disturbance Qualified Code(s): F01.50 - Vascular dementia without behavioral disturbance Plan to address problem: Verbal prompt, verbal redirection, benzodiazepine therapy as clinically indicated. (6) Cerebral atherosclerosis Current Visit: Yes Status: Acute Plan to address problem: Respect reduction therapy, supportive care. (7) DVT prophylaxis Current Visit: Yes Status: Acute Plan to address problem: SCD to bilateral lower extremities while in bed (8) Advance care planning Current Visit: Yes Status: Acute Plan to address problem: Disease education done, care plan discussed, diagnoses discussed, prognosis discussed, patient is full code, +30 minutes.
[2021-05-13] MEDS ORDERED: ALBUTEROL 2.5 MG/3 ML NEBU IH PRN ×2 (18:05→18:35)
[2021-05-13] MEDS ORDERED: oxyCODONE /ACETAMINOPHEN 5-325MG TAB PO PRN (18:05)
[2021-05-13] MEDS ORDERED: ACETAMINOPHEN 325 MG TAB PO PRN ×2 (18:05→18:39)
[2021-05-13] MEDS ORDERED: HYDROmorphone 1 MG/1 ML INJ IV PRN (18:05)
[2021-05-13] MEDS ORDERED: ONDANSETRON 4 MG/2 ML INJ IV PRN (18:37)
[2021-05-13] MEDS ORDERED: busPIRone 5 MG TAB PO SCH (22:00)
[2021-05-13] MEDS: ASCORBIC ACID 500 MG TAB PO SCH (22:56)
[2021-05-13] MEDS: SENNOSIDES/DOCUSATE SODIUM 8.6/50 MG TAB PO SCH (22:56)
[2021-05-13] MEDS: FERROUS SULFATE 325 MG TAB PO SCH (22:56)
[2021-05-13] MEDS: FAMOTIDINE 20 MG TAB PO SCH (22:57)
[2021-05-13] MEDS: HYDROmorphone 1 MG/1 ML INJ IV PRN (22:57)
[2021-05-13] MEDS: traZODone 100 MG TAB PO SCH (22:57)
[2021-05-13] MEDS: SUCRALFATE 1 GM TAB PO SCH (22:57)
[2021-05-13] MEDS: SODIUM CHLORIDE 0.9% 1000 ML 1,000 ML IV SCH (23:14)
[2021-05-14 01:03] LABS: Free T4 (Free Thyroxine) 0.99 ng/dL (0.76-1.46)
[2021-05-14] MEDS: HYDROmorphone 1 MG/1 ML INJ IV PRN ×2 (04:43→20:25)
[2021-05-14 06:41] LABS: Basophils % (Auto) 0.1 % (0.0-1.8); Hematocrit 33.1 % (30.3-42.9); Hemoglobin 11.2 gm/dl (10.1-14.3); Lymphocytes # (Auto) 1.3 K/mm3 (1.2-5.4); Lymphocytes % (Auto) 20.1 % (13.4-35.0); Mean Corpuscular HGB Conc 34 % (30-34); Mean Corpuscular Volume 94 fl (79-97); Monocytes # (Auto) 0.8 K/mm3 (0.0-0.8); Monocytes % (Auto) 11.6 % (0.0-7.3); Platelet Count 173 K/mm3 (140-440); Red Blood Count 3.51 M/mm3 (3.65-5.03); Red Cell Distribution Width 13.4 % (13.2-15.2)
[2021-05-14 07:01] LABS: Blood Urea Nitrogen 16 mg/dL (7-17); Calcium 8.9 mg/dL (8.4-10.2); Hemolysis Index 8
[2021-05-14 07:05] LABS: BUN/Creatinine Ratio 27
--- NOTE | 2021-05-14 08:38 | Progress Note ---
Assessment and Plan Assessment and plan: #Left femur intertrochanteric fracture -Left hip x-ray shows acute, comminuted intertrochanteric fracture left femur -Orthopedic surgery contacted in ED -Cardiac clearance pending for surgical intervention -As needed pain medication #History of valvular disease -Per patient, she has history of valvular disease -Echocardiogram ordered -Cardiology consulted for cardiac clearance, assistance appreciated #Hypothyroidism -Continue Synthroid #Hypertension -As needed clonidine per -Blood pressure controlled, will hold any medications for now Disposition Plan: pending surgical intervention History Interval history: No acute events overnight. Patient reports pain level is a 0. No complaints at this time. Hospitalist Physical - Physical exam Narrative exam: GENERAL: Well-developed well-nourished. In no acute distress. HEENT: Normocephalic. Atraumatic. CHEST/LUNGS: CTAB on room air HEART/CARDIOVASCULAR: Tachycardic. No murmur, rubs or gallops appreciated. ABDOMEN: +BS. NT/ND. SKIN: No rashes noted. NEURO: No focal motor deficit. Follows all commands. MUSCULOSKELETAL: No joint effusion. Left hip exquisitely tender to palpation. EXTREMITIES: No cyanosis, clubbing or edema. PSYCH: Cooperative. - Constitutional Vitals: Temp Pulse Resp BP Pulse Ox 98.8 F 104 H 18 114/86 94 05/14/21 07:48 05/14/21 07:48 05/14/21 07:48 05/14/21 07:48 05/14/21 07:48 General appearance: Present: mild distress Results - Labs CBC & Chem 7: 05/14/21 05:17 05/14/21 05:17 Labs: Laboratory Last Values WBC 6.5 K/mm3 (4.5-11.0) 05/14/21 05:17 RBC 3.51 M/mm3 (3.65-5.03) L 05/14/21 05:17 Hgb 11.2 gm/dl (10.1-14.3) 05/14/21 05:17 Hct 33.1 % (30.3-42.9) 05/14/21 05:17 MCV 94 fl (79-97) 05/14/21 05:17 MCH 32 pg (28-32) 05/14/21 05:17 MCHC 34 % (30-34) 05/14/21 05:17 RDW 13.4 % (13.2-15.2) 05/14/21 05:17 Plt Count 173 K/mm3 (140-440) 05/14/21 05:17 Lymph % (Auto) 20.1 % (13.4-35.0) 05/14/21 05:17 [place] % (Auto) 11.6 % (0.0-7.3) H 05/14/21 05:17 Eos % (Auto) 0.0 % (0.0-4.3) 05/14/21 05:17 Baso % (Auto) 0.1 % (0.0-1.8) 05/14/21 05:17 Lymph # (Auto) 1.3 K/mm3 (1.2-5.4) 05/14/21 05:17 [place] # (Auto) 0.8 K/mm3 (0.0-0.8) 05/14/21 05:17 Eos # (Auto) 0.0 K/mm3 (0.0-0.4) 05/14/21 05:17 Baso # (Auto) 0.0 K/mm3 (0.0-0.1) 05/14/21 05:17 Seg Neutrophils % 68.2 % (40.0-70.0) 05/14/21 05:17 Seg Neutrophils # 4.5 K/mm3 (1.8-7.7) 05/14/21 05:17 PT 13.7 Sec. (12.2-14.9) 05/13/21 16:57 INR 0.95 (0.87-1.13) 05/13/21 16:57 APTT 29.1 Sec. (24.2-36.6) 05/13/21 16:57 Sodium 141 mmol/L (137-145) 05/14/21 05:17 Potassium 4.0 mmol/L (3.6-5.0) 05/14/21 05:17 Chloride 102.5 mmol/L (98-107) 05/14/21 05:17 Carbon Dioxide 25 mmol/L (22-30) 05/14/21 05:17 Anion Gap 18 mmol/L 05/14/21 05:17 BUN 16 mg/dL (7-17) 05/14/21 05:17 Creatinine 0.6 mg/dL (0.6-1.2) 05/14/21 05:17 Estimated GFR > 60 ml/min 05/14/21 05:17 BUN/Creatinine Ratio 27 % 05/14/21 05:17 Glucose 141 mg/dL (65-100) H 05/14/21 05:17 Calcium 8.9 mg/dL (8.4-10.2) 05/14/21 05:17 TSH 4.520 mlU/mL (0.270-4.200) H 05/13/21 23:48 Free T4 0.99 ng/dL (0.76-1.46) 05/13/21 23:48 [place]/IV: Voiding Method Indwelling Catheter Active Medications - Current Medications Current Medications: Generic Name Dose Route Start Last Admin Trade Name Freq PRN Reason Stop Dose Admin Acetaminophen 650 mg 05/13/21 18:39 Acetaminophen 325 Mg Tab PO Q6H PRN Pain MILD(1-3)/Fever >100.5/[place] Albuterol 2.5 mg 05/13/21 18:05 Albuterol 2.5 Mg/3 Ml Nebu IH Q4HRT PRN Shortness Of Breath Ascorbic Acid 500 mg 05/13/21 22:00 05/13/21 22:56 Ascorbic Acid 500 Mg Tab PO 500 mg BID AMANDA Administration Buspirone HCl 30 mg 05/14/21 10:00 Buspirone 10 Mg Tab PO BID AMANDA Estrogens Conjugated 0.3 mg 05/14/21 10:00 Estrogens, Conjugated 0.3 Mg Tab PO QDAY AMANDA Famotidine 20 mg 05/13/21 22:00 05/13/21 22:57 Famotidine 20 Mg Tab PO 20 mg BID AMANDA Administration Ferrous Sulfate 325 mg 05/13/21 22:00 05/13/21 22:56 Ferrous Sulfate 325 Mg Tab PO 325 mg BID AMANDA Administration Heparin Sodium (Porcine) 5,000 unit 05/14/21 10:00 Heparin 5,000 Unit/1 Ml Vial SUB-Q Q12HR AMANDA Hydromorphone HCl 0.5 mg 05/13/21 18:39 05/14/21 04:43 Hydromorphone 1 Mg/1 Ml Inj IV 0.5 mg Q4H PRN Administration Pain , Severe (7-10) Sodium Chloride 1,000 mls @ 100 mls/hr 05/13/21 18:15 05/13/21 23:14 Nacl 0.9% 1000 Ml IV 100 mls/hr DIRECT AMANDA Administration Levothyroxine Sodium 25 mcg 05/14/21 10:00 Levothyroxine 25 Mcg Tab PO QAM AMANDA Ondansetron HCl 4 mg 05/13/21 18:05 Ondansetron 4 Mg/2 Ml Inj IV Q8H PRN Nausea And Vomiting Ondansetron HCl 4 mg 05/13/21 18:37 Ondansetron 4 Mg/2 Ml Inj IV Q8H PRN Nausea And Vomiting Oxycodone/Acetaminophen 1 tab 05/13/21 18:39 Oxycodone /Acetaminophen 5-325mg Tab PO Q8H PRN Pain, Moderate (4-6) Senna/Docusate Sodium 2 tab 05/13/21 22:00 05/13/21 22:56 Sennosides/Docusate Sodium 8.6/50 Mg Tab PO 2 tab QHS AMANDA Administration Sodium Chloride 10 ml 05/13/21 22:00 05/13/21 22:58 Sodium Chloride 0.9% 10 Ml Flush Syringe IV 10 ml BID AMANDA Administration Sodium Chloride 10 ml 05/13/21 18:05 Sodium Chloride 0.9% 10 Ml Flush Syringe IV PRN PRN LINE FLUSH Sodium Chloride 10 ml 05/13/21 18:35 Sodium Chloride 0.9% 10 Ml Flush Syringe IV PRN PRN LINE FLUSH Sodium Chloride 10 ml 05/13/21 22:00 05/14/21 00:25 Sodium Chloride 0.9% 10 Ml Flush Syringe IV Not Given BID AMANDA Sodium Chloride 10 ml 05/13/21 18:37 Sodium Chloride 0.9% 10 Ml Flush Syringe IV PRN PRN LINE FLUSH Sucralfate 1 gm 05/13/21 22:00 05/13/21 22:57 Sucralfate 1 Gm Tab PO 1 gm BID AMANDA Administration Trazodone HCl 100 mg 05/13/21 22:00 05/13/21 22:57 Trazodone 100 Mg Tab PO 100 mg QHS AMANDA Administration
[2021-05-14] MEDS: busPIRone 10 MG TAB PO SCH ×2 (11:26→22:42)
[2021-05-14] MEDS: FERROUS SULFATE 325 MG TAB PO SCH ×2 (11:27→22:47)
[2021-05-14] MEDS: LEVOTHYROXINE 25 MCG TAB PO SCH (11:27)
[2021-05-14] MEDS: SUCRALFATE 1 GM TAB PO SCH ×2 (11:27→22:45)
[2021-05-14] MEDS: ASCORBIC ACID 500 MG TAB PO SCH ×2 (11:27→22:48)
[2021-05-14] MEDS: FAMOTIDINE 20 MG TAB PO SCH ×2 (11:27→22:48)
[2021-05-14] MEDS: HEPARIN 5,000 UNIT/1 ML VIAL SUB-Q SCH ×2 (11:29→22:00)
--- NOTE | 2021-05-14 15:59 | Consultation ---
History of Present Illness - [facility] Consult date: 05/14/21 History of present illness: Orthopedic Consultation Assessment: 1. Intertrochanteric fracture, nondisplaced, left hip 2. S/P right hip IM nail stabilization for previous fracture, right hip (remote past) Recommendations : 1) IM stabilization for the left hip which will enable her to rehab much faster than treating this conservatively. 2) cardiac clearance for appears to be a cardiac arrhythmia/cardiovascular disease /clearance for surgery; 3) DVT prophylaxis with SCDs; hold heparin 24 hours prior to surgery Discussion: This is a 81-year-old female who had the misfortune of falling at home last evening sustaining an isolated injury to the left hip. Is unknown whether there was a syncopal episode or whether it was a simple slip and fall. Patient is not a very good historian. Examination took place in the hospital bed which reveals a elderly petite female in no acute distress. Leg lengths are equal. Left leg externally rotated. She is unable to do a straight leg raise. There is pain to palpation over the anterior hip joint and the greater trochanter; neurovascular examination is normal for the left lower extremity. X-rays: AP pelvis shows a nondisplaced intertrochanteric fracture involving the left hip (Garden-class 1) with no comminution. Right hip shows a well-healed technically acceptable IM nail for what appears to have been a previous right intertrochanteric fracture. Past History Past Surgical History: appendectomy, cholecystectomy, , hernia repair, tonsillectomy, bowel surgery, Other Social history: , lives with family Family history: hypertension Medications and Allergies Allergies Allergy/AdvReac Type Severity Reaction Status Date / Time adhesive Allergy Rash Verified 11/18/15 10:24 aspirin Allergy Bleeding Verified 11/18/15 10:24 codeine Allergy Hives Verified 11/18/15 10:24 latex Allergy Rash Verified 11/18/15 10:24 metoclopramide HCl Allergy Itching Verified 11/18/15 10:24 [From Reglan] morphine Allergy Rash Verified 11/18/15 10:24 Sulfa (Sulfonamide Allergy Rash Verified 11/18/15 10:24 Antibiotics) Home Medications Medication Instructions Recorded Confirmed Last Taken Type Apixaban [Eliquis] 2.5 mg PO Q12HR 15 Days #30 tablet 07/06/18 10/06/20 Unknown Rx Ascorbic Acid [Vitamin C] 500 mg PO BID #60 tablet 07/06/18 10/06/20 Unknown Rx Estrogens, Conjugated [Premarin] 0.3 mg PO QDAY #30 tablet 07/06/18 10/06/20 Unknown Rx Famotidine [Pepcid] 20 mg PO BID #60 tablet 07/06/18 10/06/20 Unknown Rx Ferrous Sulfate [Feosol 325 MG tab] 325 mg PO BID #60 tablet 07/06/18 10/06/20 Unknown Rx Levothyroxine [Synthroid] 25 mcg PO QAM #30 tablet 07/06/18 10/06/20 10/05/20 07:00 Rx Sennosides/Docusate [Senokot S] 2 tab PO QHS #60 tablet 07/06/18 10/06/20 Unknown Rx Sucralfate [Carafate] 1 gm PO BID #60 tablet 07/06/18 10/06/20 Unknown Rx busPIRone [Buspar] 30 mg PO BID #60 tablet 07/06/18 10/06/20 10/05/20 22:00 Rx traZODone [Desyrel] 100 mg PO QHS #30 tablet 07/06/18 10/06/20 10/05/20 22:00 Rx Ondansetron HCl [Zofran] 4 mg PO Q8HR #15 tablet 10/13/20 Unknown Rx oxyCODONE /ACETAMINOPHEN [Percocet 1 tab PO Q4HR PRN #30 tab 10/13/20 Unknown Rx 5/325 mg] levoFLOXacin [Levaquin TAB] 500 mg PO Q24HR #3 tablet 12/15/20 Unknown Rx metroNIDAZOLE [Flagyl TAB] 500 mg PO Q8HR #9 tablet 12/15/20 Unknown Rx Active Meds: Active Medications Acetaminophen (Acetaminophen 325 Mg Tab) 650 mg PO Q6H PRN PRN Reason: Pain MILD(1-3)/Fever >100.5/[place] Albuterol (Albuterol 2.5 Mg/3 Ml Nebu) 2.5 mg IH Q4HRT PRN PRN Reason: Shortness Of Breath Ascorbic Acid (Ascorbic Acid 500 Mg Tab) 500 mg PO BID [facility] Last Admin: 05/14/21 11:27 Dose: 500 mg Buspirone HCl (Buspirone 10 Mg Tab) 30 mg PO BID [facility] Last Admin: 05/14/21 11:26 Dose: 30 mg Estrogens Conjugated (Estrogens, Conjugated 0.3 Mg Tab) 0.3 mg PO QDAY [facility] Famotidine (Famotidine 20 Mg Tab) 20 mg PO BID [facility] Last Admin: 05/14/21 11:27 Dose: 20 mg Ferrous Sulfate (Ferrous Sulfate 325 Mg Tab) 325 mg PO BID [facility] Last Admin: 05/14/21 11:27 Dose: 325 mg Heparin Sodium (Porcine) (Heparin 5,000 Unit/1 Ml Vial) 5,000 unit SUB-Q Q12HR [facility] Last Admin: 05/14/21 11:29 Dose: 5,000 unit Hydromorphone HCl (Hydromorphone 1 Mg/1 Ml Inj) 0.5 mg IV Q4H PRN PRN Reason: Pain , Severe (7-10) Last Admin: 05/14/21 04:43 Dose: 0.5 mg Sodium Chloride (Nacl 0.9% 1000 Ml) 1,000 mls @ 100 mls/hr IV DIRECT [facility] Last Admin: 05/13/21 23:14 Dose: 100 mls/hr Levothyroxine Sodium (Levothyroxine 25 Mcg Tab) 25 mcg PO QAM [facility] Last Admin: 05/14/21 11:27 Dose: 25 mcg Ondansetron HCl (Ondansetron 4 Mg/2 Ml Inj) 4 mg IV Q8H PRN PRN Reason: Nausea And Vomiting Ondansetron HCl (Ondansetron 4 Mg/2 Ml Inj) 4 mg IV Q8H PRN PRN Reason: Nausea And Vomiting Oxycodone/Acetaminophen (Oxycodone /Acetaminophen 5-325mg Tab) 1 tab PO Q8H PRN PRN Reason: Pain, Moderate (4-6) Senna/Docusate Sodium (Sennosides/Docusate Sodium 8.6/50 Mg Tab) 2 tab PO QHS [facility] Last Admin: 05/13/21 22:56 Dose: 2 tab Sodium Chloride (Sodium Chloride 0.9% 10 Ml Flush Syringe) 10 ml IV BID [facility] Last Admin: 05/13/21 22:58 Dose: 10 ml Sodium Chloride (Sodium Chloride 0.9% 10 Ml Flush Syringe) 10 ml IV PRN PRN PRN Reason: LINE FLUSH Sodium Chloride (Sodium Chloride 0.9% 10 Ml Flush Syringe) 10 ml IV PRN PRN PRN Reason: LINE FLUSH Sodium Chloride (Sodium Chloride 0.9% 10 Ml Flush Syringe) 10 ml IV BID [facility] Last Admin: 05/14/21 00:25 Dose: Not Given Sodium Chloride (Sodium Chloride 0.9% 10 Ml Flush Syringe) 10 ml IV PRN PRN PRN Reason: LINE FLUSH Sucralfate (Sucralfate 1 Gm Tab) 1 gm PO BID [facility] Last Admin: 05/14/21 11:27 Dose: 1 gm Trazodone HCl (Trazodone 100 Mg Tab) 100 mg PO QHS [facility] Last Admin: 05/13/21 22:57 Dose: 100 mg
[2021-05-14] MEDS: SODIUM CHLORIDE 0.9% 1000 ML 1,000 ML IV SCH (20:26)
[2021-05-14] MEDS: traZODone 100 MG TAB PO SCH (22:47)
[2021-05-14] MEDS: SENNOSIDES/DOCUSATE SODIUM 8.6/50 MG TAB PO SCH (22:48)
[2021-05-15] MEDS: HYDROmorphone 1 MG/1 ML INJ IV PRN ×5 (00:43→20:29)
[2021-05-15] MEDS: SODIUM CHLORIDE 0.9% 1000 ML 1,000 ML IV SCH ×2 (06:25→18:33)
--- NOTE | 2021-05-15 07:37 | Consultation ---
History of Present Illness Consult date: 05/15/21 Consult reason: pre op evaluation History of present illness: Mrs. Sumner, a 81 years old female with history of hypothyroidism, Hypertension and right hip fracture s/p IM stablization presented with mechanical fall with left hip fracture. Cardiology is consulted for orthopedic pre-op cardiac risk stratification (left hip IM stablization). Patient denies any chest pain or shortness of breath or palpitation or dizziness. She denies any syncope or loss of consciousness with the fall episode. Of noted, patient is a regular patient of Dr. Bergeron for HTN. Last clinical visit was in 01/2021. Patient last outpatient echo was in January 2021, which showed normal LV function and there was no significant valvular disease. Past History Past Surgical History: appendectomy, cholecystectomy, , hernia repair, tonsillectomy, bowel surgery, Other Social history: , lives with family Family history: hypertension Medications and Allergies Allergies Allergy/AdvReac Type Severity Reaction Status Date / Time adhesive Allergy Rash Verified 11/18/15 10:24 aspirin Allergy Bleeding Verified 11/18/15 10:24 codeine Allergy Hives Verified 11/18/15 10:24 latex Allergy Rash Verified 11/18/15 10:24 metoclopramide HCl Allergy Itching Verified 11/18/15 10:24 [From Reglan] morphine Allergy Rash Verified 11/18/15 10:24 Sulfa (Sulfonamide Allergy Rash Verified 11/18/15 10:24 Antibiotics) Home Medications Medication Instructions Recorded Confirmed Last Taken Type Apixaban [Eliquis] 2.5 mg PO Q12HR 15 Days #30 tablet 07/06/18 10/06/20 Unknown Rx Ascorbic Acid [Vitamin C] 500 mg PO BID #60 tablet 07/06/18 10/06/20 Unknown Rx Estrogens, Conjugated [Premarin] 0.3 mg PO QDAY #30 tablet 07/06/18 10/06/20 Unknown Rx Famotidine [Pepcid] 20 mg PO BID #60 tablet 07/06/18 10/06/20 Unknown Rx Ferrous Sulfate [Feosol 325 MG tab] 325 mg PO BID #60 tablet 07/06/18 10/06/20 Unknown Rx Levothyroxine [Synthroid] 25 mcg PO QAM #30 tablet 07/06/18 10/06/20 10/05/20 07:00 Rx Sennosides/Docusate [Senokot S] 2 tab PO QHS #60 tablet 07/06/18 10/06/20 Unknown Rx Sucralfate [Carafate] 1 gm PO BID #60 tablet 07/06/18 10/06/20 Unknown Rx busPIRone [Buspar] 30 mg PO BID #60 tablet 07/06/18 10/06/20 10/05/20 22:00 Rx traZODone [Desyrel] 100 mg PO QHS #30 tablet 07/06/18 10/06/20 10/05/20 22:00 Rx Ondansetron HCl [Zofran] 4 mg PO Q8HR #15 tablet 10/13/20 Unknown Rx oxyCODONE /ACETAMINOPHEN [Percocet 1 tab PO Q4HR PRN #30 tab 10/13/20 Unknown Rx 5/325 mg] levoFLOXacin [Levaquin TAB] 500 mg PO Q24HR #3 tablet 12/15/20 Unknown Rx metroNIDAZOLE [Flagyl TAB] 500 mg PO Q8HR #9 tablet 12/15/20 Unknown Rx Active Meds: Active Medications Acetaminophen (Acetaminophen 325 Mg Tab) 650 mg PO Q6H PRN PRN Reason: Pain MILD(1-3)/Fever >100.5/S[place]AM[place]IA Albuterol (Albuterol 2.5 Mg/3 Ml Nebu) 2.5 mg IH Q4HRT PRN PRN Reason: Shortness Of Breath Ascorbic Acid (Ascorbic Acid 500 Mg Tab) 500 mg PO BID [facility] Last Admin: 05/14/21 22:48 Dose: 500 mg Buspirone HCl (Buspirone 10 Mg Tab) 30 mg PO BID [facility] Last Admin: 05/14/21 22:42 Dose: 30 mg Estrogens Conjugated (Estrogens, Conjugated 0.3 Mg Tab) 0.3 mg PO QDAY [facility] Famotidine (Famotidine 20 Mg Tab) 20 mg PO BID [facility] Last Admin: 05/14/21 22:48 Dose: 20 mg Ferrous Sulfate (Ferrous Sulfate 325 Mg Tab) 325 mg PO BID [facility] Last Admin: 05/14/21 22:47 Dose: 325 mg Heparin Sodium (Porcine) (Heparin 5,000 Unit/1 Ml Vial) 5,000 unit SUB-Q Q12HR [facility] Last Admin: 05/14/21 22:00 Dose: 5,000 unit Hydromorphone HCl (Hydromorphone 1 Mg/1 Ml Inj) 0.5 mg IV Q4H PRN PRN Reason: Pain , Severe (7-10) Last Admin: 05/15/21 04:38 Dose: 0.5 mg Sodium Chloride (Nacl 0.9% 1000 Ml) 1,000 mls @ 100 mls/hr IV DIRECT [facility] Last Admin: 05/15/21 06:25 Dose: 100 mls/hr Levothyroxine Sodium (Levothyroxine 25 Mcg Tab) 25 mcg PO QAM [facility] Last Admin: 05/14/21 11:27 Dose: 25 mcg Ondansetron HCl (Ondansetron 4 Mg/2 Ml Inj) 4 mg IV Q8H PRN PRN Reason: Nausea And Vomiting Ondansetron HCl (Ondansetron 4 Mg/2 Ml Inj) 4 mg IV Q8H PRN PRN Reason: Nausea And Vomiting Oxycodone/Acetaminophen (Oxycodone /Acetaminophen 5-325mg Tab) 1 tab PO Q8H PRN PRN Reason: Pain, Moderate (4-6) Senna/Docusate Sodium (Sennosides/Docusate Sodium 8.6/50 Mg Tab) 2 tab PO QHS [facility] Last Admin: 05/14/21 22:48 Dose: 2 tab Sodium Chloride (Sodium Chloride 0.9% 10 Ml Flush Syringe) 10 ml IV BID [facility] Last Admin: 05/14/21 22:00 Dose: 10 ml Sodium Chloride (Sodium Chloride 0.9% 10 Ml Flush Syringe) 10 ml IV PRN PRN PRN Reason: LINE FLUSH Sodium Chloride (Sodium Chloride 0.9% 10 Ml Flush Syringe) 10 ml IV PRN PRN PRN Reason: LINE FLUSH Sodium Chloride (Sodium Chloride 0.9% 10 Ml Flush Syringe) 10 ml IV BID [facility] Last Admin: 05/14/21 22:00 Dose: 10 ml Sodium Chloride (Sodium Chloride 0.9% 10 Ml Flush Syringe) 10 ml IV PRN PRN PRN Reason: LINE FLUSH Sucralfate (Sucralfate 1 Gm Tab) 1 gm PO BID [facility] Last Admin: 05/14/21 22:45 Dose: 1 gm Trazodone HCl (Trazodone 100 Mg Tab) 100 mg PO QHS [facility] Last Admin: 05/14/21 22:47 Dose: 100 mg Physical Examination Vital Signs Temp Pulse Resp BP Pulse Ox 98.0 F 102 H 16 175/104 98 05/13/21 14:17 05/13/21 14:17 05/13/21 14:17 05/13/21 14:17 05/13/21 14:17 Results 05/14/21 05:17 05/14/21 05:17 Assessment and Plan - Patient Problems (1) Pre-op evaluation Onset Date: ~05/15/21 Current Visit: Yes Status: Acute Plan to address problem: Pre-op cardiac risk stratification for left hip IM stablization -Patient latest pharmacological nuclear stress test was negative for ischmiea with normal LVEF in 12/2019 (less than 2 years) - ECHO in this admission showed, normal LV and RV function. There is no significant valvular disease. There is no pulmonary hypertension. -His inpatient telemetry shows sinus rhythm predominantly with intermittent atrial tachycardia (last about 5 to 10 minutes). Patient was asymptomatic_ - Patient dose not have CAD or CHF or DM or CKD history. She is symptoms free of ACS or decompensated heart failure. Her echo on this admission showed normal LV and RV function without acute finding. Her recent pharmacological stress test in December 2019 did not show any ischemia or change. From a cardiac standpoint, patient is medically stable to have the planned orthopedic surgery. Verifed with patient's , Douglas ([phone]). Patient is not take antiplt or OAC at home. (2) Hypertension Current Visit: No Status: Chronic Qualifiers: Hypertension type: primary hypertension Qualified Code(s): I10 - Essential (primary) hypertension Plan to address problem: -BP controlled -only take Clonidine prn for elevated BP.
--- NOTE | 2021-05-15 08:07 | Progress Note ---
Assessment and Plan Assessment and plan: #Left femur intertrochanteric fracture -Left hip x-ray shows acute, comminuted intertrochanteric fracture left femur -Orthopedic surgery following, assistance appreciated -Cardiac clearance pending for surgical intervention -As needed pain medication -Preoperative COVID swab collected #History of valvular disease -Per patient, she has history of valvular disease -Echocardiogram: EF 55-60%, mild tricuspid regurgitation -Cardiology consulted for cardiac clearance, assistance appreciated #Hypothyroidism -Continue Synthroid #Hypertension -As needed clonidine per -Blood pressure controlled, will hold any medications for now Disposition Plan: Pending surgical intervention History Interval history: No acute events overnight. Patient reports pain level is a 2 after receiving pain meds. No complaints at this time. Hospitalist Physical - Physical exam Narrative exam: GENERAL: Well-developed well-nourished. In no acute distress. HEENT: Normocephalic. Atraumatic. CHEST/LUNGS: CTAB on room air HEART/CARDIOVASCULAR: Regular rate and rhythm. No murmur, rubs or gallops appreciated. ABDOMEN: +BS. NT/ND. NEURO: No focal motor deficit. Follows all commands. MUSCULOSKELETAL: No joint effusion. Left hip exquisitely tender to palpation. EXTREMITIES: No cyanosis, clubbing or edema. PSYCH: Cooperative. - Constitutional Vitals: Temp Pulse Resp BP Pulse Ox 98.8 F 89 18 104/55 95 05/15/21 04:22 05/15/21 04:22 05/15/21 04:22 05/15/21 04:22 05/15/21 04:22 General appearance: Present: mild distress Results - Labs CBC & Chem 7: 05/14/21 05:17 05/14/21 05:17 Labs: Laboratory Last Values WBC 6.5 K/mm3 (4.5-11.0) 05/14/21 05:17 RBC 3.51 M/mm3 (3.65-5.03) L 05/14/21 05:17 Hgb 11.2 gm/dl (10.1-14.3) 05/14/21 05:17 Hct 33.1 % (30.3-42.9) 05/14/21 05:17 MCV 94 fl (79-97) 05/14/21 05:17 MCH 32 pg (28-32) 05/14/21 05:17 MCHC 34 % (30-34) 05/14/21 05:17 RDW 13.4 % (13.2-15.2) 05/14/21 05:17 Plt Count 173 K/mm3 (140-440) 05/14/21 05:17 Lymph % (Auto) 20.1 % (13.4-35.0) 05/14/21 05:17 Moore % (Auto) 11.6 % (0.0-7.3) H 05/14/21 05:17 Eos % (Auto) 0.0 % (0.0-4.3) 05/14/21 05:17 Baso % (Auto) 0.1 % (0.0-1.8) 05/14/21 05:17 Lymph # (Auto) 1.3 K/mm3 (1.2-5.4) 05/14/21 05:17 Moore # (Auto) 0.8 K/mm3 (0.0-0.8) 05/14/21 05:17 Eos # (Auto) 0.0 K/mm3 (0.0-0.4) 05/14/21 05:17 Baso # (Auto) 0.0 K/mm3 (0.0-0.1) 05/14/21 05:17 Seg Neutrophils % 68.2 % (40.0-70.0) 05/14/21 05:17 Seg Neutrophils # 4.5 K/mm3 (1.8-7.7) 05/14/21 05:17 PT 13.7 Sec. (12.2-14.9) 05/13/21 16:57 INR 0.95 (0.87-1.13) 05/13/21 16:57 APTT 29.1 Sec. (24.2-36.6) 05/13/21 16:57 Sodium 141 mmol/L (137-145) 05/14/21 05:17 Potassium 4.0 mmol/L (3.6-5.0) 05/14/21 05:17 Chloride 102.5 mmol/L (98-107) 05/14/21 05:17 Carbon Dioxide 25 mmol/L (22-30) 05/14/21 05:17 Anion Gap 18 mmol/L 05/14/21 05:17 BUN 16 mg/dL (7-17) 05/14/21 05:17 Creatinine 0.6 mg/dL (0.6-1.2) 05/14/21 05:17 Estimated GFR > 60 ml/min 05/14/21 05:17 BUN/Creatinine Ratio 27 % 05/14/21 05:17 Glucose 141 mg/dL (65-100) H 05/14/21 05:17 Calcium 8.9 mg/dL (8.4-10.2) 05/14/21 05:17 TSH 4.520 mlU/mL (0.270-4.200) H 05/13/21 23:48 Free T4 0.99 ng/dL (0.76-1.46) 05/13/21 23:48 Lund/IV: Voiding Method Indwelling Catheter Active Medications - Current Medications Current Medications: Generic Name Dose Route Start Last Admin Trade Name Freq PRN Reason Stop Dose Admin Acetaminophen 650 mg 05/13/21 18:39 Acetaminophen 325 Mg Tab PO Q6H PRN Pain MILD(1-3)/Fever >100.5/[place]AM[place]IA Albuterol 2.5 mg 05/13/21 18:05 Albuterol 2.5 Mg/3 Ml Nebu IH Q4HRT PRN Shortness Of Breath Ascorbic Acid 500 mg 05/13/21 22:00 05/14/21 22:48 Ascorbic Acid 500 Mg Tab PO 500 mg BID AMANDA Administration Buspirone HCl 30 mg 05/14/21 10:00 05/14/21 22:42 Buspirone 10 Mg Tab PO 30 mg BID AMANDA Administration Estrogens Conjugated 0.3 mg 05/14/21 10:00 Estrogens, Conjugated 0.3 Mg Tab PO QDAY AMANDA Famotidine 20 mg 05/13/21 22:00 05/14/21 22:48 Famotidine 20 Mg Tab PO 20 mg BID AMANDA Administration Ferrous Sulfate 325 mg 05/13/21 22:00 05/14/21 22:47 Ferrous Sulfate 325 Mg Tab PO 325 mg BID AMANDA Administration Heparin Sodium (Porcine) 5,000 unit 05/14/21 10:00 05/14/21 22:00 Heparin 5,000 Unit/1 Ml Vial SUB-Q 5,000 unit Q12HR AMANDA Administration Hydromorphone HCl 0.5 mg 05/13/21 18:39 05/15/21 04:38 Hydromorphone 1 Mg/1 Ml Inj IV 0.5 mg Q4H PRN Administration Pain , Severe (7-10) Sodium Chloride 1,000 mls @ 100 mls/hr 05/13/21 18:15 05/15/21 06:25 Nacl 0.9% 1000 Ml IV 100 mls/hr DIRECT AMANDA Administration Levothyroxine Sodium 25 mcg 05/14/21 10:00 05/14/21 11:27 Levothyroxine 25 Mcg Tab PO 25 mcg QAM AMANDA Administration Ondansetron HCl 4 mg 05/13/21 18:05 Ondansetron 4 Mg/2 Ml Inj IV Q8H PRN Nausea And Vomiting Ondansetron HCl 4 mg 05/13/21 18:37 Ondansetron 4 Mg/2 Ml Inj IV Q8H PRN Nausea And Vomiting Oxycodone/Acetaminophen 1 tab 05/13/21 18:39 Oxycodone /Acetaminophen 5-325mg Tab PO Q8H PRN Pain, Moderate (4-6) Senna/Docusate Sodium 2 tab 05/13/21 22:00 05/14/21 22:48 Sennosides/Docusate Sodium 8.6/50 Mg Tab PO 2 tab QHS AMANDA Administration Sodium Chloride 10 ml 05/13/21 22:00 05/14/21 22:00 Sodium Chloride 0.9% 10 Ml Flush Syringe IV 10 ml BID AMANDA Administration Sodium Chloride 10 ml 05/13/21 18:05 Sodium Chloride 0.9% 10 Ml Flush Syringe IV PRN PRN LINE FLUSH Sodium Chloride 10 ml 05/13/21 18:35 Sodium Chloride 0.9% 10 Ml Flush Syringe IV PRN PRN LINE FLUSH Sodium Chloride 10 ml 05/13/21 22:00 05/14/21 22:00 Sodium Chloride 0.9% 10 Ml Flush Syringe IV 10 ml BID AMANDA Administration Sodium Chloride 10 ml 05/13/21 18:37 Sodium Chloride 0.9% 10 Ml Flush Syringe IV PRN PRN LINE FLUSH Sucralfate 1 gm 05/13/21 22:00 05/14/21 22:45 Sucralfate 1 Gm Tab PO 1 gm BID AMANDA Administration Trazodone HCl 100 mg 05/13/21 22:00 05/14/21 22:47 Trazodone 100 Mg Tab PO 100 mg QHS AMANDA Administration
[2021-05-15] MEDS: ESTROGENS, CONJUGATED 0.3 MG TAB PO SCH ×2 (11:10→11:12)
[2021-05-15] MEDS: LEVOTHYROXINE 25 MCG TAB PO SCH (11:12)
[2021-05-15] MEDS: busPIRone 10 MG TAB PO SCH ×2 (11:12→22:23)
[2021-05-15] MEDS: FERROUS SULFATE 325 MG TAB PO SCH ×2 (11:12→22:24)
[2021-05-15] MEDS: ASCORBIC ACID 500 MG TAB PO SCH ×2 (11:12→22:25)
[2021-05-15] MEDS: HEPARIN 5,000 UNIT/1 ML VIAL SUB-Q SCH ×2 (11:13→22:30)
[2021-05-15] MEDS: SUCRALFATE 1 GM TAB PO SCH ×2 (11:13→22:24)
[2021-05-15] MEDS: FAMOTIDINE 20 MG TAB PO SCH ×2 (11:13→22:24)
[2021-05-15] MEDS: ONDANSETRON 4 MG/2 ML INJ IV PRN (14:45)
[2021-05-15] MEDS: SENNOSIDES/DOCUSATE SODIUM 8.6/50 MG TAB PO SCH (22:24)
[2021-05-15] MEDS: traZODone 100 MG TAB PO SCH (22:24)
[2021-05-16] MEDS: HYDROmorphone 1 MG/1 ML INJ IV PRN ×6 (00:27→23:56)
[2021-05-16] MEDS: SODIUM CHLORIDE 0.9% 1000 ML 1,000 ML IV SCH (06:04)
[2021-05-16] MEDS ORDERED: fentaNYL 100 MCG/2 ML INJ ONE ×2 (08:19)
[2021-05-16] MEDS ORDERED: ePHEDrine SULFATE 50 MG/1 ML INJ ONE (08:20)
[2021-05-16] MEDS ORDERED: MIDAZOLAM 2 MG/2 ML INJ ONE (08:20)
[2021-05-16] MEDS ORDERED: propofoL 200 MG/20 ML VIAL IV ONE (08:20)
[2021-05-16] MEDS: LEVOTHYROXINE 25 MCG TAB PO SCH (09:00)
[2021-05-16] MEDS: FAMOTIDINE 20 MG TAB PO SCH (09:00)
[2021-05-16] MEDS: HEPARIN 5,000 UNIT/1 ML VIAL SUB-Q SCH ×2 (11:00→21:25)
[2021-05-16] MEDS ORDERED: BUPIVACAINE/PF (0.5%) 5 MG/1 ML 30 ML VIAL INFILTRATI ONE ×2 (11:05→12:38)
--- NOTE | 2021-05-16 12:16 | XRay Report ---
LEFT HIP 2 VIEWS 1047 INDICATION: LT HIP FX/LT HIP NAILING COMPARISON: 05/13/2021 Fluoroscopy time: 57 seconds FINDINGS: 2 intraoperative C-arm views show rods and screws transfixing the intertrochanteric fractur e of the proximal left femur with satisfactory positioning seen in these 2 images. Signer Name: Jose Kohli MD Signed: 05/16/2021 12:11 PM Workstation Name: [id number]
[2021-05-16] MEDS ORDERED: SODIUM CHLORIDE 0.9% IRR 1,500 ML BOTTLE IR ONE (12:38)
--- NOTE | 2021-05-16 12:40 | Progress Note ---
Assessment and Plan - Patient Problems (1) Pre-op evaluation Onset Date: ~05/15/21 Current Visit: Yes Status: Acute Plan to address problem: Patient who fell at home, sustained a hip fracture, currently planned for surgery today. No cardiac complaints, no syncope associated with the fall, we will continue conservative cardiac management and follow-up after the surgery. Subjective Date of service: 05/16/21 Interval history: No new cardiac complaints, patient is planned for hip surgery today. Objective Vital Signs Temp Pulse Pulse Resp BP BP Pulse Ox 05/16/21 08:24 99.2 F 96 H 18 143/74 93 05/16/21 08:16 104 H 98 05/16/21 05:57 98.6 F 91 H 18 98/56 94 05/16/21 00:36 99.9 F H 99 H 18 106/47 91 05/16/21 00:00 91 05/15/21 21:10 98.1 F 104 H 18 136/69 91 05/15/21 15:48 99.6 F 94 H 18 107/45 92 05/15/21 14:45 20 05/15/21 14:00 89 - Physical Examination General: No Apparent Distress HEENT: Positive: PERRL Neck: Positive: neck supple Cardiac: Positive: Reg Rate and Rhythm Lungs: Positive: Decreased Breath Sounds Neuro: Positive: Grossly Intact Abdomen: Positive: Soft Skin: Positive: Clear Extremities: Absent: edema
[2021-05-16] MEDS: busPIRone 10 MG TAB PO SCH ×2 (12:46→21:27)
[2021-05-16] MEDS: ESTROGENS, CONJUGATED 0.3 MG TAB PO SCH (12:46)
[2021-05-16] MEDS: ASCORBIC ACID 500 MG TAB PO SCH ×2 (12:46→21:27)
[2021-05-16] MEDS: FERROUS SULFATE 325 MG TAB PO SCH ×2 (12:46→21:27)
[2021-05-16] MEDS: SUCRALFATE 1 GM TAB PO SCH ×2 (12:47→21:27)
--- NOTE | 2021-05-16 12:58 | Operative Report ---
Operative Report Operative Report: Date of Surgery : 05/16/2021 Preop diagnosis : Intertrochanteric fracture, left hip Postop diagnosis: Trochanteric fracture (2 part), left hip Surgeon: Vignesh Duran MD medical assistant supervisor: Dr. Melendrez Procedure: IM nail stabilization utilizing the [employer] InterTAN nail system, LEFT hip; Anesthesia: General with LMA Details of operative technique: Patient was prepared in the holding area after being cleared for surgery from the floor by both hospitalist and multimedia instructional designer. He was then taken to the operating room and placed on the fracture table in the supine position. General anesthesia was then administered. The patient was positioned appropriately with minimal traction applied to the left leg; the well leg was placed in a comfortable position also use utilizing the well leg knapp to accommodate the C arm. C arm fluoroscopy images were utilized throughout the case and initial x-rays showed a nondisplaced 2 part intertrochanteric fracture, left hip. The hip was exposed utilizing a posterior gluteal incision approximately 4 cm in length. Dissection was carried down to the gluteal fascia into the deep layer where the proximal portion of the greater trochanter was palpated. A periosteal elevator was utilized to clear a path for the starting point just medial to the greater trochanter. A guidewire was placed down at this point across the fracture site into the distal femur. The position of the guidewire was checked in both AP and lateral planes. A starter reamer was then utilized to prepare an opening for the nail ;reaming was not required.The InterTAN nail 11.5 mm x 18 cm (130 degrees) was then placed over the guidewire and inserted to the appropriate position with the outrigger in place. C-arm images confirmed proper placement. Utilizing the outrigger, the lag screw was placed after appropriate positioning of the guidewire with minimal overreaming. After measurements were made a 90 mm lag screw was positioned perfectly to within 2 cm of subchondral bone in the femoral head. The 85 mm compression screw was then added to provide compression for the fracture site. Attention was then directed distally and with the distal locking outrigger in place, and creation of a small incision (3-4 cm) drilling both cortices through the distal locking hole in the proximal diaphysis of the femur, a 5 mm locking screw (25 mm in length) was placed across the bone and through the distal aspect of the nail to the medial cortex thereby securing the nail distally. The entire construct was then visualized in both AP and lateral planes and images were saved. These showed excellent near anatomic alignment with profound stability. The wounds were then irrigated copiously with normal saline. Hemostasis was secured. Deep and subQ fascial layers were closed with 0 Vicryl and 2-0 Vicryl suture sequentially. The skin was reapproximated utilizing markos. Both the proximal and the distal incisions were closed in this manner. Following this an ABD pad was placed along with an adhesive compressive dressing for both incisions. The patient was then awakened and taken to recovery room in excellent condition. Estimated blood loss: 50 cc Drain: None Complications: None
--- NOTE | 2021-05-16 13:52 | Anesthesia Consultation ---
Anesthesia Consult and Med Hx Date of service: 05/16/21 - Airway Anesthetic Teeth Evaluation: Good ROM Head & Neck: Adequate Mental/Hyoid Distance: Adequate Mallampati Class: Class II Intubation Access Assessment: Good - Pre-Operative Health Status ASA Pre-Surgery Classification: ASA3 Proposed Anesthetic Plan: General - Pulmonary Hx Smoking: No Hx Asthma: No Hx Respiratory Symptoms: No Hx Sleep Apnea: No - Cardiovascular System Hx Hypertension: Yes Hx Heart Attack/AMI: No Hx Percutaneous Transluminal Coronary Angioplasty (PTCA): No Hx Cardia Arrhythmia: No Hx Valvular Heart Disease: Yes (MVP) - Central Nervous System Hx Neuromuscular Disorder: Yes (Post-polio ) Hx Seizures: No CVA: No Hx Psychiatric Problems: Yes (anxiety/depression) - Gastrointestinal Hx Gastroesophageal Reflux Disease: Yes (well controlled) - Endocrine Hx Renal Disease: No Hx End Stage Renal Disease: No Hx Liver Disease: No Hx Insulin Dependent Diabetes: No Hx Non-Insulin Dependent Diabetes: No Hx Thyroid Disease: Yes Hx Hypothyroidism: Yes - Hematic Hx Anemia: No - Other Systems Hx Cancer: No Hx Obesity: No - Additional Comments Anesthesia Medical History Comments: Was here [id number] for ex-lap. Now is COVID POSITIVE. ECHO, Cardiology note reviewed
--- NOTE | 2021-05-16 13:53 | Anesthesia Day of Surgery ---
Anesthesia Day of Surgery - Day of Surgery Patient Examined: Yes Patient H&P Reviewed: Yes Patient is NPO: Yes
--- NOTE | 2021-05-16 13:54 | Post Anesthesia Evaluation ---
- Post Anesthesia Evaluation Patient Participated: Yes Airway Patent: Yes Stable Respiratory Function: Yes Nausea/Vomiting: No Temp > 96.8F: Yes Pain Manageable: Yes Adequeate Hydration: Yes Anesthesia Complications: No Block Receding Appropriately: Not Applicable Patient on Ventilator: No
[2021-05-16] MEDS: oxyCODONE /ACETAMINOPHEN 5-325MG TAB PO PRN ×2 (15:51→21:27)
--- NOTE | 2021-05-16 17:15 | Progress Note ---
Assessment and Plan Assessment and plan: --Left femur intertrochanteric fracture -Left hip x-ray shows acute, comminuted intertrochanteric fracture left femur -Orthopedic surgery following, assistance appreciated -Cardiac clearance pending for surgical intervention -As needed pain medication -Preoperative COVID swab collected --Intertrochanteric fracture, left hip Evaluated by Ortho, patient underwent s/p IM nail stabilization utilizing the [employer] InterTAN nail system, LEFT hip; Continue postop care, IV fluids, pain medications PT OT evaluation, subacute rehab versus home with home health when stable --History of valvular disease -Per patient, she has history of valvular disease -Echocardiogram: EF 55-60%, mild tricuspid regurgitation -Cardiology consulted for cardiac clearance, assistance appreciated --Hypothyroidism -Continue Synthroid =Hypertension -As needed clonidine per -Blood pressure controlled, will hold any medications for now Disposition Plan: Pending surgical intervention History Interval history: Seen and examined the patient at the bedside Patient underwent hip surgery Complains of some pain Hospitalist Physical - Constitutional Vitals: Temp Pulse Resp BP Pulse Ox 98.1 F 99 H 16 127/58 100 05/16/21 11:50 05/16/21 11:50 05/16/21 11:50 05/16/21 11:50 05/16/21 11:50 General appearance: Present: no acute distress, well-nourished - EENT Eyes: Present: PERRL, EOM intact - Neck Neck: Present: supple, normal ROM - Respiratory Respiratory effort: normal Respiratory: bilateral: diminished, negative: rales, rhonchi, wheezing - Cardiovascular Rhythm: regular Heart Sounds: Present: S1 & S2 - Extremities Extremities: no ischemia, No edema - Abdominal General gastrointestinal: soft, non-tender, non-distended, normal bowel sounds - Integumentary Integumentary: Present: clear, warm - Psychiatric Psychiatric: appropriate mood/affect, cooperative - Neurologic Neurologic: CNII-XII intact, moves all extremities Results - Labs CBC & Chem 7: 05/14/21 05:17 05/14/21 05:17 Labs: Laboratory Last Values WBC 6.5 K/mm3 (4.5-11.0) 05/14/21 05:17 RBC 3.51 M/mm3 (3.65-5.03) L 05/14/21 05:17 Hgb 11.2 gm/dl (10.1-14.3) 05/14/21 05:17 Hct 33.1 % (30.3-42.9) 05/14/21 05:17 MCV 94 fl (79-97) 05/14/21 05:17 MCH 32 pg (28-32) 05/14/21 05:17 MCHC 34 % (30-34) 05/14/21 05:17 RDW 13.4 % (13.2-15.2) 05/14/21 05:17 Plt Count 173 K/mm3 (140-440) 05/14/21 05:17 Lymph % (Auto) 20.1 % (13.4-35.0) 05/14/21 05:17 [place] % (Auto) 11.6 % (0.0-7.3) H 05/14/21 05:17 Eos % (Auto) 0.0 % (0.0-4.3) 05/14/21 05:17 Baso % (Auto) 0.1 % (0.0-1.8) 05/14/21 05:17 Lymph # (Auto) 1.3 K/mm3 (1.2-5.4) 05/14/21 05:17 [place] # (Auto) 0.8 K/mm3 (0.0-0.8) 05/14/21 05:17 Eos # (Auto) 0.0 K/mm3 (0.0-0.4) 05/14/21 05:17 Baso # (Auto) 0.0 K/mm3 (0.0-0.1) 05/14/21 05:17 Seg Neutrophils % 68.2 % (40.0-70.0) 05/14/21 05:17 Seg Neutrophils # 4.5 K/mm3 (1.8-7.7) 05/14/21 05:17 PT 13.7 Sec. (12.2-14.9) 05/13/21 16:57 INR 0.95 (0.87-1.13) 05/13/21 16:57 APTT 29.1 Sec. (24.2-36.6) 05/13/21 16:57 Sodium 141 mmol/L (137-145) 05/14/21 05:17 Potassium 4.0 mmol/L (3.6-5.0) 05/14/21 05:17 Chloride 102.5 mmol/L (98-107) 05/14/21 05:17 Carbon Dioxide 25 mmol/L (22-30) 05/14/21 05:17 Anion Gap 18 mmol/L 05/14/21 05:17 BUN 16 mg/dL (7-17) 05/14/21 05:17 Creatinine 0.6 mg/dL (0.6-1.2) 05/14/21 05:17 Estimated GFR > 60 ml/min 05/14/21 05:17 BUN/Creatinine Ratio 27 % 05/14/21 05:17 Glucose 141 mg/dL (65-100) H 05/14/21 05:17 Calcium 8.9 mg/dL (8.4-10.2) 05/14/21 05:17 TSH 4.520 mlU/mL (0.270-4.200) H 05/13/21 23:48 Free T4 0.99 ng/dL (0.76-1.46) 05/13/21 23:48 Coronavirus (PCR) Positive (Negative) A 05/15/21 11:28 Blood Type AB NEGATIVE 05/16/21 06:47 Antibody Screen Negative 05/16/21 06:47 Lund/IV: Voiding Method Indwelling Catheter Active Medications - Current Medications Current Medications: Generic Name Dose Route Start Last Admin Trade Name Freq PRN Reason Stop Dose Admin Acetaminophen 650 mg 05/13/21 18:39 Acetaminophen 325 Mg Tab PO Q6H PRN Pain MILD(1-3)/Fever >100.5/SANTAMARIA Albuterol 2.5 mg 05/13/21 18:05 Albuterol 2.5 Mg/3 Ml Nebu IH Q4HRT PRN Shortness Of Breath Ascorbic Acid 500 mg 05/13/21 22:00 05/16/21 12:46 Ascorbic Acid 500 Mg Tab PO 500 mg BID AMANDA Administration Buspirone HCl 30 mg 05/14/21 10:00 05/16/21 12:46 Buspirone 10 Mg Tab PO 30 mg BID AMANDA Administration Estrogens Conjugated 0.3 mg 05/14/21 10:00 05/16/21 12:46 Estrogens, Conjugated 0.3 Mg Tab PO 0.3 mg QDAY AMANDA Administration Famotidine 10 mg 05/16/21 22:00 Famotidine 10 Mg Tab PO BID AMANDA Ferrous Sulfate 325 mg 05/13/21 22:00 05/16/21 12:46 Ferrous Sulfate 325 Mg Tab PO 325 mg BID AMANDA Administration Heparin Sodium (Porcine) 5,000 unit 05/14/21 10:00 05/16/21 11:00 Heparin 5,000 Unit/1 Ml Vial SUB-Q Not Given Q12HR AMANDA Hydromorphone HCl 0.5 mg 05/13/21 18:39 05/16/21 12:58 Hydromorphone 1 Mg/1 Ml Inj IV 0.5 mg Q4H PRN Administration Pain , Severe (7-10) Sodium Chloride 1,000 mls @ 100 mls/hr 05/13/21 18:15 05/16/21 06:04 Nacl 0.9% 1000 Ml IV 100 mls/hr DIRECT AMANDA Administration Levothyroxine Sodium 25 mcg 05/14/21 10:00 05/16/21 09:00 Levothyroxine 25 Mcg Tab PO 25 mcg QAM AMANDA Administration Ondansetron HCl 4 mg 05/13/21 18:05 05/15/21 14:45 Ondansetron 4 Mg/2 Ml Inj IV 4 mg Q8H PRN Administration Nausea And Vomiting Oxycodone/Acetaminophen 1 tab 05/13/21 18:39 05/16/21 15:51 Oxycodone /Acetaminophen 5-325mg Tab PO 1 tab Q8H PRN Administration Pain, Moderate (4-6) Senna/Docusate Sodium 2 tab 05/13/21 22:00 05/15/21 22:24 Sennosides/Docusate Sodium 8.6/50 Mg Tab PO 2 tab QHS AMANDA Administration Sodium Chloride 10 ml 05/13/21 22:00 05/16/21 09:00 Sodium Chloride 0.9% 10 Ml Flush Syringe IV 10 ml BID AMANDA Administration Sodium Chloride 10 ml 05/13/21 18:05 Sodium Chloride 0.9% 10 Ml Flush Syringe IV PRN PRN LINE FLUSH Sodium Chloride 10 ml 05/13/21 22:00 05/16/21 12:49 Sodium Chloride 0.9% 10 Ml Flush Syringe IV 10 ml BID AMANDA Administration Sucralfate 1 gm 05/13/21 22:00 05/16/21 12:47 Sucralfate 1 Gm Tab PO 1 gm BID AMANDA Administration Trazodone HCl 100 mg 05/13/21 22:00 05/15/21 22:24 Trazodone 100 Mg Tab PO 100 mg QHS AMANDA Administration
[2021-05-16] MEDS: FAMOTIDINE 10 MG TAB PO SCH (21:26)
[2021-05-16] MEDS: traZODone 100 MG TAB PO SCH (21:27)
[2021-05-16] MEDS: SENNOSIDES/DOCUSATE SODIUM 8.6/50 MG TAB PO SCH (21:30)
[2021-05-17] MEDS: HYDROmorphone 1 MG/1 ML INJ IV PRN ×4 (04:43→22:24)
[2021-05-17] MEDS: ASCORBIC ACID 500 MG TAB PO SCH ×2 (09:00→22:23)
[2021-05-17] MEDS: LEVOTHYROXINE 25 MCG TAB PO SCH (09:00)
[2021-05-17] MEDS: SUCRALFATE 1 GM TAB PO SCH ×2 (09:00→22:23)
[2021-05-17] MEDS: ESTROGENS, CONJUGATED 0.3 MG TAB PO SCH (09:00)
[2021-05-17] MEDS: FAMOTIDINE 10 MG TAB PO SCH ×2 (09:00→22:23)
[2021-05-17] MEDS: HEPARIN 5,000 UNIT/1 ML VIAL SUB-Q SCH ×2 (09:00→22:23)
[2021-05-17] MEDS: FERROUS SULFATE 325 MG TAB PO SCH ×2 (09:00→22:23)
[2021-05-17] MEDS: busPIRone 10 MG TAB PO SCH ×2 (09:00→22:23)
--- NOTE | 2021-05-17 13:49 | Progress Note ---
Assessment and Plan - Patient Problems (1) Pre-op evaluation Onset Date: ~05/15/21 Current Visit: Yes Status: Acute Plan to address problem: Patient who fell at home, sustained a hip fracture, currently post hip surgery. No cardiac complaints, no syncope associated with the fall, we will continue conservative cardiac management and follow-up. Subjective Date of service: 05/17/21 Interval history: Patient looks and feels comfortable, 1 day after left hip surgery. No cardiac complaints. On electronic device monitor, she has a normal sinus rhythm at 90, with an occasional PVC. Objective Vital Signs Temp Pulse Pulse Resp BP BP Pulse Ox 05/17/21 04:49 97.2 F L 85 18 118/55 99 05/17/21 02:24 82 05/16/21 23:45 104 H 98 05/16/21 23:41 100 05/16/21 23:13 103/61 05/16/21 20:51 98.6 F 94 H 18 163/70 100 05/16/21 15:41 97.8 F 101 H 18 111/67 98 - Physical Examination General: No Apparent Distress HEENT: Positive: PERRL Neck: Positive: neck supple Cardiac: Positive: Reg Rate and Rhythm Lungs: Positive: clear to auscultation Neuro: Positive: Grossly Intact Abdomen: Positive: Soft Skin: Positive: Clear Extremities: Absent: edema
[2021-05-17] MEDS: oxyCODONE /ACETAMINOPHEN 5-325MG TAB PO PRN (18:43)
[2021-05-17] MEDS: SODIUM CHLORIDE 0.9% 1000 ML 1,000 ML IV SCH (18:43)
--- NOTE | 2021-05-17 20:35 | Progress Note ---
Assessment and Plan Assessment and plan: --Left femur intertrochanteric fracture -Left hip x-ray shows acute, comminuted intertrochanteric fracture left femur -Orthopedic surgery evaluated Status post IM nail stabilization --Intertrochanteric fracture, left hip Evaluated by Ortho, patient underwent s/p IM nail stabilization utilizing the [employer] InterTAN nail system, LEFT hip; Continue postop care, IV fluids, pain medications PT OT evaluation, subacute rehab versus home with home health when stable --History of valvular disease -Per patient, she has history of valvular disease -Echocardiogram: EF 55-60%, mild tricuspid regurgitation -Cardiology consulted for cardiac clearance, assistance appreciated --Hypothyroidism -Continue Synthroid =Hypertension -As needed clonidine per -Blood pressure controlled, will hold any medications for now Disposition Plan: Follow-up PT OT evaluation and recommendations Possible SNF placement DC planning per case management We'll closely monitor patient and adjust management as needed Plan of care reviewed with the patient and her nurse History Interval history: I have seen and examined the patient at the bedside Patient's chart and medications reviewed No new events reported by the nursing staff Patient complains of some pain Vital signs reviewed Hospitalist Physical - Constitutional Vitals: Temp Pulse Resp BP Pulse Ox 98.3 F 97 H 18 131/71 93 05/17/21 19:32 05/17/21 19:32 05/17/21 19:32 05/17/21 19:32 05/17/21 19:32 General appearance: Present: mild distress (Due to pain), well-nourished - EENT Eyes: Present: PERRL, EOM intact - Neck Neck: Present: supple, normal ROM - Respiratory Respiratory effort: normal Respiratory: bilateral: diminished, negative: rales, rhonchi, wheezing - Cardiovascular Rhythm: regular Heart Sounds: Present: S1 & S2 - Extremities Extremities: no ischemia, No edema - Abdominal General gastrointestinal: soft, non-tender, non-distended, normal bowel sounds - Integumentary Integumentary: Present: clear, warm - Psychiatric Psychiatric: appropriate mood/affect, cooperative - Neurologic Neurologic: CNII-XII intact, moves all extremities Results - Labs CBC & Chem 7: 05/14/21 05:17 05/14/21 05:17 Labs: Laboratory Last Values WBC 6.5 K/mm3 (4.5-11.0) 05/14/21 05:17 RBC 3.51 M/mm3 (3.65-5.03) L 05/14/21 05:17 Hgb 11.2 gm/dl (10.1-14.3) 05/14/21 05:17 Hct 33.1 % (30.3-42.9) 05/14/21 05:17 MCV 94 fl (79-97) 05/14/21 05:17 MCH 32 pg (28-32) 05/14/21 05:17 MCHC 34 % (30-34) 05/14/21 05:17 RDW 13.4 % (13.2-15.2) 05/14/21 05:17 Plt Count 173 K/mm3 (140-440) 05/14/21 05:17 Lymph % (Auto) 20.1 % (13.4-35.0) 05/14/21 05:17 [place] % (Auto) 11.6 % (0.0-7.3) H 05/14/21 05:17 Eos % (Auto) 0.0 % (0.0-4.3) 05/14/21 05:17 Baso % (Auto) 0.1 % (0.0-1.8) 05/14/21 05:17 Lymph # (Auto) 1.3 K/mm3 (1.2-5.4) 05/14/21 05:17 [place] # (Auto) 0.8 K/mm3 (0.0-0.8) 05/14/21 05:17 Eos # (Auto) 0.0 K/mm3 (0.0-0.4) 05/14/21 05:17 Baso # (Auto) 0.0 K/mm3 (0.0-0.1) 05/14/21 05:17 Seg Neutrophils % 68.2 % (40.0-70.0) 05/14/21 05:17 Seg Neutrophils # 4.5 K/mm3 (1.8-7.7) 05/14/21 05:17 PT 13.7 Sec. (12.2-14.9) 05/13/21 16:57 INR 0.95 (0.87-1.13) 05/13/21 16:57 APTT 29.1 Sec. (24.2-36.6) 05/13/21 16:57 Sodium 141 mmol/L (137-145) 05/14/21 05:17 Potassium 4.0 mmol/L (3.6-5.0) 05/14/21 05:17 Chloride 102.5 mmol/L (98-107) 05/14/21 05:17 Carbon Dioxide 25 mmol/L (22-30) 05/14/21 05:17 Anion Gap 18 mmol/L 05/14/21 05:17 BUN 16 mg/dL (7-17) 05/14/21 05:17 Creatinine 0.6 mg/dL (0.6-1.2) 05/14/21 05:17 Estimated GFR > 60 ml/min 05/14/21 05:17 BUN/Creatinine Ratio 27 % 05/14/21 05:17 Glucose 141 mg/dL (65-100) H 05/14/21 05:17 Calcium 8.9 mg/dL (8.4-10.2) 05/14/21 05:17 TSH 4.520 mlU/mL (0.270-4.200) H 05/13/21 23:48 Free T4 0.99 ng/dL (0.76-1.46) 05/13/21 23:48 Coronavirus (PCR) Positive (Negative) A 05/15/21 11:28 Blood Type AB NEGATIVE 05/16/21 06:47 Antibody Screen Negative 05/16/21 06:47 Lund/IV: Voiding Method Toilet Active Medications - Current Medications Current Medications: Generic Name Dose Route Start Last Admin Trade Name Freq PRN Reason Stop Dose Admin Acetaminophen 650 mg 05/13/21 18:39 Acetaminophen 325 Mg Tab PO Q6H PRN Pain MILD(1-3)/Fever >100.5/S[place]AMARIA Albuterol 2.5 mg 05/13/21 18:05 Albuterol 2.5 Mg/3 Ml Nebu IH Q4HRT PRN Shortness Of Breath Ascorbic Acid 500 mg 05/13/21 22:00 05/17/21 09:00 Ascorbic Acid 500 Mg Tab PO 500 mg BID AMANDA Administration Buspirone HCl 30 mg 05/14/21 10:00 05/17/21 09:00 Buspirone 10 Mg Tab PO 30 mg BID AMANDA Administration Estrogens Conjugated 0.3 mg 05/14/21 10:00 05/17/21 09:00 Estrogens, Conjugated 0.3 Mg Tab PO 0.3 mg QDAY AMANDA Administration Famotidine 10 mg 05/16/21 22:00 05/17/21 09:00 Famotidine 10 Mg Tab PO 10 mg BID AMANDA Administration Ferrous Sulfate 325 mg 05/13/21 22:00 05/17/21 09:00 Ferrous Sulfate 325 Mg Tab PO 325 mg BID AMANDA Administration Heparin Sodium (Porcine) 5,000 unit 05/14/21 10:00 05/17/21 09:00 Heparin 5,000 Unit/1 Ml Vial SUB-Q 5,000 unit Q12HR AMANDA Administration Hydromorphone HCl 0.5 mg 05/13/21 18:39 05/17/21 14:18 Hydromorphone 1 Mg/1 Ml Inj IV 0.5 mg Q4H PRN Administration Pain , Severe (7-10) Sodium Chloride 1,000 mls @ 100 mls/hr 05/13/21 18:15 05/17/21 18:43 Nacl 0.9% 1000 Ml IV 100 mls/hr DIRECT AMANDA Administration Levothyroxine Sodium 25 mcg 05/14/21 10:00 05/17/21 09:00 Levothyroxine 25 Mcg Tab PO 25 mcg QAM AMANDA Administration Ondansetron HCl 4 mg 05/13/21 18:05 05/15/21 14:45 Ondansetron 4 Mg/2 Ml Inj IV 4 mg Q8H PRN Administration Nausea And Vomiting Oxycodone/Acetaminophen 1 tab 05/13/21 18:39 05/17/21 18:43 Oxycodone /Acetaminophen 5-325mg Tab PO 1 tab Q8H PRN Administration Pain, Moderate (4-6) Senna/Docusate Sodium 2 tab 05/13/21 22:00 05/16/21 21:30 Sennosides/Docusate Sodium 8.6/50 Mg Tab PO 2 tab QHS AMANDA Administration Sodium Chloride 10 ml 05/13/21 18:05 Sodium Chloride 0.9% 10 Ml Flush Syringe IV PRN PRN LINE FLUSH Sodium Chloride 10 ml 05/13/21 22:00 05/17/21 09:01 Sodium Chloride 0.9% 10 Ml Flush Syringe IV 10 ml BID AMANDA Administration Sucralfate 1 gm 05/13/21 22:00 05/17/21 09:00 Sucralfate 1 Gm Tab PO 1 gm BID AMANDA Administration Trazodone HCl 100 mg 05/13/21 22:00 05/16/21 21:27 Trazodone 100 Mg Tab PO 100 mg QHS AMANDA Administration
[2021-05-17] MEDS: traZODone 100 MG TAB PO SCH (22:23)
[2021-05-17] MEDS: SENNOSIDES/DOCUSATE SODIUM 8.6/50 MG TAB PO SCH (22:23)
[2021-05-18] MEDS: oxyCODONE /ACETAMINOPHEN 5-325MG TAB PO PRN (06:15)
[2021-05-18] MEDS: HYDROmorphone 1 MG/1 ML INJ IV PRN ×4 (08:30→22:05)
--- NOTE | 2021-05-18 08:40 | Electrocardiograph Report ---
[facility] Test Date: 2021-05-15 Test Time: 08:26:56 Pat Name: ALIA PULIDO Department: Room: A476 1 Gender: F Street Department Dispatcher: TON : 1940 Requested By: KARAN YAP Order Number: [id number] Reading MD: Rochelle Mckeon Measurements Intervals [place] Rate: 89 P: 21 SD: 187 QRS: 100 QRSD: 92 T: -53 QT: 370 QTc: 450 Interpretive Statements Sinus rhythm Right axis deviation versus limb lead malplacement Consider anterior infarct Compared to ECG 10/11/2020 17:36:24 Sinus rhythm has replaced atrial fibrillation Electronically Signed On 05-18-2021 8:40:22 EST by Rochelle Mckeon
[2021-05-18] MEDS: busPIRone 10 MG TAB PO SCH ×2 (10:21→21:59)
[2021-05-18] MEDS: FERROUS SULFATE 325 MG TAB PO SCH ×2 (10:21→22:00)
[2021-05-18] MEDS: SUCRALFATE 1 GM TAB PO SCH ×2 (10:21→21:59)
[2021-05-18] MEDS: FAMOTIDINE 10 MG TAB PO SCH ×2 (10:21→21:58)
[2021-05-18] MEDS: LEVOTHYROXINE 25 MCG TAB PO SCH (10:21)
[2021-05-18] MEDS: ASCORBIC ACID 500 MG TAB PO SCH ×2 (10:22→21:59)
[2021-05-18] MEDS: HEPARIN 5,000 UNIT/1 ML VIAL SUB-Q SCH ×2 (10:22→22:01)
[2021-05-18] MEDS: SODIUM CHLORIDE 0.9% 1000 ML 1,000 ML IV SCH (10:23)
--- NOTE | 2021-05-18 10:45 | Discharge Summary ---
Providers - Providers Date of Admission: 05/13/21 18:05 Date of discharge: 05/24/21 Attending physician: LISBETH IRVIN 05/14/21 08:36 Consult to Physician [CONS] Routine Comment: Consulting Provider: BRIDGET MARSHALL Physician Instructions: Reason For Exam: L hip fracture 05/14/21 13:10 Consult to Physician [CONS] Routine Comment: Consulting Provider: PRICE HADDAD Physician Instructions: Reason For Exam: cardiac clearance for hip repair Primary care physician: RICHAR LAO Hospitalization Reason for admission: Status post fall ,left hip fracture Condition: Stable Procedures: s/p IM nail stabilization utilizing the [employer] InterTAN nail system, LEFT hip; Hospital course: --COVID-19 positive Isolation precautions Oxygen if needed Vitamin C, zinc sulfate, vitamin D3 --s/p Fall /Left femur intertrochanteric fracture -Left hip x-ray shows acute, comminuted intertrochanteric fracture left femur -Orthopedic surgery evaluated Fall precautions, PT OT --Intertrochanteric fracture, left hip Evaluated by Ortho, patient underwent s/p IM nail stabilization utilizing the [employer] InterTAN nail system, LEFT hip; Continue postop care, IV fluids, pain medications PT OT evaluation, subacute rehab versus home with home health when stable --History of valvular disease -Per patient, she has history of valvular disease -Echocardiogram: EF 55-60%, mild tricuspid regurgitation -Cardiology consulted for cardiac clearance, assistance appreciated --Hypothyroidism -Continue Synthroid =Hypertension -As needed clonidine per -Blood pressure controlled, will hold any medications for now PT recommended subacute rehab placement Patient is hemodynamically and clinically stable DC and transfer to subacute rehab today ;/ Disposition: [facility] Final Discharge Diagnosis (Prints w/discharge instructions): Status post fall/ fall precautions. Intertrochanteric fracture left hip. s/p IM nail stabilization. History of valvular disease. Hypothyroidism. Hypertension. COVID-19 positive Time spent for discharge: 35 min Core Measure Documentation - Palliative Care Palliative Care/ Comfort Measures: Not Applicable - Core Measures Any of the following diagnoses?: none Exam - Constitutional Vitals: Temp Pulse Resp BP Pulse Ox 97.3 F L 97 H 18 134/75 93 05/18/21 08:11 05/18/21 08:11 05/18/21 08:11 05/18/21 08:11 05/18/21 08:11 General appearance: Present: no acute distress, well-nourished - EENT Eyes: Present: PERRL, EOM intact - Neck Neck: Present: supple, normal ROM - Respiratory Respiratory effort: normal Respiratory: bilateral: diminished, negative: rales, rhonchi, wheezing - Cardiovascular Rhythm: regular Heart Sounds: Present: S1 & S2 - Extremities Extremities: no ischemia, No edema - Abdominal General gastrointestinal: Present: soft, non-tender, non-distended, normal bowel sounds - Integumentary Integumentary: Present: clear, warm - Musculoskeletal Musculoskeletal: strength equal bilaterally - Psychiatric Psychiatric: appropriate mood/affect, agitated - Neurologic Neurologic: moves all extremities Plan Activity: advance as tolerated Diet: regular Additional Instructions: Fall precautions. Physical therapy and Occupational Therapy[Home health]. if you have worsening symptoms contact MD or go to the nearest emergency room Follow up with: RICHAR LAO MD [Primary Care Provider] - 3-5 Days KYLE OWUSU MD [Staff Physician] - 7 Days NOEMI MAZARIEGOS MD [Staff Physician] - 7 Days Prescriptions: RX: Ferrous Sulfate [Feosol 325 MG tab] 325 mg PO BID #60 tablet RX: Famotidine [Pepcid] 10 mg PO BID #60 tablet RX: oxyCODONE /ACETAMINOPHEN [Percocet 5/325 mg] 1 tab PO Q8H PRN #20 tablet PRN Reason: Pain, Moderate (4-6) RX: Levothyroxine [Synthroid] 25 mcg PO QAM #30 tablet RX: Ascorbic Acid [Vitamin C] 500 mg PO BID #60 tablet RX: Zinc Sulfate [Zinc] 220 mg PO DAILY #30
--- NOTE | 2021-05-18 11:10 | Progress Note ---
Subjective Date of service: 05/18/21 Interval history: S: Stop day #2, status post left hip fracture stabilization (IM nail); appears to be doing well. No major complaints. O: Elderly female lying in bed awake and alert. Examination of the left hip shows leg lengths are equal. Incisions are covered with occlusive dressings. No drainage. No signs of infection. Positive soreness proximal femur to palpation. Able to do straight leg raise with assistance. A: Satisfactory postop course, S/P IM NAIL Stabilization left hip fracture P: 1. continue physical therapy as directed with partial weightbearing and use of walker at all times; 2. Charge planning; if she is stable may be transferred today to home or to retirement facility. Would prefer home as with the patient however there must be adequate care from the family in place; home health care PT and nursing should also be ordered. 3. Will need DVT prophylaxis in the form of NOAC drug for the next 5 weeks; 4. Dosing should be changed every 3 to 5 days if utilizing occlusive type dressings that absorb serosanguineous drainage 5. Follow-up in the orthopedic office in 2 weeks. Objective Vital signs: Vital Signs - 12hr 05/17/21 05/18/21 05/18/21 23:25 00:00 03:23 Temperature 97.8 F 98.3 F Pulse Rate 93 H 98 H Pulse Rate [ 92 H From Monitor] Respiratory 18 18 Rate Blood Pressure 101/54 136/63 O2 Sat by Pulse 91 98 92 Oximetry 05/18/21 08:11 Temperature 97.3 F L Pulse Rate 97 H Pulse Rate [ From Monitor] Respiratory 18 Rate Blood Pressure 134/75 O2 Sat by Pulse 93 Oximetry - Labs CBC & BMP: 05/14/21 05:17 05/14/21 05:17
[2021-05-18] MEDS: ESTROGENS, CONJUGATED 0.3 MG TAB PO SCH (13:55)
--- NOTE | 2021-05-18 17:27 | Progress Note ---
Assessment and Plan - Patient Problems (1) Pre-op evaluation Onset Date: ~05/15/21 Current Visit: Yes Status: Acute Plan to address problem: Patient who fell at home, sustained a hip fracture, currently post hip surgery. No cardiac complaints, no syncope associated with the fall, we will continue conservative cardiac management and follow-up. Subjective Date of service: 05/18/21 Interval history: Patient looks and feels comfortable. No cardiac complaints. No cardiac events reported. On computed tomography scanner operator, she has a normal sinus rhythm at 100, with an occasional PVC. Objective Vital Signs Temp Pulse Pulse Resp BP Pulse Ox 05/18/21 14:00 97 H 05/18/21 12:00 92 H 98 05/18/21 08:11 97.3 F L 97 H 18 134/75 93 05/18/21 06:00 97 H 05/18/21 03:23 98.3 F 98 H 18 136/63 92 05/18/21 00:00 92 H 98 05/17/21 23:25 97.8 F 93 H 18 101/54 91 05/17/21 22:00 95 H 05/17/21 19:32 98.3 F 97 H 18 131/71 93 - Physical Examination General: No Apparent Distress HEENT: Positive: PERRL Neck: Positive: neck supple Cardiac: Positive: Reg Rate and Rhythm Lungs: Positive: Decreased Breath Sounds Neuro: Positive: Grossly Intact Abdomen: Positive: Soft Skin: Positive: Clear Extremities: Absent: edema
[2021-05-18] MEDS: SENNOSIDES/DOCUSATE SODIUM 8.6/50 MG TAB PO SCH (21:58)
[2021-05-18] MEDS: traZODone 100 MG TAB PO SCH (21:59)
--- NOTE | 2021-05-18 22:49 | Progress Note ---
Assessment and Plan Assessment and plan: --COVID-19 positive Isolation precautions Oxygen if needed Vitamin C, zinc sulfate, vitamin D3 --s/p Fall /Left femur intertrochanteric fracture -Left hip x-ray shows acute, comminuted intertrochanteric fracture left femur -Orthopedic surgery evaluated Fall precautions, PT OT --Intertrochanteric fracture, left hip Evaluated by Ortho, patient underwent s/p IM nail stabilization utilizing the [employer] InterTAN nail system, LEFT hip; Continue postop care, IV fluids, pain medications PT OT evaluation, subacute rehab versus home with home health when stable --History of valvular disease -Per patient, she has history of valvular disease -Echocardiogram: EF 55-60%, mild tricuspid regurgitation -Cardiology consulted for cardiac clearance, assistance appreciated --Hypothyroidism -Continue Synthroid =Hypertension -As needed clonidine per -Blood pressure controlled, will hold any medications for now PT recommended subacute rehab placement Patient is hemodynamically and clinically stable DC and transfer to subacute rehab today History Interval history: I have seen and examined the patient at the bedside Patient was initially requested by the family and the patient to be discharged home However later they changed their plans and decided for subacute rehab/SNF Discharge held and case management processing placement Patient feels better mild pain at the site of surgery Vital signs reviewed Hospitalist Physical - Constitutional Vitals: Temp Pulse Resp BP Pulse Ox 100.4 F H 90 18 133/66 99 05/18/21 22:15 05/18/21 19:47 05/18/21 19:47 05/18/21 19:47 05/18/21 19:47 General appearance: Present: no acute distress, well-nourished, other (Mild pain) - EENT Eyes: Present: PERRL, EOM intact - Neck Neck: Present: supple, normal ROM - Respiratory Respiratory effort: normal Respiratory: bilateral: diminished, negative: rales, rhonchi, wheezing - Cardiovascular Rhythm: regular Heart Sounds: Present: S1 & S2 - Extremities Extremities: no ischemia, No edema, abnormal (Status post hip surgery) - Abdominal General gastrointestinal: soft, non-tender, non-distended, normal bowel sounds - Integumentary Integumentary: Present: clear, warm - Psychiatric Psychiatric: appropriate mood/affect, cooperative - Neurologic Neurologic: moves all extremities Results - Labs CBC & Chem 7: 05/14/21 05:17 05/14/21 05:17 Labs: Laboratory Last Values WBC 6.5 K/mm3 (4.5-11.0) 05/14/21 05:17 RBC 3.51 M/mm3 (3.65-5.03) L 05/14/21 05:17 Hgb 11.2 gm/dl (10.1-14.3) 05/14/21 05:17 Hct 33.1 % (30.3-42.9) 05/14/21 05:17 MCV 94 fl (79-97) 05/14/21 05:17 MCH 32 pg (28-32) 05/14/21 05:17 MCHC 34 % (30-34) 05/14/21 05:17 RDW 13.4 % (13.2-15.2) 05/14/21 05:17 Plt Count 173 K/mm3 (140-440) 05/14/21 05:17 Lymph % (Auto) 20.1 % (13.4-35.0) 05/14/21 05:17 Clarke % (Auto) 11.6 % (0.0-7.3) H 05/14/21 05:17 Eos % (Auto) 0.0 % (0.0-4.3) 05/14/21 05:17 Baso % (Auto) 0.1 % (0.0-1.8) 05/14/21 05:17 Lymph # (Auto) 1.3 K/mm3 (1.2-5.4) 05/14/21 05:17 Clarke # (Auto) 0.8 K/mm3 (0.0-0.8) 05/14/21 05:17 Eos # (Auto) 0.0 K/mm3 (0.0-0.4) 05/14/21 05:17 Baso # (Auto) 0.0 K/mm3 (0.0-0.1) 05/14/21 05:17 Seg Neutrophils % 68.2 % (40.0-70.0) 05/14/21 05:17 Seg Neutrophils # 4.5 K/mm3 (1.8-7.7) 05/14/21 05:17 PT 13.7 Sec. (12.2-14.9) 05/13/21 16:57 INR 0.95 (0.87-1.13) 05/13/21 16:57 APTT 29.1 Sec. (24.2-36.6) 05/13/21 16:57 Sodium 141 mmol/L (137-145) 05/14/21 05:17 Potassium 4.0 mmol/L (3.6-5.0) 05/14/21 05:17 Chloride 102.5 mmol/L (98-107) 05/14/21 05:17 Carbon Dioxide 25 mmol/L (22-30) 05/14/21 05:17 Anion Gap 18 mmol/L 05/14/21 05:17 BUN 16 mg/dL (7-17) 05/14/21 05:17 Creatinine 0.6 mg/dL (0.6-1.2) 05/14/21 05:17 Estimated GFR > 60 ml/min 05/14/21 05:17 BUN/Creatinine Ratio 27 % 05/14/21 05:17 Glucose 141 mg/dL (65-100) H 05/14/21 05:17 Calcium 8.9 mg/dL (8.4-10.2) 05/14/21 05:17 TSH 4.520 mlU/mL (0.270-4.200) H 05/13/21 23:48 Free T4 0.99 ng/dL (0.76-1.46) 05/13/21 23:48 Coronavirus (PCR) Positive (Negative) A 05/15/21 11:28 Blood Type AB NEGATIVE 05/16/21 06:47 Antibody Screen Negative 05/16/21 06:47 Lund/IV: Voiding Method Indwelling Catheter Active Medications - Current Medications Current Medications: Generic Name Dose Route Start Last Admin Trade Name Freq PRN Reason Stop Dose Admin Acetaminophen 650 mg 05/13/21 18:39 Acetaminophen 325 Mg Tab PO Q6H PRN Pain MILD(1-3)/Fever >100.5/[place]IA Albuterol 2.5 mg 05/13/21 18:05 Albuterol 2.5 Mg/3 Ml Nebu IH Q4HRT PRN Shortness Of Breath Ascorbic Acid 500 mg 05/13/21 22:00 05/18/21 21:59 Ascorbic Acid 500 Mg Tab PO 500 mg BID AMANDA Administration Bisoprolol Fumarate 1 each 05/18/21 18:00 Bisoprolol 10 Mg/Hctz 6.25 Mg Tab PO QDAY AMANDA Buspirone HCl 30 mg 05/14/21 10:00 05/18/21 21:59 Buspirone 10 Mg Tab PO 30 mg BID AMANDA Administration Famotidine 10 mg 05/16/21 22:00 05/18/21 21:58 Famotidine 10 Mg Tab PO 10 mg BID AMANDA Administration Ferrous Sulfate 325 mg 05/13/21 22:00 05/18/21 22:00 Ferrous Sulfate 325 Mg Tab PO 325 mg BID AMANDA Administration Heparin Sodium (Porcine) 5,000 unit 05/14/21 10:00 05/18/21 22:01 Heparin 5,000 Unit/1 Ml Vial SUB-Q 5,000 unit Q12HR AMANDA Administration Hydromorphone HCl 0.5 mg 05/13/21 18:39 05/18/21 17:45 Hydromorphone 1 Mg/1 Ml Inj IV 0.5 mg Q4H PRN Administration Pain , Severe (7-10) Sodium Chloride 1,000 mls @ 100 mls/hr 05/13/21 18:15 05/18/21 10:23 Nacl 0.9% 1000 Ml IV 100 mls/hr DIRECT AMANDA Administration Levothyroxine Sodium 25 mcg 05/14/21 10:00 05/18/21 10:21 Levothyroxine 25 Mcg Tab PO 25 mcg QAM AMANDA Administration Ondansetron HCl 4 mg 05/13/21 18:05 05/15/21 14:45 Ondansetron 4 Mg/2 Ml Inj IV 4 mg Q8H PRN Administration Nausea And Vomiting Oxycodone/Acetaminophen 1 tab 05/13/21 18:39 05/18/21 06:15 Oxycodone /Acetaminophen 5-325mg Tab PO 1 tab Q8H PRN Administration Pain, Moderate (4-6) Senna/Docusate Sodium 2 tab 05/13/21 22:00 05/18/21 21:58 Sennosides/Docusate Sodium 8.6/50 Mg Tab PO 2 tab QHS AMANDA Administration Sodium Chloride 10 ml 05/13/21 18:05 Sodium Chloride 0.9% 10 Ml Flush Syringe IV PRN PRN LINE FLUSH Sodium Chloride 10 ml 05/13/21 22:00 05/18/21 22:01 Sodium Chloride 0.9% 10 Ml Flush Syringe IV 10 ml BID AMANDA Administration Sucralfate 1 gm 05/13/21 22:00 05/18/21 21:59 Sucralfate 1 Gm Tab PO 1 gm BID AMANDA Administration Trazodone HCl 100 mg 05/13/21 22:00 05/18/21 21:59 Trazodone 100 Mg Tab PO 100 mg QHS AMANDA Administration
[2021-05-18] MEDS: HCTZ 6.25 MG PO SCH (23:29)
[2021-05-18] MEDS: BISOPROLOL PO SCH (23:29)
[2021-05-19] MEDS: oxyCODONE /ACETAMINOPHEN 5-325MG TAB PO PRN ×3 (03:56→21:15)
[2021-05-19] MEDS: HYDROmorphone 1 MG/1 ML INJ IV PRN ×4 (06:39→22:59)
[2021-05-19] MEDS: busPIRone 10 MG TAB PO SCH ×2 (10:55→21:16)
[2021-05-19] MEDS: HCTZ 6.25 MG PO SCH (10:55)
[2021-05-19] MEDS: SUCRALFATE 1 GM TAB PO SCH ×2 (10:55→21:32)
[2021-05-19] MEDS: BISOPROLOL PO SCH (10:55)
[2021-05-19] MEDS: LEVOTHYROXINE 25 MCG TAB PO SCH (10:57)
[2021-05-19] MEDS: FAMOTIDINE 10 MG TAB PO SCH ×2 (10:57→21:13)
[2021-05-19] MEDS: FERROUS SULFATE 325 MG TAB PO SCH ×2 (10:57→21:13)
[2021-05-19] MEDS: ASCORBIC ACID 500 MG TAB PO SCH ×2 (10:57→21:13)
[2021-05-19] MEDS: HEPARIN 5,000 UNIT/1 ML VIAL SUB-Q SCH ×2 (10:57→21:15)
--- NOTE | 2021-05-19 12:36 | Progress Note ---
Subjective Date of service: 05/19/21 Interval history: S : Postop day #3, IM nail stabilization left hip fracture; progressing with physical therapy O: Elderly female ,slender frame lying in hospital bed in no acute distress. Left hip examination shows well-healing incisions with no drainage or infection. Able to do straight leg raise with assistance. Soreness in the proximal thigh over the greater trochanter. A: Satisfactory postop course, S/P IM Nail stabilization, LEFT hip fracture P: Continue physical therapy as directed as per postop hip fracture protocol. Partial weightbearing with walker at all times. Pain management. Transfer home versus SNF for continued physical therapy and recovery Objective Vital signs: Vital Signs - 12hr 05/19/21 05/19/21 03:35 08:55 Temperature 98.1 F 98.2 F Pulse Rate 91 H 86 Respiratory 18 15 Rate Blood Pressure 121/70 139/45 O2 Sat by Pulse 97 100 Oximetry - Labs CBC & BMP: 05/14/21 05:17 05/14/21 05:17
--- NOTE | 2021-05-19 13:14 | Progress Note ---
Assessment and Plan - Patient Problems (1) Pre-op evaluation Onset Date: ~05/15/21 Current Visit: Yes Status: Acute Plan to address problem: Patient who fell at home, sustained a hip fracture, currently post hip surgery. No cardiac complaints, no syncope associated with the fall, we will continue conservative cardiac management and follow-up. Subjective Date of service: 05/19/21 Interval history: Patient is comfortable, no cardiac complaints, no cardiac events reported. On quality assurance monitor body, she has a stable sinus rhythm. Objective Vital Signs Temp Pulse Resp BP Pulse Ox 05/19/21 08:55 98.2 F 86 15 139/45 100 05/19/21 03:35 98.1 F 91 H 18 121/70 97 05/18/21 23:27 99.1 F 84 18 89/52 97 05/18/21 23:21 0 F L 05/18/21 19:47 97.9 F 90 18 133/66 99 05/18/21 17:46 98.3 F 97 H 18 157/65 98 05/18/21 14:00 97 H - Physical Examination General: No Apparent Distress HEENT: Positive: PERRL Neck: Positive: neck supple Cardiac: Positive: Reg Rate and Rhythm Lungs: Positive: clear to auscultation Neuro: Positive: Grossly Intact Abdomen: Positive: Soft Skin: Positive: Clear Extremities: Absent: edema
--- NOTE | 2021-05-19 20:17 | Progress Note ---
Assessment and Plan Assessment and plan: --COVID-19 positive 05/15/2021 Isolation precautions Oxygen if needed Vitamin C, zinc sulfate, vitamin D3 --s/p Fall /Left femur intertrochanteric fracture -Left hip x-ray shows acute, comminuted intertrochanteric fracture left femur -Orthopedic surgery evaluated Fall precautions, PT OT --Intertrochanteric fracture, left hip Evaluated by Ortho, patient underwent s/p IM nail stabilization utilizing the [employer] InterTAN nail system, LEFT hip; Continue postop care, IV fluids, pain medications PT OT evaluation, subacute rehab versus home with home health when stable --History of valvular disease -Per patient, she has history of valvular disease -Echocardiogram: EF 55-60%, mild tricuspid regurgitation -Cardiology consulted for cardiac clearance, assistance appreciated --Hypothyroidism -Continue Synthroid =Hypertension -As needed clonidine per -Blood pressure controlled, will hold any medications for now PT recommended subacute rehab placement Patient is hemodynamically and clinically stable CM assisting with subacute versus SNF placement Patient is COVID-positive 05/15/2021 Patient is stable for discharge Awaiting placement History Interval history: I have seen and examined the patient at the bedside Patient is COVID-19 05/15/2021 Hip fracture s/p surgery, awaiting subacute/SNF placement Vital signs reviewed Hospitalist Physical - Constitutional Vitals: Temp Pulse Resp BP Pulse Ox 98.1 F 97 H 18 106/43 96 05/19/21 15:16 05/19/21 11:41 05/19/21 15:16 05/19/21 16:35 05/19/21 12:00 General appearance: Present: no acute distress, well-nourished, other (Mild pain) - EENT Eyes: Present: PERRL, EOM intact - Neck Neck: Present: supple, normal ROM - Respiratory Respiratory effort: normal Respiratory: bilateral: diminished, negative: rales, rhonchi, wheezing - Cardiovascular Rhythm: regular Heart Sounds: Present: S1 & S2 - Extremities Extremities: no ischemia, No edema - Abdominal General gastrointestinal: soft, non-tender, non-distended, normal bowel sounds - Integumentary Integumentary: Present: clear, warm - Psychiatric Psychiatric: appropriate mood/affect, cooperative - Neurologic Neurologic: CNII-XII intact, moves all extremities Results - Labs CBC & Chem 7: 05/14/21 05:17 05/14/21 05:17 Labs: Laboratory Last Values WBC 6.5 K/mm3 (4.5-11.0) 05/14/21 05:17 RBC 3.51 M/mm3 (3.65-5.03) L 05/14/21 05:17 Hgb 11.2 gm/dl (10.1-14.3) 05/14/21 05:17 Hct 33.1 % (30.3-42.9) 05/14/21 05:17 MCV 94 fl (79-97) 05/14/21 05:17 MCH 32 pg (28-32) 05/14/21 05:17 MCHC 34 % (30-34) 05/14/21 05:17 RDW 13.4 % (13.2-15.2) 05/14/21 05:17 Plt Count 173 K/mm3 (140-440) 05/14/21 05:17 Lymph % (Auto) 20.1 % (13.4-35.0) 05/14/21 05:17 Kidder % (Auto) 11.6 % (0.0-7.3) H 05/14/21 05:17 Eos % (Auto) 0.0 % (0.0-4.3) 05/14/21 05:17 Baso % (Auto) 0.1 % (0.0-1.8) 05/14/21 05:17 Lymph # (Auto) 1.3 K/mm3 (1.2-5.4) 05/14/21 05:17 Kidder # (Auto) 0.8 K/mm3 (0.0-0.8) 05/14/21 05:17 Eos # (Auto) 0.0 K/mm3 (0.0-0.4) 05/14/21 05:17 Baso # (Auto) 0.0 K/mm3 (0.0-0.1) 05/14/21 05:17 Seg Neutrophils % 68.2 % (40.0-70.0) 05/14/21 05:17 Seg Neutrophils # 4.5 K/mm3 (1.8-7.7) 05/14/21 05:17 PT 13.7 Sec. (12.2-14.9) 05/13/21 16:57 INR 0.95 (0.87-1.13) 05/13/21 16:57 APTT 29.1 Sec. (24.2-36.6) 05/13/21 16:57 Sodium 141 mmol/L (137-145) 05/14/21 05:17 Potassium 4.0 mmol/L (3.6-5.0) 05/14/21 05:17 Chloride 102.5 mmol/L (98-107) 05/14/21 05:17 Carbon Dioxide 25 mmol/L (22-30) 05/14/21 05:17 Anion Gap 18 mmol/L 05/14/21 05:17 BUN 16 mg/dL (7-17) 05/14/21 05:17 Creatinine 0.6 mg/dL (0.6-1.2) 05/14/21 05:17 Estimated GFR > 60 ml/min 05/14/21 05:17 BUN/Creatinine Ratio 27 % 05/14/21 05:17 Glucose 141 mg/dL (65-100) H 05/14/21 05:17 Calcium 8.9 mg/dL (8.4-10.2) 05/14/21 05:17 TSH 4.520 mlU/mL (0.270-4.200) H 05/13/21 23:48 Free T4 0.99 ng/dL (0.76-1.46) 05/13/21 23:48 Coronavirus (PCR) Positive (Negative) A 05/15/21 11:28 Blood Type AB NEGATIVE 05/16/21 06:47 Antibody Screen Negative 05/16/21 06:47 Lund/IV: Voiding Method Indwelling Catheter Active Medications - Current Medications Current Medications: Generic Name Dose Route Start Last Admin Trade Name Freq PRN Reason Stop Dose Admin Acetaminophen 650 mg 05/13/21 18:39 Acetaminophen 325 Mg Tab PO Q6H PRN Pain MILD(1-3)/Fever >100.5/[place] Albuterol 2.5 mg 05/13/21 18:05 Albuterol 2.5 Mg/3 Ml Nebu IH Q4HRT PRN Shortness Of Breath Ascorbic Acid 500 mg 05/13/21 22:00 05/19/21 10:57 Ascorbic Acid 500 Mg Tab PO 500 mg BID AMANDA Administration Bisoprolol Fumarate 1 each 05/18/21 18:00 05/19/21 10:55 Bisoprolol 10 Mg/Hctz 6.25 Mg Tab PO 1 each QDAY AMANDA Administration Buspirone HCl 30 mg 05/14/21 10:00 05/19/21 10:55 Buspirone 10 Mg Tab PO 30 mg BID AMANDA Administration Famotidine 10 mg 05/16/21 22:00 05/19/21 10:57 Famotidine 10 Mg Tab PO 10 mg BID AMANDA Administration Ferrous Sulfate 325 mg 05/13/21 22:00 05/19/21 10:57 Ferrous Sulfate 325 Mg Tab PO 325 mg BID AMANDA Administration Heparin Sodium (Porcine) 5,000 unit 05/14/21 10:00 05/19/21 10:57 Heparin 5,000 Unit/1 Ml Vial SUB-Q 5,000 unit Q12HR AMANDA Administration Hydromorphone HCl 0.5 mg 05/13/21 18:39 05/19/21 16:30 Hydromorphone 1 Mg/1 Ml Inj IV 0.5 mg Q4H PRN Administration Pain , Severe (7-10) Sodium Chloride 1,000 mls @ 100 mls/hr 05/13/21 18:15 05/18/21 10:23 Nacl 0.9% 1000 Ml IV 100 mls/hr DIRECT AMANDA Administration Levothyroxine Sodium 25 mcg 05/14/21 10:00 05/19/21 10:57 Levothyroxine 25 Mcg Tab PO 25 mcg QAM AMANDA Administration Ondansetron HCl 4 mg 05/13/21 18:05 05/15/21 14:45 Ondansetron 4 Mg/2 Ml Inj IV 4 mg Q8H PRN Administration Nausea And Vomiting Oxycodone/Acetaminophen 1 tab 05/13/21 18:39 05/19/21 11:49 Oxycodone /Acetaminophen 5-325mg Tab PO 1 tab Q8H PRN Administration Pain, Moderate (4-6) Senna/Docusate Sodium 2 tab 05/13/21 22:00 05/18/21 21:58 Sennosides/Docusate Sodium 8.6/50 Mg Tab PO 2 tab QHS AMANDA Administration Sodium Chloride 10 ml 05/13/21 18:05 Sodium Chloride 0.9% 10 Ml Flush Syringe IV PRN PRN LINE FLUSH Sodium Chloride 10 ml 05/13/21 22:00 05/19/21 10:58 Sodium Chloride 0.9% 10 Ml Flush Syringe IV 10 ml BID AMANDA Administration Sucralfate 1 gm 05/13/21 22:00 05/19/21 10:55 Sucralfate 1 Gm Tab PO 1 gm BID AMANDA Administration Trazodone HCl 100 mg 05/13/21 22:00 05/18/21 21:59 Trazodone 100 Mg Tab PO 100 mg QHS AMANDA Administration
[2021-05-19] MEDS: traZODone 100 MG TAB PO SCH (21:31)
[2021-05-19] MEDS: SENNOSIDES/DOCUSATE SODIUM 8.6/50 MG TAB PO SCH (21:32)
[2021-05-20] MEDS: HYDROmorphone 1 MG/1 ML INJ IV PRN ×3 (08:12→22:14)
[2021-05-20] MEDS: FERROUS SULFATE 325 MG TAB PO SCH ×2 (09:38→22:14)
[2021-05-20] MEDS: FAMOTIDINE 10 MG TAB PO SCH ×2 (09:38→22:14)
[2021-05-20] MEDS: ASCORBIC ACID 500 MG TAB PO SCH ×2 (09:41→22:14)
[2021-05-20] MEDS: SUCRALFATE 1 GM TAB PO SCH ×2 (09:41→22:15)
[2021-05-20] MEDS: HEPARIN 5,000 UNIT/1 ML VIAL SUB-Q SCH ×2 (09:41→22:15)
[2021-05-20] MEDS: busPIRone 10 MG TAB PO SCH ×2 (09:41→22:13)
[2021-05-20] MEDS: LEVOTHYROXINE 25 MCG TAB PO SCH (09:42)
[2021-05-20] MEDS: HCTZ 6.25 MG PO SCH (09:46)
[2021-05-20] MEDS: oxyCODONE /ACETAMINOPHEN 5-325MG TAB PO PRN ×2 (09:46→17:18)
[2021-05-20] MEDS: BISOPROLOL PO SCH (09:46)
--- NOTE | 2021-05-20 13:44 | Progress Note ---
Assessment and Plan - Patient Problems (1) Pre-op evaluation Onset Date: ~05/15/21 Current Visit: Yes Status: Acute Plan to address problem: Patient who fell at home, sustained a hip fracture, currently post hip surgery. No cardiac complaints, no syncope associated with the fall, we will continue conservative cardiac management and follow-up. Subjective Date of service: 05/20/21 Interval history: Patient is comfortable, no new cardiac complaints, no new cardiac events reported. On playground monitor she has a sinus rhythm at 89, with an occasional PVC. Objective Vital Signs Temp Pulse Resp BP BP Pulse Ox 05/20/21 08:37 99 05/20/21 07:59 97.8 F 77 20 139/66 98 05/20/21 04:02 100.3 F H 71 16 103/54 92 05/20/21 00:00 96 05/19/21 22:56 99.8 F H 77 16 148/67 96 05/19/21 22:00 98 05/19/21 16:35 106/43 05/19/21 15:16 98.1 F 18 - Physical Examination General: No Apparent Distress HEENT: Positive: PERRL Neck: Positive: neck supple Cardiac: Positive: Reg Rate and Rhythm Lungs: Positive: Decreased Breath Sounds Neuro: Positive: Grossly Intact Abdomen: Positive: Soft Skin: Positive: Clear Extremities: Absent: edema
--- NOTE | 2021-05-20 20:33 | Progress Note ---
Assessment and Plan Assessment and plan: Pending placement --COVID-19 positive 05/15/2021 Isolation precautions Oxygen if needed Vitamin C, zinc sulfate, vitamin D3 --s/p Fall /Left femur intertrochanteric fracture -Left hip x-ray shows acute, comminuted intertrochanteric fracture left femur -Orthopedic surgery evaluated Fall precautions, PT OT --Intertrochanteric fracture, left hip Evaluated by Ortho, patient underwent s/p IM nail stabilization utilizing the TriGen InterTAN nail system, LEFT hip; Continue postop care, IV fluids, pain medications PT OT evaluation, subacute rehab versus home with home health when stable --History of valvular disease -Per patient, she has history of valvular disease -Echocardiogram: EF 55-60%, mild tricuspid regurgitation -Cardiology consulted for cardiac clearance, assistance appreciated --Hypothyroidism -Continue Synthroid =Hypertension -As needed clonidine per -Blood pressure controlled, will hold any medications for now PT recommended subacute rehab placement Patient is hemodynamically and clinically stable CM assisting with subacute versus SNF placement Patient is COVID-positive 05/15/2021 Patient is medically stable for discharge Disposition Case management; awaiting placement History Interval history: I have seen and examined the patient at the bedside Patient's chart and medications reviewed No new events reported by the nursing Vital signs noted Patient waiting for placement Hospitalist Physical - Constitutional Vitals: Temp Pulse Resp BP Pulse Ox 98.0 F 62 18 119/51 92 05/20/21 16:14 05/20/21 16:14 05/20/21 16:14 05/20/21 16:14 05/20/21 16:14 General appearance: Present: no acute distress, well-nourished, other (Mild pain) - EENT Eyes: Present: PERRL, EOM intact - Neck Neck: Present: supple, normal ROM - Respiratory Respiratory effort: normal Respiratory: bilateral: diminished, negative: rales, rhonchi, wheezing - Cardiovascular Rhythm: regular Heart Sounds: Present: S1 & S2 - Extremities Extremities: no ischemia, No edema, abnormal (Status post hip surgery) - Abdominal General gastrointestinal: soft, non-tender, non-distended - Integumentary Integumentary: Present: clear, warm - Psychiatric Psychiatric: appropriate mood/affect, cooperative - Neurologic Neurologic: moves all extremities Results - Labs CBC & Chem 7: 05/14/21 05:17 05/14/21 05:17 Labs: Laboratory Last Values WBC 6.5 K/mm3 (4.5-11.0) 05/14/21 05:17 RBC 3.51 M/mm3 (3.65-5.03) L 05/14/21 05:17 Hgb 11.2 gm/dl (10.1-14.3) 05/14/21 05:17 Hct 33.1 % (30.3-42.9) 05/14/21 05:17 MCV 94 fl (79-97) 05/14/21 05:17 MCH 32 pg (28-32) 05/14/21 05:17 MCHC 34 % (30-34) 05/14/21 05:17 RDW 13.4 % (13.2-15.2) 05/14/21 05:17 Plt Count 173 K/mm3 (140-440) 05/14/21 05:17 Lymph % (Auto) 20.1 % (13.4-35.0) 05/14/21 05:17 [place] % (Auto) 11.6 % (0.0-7.3) H 05/14/21 05:17 Eos % (Auto) 0.0 % (0.0-4.3) 05/14/21 05:17 Baso % (Auto) 0.1 % (0.0-1.8) 05/14/21 05:17 Lymph # (Auto) 1.3 K/mm3 (1.2-5.4) 05/14/21 05:17 [place] # (Auto) 0.8 K/mm3 (0.0-0.8) 05/14/21 05:17 Eos # (Auto) 0.0 K/mm3 (0.0-0.4) 05/14/21 05:17 Baso # (Auto) 0.0 K/mm3 (0.0-0.1) 05/14/21 05:17 Seg Neutrophils % 68.2 % (40.0-70.0) 05/14/21 05:17 Seg Neutrophils # 4.5 K/mm3 (1.8-7.7) 05/14/21 05:17 PT 13.7 Sec. (12.2-14.9) 05/13/21 16:57 INR 0.95 (0.87-1.13) 05/13/21 16:57 APTT 29.1 Sec. (24.2-36.6) 05/13/21 16:57 Sodium 141 mmol/L (137-145) 05/14/21 05:17 Potassium 4.0 mmol/L (3.6-5.0) 05/14/21 05:17 Chloride 102.5 mmol/L (98-107) 05/14/21 05:17 Carbon Dioxide 25 mmol/L (22-30) 05/14/21 05:17 Anion Gap 18 mmol/L 05/14/21 05:17 BUN 16 mg/dL (7-17) 05/14/21 05:17 Creatinine 0.6 mg/dL (0.6-1.2) 05/14/21 05:17 Estimated GFR > 60 ml/min 05/14/21 05:17 BUN/Creatinine Ratio 27 % 05/14/21 05:17 Glucose 141 mg/dL (65-100) H 05/14/21 05:17 Calcium 8.9 mg/dL (8.4-10.2) 05/14/21 05:17 TSH 4.520 mlU/mL (0.270-4.200) H 05/13/21 23:48 Free T4 0.99 ng/dL (0.76-1.46) 05/13/21 23:48 Coronavirus (PCR) Positive (Negative) A 05/15/21 11:28 Blood Type AB NEGATIVE 05/16/21 06:47 Antibody Screen Negative 05/16/21 06:47 Lund/IV: Voiding Method Indwelling Catheter Active Medications - Current Medications Current Medications: Generic Name Dose Route Start Last Admin Trade Name Freq PRN Reason Stop Dose Admin Acetaminophen 650 mg 05/13/21 18:39 05/20/21 04:28 Acetaminophen 325 Mg Tab PO 650 mg Q6H PRN Administration Pain MILD(1-3)/Fever >100.5/SANTAMARIA Albuterol 2.5 mg 05/13/21 18:05 Albuterol 2.5 Mg/3 Ml Nebu IH Q4HRT PRN Shortness Of Breath Ascorbic Acid 500 mg 05/13/21 22:00 05/20/21 09:41 Ascorbic Acid 500 Mg Tab PO 500 mg BID AMANDA Administration Bisoprolol Fumarate 1 each 05/18/21 18:00 05/20/21 09:46 Bisoprolol 10 Mg/Hctz 6.25 Mg Tab PO 1 each QDAY AMANDA Administration Buspirone HCl 30 mg 05/14/21 10:00 05/20/21 09:41 Buspirone 10 Mg Tab PO 30 mg BID AMANDA Administration Famotidine 10 mg 05/16/21 22:00 05/20/21 09:38 Famotidine 10 Mg Tab PO 10 mg BID AMANDA Administration Ferrous Sulfate 325 mg 05/13/21 22:00 05/20/21 09:38 Ferrous Sulfate 325 Mg Tab PO 325 mg BID AMANDA Administration Heparin Sodium (Porcine) 5,000 unit 05/14/21 10:00 05/20/21 09:41 Heparin 5,000 Unit/1 Ml Vial SUB-Q 5,000 unit Q12HR AMANDA Administration Hydromorphone HCl 0.5 mg 05/13/21 18:39 05/20/21 15:38 Hydromorphone 1 Mg/1 Ml Inj IV 0.5 mg Q4H PRN Administration Pain , Severe (7-10) Sodium Chloride 1,000 mls @ 100 mls/hr 05/13/21 18:15 05/18/21 10:23 Nacl 0.9% 1000 Ml IV 100 mls/hr DIRECT AMANDA Administration Levothyroxine Sodium 25 mcg 05/14/21 10:00 05/20/21 09:42 Levothyroxine 25 Mcg Tab PO 25 mcg QAM AMANDA Administration Ondansetron HCl 4 mg 05/13/21 18:05 05/15/21 14:45 Ondansetron 4 Mg/2 Ml Inj IV 4 mg Q8H PRN Administration Nausea And Vomiting Oxycodone/Acetaminophen 1 tab 05/13/21 18:39 05/20/21 17:18 Oxycodone /Acetaminophen 5-325mg Tab PO 1 tab Q8H PRN Administration Pain, Moderate (4-6) Senna/Docusate Sodium 2 tab 05/13/21 22:00 05/19/21 21:32 Sennosides/Docusate Sodium 8.6/50 Mg Tab PO 2 tab QHS AMANDA Administration Sodium Chloride 10 ml 05/13/21 18:05 Sodium Chloride 0.9% 10 Ml Flush Syringe IV PRN PRN LINE FLUSH Sodium Chloride 10 ml 05/13/21 22:00 05/20/21 09:41 Sodium Chloride 0.9% 10 Ml Flush Syringe IV 10 ml BID AMANDA Administration Sucralfate 1 gm 05/13/21 22:00 05/20/21 09:41 Sucralfate 1 Gm Tab PO 1 gm BID AMANDA Administration Trazodone HCl 100 mg 05/13/21 22:00 05/19/21 21:31 Trazodone 100 Mg Tab PO 100 mg QHS AMANDA Administration Nutrition/Malnutrition Assess - Dietary Evaluation Nutrition/Malnutrition Findings: Nutrition Notes Start: 05/20/21 10:46 Freq: Status: Active Protocol: Document 05/20/21 10:46 ADRYAN (Rec: 05/20/21 11:10 ADRYAN [id number]) Nutrition Notes Need for Assessment generated from: LOS Initial or Follow up Assessment Current Diagnosis Malnutrition Other Pertinent Diagnosis Post-op L-Hip fracture, Dementia, Cerebral atherosclerosis, Hypothyroidism. Current Diet Cardiac Diet (since D 05/13). Labs/Tests 05/20: N/A. Pertinent Medications 05/20: Vit C, Levothyroxine, others nutritionally unremarkable. 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 Pt is recovering well from surgery (L-Hip Fracture), on Physical Theraphy, partial weight bearing with walker at all times, according to Progress notes. Pt's PO intake of meals has been Good (100%), according to ADL notes. Pt presents acute malnutrition , and was on ONS, now d/c, accoeding to Progress notes. Percent of energy/protein needs met: Prescribed Cardiac Diet provides for energy/protein needs (2,230 Kcal/85 g) during LOS. Burn Absent Trauma Present GI Symptoms None Food Allergy No Skin Integrity/Comment Surgical area. Current % PO Good (75-100%) Minimum of two criteria No Is patient on ventilator? No Is Patient Ambulatory and/or Out of Bed Yes REE-([place]-St. Jeor-ambulatory/OOB) [ 1271.569 NUTR.MSJOOB] Kcal/Kg value to use for calculation 18 Approximate Energy Requirements Using 970 kcal/Kg Calculation Used for Recommendations Kcal/kg Additional Notes Protein: 1-1.2 g/Kg; 54-65 g/ day. Fluids: 1 ml/Kcal, or as per MD. Nutrition Intervention Change Diet Order: Continue Cardiac Diet. Revisit per MD consult or patient Sign Off request: Additional Comments Continue monitoring food tolerance, %PO intake of meals , and BM.
[2021-05-20] MEDS: traZODone 100 MG TAB PO SCH (22:14)
[2021-05-20] MEDS: SENNOSIDES/DOCUSATE SODIUM 8.6/50 MG TAB PO SCH (22:14)
[2021-05-21] MEDS: HYDROmorphone 1 MG/1 ML INJ IV PRN ×3 (06:32→20:35)
[2021-05-21] MEDS: FERROUS SULFATE 325 MG TAB PO SCH ×2 (09:06→22:36)
[2021-05-21] MEDS: busPIRone 10 MG TAB PO SCH ×3 (09:06→23:17)
[2021-05-21] MEDS: SUCRALFATE 1 GM TAB PO SCH ×2 (09:06→22:36)
[2021-05-21] MEDS: HEPARIN 5,000 UNIT/1 ML VIAL SUB-Q SCH ×2 (09:07→22:36)
[2021-05-21] MEDS: LEVOTHYROXINE 25 MCG TAB PO SCH (09:07)
[2021-05-21] MEDS: FAMOTIDINE 10 MG TAB PO SCH ×2 (09:07→22:36)
[2021-05-21] MEDS: ASCORBIC ACID 500 MG TAB PO SCH ×2 (09:07→22:36)
[2021-05-21] MEDS: BISOPROLOL PO SCH (09:08)
[2021-05-21] MEDS: HCTZ 6.25 MG PO SCH (09:08)
[2021-05-21] MEDS: oxyCODONE /ACETAMINOPHEN 5-325MG TAB PO PRN ×2 (09:09→18:02)
--- NOTE | 2021-05-21 10:34 | Progress Note ---
Assessment and Plan 3. Preoperative stratification for hip surgery. Patient tolerated the procedure well. Stable. Status 2. Hypertension -Fairly well controlled on Ziac -No further changes recommended 3. COVID-19 positive 05/15/2021 -Managed by primary 4. s/p Fall /Left femur intertrochanteric fracture - S/P surgery. No further cardiac recommendations. We will sign off thank Subjective Date of service: 05/21/21 Principal diagnosis: Preoperative stratification Interval history: Asymptomatic postop status Objective Vital Signs Temp Pulse Resp BP BP Pulse Ox 05/21/21 08:28 98 05/21/21 08:07 98 05/21/21 07:53 97.9 F 75 18 117/52 92 05/21/21 04:00 98.2 F 117 H 18 110/46 100 05/21/21 02:07 93 05/21/21 00:00 98 05/20/21 23:55 98.1 F 69 16 111/43 95 05/20/21 19:42 98.1 F 65 16 101/45 96 05/20/21 16:14 98.0 F 62 18 119/51 92 - Physical Examination General: No Apparent Distress HEENT: Positive: PERRL, Normocephaly Neck: Positive: neck supple, trachea midline Cardiac: Positive: Reg Rate and Rhythm Lungs: Positive: clear to auscultation Neuro: Positive: Grossly Intact Abdomen: Positive: Unremarkable, Soft Skin: Positive: Clear Extremities: Present: normal. Absent: edema
--- NOTE | 2021-05-21 15:36 | Progress Note ---
Subjective Date of service: 05/21/21 Principal diagnosis: Preoperative stratification Interval history: PROGRESS NOTE S: POD #5 ; patient lying in bed alert , no acute distress. No complaints except for postoperative pain; O: Leg is equal length with the opposite lower extremity; mild swelling proximal femur left hip. Dressing on proximal wound shows no drainage and is intact. Distal dressing also shows nice occlusive bandage without significant drainage. Able to do straight leg raise with assistance. Neurovascularly intact A: Satisfactory postop course, postop day #5 for IM nail stabilization , left hip fracture; P: 1. continue with postop physical therapy as directed per hip fracture protocol with protected weightbearing at all times and partial weightbearing; 2. It is unclear why she is still here and not at a nursing home facility where she needs to be discharged as she has no significant help at home. (Majority of hip fractures in reasonably healthy individuals stay no more than 2 to 3 days following surgery before they are discharged home or to a SNF.) We will contact case management for appropriate transfer/discharge to nursing home facility. Objective Vital signs: Vital Signs - 12hr 05/21/21 05/21/21 05/21/21 04:00 07:53 08:07 Temperature 98.2 F 97.9 F Pulse Rate 117 H 75 Respiratory 18 18 Rate Blood Pressure 117/52 Blood Pressure 110/46 [Left] O2 Sat by Pulse 100 92 98 Oximetry 05/21/21 08:28 Temperature Pulse Rate Respiratory Rate Blood Pressure Blood Pressure [Left] O2 Sat by Pulse 98 Oximetry - Labs CBC & BMP: 05/14/21 05:17 05/14/21 05:17
--- NOTE | 2021-05-21 17:09 | Progress Note ---
Assessment and Plan Assessment and plan: --COVID-19 positive 05/15/2021 Isolation precautions Oxygen if needed Vitamin C, zinc sulfate, vitamin D3 --s/p Fall /Left femur intertrochanteric fracture -Left hip x-ray shows acute, comminuted intertrochanteric fracture left femur -Orthopedic surgery evaluated Fall precautions, PT OT --Intertrochanteric fracture, left hip Evaluated by Ortho, patient underwent s/p IM nail stabilization utilizing the [employer] InterTAN nail system, LEFT hip; Continue postop care, IV fluids, pain medications PT OT evaluation, subacute rehab versus home with home health when stable --History of valvular disease -Per patient, she has history of valvular disease -Echocardiogram: EF 55-60%, mild tricuspid regurgitation -Cardiology consulted for cardiac clearance, assistance appreciated --Hypothyroidism -Continue Synthroid =Hypertension -As needed clonidine per -Blood pressure controlled, will hold any medications for now PT recommended subacute rehab placement Patient is hemodynamically and clinically stable CM assisting with subacute versus SNF placement Patient is COVID-positive 05/15/2021 Patient is stable for discharge Awaiting placement 05/21/2021, patient is hemodynamically and clinically stable for discharge Pending SNF placement, patient is COVID-positive status[difficult to place] History Interval history: Have seen and examined the patient at the bedside Patient's chart and medications reviewed Isolation precautions and PPE protocols followed patient is anxious to be discharged . No new complaints Hospitalist Physical - Constitutional Vitals: Temp Pulse Resp BP Pulse Ox 97.9 F 75 18 117/52 98 05/21/21 07:53 05/21/21 07:53 05/21/21 07:53 05/21/21 07:53 05/21/21 08:28 General appearance: Present: no acute distress, well-nourished, other (Mild pain) - EENT Eyes: Present: PERRL, EOM intact - Neck Neck: Present: supple, normal ROM - Respiratory Respiratory: bilateral: CTA, negative: diminished, rales, rhonchi - Cardiovascular Rhythm: regular Heart Sounds: Present: S1 & S2 - Extremities Extremities: no ischemia, No edema, abnormal (Hip surgery) - Abdominal General gastrointestinal: soft, non-tender, non-distended, normal bowel sounds - Integumentary Integumentary: Present: clear, warm - Psychiatric Psychiatric: appropriate mood/affect, cooperative - Neurologic Neurologic: moves all extremities Results - Labs CBC & Chem 7: 05/14/21 05:17 05/14/21 05:17 Labs: Laboratory Last Values WBC 6.5 K/mm3 (4.5-11.0) 05/14/21 05:17 RBC 3.51 M/mm3 (3.65-5.03) L 05/14/21 05:17 Hgb 11.2 gm/dl (10.1-14.3) 05/14/21 05:17 Hct 33.1 % (30.3-42.9) 05/14/21 05:17 MCV 94 fl (79-97) 05/14/21 05:17 MCH 32 pg (28-32) 05/14/21 05:17 MCHC 34 % (30-34) 05/14/21 05:17 RDW 13.4 % (13.2-15.2) 05/14/21 05:17 Plt Count 173 K/mm3 (140-440) 05/14/21 05:17 Lymph % (Auto) 20.1 % (13.4-35.0) 05/14/21 05:17 [place] % (Auto) 11.6 % (0.0-7.3) H 05/14/21 05:17 Eos % (Auto) 0.0 % (0.0-4.3) 05/14/21 05:17 Baso % (Auto) 0.1 % (0.0-1.8) 05/14/21 05:17 Lymph # (Auto) 1.3 K/mm3 (1.2-5.4) 05/14/21 05:17 [place] # (Auto) 0.8 K/mm3 (0.0-0.8) 05/14/21 05:17 Eos # (Auto) 0.0 K/mm3 (0.0-0.4) 05/14/21 05:17 Baso # (Auto) 0.0 K/mm3 (0.0-0.1) 05/14/21 05:17 Seg Neutrophils % 68.2 % (40.0-70.0) 05/14/21 05:17 Seg Neutrophils # 4.5 K/mm3 (1.8-7.7) 05/14/21 05:17 PT 13.7 Sec. (12.2-14.9) 05/13/21 16:57 INR 0.95 (0.87-1.13) 05/13/21 16:57 APTT 29.1 Sec. (24.2-36.6) 05/13/21 16:57 Sodium 141 mmol/L (137-145) 05/14/21 05:17 Potassium 4.0 mmol/L (3.6-5.0) 05/14/21 05:17 Chloride 102.5 mmol/L (98-107) 05/14/21 05:17 Carbon Dioxide 25 mmol/L (22-30) 05/14/21 05:17 Anion Gap 18 mmol/L 05/14/21 05:17 BUN 16 mg/dL (7-17) 05/14/21 05:17 Creatinine 0.6 mg/dL (0.6-1.2) 05/14/21 05:17 Estimated GFR > 60 ml/min 05/14/21 05:17 BUN/Creatinine Ratio 27 % 05/14/21 05:17 Glucose 141 mg/dL (65-100) H 05/14/21 05:17 Calcium 8.9 mg/dL (8.4-10.2) 05/14/21 05:17 TSH 4.520 mlU/mL (0.270-4.200) H 05/13/21 23:48 Free T4 0.99 ng/dL (0.76-1.46) 05/13/21 23:48 Coronavirus (PCR) Positive (Negative) A 05/15/21 11:28 Blood Type AB NEGATIVE 05/16/21 06:47 Antibody Screen Negative 05/16/21 06:47 Lund/IV: Voiding Method Indwelling Catheter Active Medications - Current Medications Current Medications: Generic Name Dose Route Start Last Admin Trade Name Freq PRN Reason Stop Dose Admin Acetaminophen 650 mg 05/13/21 18:39 05/20/21 04:28 Acetaminophen 325 Mg Tab PO 650 mg Q6H PRN Administration Pain MILD(1-3)/Fever >100.5/[place]ANTAMARIA Albuterol 2.5 mg 05/13/21 18:05 Albuterol 2.5 Mg/3 Ml Nebu IH Q4HRT PRN Shortness Of Breath Ascorbic Acid 500 mg 05/13/21 22:00 05/21/21 09:07 Ascorbic Acid 500 Mg Tab PO 500 mg BID AMANDA Administration Bisoprolol Fumarate 1 each 05/18/21 18:00 05/21/21 09:08 Bisoprolol 10 Mg/Hctz 6.25 Mg Tab PO 1 each QDAY AMANDA Administration Buspirone HCl 30 mg 05/14/21 10:00 05/21/21 09:06 Buspirone 10 Mg Tab PO 30 mg BID AMANDA Administration Famotidine 10 mg 05/16/21 22:00 05/21/21 09:07 Famotidine 10 Mg Tab PO 10 mg BID AMANDA Administration Ferrous Sulfate 325 mg 05/13/21 22:00 05/21/21 09:06 Ferrous Sulfate 325 Mg Tab PO 325 mg BID AMANDA Administration Heparin Sodium (Porcine) 5,000 unit 05/14/21 10:00 05/21/21 09:07 Heparin 5,000 Unit/1 Ml Vial SUB-Q 5,000 unit Q12HR AMANDA Administration Hydromorphone HCl 0.5 mg 05/13/21 18:39 05/21/21 11:37 Hydromorphone 1 Mg/1 Ml Inj IV 0.5 mg Q4H PRN Administration Pain , Severe (7-10) Sodium Chloride 1,000 mls @ 100 mls/hr 05/13/21 18:15 05/18/21 10:23 Nacl 0.9% 1000 Ml IV 100 mls/hr DIRECT AMANDA Administration Levothyroxine Sodium 25 mcg 05/14/21 10:00 05/21/21 09:07 Levothyroxine 25 Mcg Tab PO 25 mcg QAM AMANDA Administration Ondansetron HCl 4 mg 05/13/21 18:05 05/15/21 14:45 Ondansetron 4 Mg/2 Ml Inj IV 4 mg Q8H PRN Administration Nausea And Vomiting Oxycodone/Acetaminophen 1 tab 05/13/21 18:39 05/21/21 09:09 Oxycodone /Acetaminophen 5-325mg Tab PO 1 tab Q8H PRN Administration Pain, Moderate (4-6) Senna/Docusate Sodium 2 tab 05/13/21 22:00 05/20/21 22:14 Sennosides/Docusate Sodium 8.6/50 Mg Tab PO 2 tab QHS AMANDA Administration Sodium Chloride 10 ml 05/13/21 18:05 Sodium Chloride 0.9% 10 Ml Flush Syringe IV PRN PRN LINE FLUSH Sodium Chloride 10 ml 05/13/21 22:00 05/21/21 09:06 Sodium Chloride 0.9% 10 Ml Flush Syringe IV 10 ml BID AMANDA Administration Sucralfate 1 gm 05/13/21 22:00 05/21/21 09:06 Sucralfate 1 Gm Tab PO 1 gm BID AMANDA Administration Trazodone HCl 100 mg 05/13/21 22:00 05/20/21 22:14 Trazodone 100 Mg Tab PO 100 mg QHS AMANDA Administration Nutrition/Malnutrition Assess - Dietary Evaluation Nutrition/Malnutrition Findings: Nutrition Notes Start: 05/20/21 10:46 Freq: Status: Active Protocol: Document 05/20/21 10:46 ADRYAN (Rec: 05/20/21 11:10 ADRYAN [id number]) Nutrition Notes Need for Assessment generated from: LOS Initial or Follow up Assessment Current Diagnosis Malnutrition Other Pertinent Diagnosis Post-op L-Hip fracture, Dementia, Cerebral atherosclerosis, Hypothyroidism. Current Diet Cardiac Diet (since D 05/13). Labs/Tests 05/20: N/A. Pertinent Medications 05/20: Vit C, Levothyroxine, others nutritionally unremarkable. 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 Pt is recovering well from surgery (L-Hip Fracture), on Physical Theraphy, partial weight bearing with walker at all times, according to Progress notes. Pt's PO intake of meals has been Good (100%), according to ADL notes. Pt presents acute malnutrition , and was on ONS, now d/c, accoeding to Progress notes. Percent of energy/protein needs met: Prescribed Cardiac Diet provides for energy/protein needs (2,230 Kcal/85 g) during LOS. Burn Absent Trauma Present GI Symptoms None Food Allergy No Skin Integrity/Comment Surgical area. Current % PO Good (75-100%) Minimum of two criteria No Is patient on ventilator? No Is Patient Ambulatory and/or Out of Bed Yes REE-([place]-St. Jeor-ambulatory/OOB) [ 1271.569 NUTR.MSJOOB] Kcal/Kg value to use for calculation 18 Approximate Energy Requirements Using 970 kcal/Kg Calculation Used for Recommendations Kcal/kg Additional Notes Protein: 1-1.2 g/Kg; 54-65 g/ day. Fluids: 1 ml/Kcal, or as per MD. Nutrition Intervention Change Diet Order: Continue Cardiac Diet. Revisit per MD consult or patient Sign Off request: Additional Comments Continue monitoring food tolerance, %PO intake of meals , and BM.
[2021-05-21] MEDS: SENNOSIDES/DOCUSATE SODIUM 8.6/50 MG TAB PO SCH (22:36)
[2021-05-21] MEDS: traZODone 100 MG TAB PO SCH (22:36)
--- NOTE | 2021-05-21 23:14 | Progress Note ---
Assessment and Plan Assessment and plan: --COVID-19 positive 05/15/2021 Isolation precautions Oxygen if needed Vitamin C, zinc sulfate, vitamin D3 --s/p Fall /Left femur intertrochanteric fracture -Left hip x-ray shows acute, comminuted intertrochanteric fracture left femur -Orthopedic surgery evaluated Fall precautions, PT OT --Intertrochanteric fracture, left hip Evaluated by Ortho, patient underwent s/p IM nail stabilization utilizing the TriGen InterTAN nail system, LEFT hip; Continue postop care, IV fluids, pain medications PT OT evaluation, subacute rehab versus home with home health when stable --History of valvular disease -Per patient, she has history of valvular disease -Echocardiogram: EF 55-60%, mild tricuspid regurgitation -Cardiology consulted for cardiac clearance, assistance appreciated --Hypothyroidism -Continue Synthroid =Hypertension -As needed clonidine per -Blood pressure controlled, will hold any medications for now PT recommended subacute rehab placement Patient is hemodynamically and clinically stable CM assisting with subacute versus SNF placement Patient is COVID-positive 05/15/2021 Patient is stable for discharge Awaiting placement 05/21/2021, patient is hemodynamically and clinically stable for discharge Pending SNF placement, patient is COVID-positive status[difficult to place] 05/22/2021; patient is medically stable for discharge. Pending subacute rehab/SNF placement DC planning per case management Very difficult to place due to positive COVID status History Interval history: I have seen and examined the patient at the bedside Patient's chart and medications reviewed Patient feels better, anxious to go home or rehab No new complaints except for some pain at the surgical site She is on pain medications Vital signs reviewed Hospitalist Physical - Constitutional Vitals: Temp Pulse Resp BP Pulse Ox 98.3 F 71 20 142/53 94 05/21/21 20:54 05/21/21 20:54 05/21/21 21:05 05/21/21 20:54 05/21/21 20:54 General appearance: Present: no acute distress, well-nourished, other (Mild pain) - EENT Eyes: Present: PERRL, EOM intact - Neck Neck: Present: supple, normal ROM - Respiratory Respiratory effort: normal Respiratory: bilateral: diminished, negative: rales, rhonchi, wheezing - Cardiovascular Rhythm: regular Heart Sounds: Present: S1 & S2 - Extremities Extremities: no ischemia, No edema - Abdominal General gastrointestinal: soft, non-tender, non-distended, normal bowel sounds - Integumentary Integumentary: Present: clear, warm - Psychiatric Psychiatric: appropriate mood/affect, cooperative - Neurologic Neurologic: CNII-XII intact, moves all extremities Results - Labs CBC & Chem 7: 05/14/21 05:17 05/14/21 05:17 Labs: Laboratory Last Values WBC 6.5 K/mm3 (4.5-11.0) 05/14/21 05:17 RBC 3.51 M/mm3 (3.65-5.03) L 05/14/21 05:17 Hgb 11.2 gm/dl (10.1-14.3) 05/14/21 05:17 Hct 33.1 % (30.3-42.9) 05/14/21 05:17 MCV 94 fl (79-97) 05/14/21 05:17 MCH 32 pg (28-32) 05/14/21 05:17 MCHC 34 % (30-34) 05/14/21 05:17 RDW 13.4 % (13.2-15.2) 05/14/21 05:17 Plt Count 173 K/mm3 (140-440) 05/14/21 05:17 Lymph % (Auto) 20.1 % (13.4-35.0) 05/14/21 05:17 [place] % (Auto) 11.6 % (0.0-7.3) H 05/14/21 05:17 Eos % (Auto) 0.0 % (0.0-4.3) 05/14/21 05:17 Baso % (Auto) 0.1 % (0.0-1.8) 05/14/21 05:17 Lymph # (Auto) 1.3 K/mm3 (1.2-5.4) 05/14/21 05:17 [place] # (Auto) 0.8 K/mm3 (0.0-0.8) 05/14/21 05:17 Eos # (Auto) 0.0 K/mm3 (0.0-0.4) 05/14/21 05:17 Baso # (Auto) 0.0 K/mm3 (0.0-0.1) 05/14/21 05:17 Seg Neutrophils % 68.2 % (40.0-70.0) 05/14/21 05:17 Seg Neutrophils # 4.5 K/mm3 (1.8-7.7) 05/14/21 05:17 PT 13.7 Sec. (12.2-14.9) 05/13/21 16:57 INR 0.95 (0.87-1.13) 05/13/21 16:57 APTT 29.1 Sec. (24.2-36.6) 05/13/21 16:57 Sodium 141 mmol/L (137-145) 05/14/21 05:17 Potassium 4.0 mmol/L (3.6-5.0) 05/14/21 05:17 Chloride 102.5 mmol/L (98-107) 05/14/21 05:17 Carbon Dioxide 25 mmol/L (22-30) 05/14/21 05:17 Anion Gap 18 mmol/L 05/14/21 05:17 BUN 16 mg/dL (7-17) 05/14/21 05:17 Creatinine 0.6 mg/dL (0.6-1.2) 05/14/21 05:17 Estimated GFR > 60 ml/min 05/14/21 05:17 BUN/Creatinine Ratio 27 % 05/14/21 05:17 Glucose 141 mg/dL (65-100) H 05/14/21 05:17 Calcium 8.9 mg/dL (8.4-10.2) 05/14/21 05:17 TSH 4.520 mlU/mL (0.270-4.200) H 05/13/21 23:48 Free T4 0.99 ng/dL (0.76-1.46) 05/13/21 23:48 Coronavirus (PCR) Positive (Negative) A 05/15/21 11:28 Blood Type AB NEGATIVE 05/16/21 06:47 Antibody Screen Negative 05/16/21 06:47 Lund/IV: Voiding Method Indwelling Catheter Active Medications - Current Medications Current Medications: Generic Name Dose Route Start Last Admin Trade Name Freq PRN Reason Stop Dose Admin Acetaminophen 650 mg 05/13/21 18:39 05/20/21 04:28 Acetaminophen 325 Mg Tab PO 650 mg Q6H PRN Administration Pain MILD(1-3)/Fever >100.5/SANTAMARIA Albuterol 2.5 mg 05/13/21 18:05 Albuterol 2.5 Mg/3 Ml Nebu IH Q4HRT PRN Shortness Of Breath Ascorbic Acid 500 mg 05/13/21 22:00 05/21/21 22:36 Ascorbic Acid 500 Mg Tab PO 500 mg BID AMANDA Administration Bisoprolol Fumarate 1 each 05/18/21 18:00 05/21/21 09:08 Bisoprolol 10 Mg/Hctz 6.25 Mg Tab PO 1 each QDAY AMANDA Administration Buspirone HCl 30 mg 05/14/21 10:00 05/21/21 09:06 Buspirone 10 Mg Tab PO 30 mg BID AMANDA Administration Famotidine 10 mg 05/16/21 22:00 05/21/21 22:36 Famotidine 10 Mg Tab PO 10 mg BID AMANDA Administration Ferrous Sulfate 325 mg 05/13/21 22:00 05/21/21 22:36 Ferrous Sulfate 325 Mg Tab PO 325 mg BID AMANDA Administration Heparin Sodium (Porcine) 5,000 unit 05/14/21 10:00 05/21/21 22:36 Heparin 5,000 Unit/1 Ml Vial SUB-Q 5,000 unit Q12HR AMANDA Administration Hydromorphone HCl 0.5 mg 05/13/21 18:39 05/21/21 20:35 Hydromorphone 1 Mg/1 Ml Inj IV 0.5 mg Q4H PRN Administration Pain , Severe (7-10) Sodium Chloride 1,000 mls @ 100 mls/hr 05/13/21 18:15 05/18/21 10:23 Nacl 0.9% 1000 Ml IV 100 mls/hr DIRECT AMANDA Administration Levothyroxine Sodium 25 mcg 05/14/21 10:00 05/21/21 09:07 Levothyroxine 25 Mcg Tab PO 25 mcg QAM AMANDA Administration Ondansetron HCl 4 mg 05/13/21 18:05 05/15/21 14:45 Ondansetron 4 Mg/2 Ml Inj IV 4 mg Q8H PRN Administration Nausea And Vomiting Oxycodone/Acetaminophen 1 tab 05/13/21 18:39 05/21/21 18:02 Oxycodone /Acetaminophen 5-325mg Tab PO 1 tab Q8H PRN Administration Pain, Moderate (4-6) Senna/Docusate Sodium 2 tab 05/13/21 22:00 05/21/21 22:36 Sennosides/Docusate Sodium 8.6/50 Mg Tab PO 2 tab QHS AMANDA Administration Sodium Chloride 10 ml 05/13/21 18:05 Sodium Chloride 0.9% 10 Ml Flush Syringe IV PRN PRN LINE FLUSH Sodium Chloride 10 ml 05/13/21 22:00 05/21/21 22:35 Sodium Chloride 0.9% 10 Ml Flush Syringe IV 10 ml BID AMANDA Administration Sucralfate 1 gm 05/13/21 22:00 05/21/21 22:36 Sucralfate 1 Gm Tab PO 1 gm BID AMANDA Administration Trazodone HCl 100 mg 05/13/21 22:00 05/21/21 22:36 Trazodone 100 Mg Tab PO 100 mg QHS AMANDA Administration Nutrition/Malnutrition Assess - Dietary Evaluation Nutrition/Malnutrition Findings: Nutrition Notes Start: 05/20/21 10:46 Freq: Status: Active Protocol: Document 05/20/21 10:46 ADRYAN (Rec: 05/20/21 11:10 ADRYAN [id number]) Nutrition Notes Need for Assessment generated from: LOS Initial or Follow up Assessment Current Diagnosis Malnutrition Other Pertinent Diagnosis Post-op L-Hip fracture, Dementia, Cerebral atherosclerosis, Hypothyroidism. Current Diet Cardiac Diet (since D 05/13). Labs/Tests 05/20: N/A. Pertinent Medications 05/20: Vit C, Levothyroxine, others nutritionally unremarkable. 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 Pt is recovering well from surgery (L-Hip Fracture), on Physical Theraphy, partial weight bearing with walker at all times, according to Progress notes. Pt's PO intake of meals has been Good (100%), according to ADL notes. Pt presents acute malnutrition , and was on ONS, now d/c, accoeding to Progress notes. Percent of energy/protein needs met: Prescribed Cardiac Diet provides for energy/protein needs (2,230 Kcal/85 g) during LOS. Burn Absent Trauma Present GI Symptoms None Food Allergy No Skin Integrity/Comment Surgical area. Current % PO Good (75-100%) Minimum of two criteria No Is patient on ventilator? No Is Patient Ambulatory and/or Out of Bed Yes REE-([place]-St. Jeor-ambulatory/OOB) [ 1271.569 NUTR.MSJOOB] Kcal/Kg value to use for calculation 18 Approximate Energy Requirements Using 970 kcal/Kg Calculation Used for Recommendations Kcal/kg Additional Notes Protein: 1-1.2 g/Kg; 54-65 g/ day. Fluids: 1 ml/Kcal, or as per MD. Nutrition Intervention Change Diet Order: Continue Cardiac Diet. Revisit per MD consult or patient Sign Off request: Additional Comments Continue monitoring food tolerance, %PO intake of meals , and BM.
[2021-05-22] MEDS: HYDROmorphone 1 MG/1 ML INJ IV PRN ×6 (01:03→22:51)
[2021-05-22] MEDS: FERROUS SULFATE 325 MG TAB PO SCH ×2 (10:06→21:43)
[2021-05-22] MEDS: SUCRALFATE 1 GM TAB PO SCH ×2 (10:07→21:43)
[2021-05-22] MEDS: ASCORBIC ACID 500 MG TAB PO SCH ×2 (10:07→21:43)
[2021-05-22] MEDS: busPIRone 10 MG TAB PO SCH ×2 (10:07→21:52)
[2021-05-22] MEDS: HEPARIN 5,000 UNIT/1 ML VIAL SUB-Q SCH ×2 (10:07→21:44)
[2021-05-22] MEDS: LEVOTHYROXINE 25 MCG TAB PO SCH (10:07)
[2021-05-22] MEDS: FAMOTIDINE 10 MG TAB PO SCH ×2 (10:07→21:43)
--- NOTE | 2021-05-22 12:44 | Progress Note ---
Subjective Principal diagnosis: Preoperative stratification Interval history: PROGRESS NOTE S: POD #6n ; patient transferred to front floor (COVID-positive floor) for quarantine ? O: Leg is equal length with the opposite lower extremity; mild swelling proximal femur left hip. Dressing on proximal wound shows no drainage and is intact. Distal dressing also shows nice occlusive bandage without significant drainage. Neurovascularly intact A: Satisfactory postop course, postop day #6 for IM nail stabilization , left hip fracture; P: 1. unclear whether she will be able to be transfer to a alf facility which is what she normally would require. Meantime she must continue to receive daily physical therapy and continuous progress towards recovery.. There is poor/no communication with case management regarding discharge plans. Is starting to have a deleterious effect on patient's care and outcome. Objective Vital signs: Vital Signs - 12hr 05/22/21 05/22/21 05/22/21 01:03 01:33 05:38 Temperature Pulse Rate Respiratory 20 20 20 Rate Blood Pressure O2 Sat by Pulse Oximetry 05/22/21 05/22/21 05/22/21 06:00 06:08 10:00 Temperature Pulse Rate 71 Respiratory 20 20 Rate Blood Pressure O2 Sat by Pulse 96 Oximetry 05/22/21 05/22/21 10:48 11:01 Temperature 97.7 F Pulse Rate 68 Respiratory 18 20 Rate Blood Pressure 124/59 O2 Sat by Pulse 92 Oximetry - Labs CBC & BMP: 05/14/21 05:17 05/14/21 05:17
[2021-05-22] MEDS: HCTZ 6.25 MG PO SCH (16:02)
[2021-05-22] MEDS: BISOPROLOL PO SCH (16:02)
[2021-05-22] MEDS: SENNOSIDES/DOCUSATE SODIUM 8.6/50 MG TAB PO SCH (21:43)
[2021-05-22] MEDS: traZODone 100 MG TAB PO SCH (21:52)
[2021-05-23] MEDS: HYDROmorphone 1 MG/1 ML INJ IV PRN ×5 (03:14→22:50)
--- NOTE | 2021-05-23 08:39 | Progress Note ---
Assessment and Plan Assessment and plan: --COVID-19 positive 05/15/2021 Isolation precautions Oxygen if needed Vitamin C, zinc sulfate, vitamin D3 --s/p Fall /Left femur intertrochanteric fracture -Left hip x-ray shows acute, comminuted intertrochanteric fracture left femur -Orthopedic surgery evaluated Fall precautions, PT OT --Intertrochanteric fracture, left hip Evaluated by Ortho, patient underwent s/p IM nail stabilization utilizing the [employer] InterTAN nail system, LEFT hip; Continue postop care, IV fluids, pain medications PT OT evaluation, subacute rehab versus home with home health when stable --History of valvular disease -Per patient, she has history of valvular disease -Echocardiogram: EF 55-60%, mild tricuspid regurgitation -Cardiology consulted for cardiac clearance, assistance appreciated --Hypothyroidism -Continue Synthroid =Hypertension -As needed clonidine per -Blood pressure controlled, will hold any medications for now PT recommended subacute rehab placement Patient is hemodynamically and clinically stable CM assisting with subacute versus SNF placement Patient is COVID-positive 05/15/2021 Patient is stable for discharge Awaiting placement 05/21/2021, patient is hemodynamically and clinically stable for discharge Pending SNF placement, patient is COVID-positive status[difficult to place] 05/22/2021; patient is medically stable for discharge. Pending subacute rehab/SNF placement DC planning per case management 05/23/2021; patient is medically stable for discharge, awaiting placement Very difficult to place due to positive COVID status History Interval history: Patient feels better, Anxious to go home Vital signs reviewed Hospitalist Physical - Constitutional Vitals: Temp Pulse Resp BP Pulse Ox 98.4 F 72 20 117/49 96 05/22/21 20:40 05/22/21 20:40 05/23/21 07:54 05/22/21 20:40 05/22/21 20:40 General appearance: Present: no acute distress, well-nourished, other (Mild pain) - EENT Eyes: Present: PERRL, EOM intact - Neck Neck: Present: supple, normal ROM - Respiratory Respiratory effort: normal Respiratory: bilateral: diminished, negative: rales, rhonchi, wheezing - Cardiovascular Rhythm: regular Heart Sounds: Present: S1 & S2 - Extremities Extremities: no ischemia, No edema, abnormal (Postop hip) - Abdominal General gastrointestinal: soft, non-tender, non-distended, normal bowel sounds - Integumentary Integumentary: Present: clear, warm - Psychiatric Psychiatric: appropriate mood/affect, cooperative - Neurologic Neurologic: moves all extremities Results - Labs CBC & Chem 7: 05/14/21 05:17 05/14/21 05:17 Labs: Laboratory Last Values WBC 6.5 K/mm3 (4.5-11.0) 05/14/21 05:17 RBC 3.51 M/mm3 (3.65-5.03) L 05/14/21 05:17 Hgb 11.2 gm/dl (10.1-14.3) 05/14/21 05:17 Hct 33.1 % (30.3-42.9) 05/14/21 05:17 MCV 94 fl (79-97) 05/14/21 05:17 MCH 32 pg (28-32) 05/14/21 05:17 MCHC 34 % (30-34) 05/14/21 05:17 RDW 13.4 % (13.2-15.2) 05/14/21 05:17 Plt Count 173 K/mm3 (140-440) 05/14/21 05:17 Lymph % (Auto) 20.1 % (13.4-35.0) 05/14/21 05:17 [place] % (Auto) 11.6 % (0.0-7.3) H 05/14/21 05:17 Eos % (Auto) 0.0 % (0.0-4.3) 05/14/21 05:17 Baso % (Auto) 0.1 % (0.0-1.8) 05/14/21 05:17 Lymph # (Auto) 1.3 K/mm3 (1.2-5.4) 05/14/21 05:17 [place] # (Auto) 0.8 K/mm3 (0.0-0.8) 05/14/21 05:17 Eos # (Auto) 0.0 K/mm3 (0.0-0.4) 05/14/21 05:17 Baso # (Auto) 0.0 K/mm3 (0.0-0.1) 05/14/21 05:17 Seg Neutrophils % 68.2 % (40.0-70.0) 05/14/21 05:17 Seg Neutrophils # 4.5 K/mm3 (1.8-7.7) 05/14/21 05:17 PT 13.7 Sec. (12.2-14.9) 05/13/21 16:57 INR 0.95 (0.87-1.13) 05/13/21 16:57 APTT 29.1 Sec. (24.2-36.6) 05/13/21 16:57 Sodium 141 mmol/L (137-145) 05/14/21 05:17 Potassium 4.0 mmol/L (3.6-5.0) 05/14/21 05:17 Chloride 102.5 mmol/L (98-107) 05/14/21 05:17 Carbon Dioxide 25 mmol/L (22-30) 05/14/21 05:17 Anion Gap 18 mmol/L 05/14/21 05:17 BUN 16 mg/dL (7-17) 05/14/21 05:17 Creatinine 0.6 mg/dL (0.6-1.2) 05/14/21 05:17 Estimated GFR > 60 ml/min 05/14/21 05:17 BUN/Creatinine Ratio 27 % 05/14/21 05:17 Glucose 141 mg/dL (65-100) H 05/14/21 05:17 Calcium 8.9 mg/dL (8.4-10.2) 05/14/21 05:17 TSH 4.520 mlU/mL (0.270-4.200) H 05/13/21 23:48 Free T4 0.99 ng/dL (0.76-1.46) 05/13/21 23:48 Coronavirus (PCR) Positive (Negative) A 05/15/21 11:28 Blood Type AB NEGATIVE 05/16/21 06:47 Antibody Screen Negative 05/16/21 06:47 Lund/IV: Voiding Method Indwelling Catheter Active Medications - Current Medications Current Medications: Generic Name Dose Route Start Last Admin Trade Name Freq PRN Reason Stop Dose Admin Acetaminophen 650 mg 05/13/21 18:39 05/20/21 04:28 Acetaminophen 325 Mg Tab PO 650 mg Q6H PRN Administration Pain MILD(1-3)/Fever >100.5/SANTAMARIA Albuterol 2.5 mg 05/13/21 18:05 Albuterol 2.5 Mg/3 Ml Nebu IH Q4HRT PRN Shortness Of Breath Ascorbic Acid 500 mg 05/13/21 22:00 05/22/21 21:43 Ascorbic Acid 500 Mg Tab PO 500 mg BID AMANDA Administration Bisoprolol Fumarate 1 each 05/18/21 18:00 05/22/21 16:02 Bisoprolol 10 Mg/Hctz 6.25 Mg Tab PO 1 each QDAY AMANDA Administration Buspirone HCl 30 mg 05/14/21 10:00 05/22/21 21:52 Buspirone 10 Mg Tab PO 30 mg BID AMANDA Administration Famotidine 10 mg 05/16/21 22:00 05/22/21 21:43 Famotidine 10 Mg Tab PO 10 mg BID AMANDA Administration Ferrous Sulfate 325 mg 05/13/21 22:00 05/22/21 21:43 Ferrous Sulfate 325 Mg Tab PO 325 mg BID AMANDA Administration Heparin Sodium (Porcine) 5,000 unit 05/14/21 10:00 05/22/21 21:44 Heparin 5,000 Unit/1 Ml Vial SUB-Q 5,000 unit Q12HR AMANDA Administration Hydromorphone HCl 0.5 mg 05/13/21 18:39 05/23/21 07:54 Hydromorphone 1 Mg/1 Ml Inj IV 0.5 mg Q4H PRN Administration Pain , Severe (7-10) Sodium Chloride 1,000 mls @ 100 mls/hr 05/13/21 18:15 05/18/21 10:23 Nacl 0.9% 1000 Ml IV 100 mls/hr DIRECT AMANDA Administration Levothyroxine Sodium 25 mcg 05/14/21 10:00 05/22/21 10:07 Levothyroxine 25 Mcg Tab PO 25 mcg QAM AMANDA Administration Ondansetron HCl 4 mg 05/13/21 18:05 05/15/21 14:45 Ondansetron 4 Mg/2 Ml Inj IV 4 mg Q8H PRN Administration Nausea And Vomiting Oxycodone/Acetaminophen 1 tab 05/13/21 18:39 05/21/21 18:02 Oxycodone /Acetaminophen 5-325mg Tab PO 1 tab Q8H PRN Administration Pain, Moderate (4-6) Senna/Docusate Sodium 2 tab 05/13/21 22:00 05/22/21 21:43 Sennosides/Docusate Sodium 8.6/50 Mg Tab PO 2 tab QHS AMANDA Administration Sodium Chloride 10 ml 05/13/21 18:05 Sodium Chloride 0.9% 10 Ml Flush Syringe IV PRN PRN LINE FLUSH Sodium Chloride 10 ml 05/13/21 22:00 05/22/21 21:52 Sodium Chloride 0.9% 10 Ml Flush Syringe IV 10 ml BID AMANDA Administration Sucralfate 1 gm 05/13/21 22:00 05/22/21 21:43 Sucralfate 1 Gm Tab PO 1 gm BID AMANDA Administration Trazodone HCl 100 mg 05/13/21 22:00 05/22/21 21:52 Trazodone 100 Mg Tab PO 100 mg QHS AMANDA Administration Nutrition/Malnutrition Assess - Dietary Evaluation Nutrition/Malnutrition Findings: Nutrition Notes Start: 05/20/21 10:46 Freq: Status: Active Protocol: Document 05/20/21 10:46 ADRYAN (Rec: 05/20/21 11:10 ADRYAN [id number]) Nutrition Notes Need for Assessment generated from: LOS Initial or Follow up Assessment Current Diagnosis Malnutrition Other Pertinent Diagnosis Post-op L-Hip fracture, Dementia, Cerebral atherosclerosis, Hypothyroidism. Current Diet Cardiac Diet (since D 05/13). Labs/Tests 05/20: N/A. Pertinent Medications 05/20: Vit C, Levothyroxine, others nutritionally unremarkable. 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 Pt is recovering well from surgery (L-Hip Fracture), on Physical Theraphy, partial weight bearing with walker at all times, according to Progress notes. Pt's PO intake of meals has been Good (100%), according to ADL notes. Pt presents acute malnutrition , and was on ONS, now d/c, accoeding to Progress notes. Percent of energy/protein needs met: Prescribed Cardiac Diet provides for energy/protein needs (2,230 Kcal/85 g) during LOS. Burn Absent Trauma Present GI Symptoms None Food Allergy No Skin Integrity/Comment Surgical area. Current % PO Good (75-100%) Minimum of two criteria No Is patient on ventilator? No Is Patient Ambulatory and/or Out of Bed Yes REE-([place]-St. Jeor-ambulatory/OOB) [ 1271.569 NUTR.MSJOOB] Kcal/Kg value to use for calculation 18 Approximate Energy Requirements Using 970 kcal/Kg Calculation Used for Recommendations Kcal/kg Additional Notes Protein: 1-1.2 g/Kg; 54-65 g/ day. Fluids: 1 ml/Kcal, or as per MD. Nutrition Intervention Change Diet Order: Continue Cardiac Diet. Revisit per MD consult or patient Sign Off request: Additional Comments Continue monitoring food tolerance, %PO intake of meals , and BM.
[2021-05-23] MEDS: HEPARIN 5,000 UNIT/1 ML VIAL SUB-Q SCH ×2 (10:04→22:50)
[2021-05-23] MEDS: oxyCODONE /ACETAMINOPHEN 5-325MG TAB PO PRN ×2 (10:05→20:13)
[2021-05-23] MEDS: FERROUS SULFATE 325 MG TAB PO SCH ×2 (10:05→22:49)
[2021-05-23] MEDS: ASCORBIC ACID 500 MG TAB PO SCH ×2 (10:05→22:49)
[2021-05-23] MEDS: LEVOTHYROXINE 25 MCG TAB PO SCH (10:05)
[2021-05-23] MEDS: SUCRALFATE 1 GM TAB PO SCH ×2 (10:05→22:49)
[2021-05-23] MEDS: BISOPROLOL PO SCH (10:05)
[2021-05-23] MEDS: HCTZ 6.25 MG PO SCH (10:05)
[2021-05-23] MEDS: FAMOTIDINE 10 MG TAB PO SCH ×2 (10:05→22:49)
[2021-05-23] MEDS: busPIRone 10 MG TAB PO SCH ×2 (10:06→22:55)
[2021-05-23] MEDS: ONDANSETRON 4 MG/2 ML INJ IV PRN (11:29)
[2021-05-23] MEDS: ALPRAZolam 0.25 MG TAB PO PRN (14:38)
[2021-05-23] MEDS: SENNOSIDES/DOCUSATE SODIUM 8.6/50 MG TAB PO SCH (22:47)
[2021-05-23] MEDS: traZODone 100 MG TAB PO SCH (22:47)
[2021-05-24] MEDS: HYDROmorphone 1 MG/1 ML INJ IV PRN ×2 (06:08→10:03)
--- NOTE | 2021-05-24 08:47 | Progress Note ---
Assessment and Plan Assessment and plan: --COVID-19 positive 05/15/2021 Isolation precautions Oxygen if needed Vitamin C, zinc sulfate, vitamin D3 --s/p Fall /Left femur intertrochanteric fracture -Left hip x-ray shows acute, comminuted intertrochanteric fracture left femur -Orthopedic surgery evaluated Fall precautions, PT OT --Intertrochanteric fracture, left hip Evaluated by Ortho, patient underwent s/p IM nail stabilization utilizing the [employer] InterTAN nail system, LEFT hip; Continue postop care, IV fluids, pain medications PT OT evaluation, subacute rehab versus home with home health when stable --History of valvular disease -Per patient, she has history of valvular disease -Echocardiogram: EF 55-60%, mild tricuspid regurgitation -Cardiology consulted for cardiac clearance, assistance appreciated --Hypothyroidism -Continue Synthroid =Hypertension -As needed clonidine per -Blood pressure controlled, will hold any medications for now PT recommended subacute rehab placement Patient is hemodynamically and clinically stable CM assisting with subacute versus SNF placement Patient is COVID-positive 05/15/2021 Patient is stable for discharge Awaiting placement 05/21/2021, patient is hemodynamically and clinically stable for discharge Pending SNF placement, patient is COVID-positive status[difficult to place] 05/22/2021; patient is medically stable for discharge. Pending subacute rehab/SNF placement DC planning per case management 05/23/2021; patient is medically stable for discharge, awaiting placement Very difficult to place due to positive COVID status Hospitalist Physical - Constitutional Vitals: Temp Pulse Resp BP Pulse Ox 98.0 F 65 18 117/43 96 05/24/21 04:48 05/24/21 04:48 05/24/21 04:48 05/24/21 04:48 05/24/21 04:48 General appearance: Present: no acute distress, well-nourished, other (Mild pain) Results - Labs CBC & Chem 7: 05/14/21 05:17 05/14/21 05:17 Labs: Laboratory Last Values WBC 6.5 K/mm3 (4.5-11.0) 05/14/21 05:17 RBC 3.51 M/mm3 (3.65-5.03) L 05/14/21 05:17 Hgb 11.2 gm/dl (10.1-14.3) 05/14/21 05:17 Hct 33.1 % (30.3-42.9) 05/14/21 05:17 MCV 94 fl (79-97) 05/14/21 05:17 MCH 32 pg (28-32) 05/14/21 05:17 MCHC 34 % (30-34) 05/14/21 05:17 RDW 13.4 % (13.2-15.2) 05/14/21 05:17 Plt Count 173 K/mm3 (140-440) 05/14/21 05:17 Lymph % (Auto) 20.1 % (13.4-35.0) 05/14/21 05:17 [place] % (Auto) 11.6 % (0.0-7.3) H 05/14/21 05:17 Eos % (Auto) 0.0 % (0.0-4.3) 05/14/21 05:17 Baso % (Auto) 0.1 % (0.0-1.8) 05/14/21 05:17 Lymph # (Auto) 1.3 K/mm3 (1.2-5.4) 05/14/21 05:17 [place] # (Auto) 0.8 K/mm3 (0.0-0.8) 05/14/21 05:17 Eos # (Auto) 0.0 K/mm3 (0.0-0.4) 05/14/21 05:17 Baso # (Auto) 0.0 K/mm3 (0.0-0.1) 05/14/21 05:17 Seg Neutrophils % 68.2 % (40.0-70.0) 05/14/21 05:17 Seg Neutrophils # 4.5 K/mm3 (1.8-7.7) 05/14/21 05:17 PT 13.7 Sec. (12.2-14.9) 05/13/21 16:57 INR 0.95 (0.87-1.13) 05/13/21 16:57 APTT 29.1 Sec. (24.2-36.6) 05/13/21 16:57 Sodium 141 mmol/L (137-145) 05/14/21 05:17 Potassium 4.0 mmol/L (3.6-5.0) 05/14/21 05:17 Chloride 102.5 mmol/L (98-107) 05/14/21 05:17 Carbon Dioxide 25 mmol/L (22-30) 05/14/21 05:17 Anion Gap 18 mmol/L 05/14/21 05:17 BUN 16 mg/dL (7-17) 05/14/21 05:17 Creatinine 0.6 mg/dL (0.6-1.2) 05/14/21 05:17 Estimated GFR > 60 ml/min 05/14/21 05:17 BUN/Creatinine Ratio 27 % 05/14/21 05:17 Glucose 141 mg/dL (65-100) H 05/14/21 05:17 Calcium 8.9 mg/dL (8.4-10.2) 05/14/21 05:17 TSH 4.520 mlU/mL (0.270-4.200) H 05/13/21 23:48 Free T4 0.99 ng/dL (0.76-1.46) 05/13/21 23:48 Coronavirus (PCR) Positive (Negative) A 05/15/21 11:28 Blood Type AB NEGATIVE 05/16/21 06:47 Antibody Screen Negative 05/16/21 06:47 [place]/IV: Voiding Method Indwelling Catheter Active Medications - Current Medications Current Medications: Generic Name Dose Route Start Last Admin Trade Name Freq PRN Reason Stop Dose Admin Acetaminophen 650 mg 05/13/21 18:39 05/20/21 04:28 Acetaminophen 325 Mg Tab PO 650 mg Q6H PRN Administration Pain MILD(1-3)/Fever >100.5/[place] Albuterol 2.5 mg 05/13/21 18:05 Albuterol 2.5 Mg/3 Ml Nebu IH Q4HRT PRN Shortness Of Breath Alprazolam 0.25 mg 05/23/21 12:00 05/23/21 14:38 Alprazolam 0.25 Mg Tab PO 0.25 mg Q8H PRN Administration Anxiety Ascorbic Acid 500 mg 05/13/21 22:00 05/23/21 22:49 Ascorbic Acid 500 Mg Tab PO 500 mg BID AMANDA Administration Bisoprolol Fumarate 1 each 05/18/21 18:00 05/23/21 10:05 Bisoprolol 10 Mg/Hctz 6.25 Mg Tab PO 1 each QDAY AMANDA Administration Buspirone HCl 30 mg 01/08/22 10:00 05/23/21 22:55 Buspirone 10 Mg Tab PO 30 mg BID AMANDA Administration Famotidine 10 mg 05/16/21 22:00 05/23/21 22:49 Famotidine 10 Mg Tab PO 10 mg BID AMANDA Administration Ferrous Sulfate 325 mg 05/13/21 22:00 05/23/21 22:49 Ferrous Sulfate 325 Mg Tab PO 325 mg BID AMANDA Administration Heparin Sodium (Porcine) 5,000 unit 05/14/21 10:00 05/23/21 22:50 Heparin 5,000 Unit/1 Ml Vial SUB-Q 5,000 unit Q12HR AMANDA Administration Hydromorphone HCl 0.5 mg 05/13/21 18:39 05/24/21 06:08 Hydromorphone 1 Mg/1 Ml Inj IV 0.5 mg Q4H PRN Administration Pain , Severe (7-10) Sodium Chloride 1,000 mls @ 100 mls/hr 05/13/21 18:15 05/18/21 10:23 Nacl 0.9% 1000 Ml IV 100 mls/hr DIRECT AMANDA Administration Levothyroxine Sodium 25 mcg 05/14/21 10:00 05/23/21 10:05 Levothyroxine 25 Mcg Tab PO 25 mcg QAM AMANDA Administration Ondansetron HCl 4 mg 05/13/21 18:05 05/23/21 11:29 Ondansetron 4 Mg/2 Ml Inj IV 4 mg Q8H PRN Administration Nausea And Vomiting Oxycodone/Acetaminophen 1 tab 05/13/21 18:39 05/23/21 20:13 Oxycodone /Acetaminophen 5-325mg Tab PO 1 tab Q8H PRN Administration Pain, Moderate (4-6) Senna/Docusate Sodium 2 tab 05/13/21 22:00 05/23/21 22:47 Sennosides/Docusate Sodium 8.6/50 Mg Tab PO 2 tab QHS AMANDA Administration Sodium Chloride 10 ml 05/13/21 18:05 Sodium Chloride 0.9% 10 Ml Flush Syringe IV PRN PRN LINE FLUSH Sodium Chloride 10 ml 05/13/21 22:00 05/23/21 22:51 Sodium Chloride 0.9% 10 Ml Flush Syringe IV 10 ml BID AMANDA Administration Sucralfate 1 gm 05/13/21 22:00 05/23/21 22:49 Sucralfate 1 Gm Tab PO 1 gm BID AMANDA Administration Trazodone HCl 100 mg 05/13/21 22:00 05/23/21 22:47 Trazodone 100 Mg Tab PO 100 mg QHS AMANDA Administration Nutrition/Malnutrition Assess - Dietary Evaluation Nutrition/Malnutrition Findings: Nutrition Notes Start: 05/20/21 10:46 Freq: Status: Active Protocol: Document 05/20/21 10:46 ADRYAN (Rec: 05/20/21 11:10 ADRYAN [id number]) Nutrition Notes Need for Assessment generated from: LOS Initial or Follow up Assessment Current Diagnosis Malnutrition Other Pertinent Diagnosis Post-op L-Hip fracture, Dementia, Cerebral atherosclerosis, Hypothyroidism. Current Diet Cardiac Diet (since D 05/13). Labs/Tests 05/20: N/A. Pertinent Medications 05/20: Vit C, Levothyroxine, others nutritionally unremarkable. 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 Weight Status Appropriate Subjective/Other Information RD consult for LOS assessment. Pt is recovering well from surgery (L-Hip Fracture), on Physical Theraphy, partial weight bearing with walker at all times, according to Progress notes. Pt's PO intake of meals has been Good (100%), according to ADL notes. Pt presents acute malnutrition , and was on ONS, now d/c, accoeding to Progress notes. Percent of energy/protein needs met: Prescribed Cardiac Diet provides for energy/protein needs (2,230 Kcal/85 g) during LOS. Burn Absent Trauma Present GI Symptoms None Food Allergy No Skin Integrity/Comment Surgical area. Current % PO Good (75-100%) Minimum of two criteria No Is patient on ventilator? No Is Patient Ambulatory and/or Out of Bed Yes REE-(Duncan-St. Jeor-ambulatory/OOB) [ 1271.569 NUTR.MSJOOB] Kcal/Kg value to use for calculation 18 Approximate Energy Requirements Using 970 kcal/Kg Calculation Used for Recommendations Kcal/kg Additional Notes Protein: 1-1.2 g/Kg; 54-65 g/ day. Fluids: 1 ml/Kcal, or as per MD. Nutrition Intervention Change Diet Order: Continue Cardiac Diet. Revisit per MD consult or patient Sign Off request: Additional Comments Continue monitoring food tolerance, %PO intake of meals , and BM.
[2021-05-24] MEDS: busPIRone 10 MG TAB PO SCH (10:04)
[2021-05-24] MEDS: HEPARIN 5,000 UNIT/1 ML VIAL SUB-Q SCH (10:04)
[2021-05-24] MEDS: BISOPROLOL PO SCH (10:04)
[2021-05-24] MEDS: HCTZ 6.25 MG PO SCH (10:04)
[2021-05-24] MEDS: SUCRALFATE 1 GM TAB PO SCH (10:05)
[2021-05-24] MEDS: ALPRAZolam 0.25 MG TAB PO PRN (10:05)
[2021-05-24] MEDS: FAMOTIDINE 10 MG TAB PO SCH (10:05)
[2021-05-24] MEDS: LEVOTHYROXINE 25 MCG TAB PO SCH (10:05)
[2021-05-24] MEDS: FERROUS SULFATE 325 MG TAB PO SCH (10:05)
[2021-05-24] MEDS: ASCORBIC ACID 500 MG TAB PO SCH (10:05)
[2021-05-24 17:02] VITALS: BP 114/31
== END 2021-05-24 17:30 | DRG 480 ==
LOC: ED 14:15 → 4A 18:05 → 3A 05-21 21:02
PROVIDERS: ADMIT Internal Medicine; ATTEND Internal Medicine
PROC: 0QS706Z Reposition Left Upper Femur with Intramedullary Internal Fixation Device, Open Approach (ICD-10-PCS; principal; 2021-05-16)
DX: S72.145A Nondisplaced intertrochanteric fracture of left femur, initial encounter for closed fracture (principal); U07.1 COVID-19; E46 Unspecified protein-calorie malnutrition; I10 Essential (primary) hypertension; E03.9 Hypothyroidism, unspecified; I67.2 Cerebral atherosclerosis; Z68.21 Body mass index [BMI] 21.0-21.9, adult; W18.39XA Other fall on same level, initial encounter; Y93.89 Activity, other specified; Y92.89 Other specified places as the place of occurrence of the external cause; Y99.8 Other external cause status; M19.90 Unspecified osteoarthritis, unspecified site; E86.9 Volume depletion, unspecified; K21.9 Gastro-esophageal reflux disease without esophagitis; F41.9 Anxiety disorder, unspecified; R53.81 Other malaise; F32.9 Major depressive disorder, single episode, unspecified; F01.50 Vascular dementia, unspecified severity, without behavioral disturbance, psychotic disturbance, mood disturbance, and anxiety; Z88.6 Allergy status to analgesic agent; Z91.040 Latex allergy status; Z88.5 Allergy status to narcotic agent; Z88.2 Allergy status to sulfonamides; Z88.8 Allergy status to other drugs, medicaments and biological substances; Z91.048 Other nonmedicinal substance allergy status; Z90.49 Acquired absence of other specified parts of digestive tract; Z82.49 Family history of ischemic heart disease and other diseases of the circulatory system
CPT/HCPCS: 36415; 71045; 80048; 84439; 84443; 85025; 85610; 85730; 86850; 86900; 86901; 93005; 93306; G0378; J3490; J7120; Q0162; C1713; J1170; J1644; J2250; J2405; J2704; J3010; J7030; U0003

== ENCOUNTER 2021-06-07 13:44 | Outpatient (CLI) | payer MEDICARE ==
--- NOTE | 2021-06-07 15:48 | XRay Report ---
PELVIS AND BOTH HIPS 4 VIEWS 1421 INDICATION: PAIN IN UNSPECIFIED HIP M25.559 COMPARISON: 05/13/2021 FINDINGS: Intramedullary rods are now seen in the left proximal femur transfixing the intertrochanter ic fracture. Satisfactory alignment is seen. Rods are also again noted in the right femur with no acu te abnormalities on the right. No dislocations are seen. Lower lumbar degenerative changes are noted. Signer Name: Jose Kohli MD Signed: 06/07/2021 3:43 PM Workstation Name: [id number]
== END 2021-06-07 13:45 | disposition home or self-care (01) ==
LOC: XRAY 13:44
PROVIDERS: ATTEND Orthopaedic Surgery
DX: S72.142A Displaced intertrochanteric fracture of left femur, initial encounter for closed fracture (principal); M16.11 Unilateral primary osteoarthritis, right hip; X58.XXXA Exposure to other specified factors, initial encounter; Y93.89 Activity, other specified; Y92.89 Other specified places as the place of occurrence of the external cause; Y99.8 Other external cause status
CPT/HCPCS: 72170

== ENCOUNTER 2021-06-28 12:05 | Outpatient (CLI) | payer MEDICARE ==
--- NOTE | 2021-06-28 14:02 | XRay Report ---
AP pelvis INDICATION: M25.559 PAIN IN UNSPECIFIED HIP. COMPARISON: Pelvic radiograph from 06/07/2021 IMPRESSION: Progressive healing left hip fracture with no acute abnormality or malalignment. Both fe moral neck fixations are intact without complication. No significant DJD. Soft tissues are unremarka ble. Signer Name: Andrea Alejandra MD Signed: 06/28/2021 1:57 PM Workstation Name: [id number]
== END 2021-06-28 12:06 | disposition home or self-care (01) ==
LOC: XRAY 12:05
PROVIDERS: ATTEND Orthopaedic Surgery
DX: S72.002D Fracture of unspecified part of neck of left femur, subsequent encounter for closed fracture with routine healing (principal); X58.XXXD Exposure to other specified factors, subsequent encounter
CPT/HCPCS: 72170

== ENCOUNTER 2021-07-28 09:22 | Outpatient (CLI) | payer MEDICARE ==
--- NOTE | 2021-07-28 11:09 | XRay Report ---
Pelvis and left femur INDICATION: Pain FINDINGS: Bilateral intramedullary rods in the femur. Short lin on the left in lower right on the rig ht. Femoral head neck component. Degenerative change in bilateral hips. Degenerative change in lower lumbar spine. No acute findings. Signer Name: Robin Hartman MD Signed: 07/28/2021 11:05 AM Workstation Name: [email or web address]
== END 2021-07-28 09:23 | disposition home or self-care (01) ==
LOC: XRAY 09:22
PROVIDERS: ATTEND Orthopaedic Surgery
DX: M16.0 Bilateral primary osteoarthritis of hip (principal); M47.816 Spondylosis without myelopathy or radiculopathy, lumbar region
CPT/HCPCS: 72170

== ENCOUNTER 2021-09-15 09:13 | Outpatient (CLI) | payer MEDICARE ==
[2021-09-15 10:09] LABS: Basophils % (Auto) 0.4 % (0.0-1.8); Hemoglobin 13.9 gm/dl (10.1-14.3); Lymphocytes # (Auto) 1.8 K/mm3 (1.2-5.4); Mean Corpuscular HGB Conc 35 % (30-34); Mean Corpuscular Volume 92 fl (79-97); Monocytes # (Auto) 0.3 K/mm3 (0.0-0.8); Monocytes % (Auto) 6.2 % (0.0-7.3); Platelet Count 208 K/mm3 (140-440); Red Blood Count 4.34 M/mm3 (3.65-5.03); Red Cell Distribution Width 13.6 % (13.2-15.2)
[2021-09-15 10:34] LABS: Alanine Aminotransferase 14 units/L (7-56); Albumin 4.5 g/dL (3.9-5); BUN/Creatinine Ratio 16; Blood Urea Nitrogen 13 mg/dL (7-17); Calcium 9.4 mg/dL (8.4-10.2); Hemolysis Index 6
[2021-09-15 10:55] LABS: Free T4 (Free Thyroxine) 0.85 ng/dL (0.76-1.46)
== END 2021-09-15 09:14 | disposition home or self-care (01) ==
LOC: LAB 09:13
PROVIDERS: ATTEND Specialist
DX: R41.3 Other amnesia (principal); E11.9 Type 2 diabetes mellitus without complications
CPT/HCPCS: 36415; 80053; 82607; 82747; 83036; 84207; 84425; 84439; 84443; 85025; 86592

== ENCOUNTER 2021-11-02 13:04 | Outpatient (CLI) | payer MEDICARE ==
--- NOTE | 2021-11-02 14:26 | XRay Report ---
ABDOMEN 1 VIEW(S) INDICATION / CLINICAL INFORMATION: R/O FOREIGN OBJECT. COMPARISON: 12/11/2020 FINDINGS: TUBES / LINES: None. BOWEL GAS PATTERN: No significant abnormality. FREE AIR / EXTRALUMINAL GAS: None seen. ADDITIONAL FINDINGS: Within the left abdomen, there is a 9 mm somewhat rounded density which could be an ingested foreign body. IMPRESSION: 1. 9 mm radiodensity projecting over the left abdomen could be a foreign body (i.e., tooth) within sm all bowel or descending colon. Signer Name: Pedro Nugent MD Signed: 11/02/2021 2:22 PM Workstation Name: [id number]
== END 2021-11-02 13:05 | disposition home or self-care (01) ==
LOC: XRAY 13:04
PROVIDERS: ATTEND Internal Medicine
DX: R10.9 Unspecified abdominal pain (principal)
CPT/HCPCS: 74018

== ENCOUNTER 2021-11-14 09:26 | Outpatient (CLI) | payer MEDICARE ==
--- NOTE | 2021-11-14 10:30 | XRay Report ---
Pelvis Indication pain FINDINGS: Bilateral femoral heads well-seated in this time. Hardware seen in bilateral femurs and fem oral head neck components. Superior and inferior pubic rami appear intact. No acute fracture is defin itely seen. Signer Name: Robin Hartman MD Signed: 11/14/2021 10:26 AM Workstation Name: [email or web address]
== END 2021-11-14 09:27 | disposition home or self-care (01) ==
LOC: XRAY 09:26
PROVIDERS: ATTEND Orthopaedic Surgery
DX: M25.559 Pain in unspecified hip (principal)
CPT/HCPCS: 72170